=== PATIENT | female | born 1965 | race Caucasian/White ===

== ENCOUNTER 2020-03-21 13:57 | Outpatient (REF) | payer OTHER, SELFPAY | END 2020-03-21 13:58 | disposition home or self-care (01) | LOC: HO.LAB 13:57 | PROVIDERS: Visit Provider Internal Medicine | DX: Z20.828 Contact with and (suspected) exposure to other viral communicable diseases (principal) | CPT/HCPCS: C9803; U0003 ==

== ENCOUNTER 2024-03-27 15:30 | Outpatient (AMB) | payer BC, SELFPAY ==
--- NOTE | 2024-03-27 15:26 | MHC.PC.OV ---
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 Intake Note: New patient visit Services Account Manager Required: No Allergies bee pollen [BEE STINGS] Allergy (Unknown, Verified 03/27/24 15:27) ANAPHYLAXIS beeswax [BEESWAX] Allergy (Unknown, Verified 03/27/24 15:27) ANAPHYLAXIS Tobacco use date assessed: 03/27/24 Dental Screening Dental Screen Date: 03/27/24 Did you have a dental visit in the last 12 months?: No Did you have a dental problem in the last 6 months where you did not have access to dental care?: No Was dental information given to patient?: Patient has dentist HPI HPI Comments History of Present Illness Details This is a 58-year-old female with hyperlipidemia, type 2 diabetes, hypertension, migraine headaches, hepatic steatosis, hepatitis-C status post treatment in 2009, gastroparesis, thyroid nodules, asthma and lumbar spondylosis presenting for follow up. Her last physical exam was on 07/20/2023 at [facility] primary care with me. She is doing well. She is taking care of 2 of her grandchildren, a 2-year-old newly diagnosed with autism, and a 10-year-old. Patient says she was adopted, and she loves the kids very much and has no problem helping out with [facility] care. Hypertension-taking metoprolol XL 50 mg and lisinopril 10 mg daily. Her blood pressure is controlled on this regimen. She denies side effects. She has a history of PSVT. No recurrence on beta-daniel. She was released from cardiology follow up. She also reported having a negative stress test in the past. Denies chest pain or shortness of breath. Type 2 diabetes-hemoglobin A1c 7.2% in July, and today it is 8.5%. Eye exam up-to-date. No retinopathy. She is monitoring her blood glucose readings at home. She stopped having sugary snacks. She met with the staff educator. She was told by Dr. Pascual that she could not have bariatric surgery after her initial hernia repair, but she spoke about it with her letterset press set up operator who believe she could be a candidate for surgery. She would like a referral to [facility] weight loss management. Hyperlipidemia-taking atorvastatin 20 mg daily. She is due for blood work. Gastroparesis, Gamble's esophagus-previously followed by Gastroenterology, Dr. Galo. She had a CT scan of the abdomen and pelvis in July 2021 which was normal aside from hepatic steatosis. She had an upper endoscopy in June 2021 which was stable. History of hiatal hernia repair in 2015 at [facility]. She saw Gastroenterology at [facility] this year, and they recommended EGD and colonoscopy in another couple years. She is having another test to see if she actually does have gastroparesis as she does not really have symptoms of it, and it was thought that the large hiatal hernia may have been causing this. She is going to schedule her mammogram at [facility]. She received the Prevnar 20 vaccine in 07/2023. Patient said she had an injection site reaction that lasted a month, and she does not plan to receive this vaccine again. Influenza vaccine administered today. ROS: Constitutional: No unexplained weight loss, fever, chills, fatigue or night sweats. Respiratory: No shortness of breath Cardiovascular: No chest pain Gastrointestinal: No anorexia, nausea, vomiting or diarrhea. No abdominal pain Neurologic: No headache, dizziness, syncope Endocrine: No cold or heat intolerance. No polyuria or polydipsia. Physical exam: Constitutional: Alert, in no distress. Neck: Supple, Full range of motion. No lymphadenopathy. No palpable thyroid masses. Respiratory: Clear to auscultation. Cardiovascular: S1 S2 regular. No murmurs. Extremities: Warm and well perfused. No clubbing, cyanosis or edema. Psychiatric: Normal mood and affect [facility] Medical History (Updated 03/27/24 @ 17:01 by BO Spain) Asthma Rosacea Thyroid nodule Lung nodule PSVT (paroxysmal supraventricular tachycardia) History of hepatitis C Gastroparesis Barretts esophagus Adopted Hepatic steatosis Pure hypercholesterolemia Morbid obesity Migraines Essential hypertension Type II diabetes mellitus Carpal tunnel syndrome Hiatal hernia H/O mammogram Surgical History (Updated 03/27/24 @ 15:30 by Crystal Diggs CMA) Hx of spinal fusion H/O breast biopsy Family History (Updated 03/27/24 @ 15:39 by Crystal Diggs CMA) Other Family history unknown Social History (Updated 03/27/24 @ 15:37 by Crytsal Diggs CMA) Housing: House Alcohol intake: former Patient Tobacco Use Status: Never used Tobacco e-Cigarette/Vaping Use: Never Used Second Hand Smoke Exposure: No Substance Use Type: Former Substance User and Marijuana service: No Current occupational status: employed ([email or web address] ) Current occupational exposures/hazards: No Cognitive needs: No Hearing needs: No Vision needs: Yes (glasses) Questionnaire AUDIT C Alcohol Use Questionnaire (AUDIT-C) 1. How often do you have a drink containing alcohol?: Never (rarely, when camping.) 3. How often do you have six or more drinks on one occasion?: Never Total Score: 0 ACT Questionnaire In the past 4 weeks, how much of the time did your asthma keep you from getting as much done at work, school or at home?: Some of the time During the past 4 weeks, how often have you had shortness of breath?: More than once a day During the past 4 weeks, how often did your asthma symptoms wake you up at night or earlier than usual in the morning?: Not at all During the past 4 weeks, how often have you had to use your rescue inhaler or nebulizer medication?: More than 3 times per day How would you rate your asthma control during the past 4 weeks?: Somewhat controlled ACT Interpretation: Positive Score: 13 Physical exam (Primary Care) Vital Signs: Last Vital Signs Pulse 90 03/27/24 15:43 Resp 14 03/27/24 15:43 BP 104/62 03/27/24 15:43 Pulse Ox 97 03/27/24 15:43 Oxygen Delivery Method Room Air 03/27/24 15:43 BMI result Body Mass Index 42.4 Tobacco/Smoking Status: Tobacco use Status Tobacco use date assessed 03/27/24 03/27/24 15:30 Patient Tobacco Use Status Never used Tobacco 03/27/24 15:37 e-Cigarette/Vaping Use Never Used 03/27/24 15:37 Results AMB Hemoglobin A1c AMB Hemoglobin A1c 8.5 % Last Edit by Crystal Diggs CMA on 03/27/24 15:56 Results Reviewed Results Reviewed: Laboratory Last Values Hgb A1c (Clinic) 8.5 % (4.0-6.0) H 03/27/24 15:52 Coding Level of Care Code Est Pt Level 4 (41938) Complex EM visit Add On G2211 Diagnoses Pure hypercholesterolemia E78.00 Hepatic steatosis K76.0 Type II diabetes mellitus E11.9 Essential hypertension I10 Morbid obesity E66.01 Additional Codes Asthma Control Questionnaire - ACT Interpretation: Positive ([id number]) Assessment & Plan Assessment & Plan (1) Pure hypercholesterolemia: Code(s): E78.00 - Pure hypercholesterolemia, unspecified Category: Medical Plan: Check fasting lipid profile. Recommended the Mediterranean diet. Continue efforts at weight loss. Continue atorvastatin. (2) Hepatic steatosis: Code(s): K76.0 - Fatty (change of) liver, not elsewhere classified Category: Medical Plan: Monitor LFTs. Avoid alcohol. Continue statin and we are working on glycemic control. Low-cholesterol diet recommended. (3) Type II diabetes mellitus: Code(s): E11.9 - Type 2 diabetes mellitus without complications Category: Medical Plan: Start metformin extended release 500 mg daily for a week and then increase to 1000 mg daily. Side effects reviewed with the patient. She will contact the office if she has difficulty with the medication. Eye exam up-to-date. Low carbohydrate, low sugar diet recommended. Referred to weight loss management. We discussed GLP 1- if her new scan shows that she does not have gastroparesis she could be a good candidate for this medication. (4) Essential hypertension: Code(s): I10 - Essential (primary) hypertension Category: Medical Plan: Controlled. Continue current regimen. Recommended low-sodium diet and avoidance of caffeine. (5) Morbid obesity: Code(s): E66.01 - Morbid (severe) obesity due to excess calories Category: Medical Plan: Check fasting labs and refer to weight loss management. See above notes. Plan Follow up in 3 months for diabetes. Orders: Orders AMB Hemoglobin A1c Today E11.9 - Type 2 diabetes mellitus without complications Comprehensive Met. Panel Today E11.9 - Type 2 diabetes mellitus without complications, G43.909 - Migraine, unspecified, not intractable, without status migrainosus, I10 - Essential (primary) hypertension Complete Blood Count no Diff Today E11.9 - Type 2 diabetes mellitus without complications, G43.909 - Migraine, unspecified, not intractable, without status migrainosus, I10 - Essential (primary) hypertension Influenza [id number] Immunization Today Z23 - Encounter for immunization Lipid Panel Today E11.9 - Type 2 diabetes mellitus without complications, E78.5 - Hyperlipidemia, unspecified, G43.909 - Migraine, unspecified, not intractable, without status migrainosus, I10 - Essential (primary) hypertension TSH reflex Free T4 Today E11.9 - Type 2 diabetes mellitus without complications, G43.909 - Migraine, unspecified, not intractable, without status migrainosus, I10 - Essential (primary) hypertension Microalbumin, Random (w Creat) Today E11.9 - Type 2 diabetes mellitus without complications, G43.909 - Migraine, unspecified, not intractable, without status migrainosus, I10 - Essential (primary) hypertension Referrals Medical Weight Management Referral E66.01 - Morbid (severe) obesity due to excess calories Medications: New Fluarix Triv [id number] (PF) (flu vacc [id number] 6mos up(PF)) 0.5 mL IM ONCE 0.5 mL 0RF NS Z23 - Encounter for immunization amitriptyline 50 mg PO BEDTIME 90 tabs 3RF atorvastatin 20 mg PO DAILY 90 tabs 3RF topiramate Take with Topiramate 100 mg for a total daily dose of 125 mg. 25 mg PO DAILY 90 tabs 3RF metoprolol succinate ER 50 mg PO DAILY 90 tabs 3RF lisinopril 10 mg PO DAILY 90 tabs 3RF topiramate 100 mg PO DAILY 90 tabs 3RF sertraline 150 mg (1.5 x 100 mg) PO DAILY 135 tabs 3RF magnesium oxide 400 mg PO DAILY 90 tabs 3RF pantoprazole 40 mg PO DAILY 90 tabs 3RF metformin ER 1,000 mg (2 x 500 mg) PO DAILY 180 tabs 3RF
[2024-03-27 15:43] VITALS: BP 104/62; PULSE 90; RESP 14; O2SAT 97; BMI 42.4
== END 2024-03-27 16:31 | disposition home or self-care (01) ==
PROVIDERS: PCP Physician Assistant Medical; Visit Provider Physician Assistant Medical
DX: E78.00 Pure hypercholesterolemia, unspecified (principal); E11.9 Type 2 diabetes mellitus without complications; E66.01 Morbid (severe) obesity due to excess calories; Z68.41 Body mass index [BMI] 40.0-44.9, adult; K76.0 Fatty (change of) liver, not elsewhere classified; I10 Essential (primary) hypertension

== ENCOUNTER → 2024-03-27 15:30 | Outpatient (BNVA) | payer BC, SELFPAY | PROVIDERS: Visit Provider Physician Assistant Medical | DX: E78.00 Pure hypercholesterolemia, unspecified (principal); K76.0 Fatty (change of) liver, not elsewhere classified; E11.9 Type 2 diabetes mellitus without complications; I10 Essential (primary) hypertension; E66.01 Morbid (severe) obesity due to excess calories; Z68.41 Body mass index [BMI] 40.0-44.9, adult; Z79.899 Other long term (current) drug therapy | CPT/HCPCS: 83036; 96160 ==

== ENCOUNTER 2024-05-19 10:06 | Outpatient (AMB) | payer BC, SELFPAY ==
--- NOTE | 2024-05-19 10:56 | MHC.OFFWIV ---
Intake Vital Signs 05/19/24 11:01 Height 5 ft 3 in Weight 237 lb 2 oz BMI 42.0 BP 104/68 Blood Pressure Location Rt brachial Position Sitting Respiration 13 Pulse 100 Pulse Source Pulse Oximeter Temp 97.6 F Temp Source Oral Pulse Oximetry (%) 97 Oxygen Delivery Method Room Air Intake Visit Reasons: cough/ flu positive (xrays done at [facility]) Intake Note: Patient was seen at [facility] yesterday 05/18/23 but patient left. Patient complaining of coughing none stop it started Wednesday but got worse Wednesday. Patient Tobacco Use Status: Never used Tobacco Allergies bee pollen [BEE STINGS] Allergy (Unknown, Verified 05/19/24 11:10) ANAPHYLAXIS beeswax [BEESWAX] Allergy (Unknown, Verified 05/19/24 11:10) ANAPHYLAXIS Medication List - Last Reconciled 05/19/24 by Naty Lucero, [facility] amitriptyline 50 mg PO BEDTIME atorvastatin 20 mg PO DAILY budesonide-formoterol 80-4.5 mcg/actuation (Symbicort) inhalation lisinopril 10 mg PO DAILY magnesium oxide 400 mg PO DAILY metformin ER 1,000 mg (2 x 500 mg) PO DAILY metoprolol succinate ER 50 mg PO DAILY pantoprazole 40 mg PO DAILY sertraline 150 mg (1.5 x 100 mg) PO DAILY tiotropium bromide 1.25 mcg/actuation (Spiriva Respimat) 2 puffs inhalation DAILY topiramate 25 mg PO DAILY topiramate 100 mg PO DAILY Do you need a note to return to daycare/school/sports/work: Yes HPI HPI Comments History of Present Illness Details History of Present Illness The patient is a 58-year-old female presenting with influenza. She reports a diagnosis of influenza confirmed last night at [facility] and indicates severe and painful coughing, which significantly affects her ability to function normally and rest adequately. Pain from coughing has been substantial, and she describes difficulty in coughing due to the associated discomfort. She was seen previously, with a chest x-ray negative for pneumonia. The patient has not taken Tamiflu previously. She also suffers from diabetes mellitus and asthma, which are of concern regarding potential complications from the flu. She has expressed exhaustion and reported that she has not slept well since Wednesday. She is concerned about the interplay of diabetes and asthma with her current influenza condition. Social History - Patient works in [employer] projects related to [employer], with responsibilities for large-scale installations. - Significant work tenure of 25 years in the industry. - Utilizes vacation and time off for sick leave as needed. Physical Exam General: Awake, alert. No apparent distress Eyes: Sclera and conjunctiva clear bilaterally Nose: Nares patent, turbinates within normal limits, no sinus tenderness with palpation bilaterally Ears: Tympanic membranes intact and clear bilaterally Throat: Moist mucosa membrane, pharynx within normal limits Cardiovascular: Regular rate and rhythm Respiratory: Lungs sound okay now, clear to auscultation bilaterally, dry hacking cough w/o distress Results - Tests: Chest x-ray negative for pneumonia, Flu + @ [facility] records reviewed. Plan - Initiate Oseltamivir Tamiflu) 1 tablet twice daily for 5 days, beginning immediately. - Prescribe Benzonatate Tessalon for daytime cough management PRN - Provide a cough syrup containing codeine for nighttime use. - Advise continued use of antipyretics such as acetaminophen for fever management. - Recommend increased fluid intake over food consumption. - Issue a medical work note for absence and recovery period. Patient was informed and verbally consented to the use of an ambient scribe for clinic note documentation during this visit. Discussion Notes I discussed the influenza diagnosis and the management strategy with the patient, including starting Oseltamivir to limit viral replication and speed up recovery while reducing contagiousness. I explained the use of Benzonatate during the day and codeine syrup at night, instructing not to take them together to manage coughs effectively. We discussed the continuation of acetaminophen to control fever, highlighting the importance of maintaining hydration with fluids. I advised her on monitoring symptoms due to potential complications from diabetes and asthma, ensuring she returns if symptoms do not improve or worsen. We addressed the work absence, aligning her return with her recovery, extending through the , considering her longstanding work history and available leave. Patient Instructions - Start taking Tamiflu as soon as possible, 1 tablet twice a day for 5 days. - Use Tessalon for daytime cough management. - Take cough syrup with codeine at night or when resting. - Do not take Tessalon and the cough syrup together. - Continue using Tylenol to manage fever and aches. - Focus on staying hydrated with fluids rather than food. - Monitor symptoms, and contact the office if they worsen, especially concerning fever or difficulty breathing. - A formal work absence note has been provided, with a return scheduled for May 29. - Stay away from work until symptoms improve to avoid spreading the infection. - Use the portal for any follow-up note amendments if needed. Cont inhalers as directed and DM mgmt This note is constructed using voice recognition software. While every effort has been made to ensure accuracy in recycling attendant, still errors may have been included Sometimes, these errors may affect the content or meaning of the given sentence . Total time spent caring for the patient today was 30 minutes. This includes time spent before the visit reviewing the chart, time spent during the visit, and time spent after the visit on documentation PENDING SALE TO [facility] Medical History (Updated 05/19/24 @ 14:08 by Naty Lucero [facility]) Asthma Rosacea Thyroid nodule Lung nodule PSVT (paroxysmal supraventricular tachycardia) History of hepatitis C Gastroparesis Barretts esophagus Adopted Hepatic steatosis Pure hypercholesterolemia Morbid obesity Migraines Essential hypertension Type II diabetes mellitus Carpal tunnel syndrome Hiatal hernia H/O mammogram Surgical History (Updated 03/27/24 @ 15:30 by Crystal Diggs CMA) Hx of spinal fusion H/O breast biopsy Family History (Updated 03/27/24 @ 15:39 by Crystal Diggs CMA) Other Family history unknown Social History (Updated 03/27/24 @ 15:37 by Crystal Diggs CMA) Housing: House Alcohol intake: former Patient Tobacco Use Status: Never used Tobacco e-Cigarette/Vaping Use: Never Used Second Hand Smoke Exposure: No Substance Use Type: Former Substance User and Marijuana service: No Current occupational status: employed ([employer] ) Current occupational exposures/hazards: No Cognitive needs: No Hearing needs: No Vision needs: Yes (glasses) Physical Exam Vital Signs: Last Vital Signs Temp 97.6 F 05/19/24 11:01 Pulse 100 05/19/24 11:01 Resp 13 05/19/24 11:01 BP 104/68 05/19/24 11:01 Pulse Ox 97 05/19/24 11:01 Oxygen Delivery Method Room Air 05/19/24 11:01 BMI result Body Mass Index 42.0 Assessment & Plan Assessment & Plan (1) Hospital discharge follow-up: Code(s): Z09 - Encounter for follow-up examination after completed treatment for conditions other than malignant neoplasm (2) Influenza: Code(s): J11.1 - Influenza due to unidentified influenza virus with other respiratory manifestations (3) Type II diabetes mellitus: Code(s): E11.9 - Type 2 diabetes mellitus without complications Qualifiers: Diabetes mellitus [facility] insulin use: without director long term care use Diabetes mellitus complication status: without complication Qualified Code(s): E11.9 - Type 2 diabetes mellitus without complications (4) Asthma: Code(s): J45.909 - Unspecified asthma, uncomplicated Qualifiers: Asthma severity: mild Asthma persistence: intermittent Asthma complication type: uncomplicated Qualified Code(s): J45.20 - Mild intermittent asthma, uncomplicated Plan . Medications: New benzonatate 100 mg PO TID PRN 30 caps 1RF cough 10 days oseltamivir (Tamiflu) 75 mg PO Q12H 10 caps 0RF 5 days codeine-guaifenesin 10-100 mg/5 mL 10 mL PO ONCE PRN 70 mL 0RF cough 7 days Coding Level of Care Code Est Pt Level 4 (83445) Diagnoses Hospital discharge follow-up Z09 Influenza J11.1 Type 2 diabetes mellitus without complication, without long-term current use of insulin E11.9 Diabetes mellitus director long term care insulin use: without m[facility] use Diabetes mellitus complication status: without complication Mild intermittent asthma without complication J45.20 Asthma severity: mild Asthma persistence: intermittent Asthma complication type: uncomplicated
[2024-05-19 11:01] VITALS: BP 104/68; PULSE 100; RESP 13; TEMP 36.4; O2SAT 97; BMI 42.0
--- OUTSIDE RECORDS SUMMARY | 2024-05-19 11:21 | XMS_ITS ---
Author Name [facility] Organization Unknown History of Medication Use Medication Directions Dispensed Refills Start Date End Date Stat us EPINEPHrine 0.15 mg/0.3 mL IJ auto-injection Inject 0.6 mL (0.3 mg total) into the shoulder, thigh, or buttocks once as needed for allergic reaction. 10/16/2022 active albuterol (PROVENTIL HFA; VENTOLIN HFA) 108 (90 Base) MCG/ACT inhaler Inhale 2 puffs 4 times daily (every 6 hours) as needed for wheezing or shortness of breath. 10/16/2022 active Problems Problem Status Onset Date Problem Type Date of Resoluti on Source Migraine active 2013-10-25 ProblemAct [facility] Asthma active 2013-10-25 ProblemAct [facility] PSVT (paroxysmal supraventricular tachycardia) active 2020-07-30 ProblemAct [facility] Rosacea active 2013-10-25 ProblemAct [facility] Mixed hyperlipidemia active 2016-03-24 ProblemAct [facility] Allergic rhinitis active 2014-02-21 ProblemAct [facility] Screening for colon cancer active 2019-01-08 ProblemAct [facility] History of hepatitis C active 2016-03-24 ProblemAct [facility] Anxiety state active 2013-10-25 ProblemAct [facility] Functional diarrhea active 2019-01-04 ProblemAct [facility] Palpitations active 2020-07-30 ProblemAct [facility] Displacement of lumbar intervertebral disc without myelopathy active 2013-10-25 ProblemAct [facility] Low back pain active 2014-02-21 ProblemAct [facility] Insomnia active 2014-07-09 ProblemAct [facility] Chest pain active 2020-07-18 ProblemAct [facility] Gamble's esophagus without dysplasia active 2019-01-04 ProblemAct [facility] Thyroid nodule active 2020-01-[address] B12 deficiency active 2013-10-[address] Depressive disorder active 2014-05-28 ProblemAct [facility] Essential hypertension active 2020-07-30 ProblemAct [facility] Delayed gastric emptying active 2016-04-15 ProblemAct [facility] Pulmonary nodule active 2019-09-29 ProblemAct [facility] Status post laparoscopic Lizeth fundoplication active 2019-01-04 ProblemAct [facility] Prediabetes active 2016-03-24 ProblemAct [facility] Class 3 severe obesity due to excess calories without serious comorbidity with body mass index (BMI) of 40.0 to 44.9 in adult active 2018-03-01 ProblemAct [facility] Immunizations Vaccine Date Source Lot Number Status Influenza Inactivated/Split Preservative Free IM 06/13/2015 [facility] [id number] - FLUARIX 0.5 ML SYRINGE completed Influenza Inactivated/Split Preservative Free IM 03/01/2018 [facility] [id number] completed Influenza Inactivated/Split Preservative Free IM 03/07/2013 [facility] [id number] completed Tdap 08/15/2007 [facility] [id number] completed Influenza Inactivated/Split Preservative Free IM 02/20/2016 [facility] [id number] completed Influenza Inactivated/Split Preservative Free IM 03/09/2012 [facility] [id number] completed Influenza Inactivated/Split Preservative Free IM 03/25/2017 [facility] [id number] - FLUARIX 0.5 ML SYRINGE completed Tdap 07/16/2007 [facility] completed Influenza Inactivated/Split with Preservative IM 02/21/2014 [facility] [id number] completed Influenza Inactivated/Split Preservative Free IM 01/22/2010 [facility] [id number] completed Influenza Inactivated/Split Preservative Free IM 02/19/2011 [facility] [id number] completed
== END 2024-05-19 11:28 | disposition home or self-care (01) ==
LOC: HO.HMCWIW 10:06
PROVIDERS: PCP Physician Assistant Medical; Visit Provider Nurse Practitioner Family
DX: Z09 Encounter for follow-up examination after completed treatment for conditions other than malignant neoplasm (principal); J11.1 Influenza due to unidentified influenza virus with other respiratory manifestations; E11.9 Type 2 diabetes mellitus without complications; J45.20 Mild intermittent asthma, uncomplicated

== ENCOUNTER → 2024-05-19 10:06 | Outpatient (BNVA) | payer BC, SELFPAY | PROVIDERS: PCP Physician Assistant Medical; Visit Provider Nurse Practitioner Family ==

== ENCOUNTER 2024-06-01 08:28 | Outpatient (REF) | payer BC, SELFPAY ==
[2024-06-01 11:20] LABS: Hematocrit 41.4 % (37.0-47.0); Mean Corpuscular HGB Conc 31.4 g/dl (31.0-35.0); Mean Corpuscular Hemoglobin 25.8 pg (27.0-33.0); Mean Corpuscular Volume 82.3 fL (80.0-98.0); Mean Platelet Volume 10.2 fL (9.4-12.3); Platelet Count 250 X10*3/uL (160-400); Red Blood Count 5.03 X10*6/uL (4.20-5.50); Red Cell Distribution Width 13.9 % (11.0-16.0); White Blood Count 6.2 X10*3/uL (4.8-10.8)
[2024-06-01 11:46] LABS: Creatinine Urine 144.46 mg/dL; Microalbum/Creatinine Ratio Ur 4.1 ug/mg cr (<30)
[2024-06-01 12:40] LABS: Alanine Aminotransferase 27 U/L (0-31); Albumin Level 3.9 g/dL (3.5-5.0); Alkaline Phosphatase 60 U/L (39-117); Anion Gap 7 (12-20); Aspartate Amino Transferase 29 U/L (5-31); Bilirubin Total 0.2 mg/dL (0.0-1.0); Blood Urea Nitrogen 12 mg/dL (9-16); Calcium 8.8 mg/dL (8.4-10.2); Carbon Dioxide 26 mmol/L (22-29); Chloride 111 mmol/L (96-108); Cholesterol 136 mg/dL (<200); Estimated Glomerular Filt Rate > 60; Glucose Random 128 mg/dL (60-115); HDL Cholesterol 34 mg/dL (>40); LDL Cholesterol Calculated 66 mg/dL (<100); Potassium 4.3 mmol/L (3.3-5.1); Sodium 140 mmol/L (135-145); TSH reflex Free T4 0.47 uIU/mL (0.32-4.0); Total Protein 6.8 g/dL (6.5-8.0); Triglycerides 184 mg/dL (<150)
== END 2024-06-01 08:29 | disposition home or self-care (01) ==
LOC: HO.WFDLDS 08:28
PROVIDERS: Visit Provider Physician Assistant Medical
DX: E11.9 Type 2 diabetes mellitus without complications (principal); I10 Essential (primary) hypertension; G43.909 Migraine, unspecified, not intractable, without status migrainosus; E78.5 Hyperlipidemia, unspecified
CPT/HCPCS: 36415; 80053; 80061; 82043; 82570; 84443; 85027

== ENCOUNTER 2024-06-29 15:11 | Outpatient (AMB) | payer BC, SELFPAY ==
--- NOTE | 2024-06-29 15:14 | MHC.PC.OV ---
Vital Signs 06/29/24 15:17 Height 5 ft 3 in Weight 234 lb BMI 41.4 BP 142/71 H Blood Pressure Location Lt brachial Position Sitting Respiration 14 Pulse 89 Pulse Source Pulse Oximeter Temp 97.0 F Temp Source Temporal Artery Scan Pulse Oximetry (%) 98 Oxygen Delivery Method Room Air Intake Visit Reasons: 3 month fu Intake Note: 3 month follow up Flame Hardening Machine Operator Required: No Allergies pneumococcal vaccine [From Prevnar 20 (PF)] Allergy (Mild, Verified 06/30/24 08:43) Other bee pollen [BEE STINGS] Allergy (Unknown, Verified 06/29/24 15:15) ANAPHYLAXIS beeswax [BEESWAX] Allergy (Unknown, Verified 06/29/24 15:15) ANAPHYLAXIS Tobacco use date assessed: 06/29/24 Dental Screening Dental Screen Date: 06/29/24 Did you have a dental visit in the last 12 months?: Yes Did you have a dental problem in the last 6 months where you did not have access to dental care?: No Was dental information given to patient?: Patient has dentist HPI HPI Comments History of Present Illness Details This is a 59-year-old female with hyperlipidemia, type 2 diabetes, hypertension, migraine headaches, hepatic steatosis, hepatitis-C status post treatment in 2009, gastroparesis, thyroid nodules, asthma and lumbar spondylosis presenting for follow up. The patient had influenza and was treated with Tamiflu in May. She is doing a lot better, but her asthma is still more active than typically, and she is still tired. She still has a dry cough and rarely wheezing. Using her rescue inhaler helps. She is followed by pulmonology. She is on Spiriva and Symbicort. She denies fevers, chills, chest pain, sputum production, shortness of breath. Hypertension-taking metoprolol XL 50 mg and lisinopril 10 mg daily. Her blood pressure has been doing well on this regimen, but it is a little elevated today which she suspects is due to coughing. She denies side effects. She has a history of PSVT. No recurrence on beta-daniel. She was released from cardiology follow up. She also reported having a negative stress test in the past. Denies chest pain or shortness of breath. Type 2 diabetes-hemoglobin A1c 7.1% down from 8.5%.. She is going to schedule her eye exam. No retinopathy. She is monitoring her blood glucose readings at home. Blood sugars are between 140 and 200 usually. Occasionally it will go up to 240 if she has something very sugary. She met with the software verification engineer. Hyperlipidemia-taking atorvastatin 20 mg daily. LDL at goal. Gastroparesis, Gamble's esophagus-previously followed by Gastroenterology, Dr. Galo. She had a CT scan of the abdomen and pelvis in July 2021 which was normal aside from hepatic steatosis. She had an upper endoscopy in June 2021 which was stable. History of hiatal hernia repair in 2016 at [facility]. Now followed by Gastroenterology at [facility]. She scheduled her mammogram at [facility]. She received the Prevnar 20 vaccine in 07/2023. Patient said she had an injection site reaction that lasted a month, and she does not plan to receive this vaccine again. She received the seasonal influenza vaccine. ROS: Constitutional: No unexplained weight loss, fever, chills or night sweats. Eyes: No vision changes, blurry vision, double vision, eye pain, eye redness, eye discharge. ENT: No hearing loss, sneezing, congestion, runny nose or sore throat. Respiratory: See HPI Cardiovascular: No chest pain, chest pressure or chest discomfort. No palpitations or pedal edema. Neurologic: No headache, dizziness, syncope, unilateral weakness, ataxia, numbness or tingling in the extremities. Endocrine: No cold or heat intolerance. No polyuria or polydipsia. Physical exam: Constitutional: Alert, in no distress. Head: Normocephalic. Eyes: Pupils are equal, round and reactive to light. Extraocular muscles intact. Ear, Nose and Throat: Canals without erythema or swelling. TMs normal. Normal nasal mucosa. No nasal discharge. No oral lesions. Neck: Supple, Full range of motion. No lymphadenopathy. Respiratory: Clear to auscultation. Cardiovascular: S1 S2 regular. No murmurs. Gastrointestinal: Abdomen soft, non-tender, non-distended. Normal bowel sounds. No palpable masses. Extremities: Warm and well perfused. No clubbing, cyanosis or edema. [facility] Medical History (Updated 06/30/24 @ 08:47 by BO Spain) Mild asthma exacerbation Asthma Rosacea Thyroid nodule Lung nodule PSVT (paroxysmal supraventricular tachycardia) History of hepatitis C Gastroparesis Barretts esophagus Adopted Hepatic steatosis Pure hypercholesterolemia Morbid obesity Migraines Essential hypertension Type II diabetes mellitus Carpal tunnel syndrome Hiatal hernia H/O mammogram Surgical History (Updated 03/27/24 @ 15:30 by Crystal Diggs CMA) Hx of spinal fusion H/O breast biopsy Family History (Updated 03/27/24 @ 15:39 by Crystal Diggs CMA) Other Family history unknown Social History (Updated 03/27/24 @ 15:37 by Crystal Diggs CMA) Housing: House Alcohol intake: former Patient Tobacco Use Status: Never used Tobacco e-Cigarette/Vaping Use: Never Used Second Hand Smoke Exposure: No Substance Use Type: Former Substance User and Marijuana service: No Current occupational status: employed ([employer] ) Current occupational exposures/hazards: No Cognitive needs: No Hearing needs: No Vision needs: Yes (glasses) Questionnaire PHQ-9 Over the last 2 weeks, how often have you been bothered by any of the following problems? 86834 - PHQ-9 Billing: Patient declined-do not bill Source: Developed by Drs. Rigoberto Frazier, America Salguero, Alistair Burleson and colleagues, with an educational sanaz from [employer]. Thrive Questionnaire Date Thrive assessed: 06/29/24 I am a: Patient What is your living situation today?: I have a steady place to live Within the past 12 months, did the food you bought not last and you didn't have the money to get more?: Never true Within the past 12 months, did you worry whether your food would run out before you got money to buy more?: Never true Do you have trouble paying for medicines?: No Do you have trouble getting transportation to medical appointments?: No Do you have trouble paying your heating and electricity bill?: No Do you have trouble taking care of your child, family member or friend?: No Do you have trouble with day-to-day activities such as bathing, preparing meals, shopping, managing finances, etc.?: No Are you currently unemployed and looking for a job?: No Are you interested in more education?: No Please select the resources that you would like help with: None Currently or been in a relationship where the following occur: No concerns reported THRIVE Score: 0 AUDIT C Alcohol Use Questionnaire (AUDIT-C) 1. How often do you have a drink containing alcohol?: Never Total Score: 0 RICHARD-7 AMB Questionnaire RICHARD-7 Date RICHARD - 7 assessed: 06/29/24 Feeling nervous, anxious, or on edge: 0 = Not at all Not being able to stop or control worryin = Not at all Worrying too much about different things: 0 = Not at all Trouble relaxin = Several days Being so restless that it is hard to sit still: 0 = Not at all Becoming easily annoyed or irritable: 1 = Several days Feeling afraid as if something awful might happen: 0 = Not at all Total RICHARD-7 score (0-4 normal; 5-9 mild; 10-14 moderate; 15-21 severe): 2 Source: Developed by Drs. Rigoberto Frazier, America Salguero, Alistair Burleson and colleagues, with an educational sanaz from [employer]. Physical exam (Primary Care) Vital Signs: Last Vital Signs Temp 97.0 F 06/29/24 15:17 Pulse 89 06/29/24 15:17 Resp 14 06/29/24 15:17 BP 142/71 H 06/29/24 15:17 Pulse Ox 98 06/29/24 15:17 Oxygen Delivery Method Room Air 06/29/24 15:17 BMI result Body Mass Index 41.4 Tobacco/Smoking Status: Tobacco use Status Tobacco use date assessed 06/29/24 06/29/24 15:17 Patient Tobacco Use Status Never used Tobacco 06/29/24 15:15 e-Cigarette/Vaping Use Never Used 06/29/24 15:15 Thrive Assessment: Date of Thrive Assessment Date Thrive assessed 06/29/24 06/29/24 15:15 Currently or been in a relationship where the following occur: No concerns reported Results AMB Hemoglobin A1c AMB Hemoglobin A1c 7.1 % Last Edit by Patience Gallagher MA on 06/29/24 15:46 Results Reviewed Results Reviewed: Laboratory Last Values Hgb A1c (Clinic) 7.1 % (4.0-6.0) H 06/29/24 15:36 Laboratory Tests 06/01/24 06/01/24 06/29/24 08:30 08:35 15:36 Creatinine 0.77 Estimated GFR > 60 Hgb A1c (Clinic) 7.1 H AST 29 ALT 27 Triglycerides 184 H Cholesterol 136 LDL Cholesterol, Calc 66 HDL Cholesterol 34 L TSH 0.47 Urine Creatinine 144.46 Urine Microalbumin 6.0 Microalb/Creat Ratio 4.1 Coding Level of Care Code Est Pt Level 4 (29555) Complex EM visit Add On G2211 Diagnoses Pure hypercholesterolemia E78.00 Hepatic steatosis K76.0 Type 2 diabetes mellitus without complication, without long-term current use of insulin E11.9 Diabetes mellitus complication status: without complication Diabetes mellitus termite inspector insulin use: without termite inspector use Essential hypertension I10 Mild asthma exacerbation J45.901 Assessment & Plan Assessment & Plan (1) Pure hypercholesterolemia: Code(s): E78.00 - Pure hypercholesterolemia, unspecified Category: Medical Plan: Recommended Mediterranean diet. Continue statin. Continue efforts at weight loss. Decrease carbohydrates and sugars and increase exercise to improve triglycerides and HDL cholesterol. (2) Hepatic steatosis: Code(s): K76.0 - Fatty (change of) liver, not elsewhere classified Category: Medical Plan: Monitor LFTs. Avoid alcohol. Continue statin and we are working on glycemic control. Low-cholesterol diet recommended. (3) Type II diabetes mellitus: Code(s): E11.9 - Type 2 diabetes mellitus without complications Category: Medical Qualifiers: Diabetes mellitus complication status: without complication Diabetes mellitus termite inspector insulin use: without [facility] use Qualified Code(s): E11.9 - Type 2 diabetes mellitus without complications Plan: Continue metformin extended release. Add glipizide ER 2.5 mg daily. Reviewed rule of 15s for hypoglycemia. If you experience low blood sugar, treat this by eating a chewable fruit candy like skittles or jelly beans (about 8 pieces), 4 ounces (1/2 cup) of fruit juice (not diet), 1 tablespoon of honey or 4 glucose tablets. Recheck your blood sugar in 15 minutes. Schedule eye exam. Low carbohydrate, low sugar diet recommended. Referred to weight loss management. (4) Essential hypertension: Code(s): I10 - Essential (primary) hypertension Category: Medical Plan: Monitor. Call if blood pressure readings are persistently over 130/80. Recommended low-sodium diet and avoidance of caffeine. (5) Mild asthma exacerbation: Code(s): J45.901 - Unspecified asthma with (acute) exacerbation Category: Medical Plan: Continue Symbicort, Spiriva and albuterol. Burst of prednisone 50 mg daily x5 days. Monitor blood pressure and blood sugars and call the office if blood pressure is greater than 150/90 or blood sugar is over 250. Administer prednisone with food. Do not take this with NSAIDs. Side effects reviewed in detail. Advised patient to contact the office or call her product support sales representative if symptoms do not resolve and go to the ER if she develops worsening symptoms including worsening wheezing, shortness of breath, chest pain, fevers and chills. Plan Follow up in 3 months for diabetes. Orders: Orders Comprehensive Met. Panel Today E11.9 - Type 2 diabetes mellitus without complications, E78.00 - Pure hypercholesterolemia, unspecified Vitamin B12 Today E11.9 - Type 2 diabetes mellitus without complications, E78.00 - Pure hypercholesterolemia, unspecified, Z91.89 - Other specified personal risk factors, not elsewhere classified AMB Hemoglobin A1c 06/29/24 Z13.9 - Encounter for screening, unspecified Complete Blood Count no Diff Today E11.9 - Type 2 diabetes mellitus without complications, E78.00 - Pure hypercholesterolemia, unspecified Hemoglobin A1c Today E11.9 - Type 2 diabetes mellitus without complications, E78.00 - Pure hypercholesterolemia, unspecified Lipid Panel Today E11.9 - Type 2 diabetes mellitus without complications, E78.00 - Pure hypercholesterolemia, unspecified, E78.5 - Hyperlipidemia, unspecified Referrals Ophthalmology Referral E11.9 - Type 2 diabetes mellitus without complications, Z01.00 - Encounter for examination of eyes and vision without abnormal findings Medications: New prednisone 50 mg PO DAILY 5 tabs 0RF glipizide ER 2.5 mg PO DAILY 90 tabs 3RF glucose (Dex4 Glucose) until blood sugar is >70 16 grams (4 x 4 gram) PO Q15M PRN 10 tabs 3RF hypoglycemia (hipoglucemia) Discontinued oseltamivir (Tamiflu) Discontinued Reason: Doctor's Order 75 mg PO Q12H 5 days 10 caps 0RF
--- OUTSIDE RECORDS SUMMARY | 2024-06-29 15:16 | XMS_ITS | Encounter Summary ---
Author Organization [facility] Address [address] [place] [address] Care Team Providers Care Duct Layer Name Role Phone Jadon Devlin MD Unavailable [phone] Reason for Visit * Reason Comments Medication Refill Encounter Details Date Type Department Care Team (Late st Contact Info) Description 11/09/[address] [id number] Marii Woods MD [address] [place] [address] Essential hypertension Social History Tobacco Use Types Packs/Day Years Used Date Smoking Tobacco: Never Smokeless Tobacco: Never Alcohol Use Standard Drinks/Week Comments No 0 (1 standard drink = 0.6 oz pur e alcohol) PHQ-2 Answer Date Recorded PHQ-2 Total Score 0 03/13/2020 Sex and Gender Information Value Date Recorded Sex Assigned at Not on file Gender Identity Not on file Sexual Orientation Not on file documented as of this encounter Miscellaneous Notes * Telephone Encounter - Yesenia Nguyen LPN - 11/09/2021 9:47 PM EDT Pt no longer our pt documented in this encounter Plan of Treatment Not on file documented as of this encounter Visit Diagnoses Diagnosis Essential hypertension Unspecified essential hypertension documented in this encounter Care Teams Duct Layer Relationship Specialty Start Date End Date Jadon Devlin MD 21 [facility] 100 [place] [address] Gastroenterology 09/29/19 documented as of this encounter
--- OUTSIDE RECORDS SUMMARY | 2024-06-29 15:16 | XMS_ITS | Encounter Summary ---
Author Organization [facility] Address [address] [place] [address] Care Team Providers Care Oiling Machine Operator Name Role Phone Michelle Mccoy DO Primary Care Provider [phone] Shanika Hillman MD Primary Care Provider [phone] Shanika Hillman MD Unavailable [phone] Jadon Devlin MD Unavailable [phone] Marii Woods MD Primary Care Provider + [phone] Pcp, No Primary Care Provider Unavailolivia e Marii Woods MD Unavailable [phone] Marii Woods MD Primary Care Provider [phone] Marii Woods MD Unavailable [phone] Encounter Details Date Type Department Care Team (Late st Contact Info) Description 11/01/2016 Scanned Document [address] [id number] Provider, Generic Social History Tobacco Use Types Packs/Day Years Used Date Smoking Tobacco: Never Alcohol Use Standard Drinks/Week Comments Not Asked 0 (1 standard drink = 0.6 oz pur e alcohol) Sex and Gender Information Value Date Recorded Sex Assigned at Not on file Gender Identity Not on file Sexual Orientation Not on file documented as of this encounter Plan of Treatment Not on file documented as of this encounter Visit Diagnoses Not on filedocumented in this encounter Care Teams Oiling Machine Operator Relationship Specialty Start Date End Date Michelle Mccoy DO PCP - General Family Medicine 02/03/16 12/28/17 Shanika Hillman MD PCP - General Internal Medicine 12/29/17 09/28/19 Shanika Hillman MD [address] [place] [address] [address] [place] [address] PCP - [employer] Commercial Attributed 02/14/19 05/16/19 Marii Woods MD [address] [facility] [place] [address] PCP - General Internal Medicine 09/29/19 01/22/20 Pcp, No PCP - General 01/23/20 03/06/20 Marii Woods MD [address] [place] [address] PCP - [employer] Commercial Attributed 10/16/19 04/15/20 Marii Woods MD [address] [place] [address] PCP - General Internal Medicine 03/07/20 08/07/21 Marii Woods MD [address] [place] [address] PCP - [employer] Commercial Attributed 08/15/20 05/16/21 Jadon Devlin MD [address] [place] [address] 100 [place] [address] Gastroenterology 09/29/19 documented as of this encounter
--- OUTSIDE RECORDS SUMMARY | 2024-06-29 15:16 | XMS_ITS | Encounter Summary ---
Author Organization [facility] Address [address] [place] [address] Care Team Providers Care Dining Car Conductor Name Role Phone Shanika Hillman MD Primary Care Provider Shanika Hillman MD Unavailable [phone] Jadon Devlin MD Unavailable [phone] Marii Woods MD Primary Care Provider [phone] Pcp, No Primary Care Provider Unavailolivia e Marii Woods MD Unavailable [phone] Marii Woods MD Primary Care Provider [phone] Marii Woods MD Unavailable [phone] Encounter Details Date Type Department Care Team (Late st Contact Info) Description 01/09/[address] [facility] [address] [facility] [address] [place] [id number] Jadon Devlin MD [address] [place] [address] [address] [place] [address] Social History Tobacco Use Types Packs/Day Years [...] on file documented as of this encounter Procedures Procedure Name Priority Date/Time Associated Diagnosis Comments PATHOLOGY REPORT 01/09/2019 12:0 0 AM EDT documented in this encounter Results * (REPORT) PATHOLOGY REPORT (01/09/2019 12:00 AM EDT) Jadon Devlin MD PATHOLOGY/CYTOLOGY O RDERABLES documented in this encounter Visit Diagnoses Not on filedocumented in this encounter Care Teams Dining Car Conductor Relationship Specialty Start Date End Date Shanika Hillman MD PCP - General Internal Medicine 12/29/17 09/28/19 Shanika Hillman MD [address] [facility] [address] [place] [address] PCP - [employer] Commercial Attributed 02/14/19 05/16/19 Marii Woods MD [address] [place] [address] PCP - General Internal Medicine 09/29/19 01/22/20 Pcp, No PCP - General 01/23/20 03/06/20 Marii Woods MD [address] [facility] [address] PCP - [employer] Commercial Attributed 10/16/19 04/15/20 Marii Woods MD [address] [facility] [address] PCP - General Internal Medicine 03/07/20 08/07/21 Marii Woods MD [address] [facility] [address] PCP - [employer] Commercial Attributed 08/15/20 05/16/21 Jadon Devlin MD 21 [facility] 100 [place] [address] Gastroenterology 09/29/19 documented as of this encounter
--- OUTSIDE RECORDS SUMMARY | 2024-06-29 15:16 | XMS_ITS | Encounter Summary ---
Author Organization [facility] Address [address] [place] [address] Care Team Providers Care Gasoline Power Shovel Operator Name Role Phone Shanika Hillman MD Primary Care Provider [phone] Jadon Devlin MD Unavailable [phone] Marii Woods MD Primary Care Provider [phone] Pcp, No Primary Care Provider UnavailMarii Dominguez MD Unavailable [phone] Marii Woods MD Primary Care Provider [phone] Marii Woods MD Unavailable [phone] Reason for Visit * Reason Comments Medication Refill Encounter Details Date Type Department Care Team (Late st Contact Info) Description 06/02/[address] [phone] Shnaika Hillman MD [address] [place] [address] Gastroesophageal reflux disease without esophagitis Social History Tobacco Use Types Packs/Day Years [...] as of this encounter Visit Diagnoses Diagnosis Gastroesophageal reflux disease without esophagitis Esophageal reflux documented in this encounter Care Teams Gasoline Power Shovel Operator Relationship Specialty Start Date End Date Shanika Hillman MD PCP - General Internal Medicine 12/29/17 09/28/19 Marii Woods MD [address] [place] [address] PCP - General Internal Medicine 09/29/19 01/22/20 Pcp, No PCP - General 01/23/20 03/06/20 Marii Woods MD [address] [place] [address] PCP - [employer] Commercial Attributed 10/16/19 04/15/20 Marii Woods MD [address] [place] [address] PCP - General Internal Medicine 03/07/20 08/07/21 Marii Woods MD [address] [place] [address] PCP - [employer] Commercial Attributed 08/15/20 05/16/21 Jadon Devlin MD [address] [place] [address] 100 [place] [address] Gastroenterology 09/29/19 documented as of this encounter
--- OUTSIDE RECORDS SUMMARY | 2024-06-29 15:16 | XMS_ITS | Encounter Summary ---
Author Organization [facility] Address [address] [place] [address] Care Team Providers Care Cupola Charger Name Role Phone Shanika Hillman MD Primary Care Provider [phone] Shnaika Hillman MD Unavailable [phone] Jadon Devlin MD Unavailable [phone] Marii Woods MD Primary Care Provider Pcp, No Primary Care Provider Unavailolivia e Marii Woods MD Unavailable [phone] Marii Woods MD Primary Care Provider [phone] Marii Woods MD Unavailable [phone] Encounter Details Date Type Department Care Team (Late st Contact Info) Description 03/27/2019 Scanned Document [address] [phone] Shanika Hillman MD [facility] [place] [address] Social History Tobacco Use Types Packs/Day Years [...] on filedocumented in this encounter Care Teams Cupola Charger Relationship Specialty Start Date End Date Shanika Hillman MD PCP - General Internal Medicine 12/29/17 09/28/19 Shanika Hillman MD 234 [facility] [address] [place] [address] PCP - [employer] Commercial Attributed 02/14/19 05/16/19 Marii Woods MD [address] [facility] [place] [address] PCP - General Internal Medicine 09/29/19 01/22/20 Pcp, No PCP - General 01/23/20 03/06/20 Marii Woods MD [address] [facility] [place] [address] PCP - [employer] Commercial Attributed 10/16/19 04/15/20 Marii Woods MD [address] [facility] [place] [address] PCP - General Internal Medicine 03/07/20 08/07/21 Marii Woods MD [address] [facility] [place] [address] PCP - [employer] Commercial Attributed 08/15/20 05/16/21 Jadon Devlin MD [address] [place] [address] Rd [facility] 100 [place] [address] Gastroenterology 09/29/19 documented as of this encounter
--- OUTSIDE RECORDS SUMMARY | 2024-06-29 15:16 | XMS_ITS | Encounter Summary ---
Author Organization [facility] Address [address] [place] [address] Care Team Providers Care Principal Cyber Engineer Name Role Phone aJdon Devlin MD Unavailable [phone] Marii Woods MD Primary Care Provider [phone] Reason for Visit * Reason Comments Medication Refill Encounter Details Date Type Department Care Team (Late st Contact Info) Description 06/05/[address] [phone] Marii Woods MD [address] [place] [address] Other depression; Chronic migraine without aura, with intractable migraine, so stated, with status migrainosus; Other migraine without status migrainosus, not intractable Social History Tobacco Use Types Packs/Day Years [...] encounter Miscellaneous Notes * Telephone Encounter - Marii Woods MD - 06/07/2021 8:33 AM EST meds refilled for now but needs to have a 2021 follow up or physical on the schedule for ongoing refills. - Also remind that rpt b12 level is on order at [facility] documented in this encounter Plan of Treatment Not on file documented as of this encounter Visit Diagnoses Diagnosis Other depression Chronic migraine without aura, with intractable migraine, so stated, with status migrainosus Other migraine without status migrainosus, not intractable documented in this encounter Care Teams Principal Cyber Engineer Relationship Specialty Start Date End Date Marii Woods MD [address] [place] [address] PCP - General Internal Medicine 03/07/20 08/07/21 Jadon Devlin MD [address] [address] Gastroenterology 09/29/19 documented as of this encounter
--- OUTSIDE RECORDS SUMMARY | 2024-06-29 15:16 | XMS_ITS | Encounter Summary ---
Author Organization [facility] Address [address] [place] [address] Care Team Providers Care Reheat Furnace Operator Name Role Phone Jadon Devlin MD Unavailable [phone] Marii Woods MD Primary Care Provider + [phone] Pcp, No Primary Care Provider Unavailabl e Marii Woods MD Unavailable [phone] Marii Woods MD Primary Care Provider + [phone] Marii Woods MD Unavailable +[phone] Reason for Visit * Reason Comments Medication Refill Encounter Details Date Type Department Care Team (Late st Contact Info) Description 10/26/2019 Refill [facility] [address] [place] [phone] Barbara Garner, METAL BENCH PATTERNMAKER [address] [place], [place] [address] Other migraine without status migrainosus, not intractable; Chronic migraine without aura, with intractable migraine, so stated, with status migrainosus; Other depression Social History Tobacco Use Types Packs/Day Years Used Date Smoking Tobacco: Never Smokeless Tobacco: Never Alcohol Use Standard Drinks/Week Comments No 0 (1 standard drink = 0.6 oz pur e alcohol) Sex and Gender Information Value Date Recorded Sex Assigned at Not on file Gender Identity Not on file Sexual Orientation Not on file COVID-19 Exposure Response Date Recorded In the last month, have you been in contact with someone who was confirmed or suspected to have Coronavirus / COVID-19? No / Unsure 09/27/2019 11:02 AM EDT documented as of this encounter Plan of Treatment Not on file documented as of this encounter Visit Diagnoses Diagnosis Other migraine without status migrainosus, not intractable Chronic migraine without aura, with intractable migraine, so stated, with status migrainosus Other depression documented in this encounter Care Teams Reheat Furnace Operator Relationship Specialty Start Date End Date Marii Woods MD 1060 [place] [address] PCP - General Internal Medicine 09/29/19 01/22/20 Pcp, No PCP - General 01/23/20 03/06/20 Marii Woods MD 1060 [place] [address] PCP - Cigna Commercial Attributed 10/16/19 04/15/20 Marii Woods MD 1060 [place] [address] PCP - General Internal Medicine 03/07/20 08/07/21 Marii Woods MD 10[address] [place] [address] PCP - Cigna Commercial Attributed 08/15/20 05/16/21 Jadon Devlin MD [address] [address] Gastroenterology 09/29/19 documented as of this encounter
--- OUTSIDE RECORDS SUMMARY | 2024-06-29 15:16 | XMS_ITS | Encounter Summary ---
Author Organization [facility] Address [address] [place], [place] [id number] Care Team Providers Care Tool Dresser Name Role Phone Jadon Devlin MD Unavailable [phone] Marii Woods MD Primary Care Provider +[phone] Marii Woods MD Unavailable [phone] Encounter Details Date Type Department Care Team (Late st Contact Info) Description 01/24/2021 Scanned Document [address] [phone] Marii Woods MD [address] [place] [id number] Social History Tobacco Use Types Packs/Day Years [...] on filedocumented in this encounter Care Teams Tool Dresser Relationship Specialty Start Date End Date Marii Woods MD [address] [place] [address] PCP - General Internal Medicine 03/07/20 08/07/21 Marii Woods MD [address] [place] [address] PCP - Cigna Commercial Attributed 08/15/20 05/16/21 Jadon Devlin MD 21 [facility] [address] [place] [address] Gastroenterology 09/29/19 documented as of this encounter
--- OUTSIDE RECORDS SUMMARY | 2024-06-29 15:16 | XMS_ITS | Encounter Summary ---
Author Organization [facility] Address [address] [place] [address] Care Team Providers Care Purifying Plant Operator Name Role Phone Shanika Hillman MD Primary Care Provider [phone] Shanika Hillman MD Unavailable [phone] Jadon Devlin MD Unavailable [phone] Marii Woods MD Primary Care Provider + [phone] Pcp, No Primary Care Provider Unavailolivia e Marii Woods MD Unavailable +[phone] Marii Woods MD Primary Care Provider + [phone] Marii Woods MD Unavailable [phone] Encounter Details Date Type Department Care Team (Late st Contact Info) Description 10/15/2018 Scanned Document [address] [phone] Provider, Generic Social History Tobacco Use Types [...] on filedocumented in this encounter Care Teams Purifying Plant Operator Relationship Specialty Start Date End Date Shanika Hillman MD PCP - General Internal Medicine 12/29/17 09/28/19 Shanika Hillman MD [facility] [address] [place] [address] PCP - Cigna Commercial Attributed 02/14/19 05/16/19 Marii Woods MD [address] [place] [address] PCP - General Internal Medicine 09/29/19 01/22/20 Pcp, No PCP - General 01/23/20 03/06/20 Marii Woods MD [address] [place] [address] PCP - Cigna Commercial Attributed 10/16/19 04/15/20 Marii Woods MD [address] [place] [address] PCP - General Internal Medicine 03/07/20 08/07/21 Marii Woods MD [address] [place] [address] PCP - Cigna Commercial Attributed 08/15/20 05/16/21 Jadon Devlin MD 21 [facility] 100 [place] [address] Gastroenterology 09/29/19 documented as of this encounter
--- OUTSIDE RECORDS SUMMARY | 2024-06-29 15:16 | XMS_ITS | Encounter Summary ---
Author Organization [facility] Address [address] [place] [address] Care Team Providers Care Assembler Golf Wood Head Name Role Phone Naty Rendon MD Primary Care Provider Michelle Mccoy DO Primary Care Provider [phone] Shanika Hillman MD Primary Care Provider +[phone] Shanika Hillman MD Unavailable [phone] Jadon Devlin MD Unavailable +[phone] Marii Woods MD Primary Care Provider [phone] Pcp, No Primary Care Provider Unavailolivia e Marii Woods MD Unavailable +[phone] Marii Woods MD Primary Care Provider Marii Woods MD Unavailable [phone] Encounter Details Date Type Department Care Team (Late st Contact Info) Description 08/21/2015 Scanned Document [facility] [address] [place] [address] Naty Rendon MD [facility] [address] [place] [address] Social History Tobacco Use Types Packs/Day [...] on filedocumented in this encounter Care Teams Assembler Golf Wood Head Relationship Specialty Start Date End Date Naty Rendon MD PCP - General Internal Medicine 03/18/15 02/02/16 Michelle Mccoy DO PCP - General Family Medicine 02/03/16 12/28/17 Shanika Hillman MD PCP - General Internal Medicine 12/29/17 09/28/19 Shanika Hillman MD [address] [place] [address] [place] [address] PCP - Cigna Commercial Attributed 02/14/19 05/16/19 Marii Woods MD 1060 [place] [address] PCP - General Internal Medicine 09/29/19 01/22/20 Pcp, No PCP - General 01/23/20 03/06/20 Marii Woods MD 1060 [facility] [place] [address] PCP - Cigna Commercial Attributed 10/16/19 04/15/20 Marii Woods MD [address]60 [facility] [place] [address] PCP - General Internal Medicine 03/07/20 08/07/21 Marii Woods MD [address] [place] [address] PCP - Cigna Commercial Attributed 08/15/20 05/16/21 Jadon Devlin MD 21 [facility] 100 [place] [address] Gastroenterology 09/29/19 documented as of this encounter
--- OUTSIDE RECORDS SUMMARY | 2024-06-29 15:16 | XMS_ITS | Encounter Summary ---
Author Organization [facility] Address [address] [place] [address] Care Team Providers Care Manager Combination Name Role Phone Jadon Devlin MD Unavailable [phone] Marii Woods MD Primary Care Provider [phone] Reason for Visit * Reason Comments Medication Refill Encounter Details Date Type Department Care Team (Late st Contact Info) Description 08/05/[address] [phone] Marii Woods MD [address] [place] [phone] Essential hypertension Social History Tobacco Use Types [...] Telephone Encounter - Marii Woods MD - 08/08/2021 3:14 PM EDT TRANSFERRING TO NEW PCP documented in this encounter Plan of Treatment Not on file documented as of this encounter Visit Diagnoses Diagnosis Essential hypertension Unspecified essential hypertension documented in this encounter Care Teams Manager Combination Relationship Specialty Start Date End Date Marii Woods MD [address] [place] [address] PCP - General Internal Medicine 03/07/20 08/07/21 Jadon Devlin MD [address] [address] Gastroenterology 09/29/19 documented as of this encounter
--- OUTSIDE RECORDS SUMMARY | 2024-06-29 15:16 | XMS_ITS | Encounter Summary ---
Author Organization [facility] Address [address] [place] [address] Care Team Providers Care Garage Manager Name Role Phone Michelle Mccoy DO Primary Care Provider [phone] Shanika Hillman MD Primary Care Provider [phone] Shanika Hillman MD Unavailable [phone] Jadon Devlin MD Unavailable [phone] Marii Woods MD Primary Care Provider + [phone] Pcp, No Primary Care Provider Unavailolivia e Marii Woods MD Unavailable [phone] Marii Woods MD Primary Care Provider [phone] Marii Wodos MD Unavailable [phone] Encounter Details Date Type Department Care Team (Late st Contact Info) Description 05/19/2016 Scanned Document [address] [phone] Provider, Generic Social History Tobacco Use Types [...] on filedocumented in this encounter Care Teams Garage Manager Relationship Specialty Start Date End Date Michelle Mccoy DO PCP - General Family Medicine 02/03/16 12/28/17 Shanika Hillman MD PCP - General Internal Medicine 12/29/17 09/28/19 Shanika Hillman MD [address] [place] [address] [address] [place] [address] PCP - Cigna Commercial Attributed 02/14/19 05/16/19 Marii Woods MD 106 [facility] [place] [address] PCP - General Internal Medicine 09/29/19 01/22/20 Pcp, No PCP - General 01/23/20 03/06/20 Marii Woods MD [address] [place] [address] PCP - Cigna Commercial Attributed 10/16/19 04/15/20 Marii Woods MD 106 [facility] [address] PCP - General Internal Medicine 03/07/20 08/07/21 Marii Woods MD [address] [facility] [place] [address] PCP - Cigna Commercial Attributed 08/15/20 05/16/21 Jadon Devlin MD [address] [place] [address] 100 [place] [address] Gastroenterology 09/29/19 documented as of this encounter
--- OUTSIDE RECORDS SUMMARY | 2024-06-29 15:16 | XMS_ITS | Encounter Summary ---
Author Organization [facility] Address [address] [place], [place] [id number] Care Team Providers Care Mental Health Social Worker Name Role Phone Naty Rendon MD Primary Care Provider [phone] Michelle Mccoy DO Primary Care Provider [phone] Shanika Hillman MD Primary Care Provider [phone] Shanika Hillman MD Unavailable [phone] Jadon Devlin MD Unavailable [phone] Marii Woods MD Primary Care Provider [phone] Pcp, No Primary Care Provider UnavailMarii Dominguez MD Unavailable +[phone] Marii Woods MD Primary Care Provider + [phone] Marii Woods MD Unavailable [phone] Naty Rendon MD Primary Care Provider [phone] Encounter Details Date Type Department Care Team (Late st Contact Info) Description 02/01/2015 Scanned Document [address] [phone] Provider, Generic Social History Tobacco Use Types Packs/Day Years Used Date Smoking Tobacco: Never Assessed Sex and Gender Information Value Date Recorded Sex Assigned at Not on file Gender Identity Not on file Sexual Orientation Not on file documented as of this encounter Plan of Treatment Not on file documented as of this encounter Procedures Procedure Name Priority Date/Time Associated Diagnosis Comments IMAGING BREAST/BX/MAMMO 02/13/2015 IMAGING BREAST/BX/MAMMO 02/01/2015 documented in this encounter Results * IMAGING BREAST/BX/MAMMO (02/13/2015) Anatomical Region Laterality Modality Other Narrative 09/07/2015 7:09 PM EDT Ordered by an unspecified provider. Generic Provider IMG LEGACY PROCEDURE S * IMAGING BREAST/BX/MAMMO (02/01/2015) Anatomical Region Laterality Modality Other Narrative 06/21/2015 10:53 AM EST Ordered by an unspecified provider. Generic Provider IMG LEGACY PROCEDURE S documented in this encounter Visit Diagnoses Not on filedocumented in this encounter Care Teams Mental Health Social Worker Relationship Specialty Start Date End Date Naty Rendon MD PCP - General Internal Medicine 03/18/15 02/02/16 Michelle Mccoy DO PCP - General Family Medicine 02/03/16 12/28/17 Shanika Hillman MD PCP - General Internal Medicine 12/29/17 09/28/19 Shanika Hillman MD [address] [place] [address] 4[address] [place] [address] PCP - Cigna Commercial Attributed 02/14/19 05/16/19 Marii Woods MD 1060 [facility] [place] [address] PCP - General Internal Medicine 09/29/19 01/22/20 Pcp, No PCP - General 01/23/20 03/06/20 Marii Woods MD [address] [facility] [place] [address] PCP - Cigna Commercial Attributed 10/16/19 04/15/20 Marii Woods MD 106 [facility] [place] [address] PCP - General Internal Medicine 03/07/20 08/07/21 Marii Woods MD [address] [place] [address] PCP - Cigna Commercial Attributed 08/15/20 05/16/21 Naty Rendon MD [facility] [address] [place] [address] PCP - General 03/17/15 Jadon Devlin MD [address] [place] [address] 100 [place] [address] Gastroenterology 09/29/19 documented as of this encounter
--- OUTSIDE RECORDS SUMMARY | 2024-06-29 15:16 | XMS_ITS | Encounter Summary ---
Author Organization [facility] Address [address] [place] [address] Care Team Providers Care Agent Name Role Phone Shanika Hillman MD Primary Care Provider Jadon Devlin MD Unavailable [phone] Marii Woods MD Primary Care Provider Pcp, No Primary Care Provider UnavailMarii Dominguez MD Unavailable +[phone] Marii Woods MD Primary Care Provider + [phone] Marii Woods MD Unavailable [phone] Reason for Visit * Reason Comments Medication Refill Encounter Details Date Type Department Care Team (Late st Contact Info) Description 09/28/2019 Refill [facility] [address] [place] [phone] Barbara Garner, SWITCH TECHNICIAN [address] [place] [address] Chronic migraine without aura, with intractable migraine, so stated, with status migrainosus Social History Tobacco Use Types Packs/Day Years [...] as of this encounter Visit Diagnoses Diagnosis Chronic migraine without aura, with intractable migraine, so stated, with status migrainosus documented in this encounter Care Teams Agent Relationship Specialty Start Date End Date Shanika Hillman MD PCP - General Internal Medicine 12/29/17 09/28/19 Marii Woods MD 1060 [place] [address] PCP - General Internal Medicine 09/29/19 01/22/20 Pcp, No PCP - General 01/23/20 03/06/20 Marii Woods MD [address] [place] [address] PCP - Cigna Commercial Attributed 10/16/19 04/15/20 Marii Woods MD [address] [place] [address] PCP - General Internal Medicine 03/07/20 08/07/21 Marii Woods MD [address] [place] [address] PCP - Cigna Commercial Attributed 08/15/20 05/16/21 Jadon Devlin MD [address] [place] [address] 100 [place] [address] Gastroenterology 09/29/19 documented as of this encounter
--- OUTSIDE RECORDS SUMMARY | 2024-06-29 15:16 | XMS_ITS | Encounter Summary ---
Author Organization [facility] Address [address] [place] [address] Care Team Providers Care Theatre Director Name Role Phone Naty Rendon MD Primary Care Provider Michelle Mccoy DO Primary Care Provider [phone] Shanika Hillman MD Primary Care Provider [phone] Shanika Hillman MD Unavailable [phone] Jadon Devlin MD Unavailable [phone] Marii Woods MD Primary Care Provider + [phone] Pcp, No Primary Care Provider Unavailolivia e Marii Woods MD Unavailable [phone] Marii Woods MD Primary Care Provider + [phone] Marii Woods MD Unavailable [phone] Encounter Details Date Type Department Care Team (Late st Contact Info) Description 03/26/2015 Scanned Document [address] [phone] Provider, Generic Social History Tobacco Use Types [...] on filedocumented in this encounter Care Teams Theatre Director Relationship Specialty Start Date End Date Naty Rendon MD PCP - General Internal Medicine 03/18/15 02/02/16 Michelle Mccoy DO PCP - General Family Medicine 02/03/16 12/28/17 Shanika Hillman MD PCP - General Internal Medicine 12/29/17 09/28/19 Shanika Hillman MD [address] [place] [address] 4[address] [place] [address] PCP - Cigna Commercial Attributed 02/14/19 05/16/19 Marii Woods MD [address] [place] [place], [place] [address] PCP - General Internal Medicine 09/29/19 01/22/20 Pcp, No PCP - General 01/23/20 03/06/20 Marii Woods MD 1060 [facility] [place] [address] PCP - Cigna Commercial Attributed 10/16/19 04/15/20 Marii Woods MD 1060 [facility] [place] [place] [address] PCP - General Internal Medicine 03/07/20 08/07/21 Marii Woods MD 1060 [facility] [place] [address] PCP - Cigna Commercial Attributed 08/15/20 05/16/21 Jadon Devlin MD [address] [place] [address] Gastroenterology 09/29/19 documented as of this encounter
--- OUTSIDE RECORDS SUMMARY | 2024-06-29 15:16 | XMS_ITS | Encounter Summary ---
Author Organization [facility] Address [address] [place] [address] Care Team Providers Care Laundry Agent Name Role Phone Shanika Hillman MD Primary Care Provider [phone] Shanika Hillman MD Unavailable [phone] Jadon Devlin MD Unavailable [phone] Marii Woods MD Primary Care Provider [phone] Pcp, No Primary Care Provider Unavailolivia e Marii Woods MD Unavailable Marii Woods MD Primary Care Provider + [phone] Marii Woods MD Unavailable +[phone] Reason for Visit * Reason Comments Medication Refill Encounter Details Date Type Department Care Team (Late st Contact Info) Description 02/01/[address] [phone] Shanika Hillman MD [address] [place] [address] Mild intermittent asthmatic bronchitis with acute exacerbation Social History Tobacco Use Types Packs/Day Years [...] as of this encounter Visit Diagnoses Diagnosis Mild intermittent asthmatic bronchitis with acute exacerbation documented in this encounter Care Teams Laundry Agent Relationship Specialty Start Date End Date Shanika Hillman MD PCP - General Internal Medicine 12/29/17 09/28/19 Shanika Hillman MD [address] [place] [address] 4[address] [place] [address] PCP - Cigna Commercial Attributed 02/14/19 05/16/19 Marii Woods MD 1060 [facility] [place] [address] PCP - General Internal Medicine 09/29/19 01/22/20 Pcp, No PCP - General 01/23/20 03/06/20 Marii Woods MD 1060 [facility] [place] [address] PCP - Cigna Commercial Attributed 10/16/19 04/15/20 Marii Woods MD 1060 [facility] [place] [address] PCP - General Internal Medicine 03/07/20 08/07/21 Marii Woods MD 1060 [facility] [address] PCP - Cigna Commercial Attributed 08/15/20 05/16/21 Jadon Devlin MD [address] [place] [address] 100 [place] [address] Gastroenterology 09/29/19 documented as of this encounter
--- OUTSIDE RECORDS SUMMARY | 2024-06-29 15:16 | XMS_ITS | Encounter Summary ---
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 Dr Devlin is retiring and she made an appt with a new MD but the first available was May 07. She will see GI then * Telephone Encounter - Marii Woods MD - 02/12/2021 7:39 AM EDT Please tell patient: she is DUE FOR FOLLOW UP WITH GI DOCTOR - for Gamble's espohagus. For ongoingrefills please put in place a GI follow up. Dr Devlin office - last seen 2018. 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
--- OUTSIDE RECORDS SUMMARY | 2024-06-29 15:16 | XMS_ITS | Encounter Summary ---
Author Organization [facility] Address [address] [place] [address] Care Team Providers Care Knock Out Hand Name Role Phone Naty Rendon MD Primary Care Provider [phone] Michelle Mccoy DO Primary Care Provider [phone] Shanika Hillman MD Primary Care Provider [phone] Shanika Hillman MD Unavailable [phone] Jadon Devlin MD Unavailable [phone] Marii Woods MD Primary Care Provider + [phone] Pcp, No Primary Care Provider Unavailolivia e Marii Woods MD Unavailable [phone] Marii Woods MD Primary Care Provider + [phone] Marii Woods MD Unavailable [phone] Encounter Details Date Type Department Care Team (Late st Contact Info) Description 07/08/2015 Scanned Document [address] [phone] Provider, Generic Social History Tobacco Use Types [...] on filedocumented in this encounter Care Teams Knock Out Hand Relationship Specialty Start Date End Date Naty Rendon MD PCP - General Internal Medicine 03/18/15 02/02/16 Michelle Mccoy DO PCP - General Family Medicine 02/03/16 12/28/17 Shanika Hillman MD PCP - General Internal Medicine 12/29/17 09/28/19 Shanika Hillman MD [address] [place] [address] 4[address] [place] [address] PCP - [employer] Commercial Attributed 02/14/19 05/16/19 Marii Woods MD [address] [place], [place] [address] PCP - General Internal Medicine 09/29/19 01/22/20 Pcp, No PCP - General 01/23/20 03/06/20 Marii Woods MD 1060 [facility] [place] [address] PCP - [employer] Commercial Attributed 10/16/19 04/15/20 Marii Woods MD 1060 [facility] [address] PCP - General Internal Medicine 03/07/20 08/07/21 Marii Woods MD 1060 [facility] [address] PCP - [employer] Commercial Attributed 08/15/20 05/16/21 Jadon Devlin MD [address] [place] [address] Gastroenterology 09/29/19 documented as of this encounter
--- OUTSIDE RECORDS SUMMARY | 2024-06-29 15:16 | XMS_ITS | Encounter Summary ---
Author Organization [facility] Address [address] [place] [address] Care Team Providers Care Special Needs Babysitter Name Role Phone Shanika Hillman MD Primary Care Provider Jadon Devlin MD Unavailable [phone] Marii Woods MD Primary Care Provider Pcp, No Primary Care Provider UnavailMarii Dominguez MD Unavailable [phone] Marii Woods MD Primary Care Provider + [phone] Marii Woods MD Unavailable [phone] Reason for Visit * Reason Comments Medication Refill Encounter Details Date Type Department Care Team (Late st Contact Info) Description 08/31/2019 Refill [facility] 1060 [place] [address] Barbara Garner, PROFILE GRINDER TECHNICIAN 10[address] [place] [address] Chronic migraine without aura, with intractable migraine, [...] migrainosus documented in this encounter Care Teams Special Needs Babysitter Relationship Specialty Start Date End Date Shanika Hillman MD PCP - General Internal Medicine 12/29/17 09/28/19 Marii Woods MD 1060 [facility] [place] [address] PCP - General Internal Medicine 09/29/19 01/22/20 Pcp, No PCP - General 01/23/20 03/06/20 Marii Woods MD 1060 [facility] [place] [address] PCP - [employer] Commercial Attributed 10/16/19 04/15/20 Marii Woods MD [address] [place] [address] PCP - General Internal Medicine 03/07/20 08/07/21 Marii Woods MD 1060 [facility] [place] [address] PCP - [employer] Commercial Attributed 08/15/20 05/16/21 Jadon Devlin MD 21 [facility] 100 [place] [address] Gastroenterology 09/29/19 documented as of this encounter
--- OUTSIDE RECORDS SUMMARY | 2024-06-29 15:16 | XMS_ITS | Encounter Summary ---
Author Organization [facility] Address [address] [place] [address] Care Team Providers Care Shuttle Fixer Name Role Phone Naty Rendon MD Primary Care Provider Michelle Mccoy DO Primary Care Provider [phone] Shanika Hillman MD Primary Care Provider [phone] Shanika Hillman MD Unavailable [phone] Jadon Devlin MD Unavailable [phone] Marii Woods MD Primary Care Provider + [phone] Pcp, No Primary Care Provider Unavailolivia e Marii Woods MD Unavailable [phone] Marii Woods MD Primary Care Provider + [phone] Marii Woods MD Unavailable [phone] Encounter Details Date Type Department Care Team (Late st Contact Info) Description 06/08/2015 Scanned Document [address] [phone] Provider, Generic Social History Tobacco Use Types [...] on filedocumented in this encounter Care Teams Shuttle Fixer Relationship Specialty Start Date End Date Naty Rendon MD PCP - General Internal Medicine 03/18/15 02/02/16 Michelle Mccoy DO PCP - General Family Medicine 02/03/16 12/28/17 Shanika Hillman MD PCP - General Internal Medicine 12/29/17 09/28/19 Shanika Hillman MD [address] [place] [address] 4[address] [place] [address] PCP - [employer] Commercial Attributed 02/14/19 05/16/19 Marii Woods MD [address] [place], [place] [address] PCP - General Internal Medicine 09/29/19 01/22/20 Pcp, No PCP - General 01/23/20 03/06/20 Marii Woods MD 1060 [facility] [place] [address] PCP - [employer] Commercial Attributed 10/16/19 04/15/20 Marii Woods MD 1060 [facility] [place] [address] PCP - General Internal Medicine 03/07/20 08/07/21 Marii Woods MD 1060 [facility] [place] [address] PCP - [employer] Commercial Attributed 08/15/20 05/16/21 Jadon Devlin MD [address] [place] [address] Gastroenterology 09/29/19 documented as of this encounter
--- OUTSIDE RECORDS SUMMARY | 2024-06-29 15:16 | XMS_ITS | Encounter Summary ---
Author Organization [facility] Address [address] [place] [address] Care Team Providers Care Integrated Program Teacher Name Role Phone Naty Rendon MD Primary Care Provider Michelle Mccoy DO Primary Care Provider [phone] Shanika Hillman MD Primary Care Provider [phone] Shanika Hillman MD Unavailable [phone] Jadon Devlin MD Unavailable [phone] Marii Woods MD Primary Care Provider [phone] Pcp, No Primary Care Provider Unavailolivia e Marii Woods MD Unavailable Marii Woods MD Primary Care Provider Marii Woods MD Unavailable [phone] Encounter Details Date Type Department Care Team (Late st Contact Info) Description 08/23/2015 Scanned Document [facility] 10[address] [place] [address] Naty Rendon MD [facility] [address] [place] [address] Social History Tobacco Use Types Packs/Day [...] on filedocumented in this encounter Care Teams Integrated Program Teacher Relationship Specialty Start Date End Date Naty Rendon MD PCP - General Internal Medicine 03/18/15 02/02/16 Michelle Mccoy DO PCP - General Family Medicine 02/03/16 12/28/17 Shanika Hillman MD PCP - General Internal Medicine 12/29/17 09/28/19 Shanika Hillman MD [address] [place] [address] [place] [address] PCP - [employer] Commercial Attributed 02/14/19 05/16/19 Marii Woods MD 1060 [place] [address] PCP - General Internal Medicine 09/29/19 01/22/20 Pcp, No PCP - General 01/23/20 03/06/20 Marii Woods MD 1060 [facility] [place] [address] PCP - [employer] Commercial Attributed 10/16/19 04/15/20 Marii Woods MD 1060 [facility] [place] [address] PCP - General Internal Medicine 03/07/20 08/07/21 Marii Woods MD 1060 [place] [address] PCP - [employer] Commercial Attributed 08/15/20 05/16/21 Jadon Devlin MD 21 [facility] 100 [place] [address] Gastroenterology 09/29/19 documented as of this encounter
--- OUTSIDE RECORDS SUMMARY | 2024-06-29 15:16 | XMS_ITS | Encounter Summary ---
Author Organization [address] [address] Care Team Providers Care Grill Prep Cook Name Role Phone Jadon Devlin MD Unavailable Encounter Details Date Type Department Care Team (Late st Contact Info) Description 08/12/2021 Scanned Document [address] [phone] Marii Woods MD [address] [place] [address] Social History Tobacco Use Types Packs/Day Years [...] on filedocumented in this encounter Care Teams Grill Prep Cook Relationship Specialty Start Date End Date Jadon Devlin MD [address] [place] [id number] Gastroenterology 09/29/19 documented as of this encounter
--- OUTSIDE RECORDS SUMMARY | 2024-06-29 15:16 | XMS_ITS | Encounter Summary ---
Author Organization [facility] Address [address] [place] [address] Care Team Providers Care Insurance Compliance Analyst Name Role Phone Shanika Hillman MD Primary Care Provider [phone] Jadon Devlin MD Unavailable [phone] Marii Woods MD Primary Care Provider Pcp, No Primary Care Provider UnavailMarii Dominguez MD Unavailable [phone] Marii Woods MD Primary Care Provider + [phone] Marii Woods MD Unavailable [phone] Reason for Visit * Reason Comments Medication Refill Encounter Details Date Type Department Care Team (Late st Contact Info) Description 08/03/[address] [address] Barbara Garner, INDUSTRIAL ELECTRICIAN JOURNEYMAN 1060 [place], [place] [address] Other migraine without status migrainosus, not intractable; [...] encounter Miscellaneous Notes * Telephone Encounter - Amelia Mcarthur LPN - 08/03/2019 9:39 AM EDT rf documented in this encounter Plan of Treatment Not on file documented as of this encounter Visit Diagnoses Diagnosis Other migraine without status migrainosus, not intractable Chronic migraine without aura, with intractable migraine, so stated, with status migrainosus Other depression documented in this encounter Care Teams Insurance Compliance Analyst Relationship Specialty Start Date End Date Shanika Hillman MD PCP - General Internal Medicine 12/29/17 09/28/19 Marii Woods MD 1060 [facility] [address] PCP - General Internal Medicine 09/29/19 01/22/20 Pcp, No PCP - General 01/23/20 03/06/20 Marii Woods MD 1060 [facility] [address] PCP - [employer] Commercial Attributed 10/16/19 04/15/20 Marii Woods MD 1060 [facility] [address] PCP - General Internal Medicine 03/07/20 08/07/21 Marii Woods MD [address] [facility] [address] PCP - [employer] Commercial Attributed 08/15/20 05/16/21 Jadon Devlin MD [address] [place] [address], [place] [address] Gastroenterology 09/29/19 documented as of this encounter
--- OUTSIDE RECORDS SUMMARY | 2024-06-29 15:16 | XMS_ITS | Encounter Summary ---
Author Organization [facility] Address [address] [place] [address] Care Team Providers Care Judo Teacher Name Role Phone Naty Rendon MD Primary Care Provider [phone] Michelle Mccoy DO Primary Care Provider [phone] Shanika Hillman MD Primary Care Provider [phone] Shanika Hillman MD Unavailable [phone] Jadon Devlin MD Unavailable [phone] Marii Woods MD Primary Care Provider + [phone] Pcp, No Primary Care Provider Unavailolivia e Marii Woods MD Unavailable [phone] Marii Woods MD Primary Care Provider + [phone] Marii Woods MD Unavailable [phone] Encounter Details Date Type Department Care Team (Late st Contact Info) Description 08/22/2015 Scanned Document [address] [phone] Provider, Generic Social History Tobacco Use Types [...] Priority Date/Time Associated Diagnosis Comments IMAGING BREAST/BX/MAMMO 09/12/2015 PATHOLOGY BREAST 08/22/2015 PATHOLOGY BREAST 08/22/2015 documented in this encounter Results * IMAGING BREAST/BX/MAMMO (09/12/2015) Anatomical Region Laterality Modality Other Narrative 10/17/2015 6:44 AM EDT Ordered by an unspecified provider. Generic Provider IMG LEGACY PROCEDURE S * PATHOLOGY BREAST (08/22/2015) Narrative 08/22/2015 Ordered by an unspecified provider. Generic Provider C HX PATH PROCEDUR ES * PATHOLOGY BREAST (08/22/2015) Narrative 08/22/2015 Ordered by an unspecified provider. Generic Provider C HX PATH PROCEDUR ES documented in this encounter Visit Diagnoses Not on filedocumented in this encounter Care Teams Judo Teacher Relationship Specialty Start Date End Date Naty Rendon MD PCP - General Internal Medicine 03/18/15 02/02/16 Michelle Mccoy DO PCP - General Family Medicine 02/03/16 12/28/17 Shanika Hillman MD PCP - General Internal Medicine 12/29/17 09/28/19 Shanika Hillman MD [address] [facility] [address] [place] [address] PCP - [employer] Commercial Attributed 02/14/19 05/16/19 Marii Woods MD 1060 [facility] [place] [address] PCP - General Internal Medicine 09/29/19 01/22/20 Pcp, No PCP - General 01/23/20 03/06/20 Marii Woods MD 106 [facility] [place] [address] PCP - [employer] Commercial Attributed 10/16/19 04/15/20 Marii Woods MD 106 [facility] [place] [address] PCP - General Internal Medicine 03/07/20 08/07/21 Marii Woods MD 1059 [facility] [place] [address] PCP - [employer] Commercial Attributed 08/15/20 05/16/21 Jadon Devlin MD [address] [place] [address] Gastroenterology 09/29/19 documented as of this encounter
--- OUTSIDE RECORDS SUMMARY | 2024-06-29 15:16 | XMS_ITS | Encounter Summary ---
Author Organization [facility] Address [address] [place] [address] Care Team Providers Care Nursery Hand Name Role Phone Jadon Devlin MD Unavailable [phone] Reason for Visit * Reason Comments Medication Refill Encounter Details Date Type Department Care Team (Late st Contact Info) Description 08/28/2021 Refill [facility] [address] [place] [address] Barbara Garner, PHOTOENGRAVING PROOFER APPRENTICE [address] [place] [address] Other depression; Chronic migraine without aura, with [...] Telephone Encounter - Yesenia Nguyen LPN - 08/28/2021 12:00 PM EDT Pt no longer a pt here documented in this encounter Plan of Treatment Not on file documented as of this encounter Visit Diagnoses Diagnosis Other depression Chronic migraine without aura, with intractable migraine, so stated, with status migrainosus Other migraine without status migrainosus, not intractable documented in this encounter Care Teams Nursery Hand Relationship Specialty Start Date End Date Jadon Devlin MD [address] [place] [address] Gastroenterology 09/29/19 documented as of this encounter
--- OUTSIDE RECORDS SUMMARY | 2024-06-29 15:16 | XMS_ITS | Encounter Summary ---
Author Organization [facility] Address [address] [place] [address] Care Team Providers Care Health Therapist Name Role Phone Shanika Hillman MD Primary Care Provider Shanika Hillman MD Unavailable [phone] Jadon Devlin MD Unavailable [phone] Marii Woods MD Primary Care Provider [phone] Pcp, No Primary Care Provider Unavailolivia e Marii Woods MD Unavailable Marii Woods MD Primary Care Provider + [phone] Marii Woods MD Unavailable [phone] Reason for Visit * Reason Comments Medication Refill Encounter Details Date Type Department Care Team (Late st Contact Info) Description 05/04/[address] [address] Shanika Hillman MD [address] [place] [address] Chronic migraine without aura, with intractable migraine, so stated, with status migrainosus; Other migraine without status migrainosus, not intractable; Other depression Social History Tobacco Use Types [...] Other migraine without status migrainosus, not intractable Other depression documented in this encounter Care Teams Health Therapist Relationship Specialty Start Date End Date Shanika Hillman MD PCP - General Internal Medicine 12/29/17 09/28/19 Shanika Hillman MD [address] [facility] [address] [place] [address] PCP - [employer] Commercial Attributed 02/14/19 05/16/19 Marii Woods MD [address]60 [facility] [place] [address] PCP - General Internal Medicine 09/29/19 01/22/20 Pcp, No PCP - General 01/23/20 03/06/20 Marii Woods MD 1060 [facility] [address] PCP - [employer] Commercial Attributed 10/16/19 04/15/20 Marii Woods MD 1060 [place] [address] PCP - General Internal Medicine 03/07/20 08/07/21 Marii Woods MD 1060 [place] [address] PCP - [employer] Commercial Attributed 08/15/20 05/16/21 Jadon Devlin MD [address] [place] [address] 100 [place] [address] Gastroenterology 09/29/19 documented as of this encounter
--- OUTSIDE RECORDS SUMMARY | 2024-06-29 15:16 | XMS_ITS | Encounter Summary ---
Author Organization [facility] Address [address] [place] [address] Care Team Providers Care Sterile Technician Name Role Phone Jadon Devlin MD Unavailable [phone] Reason for Visit * Reason Comments Medication Refill Encounter Details Date Type Department Care Team (Late st Contact Info) Description 09/10/2021 Refill [facility] 1060 [place] [address] Barbara Garner, SVP 1060 [place] [address] Other depression; Chronic migraine without aura, with [...] intractable documented in this encounter Care Teams Sterile Technician Relationship Specialty Start Date End Date Jadon Devlin MD [address] [place], [place] [address] Gastroenterology 09/29/19 documented as of this encounter
--- OUTSIDE RECORDS SUMMARY | 2024-06-29 15:16 | XMS_ITS | Encounter Summary ---
Author Organization [facility] Address [address] [place] [address] Care Team Providers Care Bindery Production Manager Name Role Phone Michelle Mccoy DO Primary Care Provider [phone] Shanika Hillman MD Primary Care Provider [phone] Shanika Hillman MD Unavailable [phone] Jadon Devlin MD Unavailable [phone] Marii Woods MD Primary Care Provider Pcp, No Primary Care Provider UnavailMarii Dominguez MD Unavailable +[phone] Marii Woods MD Primary Care Provider + [phone] Marii Woods MD Unavailable [phone] Encounter Details Date Type Department Care Team (Late st Contact Info) Description 11/11/2016 Scanned Document [address] [address] Michelle Mccoy DO [address] [place] [address] Social History Tobacco Use Types Packs/Day Years [...] on filedocumented in this encounter Care Teams Bindery Production Manager Relationship Specialty Start Date End Date Michelle Mccoy DO PCP - General Family Medicine 02/03/16 12/28/17 Shanika Hillman MD PCP - General Internal Medicine 12/29/17 09/28/19 Shanika Hillman MD [facility] 4[address] [place] [address] PCP - [employer] Commercial Attributed 02/14/19 05/16/19 Marii Woods MD [address]60 [facility] [place] [address] PCP - General Internal Medicine 09/29/19 01/22/20 Pcp, No PCP - General 01/23/20 03/06/20 Marii Woods MD 1060 [facility] [place] [address] PCP - [employer] Commercial Attributed 10/16/19 04/15/20 Marii Woods MD [address] [facility] [place] [address] PCP - General Internal Medicine 03/07/20 08/07/21 Marii Woods MD 1060 [facility] [place] [address] PCP - [employer] Commercial Attributed 08/15/20 05/16/21 Jadon Devlin MD 21 [facility] 100 [place] [address] Gastroenterology 09/29/19 documented as of this encounter
--- OUTSIDE RECORDS SUMMARY | 2024-06-29 15:16 | XMS_ITS | Encounter Summary ---
Author Organization [facility] Address [address] [place] [address] Care Team Providers Care Membership Counselor Name Role Phone Jadon Devlin MD Unavailable [phone] Reason for Visit * Reason Comments Medication Refill Encounter Details Date Type Department Care Team (Late st Contact Info) Description 09/06/2021 Refill [facility] 10[address] [place] [address] Barbara Garner, ENDBAND SIZER [address] [place] [address] Other depression; Chronic migraine without aura, with [...] intractable documented in this encounter Care Teams Membership Counselor Relationship Specialty Start Date End Date Jadon Devlin MD [address] [place], [place] [address] Gastroenterology 09/29/19 documented as of this encounter
--- OUTSIDE RECORDS SUMMARY | 2024-06-29 15:16 | XMS_ITS | Encounter Summary ---
Author Organization [facility] Address [address] [place] [address] Care Team Providers Care Rn Primary Care Name Role Phone Dede Mccoyi Lorna MATHEWS Primary Care Provider [phone] Shanika Hillman MD Primary Care Provider [phone] Shanika Hillman MD Unavailable [phone] Jadon Devlin MD Unavailable [phone] Marii Woods MD Primary Care Provider + [phone] Pcp, No Primary Care Provider Unavailolivia e Marii Woods MD Unavailable [phone] Marii Woods MD Primary Care Provider [phone] Marii Woods MD Unavailable [phone] Encounter Details Date Type Department Care Team (Late st Contact Info) Description 12/18/2016 Scanned Document [address] [address] Provider, Generic Social History Tobacco Use Types [...] Procedure Name Priority Date/Time Associated Diagnosis Comments CT SCAN EXTERNAL RESULT 12/21/2016 4:51 PM EDT documented in this encounter Results * CT SCAN EXTERNAL RESULT (12/21/2016 4:51 PM EDT) Anatomical Region Laterality Modality Computed Tomogra phy Narrative 12/21/2016 4:51 PM EDT Ordered by an unspecified provider. Generic Provider IMG CT ORDERABLES documented in this encounter Visit Diagnoses Not on filedocumented in this encounter Care Teams Rn Primary Care Relationship Specialty Start Date End Date Michelle Mccoy DO PCP - General Family Medicine 02/03/16 12/28/17 Shanika Hillman MD PCP - General Internal Medicine 12/29/17 09/28/19 Shanika Hillman MD [address] [place] [address] PCP - [employer] Commercial Attributed 02/14/19 05/16/19 Marii Woods MD 1060 [place] [address] PCP - General Internal Medicine 09/29/19 01/22/20 Pcp, No PCP - General 01/23/20 03/06/20 Marii Woods MD 1060 [facility] [place] [address] PCP - [employer] Commercial Attributed 10/16/19 04/15/20 Marii Woods MD 1060 [place] [address] PCP - General Internal Medicine 03/07/20 08/07/21 Marii Woods MD [address] [place] [address] PCP - [employer] Commercial Attributed 08/15/20 05/16/21 Jadon Devlin MD [address] [address] Gastroenterology 09/29/19 documented as of this encounter
--- OUTSIDE RECORDS SUMMARY | 2024-06-29 15:16 | XMS_ITS | Encounter Summary ---
Author Organization [facility] Address [address] [place] [address] Care Team Providers Care Customer Service Engineer Name Role Phone Naty Rendon MD Primary Care Provider [phone] Michelle Mccoy DO Primary Care Provider [phone] Shanika Hillman MD Primary Care Provider [phone] Shanika Hillman MD Unavailable [phone] Jadon Devlin MD Unavailable [phone] Marii Woosd MD Primary Care Provider [phone] Pcp, No Primary Care Provider Unavailolivia e Marii Woods MD Unavailable +[phone] Marii Woods MD Primary Care Provider Marii Woods MD Unavailable [phone] Encounter Details Date Type Department Care Team (Late st Contact Info) Description 08/26/2015 Scanned Document [facility] [address] [place] [address] Naty Rendon MD [facility] [address] [place] [address] Social History Tobacco Use Types Packs/Day [...] on filedocumented in this encounter Care Teams Customer Service Engineer Relationship Specialty Start Date End Date Naty Rendon MD PCP - General Internal Medicine 03/18/15 02/02/16 Michelle Mccoy DO PCP - General Family Medicine 02/03/16 12/28/17 Shanika Hillman MD PCP - General Internal Medicine 12/29/17 09/28/19 Shanika Hillman MD [address] [place] [address] [place] [address] PCP - [employer] Commercial Attributed 02/14/19 05/16/19 Marii Woods MD 1060 [place] [address] PCP - General Internal Medicine 09/29/19 01/22/20 Pcp, No PCP - General 01/23/20 03/06/20 Marii Woods MD 1060 [place] [address] PCP - [employer] Commercial Attributed 10/16/19 04/15/20 Marii Woods MD 1060 [place] [address] PCP - General Internal Medicine 03/07/20 08/07/21 Marii Woods MD 1060 [place] [address] PCP - [employer] Commercial Attributed 08/15/20 05/16/21 Jadon Devlin MD 21 [facility] 100 [place] [address] Gastroenterology 09/29/19 documented as of this encounter
--- OUTSIDE RECORDS SUMMARY | 2024-06-29 15:16 | XMS_ITS | Encounter Summary ---
Author Organization [facility] Address [address] [place] [address] Care Team Providers Care Internet Media Planner Name Role Phone Jadon Devlin MD Unavailable Reason for Visit * Reason Comments Medication Refill Encounter Details Date Type Department Care Team (Late st Contact Info) Description 12/10/[address] [phone] Marii Woods MD [address] [place] [address] Left chest pressure; Palpitations; Tachycardia; Essential hypertension Social History Tobacco Use Types [...] as of this encounter Visit Diagnoses Diagnosis Left chest pressure Palpitations Tachycardia Unspecified tachycardia Essential hypertension Unspecified essential hypertension documented in this encounter Care Teams Internet Media Planner Relationship Specialty Start Date End Date Jadon Devlin MD [address] [place] [address] Gastroenterology 09/29/19 documented as of this encounter
--- OUTSIDE RECORDS SUMMARY | 2024-06-29 15:16 | XMS_ITS | Encounter Summary ---
Author Organization [facility] Address [address] [place] [address] Care Team Providers Care Maitre D' Name Role Phone Shanika Hillman MD Primary Care Provider Shanika Hillman MD Unavailable [phone] Jadon Devlin MD Unavailable [phone] Marii Woods MD Primary Care Provider [phone] Pcp, No Primary Care Provider Unavailolivia e Marii Woods MD Unavailable [phone] Marii Woods MD Primary Care Provider + [phone] Marii Woods MD Unavailable [phone] Reason for Visit * Reason Comments Medication Refill Encounter Details Date Type Department Care Team (Late st Contact Info) Description 04/06/[address] [address] Shanika Hillman MD [address] [place] [address] Depressive disorder (Primary Dx) Social History Tobacco Use Types Packs/Day Years [...] as of this encounter Visit Diagnoses Diagnosis Depressive disorder- Primary Depressive disorder, not elsewhere classified documented in this encounter Care Teams Maitre D' Relationship Specialty Start Date End Date Shanika Hillman MD PCP - General Internal Medicine 12/29/17 09/28/19 Shanika Hillman MD [address] [place] [address] 4011 [place] [address] PCP - [employer] Commercial Attributed 02/14/19 05/16/19 Marii Woods MD 1060 [place] [address] PCP - General Internal Medicine 09/29/19 01/22/20 Pcp, No PCP - General 01/23/20 03/06/20 Marii Woods MD 1060 [place] [address] PCP - [employer] Commercial Attributed 10/16/19 04/15/20 Marii Woods MD 1060 [place] [address] PCP - General Internal Medicine 03/07/20 08/07/21 Marii Woods MD 1060 [place] [address] PCP - [employer] Commercial Attributed 08/15/20 05/16/21 Jadon Devlin MD [address] [place] [address] 100 [place] [address] Gastroenterology 09/29/19 documented as of this encounter
--- OUTSIDE RECORDS SUMMARY | 2024-06-29 15:16 | XMS_ITS | Encounter Summary ---
Author Organization [facility] Address [address] [place] [address] Care Team Providers Care Public Improvement Inspector Name Role Phone Michelle Mccoy DO Primary Care Provider [phone] Shanika Hillman MD Primary Care Provider [phone] Shanika Hillman MD Unavailable [phone] Jadon Devlin MD Unavailable [phone] Marii Woods MD Primary Care Provider + [phone] Pcp, No Primary Care Provider Unavailolivia e Marii Woods MD Unavailable [phone] Marii Woods MD Primary Care Provider [phone] Marii Woods MD Unavailable [phone] Encounter Details Date Type Department Care Team (Late st Contact Info) Description 10/19/2016 Scanned Document [address] [phone] Provider, Generic Social History Tobacco Use Types [...] on filedocumented in this encounter Care Teams Public Improvement Inspector Relationship Specialty Start Date End Date Michelle Mccoy DO PCP - General Family Medicine 02/03/16 12/28/17 Shanika Hillman MD PCP - General Internal Medicine 12/29/17 09/28/19 Shanika Hillman MD [address] [place] [address] 4[address] [place] [address] PCP - [employer] Commercial Attributed 02/14/19 05/16/19 Marii Woods MD 106 [place] [address] PCP - General Internal Medicine 09/29/19 01/22/20 Pcp, No PCP - General 01/23/20 03/06/20 Marii Woods MD [address] [facility] [place] [address] PCP - [employer] Commercial Attributed 10/16/19 04/15/20 Marii Woods MD 106 [place] [address] PCP - General Internal Medicine 03/07/20 08/07/21 Marii Woods MD 106 [place] [address] PCP - [employer] Commercial Attributed 08/15/20 05/16/21 Jadon Devlin MD [address] [place] [address] 100 [place] [address] Gastroenterology 09/29/19 documented as of this encounter
--- OUTSIDE RECORDS SUMMARY | 2024-06-29 15:16 | XMS_ITS | Encounter Summary ---
Author Organization [facility] Address [address] [place] [address] Care Team Providers Care Prevention Coordinator Name Role Phone Jadon Devlin MD Unavailable [phone] Reason for Visit * Reason Comments Medication Refill Encounter Details Date Type Department Care Team (Late st Contact Info) Description 09/05/2021 Refill [facility] 10[address] [place] [address] Barbara Garner, DUPLICATING MACHINE MECHANIC [address] [place] [address] Chronic migraine without aura, with intractable migraine, so stated, with status migrainosus; Other depression; Other migraine without status migrainosus, not intractable [...] so stated, with status migrainosus Other depression Other migraine without status migrainosus, not intractable documented in this encounter Care Teams Prevention Coordinator Relationship Specialty Start Date End Date Jadon Devlin MD [address] [place] [address] Gastroenterology 09/29/19 documented as of this encounter
--- OUTSIDE RECORDS SUMMARY | 2024-06-29 15:16 | XMS_ITS | Encounter Summary ---
Author Organization [facility] Address [address] [place] [address] Care Team Providers Care Primary Teaching Assistant Name Role Phone Jadon Devlin MD Unavailable [phone] Marii Woods MD Primary Care Provider + [phone] Marii Woods MD Unavailable [phone] Reason for Visit * Reason Comments Medication Refill Encounter Details Date Type Department Care Team (Late st Contact Info) Description 03/04/[address] [address] Marii Woods MD [address] [place] [address] Left chest pressure; Palpitations; Tachycardia; Essential hypertension [...] hypertension documented in this encounter Care Teams Primary Teaching Assistant Relationship Specialty Start Date End Date Marii Woods MD [address] [place] [address] PCP - General Internal Medicine 03/07/20 08/07/21 Marii Woods MD [address] [place] [address] PCP - [employer] Commercial Attributed 08/15/20 05/16/21 Jadon Devlin MD [address] [place] [address] 100 [place] [address] Gastroenterology 09/29/19 documented as of this encounter
[2024-06-29 15:17] VITALS: BP 142/71; PULSE 89; RESP 14; TEMP 36.1; O2SAT 98; BMI 41.4
--- OUTSIDE RECORDS SUMMARY | 2024-06-29 15:17 | XMS_ITS | Encounter Summary ---
Author Organization [facility] Address [address] [place] [address] Care Team Providers Care Bell Neck Hammerer Name Role Phone Michelle Mccoy DO Primary Care Provider [phone] Shanika Hillman MD Primary Care Provider [phone] Shanika Hillman MD Unavailable [phone] Jadon Devlin MD Unavailable [phone] Marii Woods MD Primary Care Provider Pcp, No Primary Care Provider UnavailMarii Dominguez MD Unavailable [phone] Marii Woods MD Primary Care Provider [phone] Marii Woods MD Unavailable [phone] Encounter Details Date Type Department Care Team (Late st Contact Info) Description 03/18/2017 Scanned Document [address] [address] Michelle Mccoy DO [address] [place] [address] Social History Tobacco Use Types Packs/Day Years [...] on filedocumented in this encounter Care Teams Bell Neck Hammerer Relationship Specialty Start Date End Date Michelle Mccoy DO PCP - General Family Medicine 02/03/16 12/28/17 Shanika Hillman MD PCP - General Internal Medicine 12/29/17 09/28/19 Shanika Hillman MD [address] [place] [address] 4011 [place] [address] PCP - [employer] Commercial Attributed 02/14/19 05/16/19 Marii Woods MD 1060 [facility] [place] [address] PCP - General Internal Medicine 09/29/19 01/22/20 Pcp, No PCP - General 01/23/20 03/06/20 Marii Woods MD 1060 [facility] [place] [address] PCP - [employer] Commercial Attributed 10/16/19 04/15/20 Marii Woods MD 1060 [facility] [place] [address] PCP - General Internal Medicine 03/07/20 08/07/21 Marii Woods MD 1060 [facility] [place] [address] PCP - [employer] Commercial Attributed 08/15/20 05/16/21 Jadon Devlin MD [address] [place] [address] 100 [place] [address] Gastroenterology 09/29/19 documented as of this encounter
--- OUTSIDE RECORDS SUMMARY | 2024-06-29 15:17 | XMS_ITS | Encounter Summary ---
Author Organization [facility] Address [address] [place] [address] Care Team Providers Care Nurse Transitional Name Role Phone Jadon Devlin MD Unavailable [phone] Marii Woods MD Primary Care Provider + [phone] Marii Woods MD Unavailable [phone] Reason for Visit * Reason Comments Medication Refill Encounter Details Date Type Department Care Team (Late st Contact Info) Description 10/09/2020 Refill [facility] [address] [address] Marii Woods MD [address] [place] [address] Other depression; Chronic migraine without aura, [...] have Coronavirus / COVID-19? No / Unsure 10/08/2020 9:25 AM EDT documented as of this encounter Plan of Treatment Not on file documented as of this encounter Visit Diagnoses Diagnosis Other depression Chronic migraine without aura, with intractable migraine, so stated, with status migrainosus Other migraine without status migrainosus, not intractable documented in this encounter Care Teams Nurse Transitional Relationship Specialty Start Date End Date Marii Woods MD 10[address] [place] [address] PCP - General Internal Medicine 03/07/20 08/07/21 Marii Woods MD 106 [place] [address] PCP - [employer] Commercial Attributed 08/15/20 05/16/21 Jadon Devlin MD [address] [place] [address] Gastroenterology 09/29/19 documented as of this encounter
--- OUTSIDE RECORDS SUMMARY | 2024-06-29 15:17 | XMS_ITS | Encounter Summary ---
Author Organization [facility] Address [address] [place] [address] Care Team Providers Care Pedicurist Name Role Phone Jadon Devlin MD Unavailable [phone] Marii Woods MD Unavailable [phone] Marii Woods MD Primary Care Provider + [phone] Marii Woods MD Unavailable [phone] Reason for Visit * Reason Onset Date Comments Medication Refill 03/12/2020 Encounter Details Date Type Department Care Team (Late st Contact Info) Description 03/12/[address] [address] Marii Woods MD [address] [place] [address] Mild intermittent asthmatic bronchitis with acute exacerbation; Gastroesophageal reflux disease without esophagitis Social History [...] have Coronavirus / COVID-19? No / Unsure 03/13/2020 10:47 AM EDT documented as of this encounter Plan of Treatment Not on file documented as of this encounter Visit Diagnoses Diagnosis Mild intermittent asthmatic bronchitis with acute exacerbation Gastroesophageal reflux disease without esophagitis Esophageal reflux documented in this encounter Care Teams Pedicurist Relationship Specialty Start Date End Date Marii Woods MD 10[address] [place] [address] PCP - [employer] Commercial Attributed 10/16/19 04/15/20 Marii Woods MD 106 [place] [address] PCP - General Internal Medicine 03/07/20 08/07/21 Marii Woods MD 10[address] [place] [address] PCP - [employer] Commercial Attributed 08/15/20 05/16/21 Jadon Devlin MD [address] [place] [address] Gastroenterology 09/29/19 documented as of this encounter
--- OUTSIDE RECORDS SUMMARY | 2024-06-29 15:17 | XMS_ITS | Encounter Summary ---
Author Organization [facility] Address [address] [place] [address] Care Team Providers Care Directional Drill Operator Name Role Phone Jadon Devlin MD Unavailable [phone] Marii Woods MD Primary Care Provider + [phone] Marii Woods MD Unavailable [phone] Reason for Visit * Reason Comments Medication Refill Encounter Details Date Type Department Care Team (Late st Contact Info) Description 12/19/2020 Refill [facility] [address] [place] [address] Barbara Garner, LOT WORKER 10[address] [place] [address] Other depression; Chronic migraine without aura, with [...] intractable documented in this encounter Care Teams Directional Drill Operator Relationship Specialty Start Date End Date Marii Woods MD 10[address] [place] [address] PCP - General Internal Medicine 03/07/20 08/07/21 Marii Woods MD [address] [place] [address] PCP - [employer] Commercial Attributed 08/15/20 05/16/21 Jadon Devlin MD [address] [place] [address] 100 [place] [address] Gastroenterology 09/29/19 documented as of this encounter
--- OUTSIDE RECORDS SUMMARY | 2024-06-29 15:17 | XMS_ITS | Encounter Summary ---
Author Organization [facility] Address [address] [place] [address] Care Team Providers Care Hyperion Developer Name Role Phone Michelle Mccoy DO Primary Care Provider [phone] Shanika Hillman MD Primary Care Provider +[phone] Shanika Hillman MD Unavailable [phone] Jadon Devlin MD Unavailable [phone] Marii Woods MD Primary Care Provider Pcp, No Primary Care Provider UnavailMarii Dominguez MD Unavailable +[phone] Marii Woods MD Primary Care Provider + [phone] Marii Woods MD Unavailable [phone] Encounter Details Date Type Department Care Team (Late st Contact Info) Description 03/04/2017 Scanned Document [address] [address] Michelle Mccoy DO 339 [place] [address] Social History Tobacco Use Types Packs/Day Years [...] on filedocumented in this encounter Care Teams Hyperion Developer Relationship Specialty Start Date End Date Michelle Mccoy DO PCP - General Family Medicine 02/03/16 12/28/17 Shanika Hillman MD PCP - General Internal Medicine 12/29/17 09/28/19 Shanika Hillman MD [address] [place] [address] 4011 [place] [address] PCP - [employer] Commercial Attributed 02/14/19 05/16/19 Marii Woods MD 1060 [facility] [place] [address] PCP - General Internal Medicine 09/29/19 01/22/20 Pcp, No PCP - General 01/23/20 03/06/20 Marii Woods MD 1060 [facility] [place] [address] PCP - [employer] Commercial Attributed 10/16/19 04/15/20 Marii Woods MD 1060 [facility] [place] [address] PCP - General Internal Medicine 03/07/20 08/07/21 Marii Woods MD 1060 [facility] [place] [address] PCP - [employer] Commercial Attributed 08/15/20 05/16/21 Jadon Devlin MD [address] [place] [address] 100 [place] [address] Gastroenterology 09/29/19 documented as of this encounter
--- OUTSIDE RECORDS SUMMARY | 2024-06-29 15:17 | XMS_ITS | Encounter Summary ---
Author Organization [facility] Address [address] [place], [place] [address] Care Team Providers Care Paint And Table Edger Name Role Phone Jadon Devlin MD Unavailable [phone] Marii Woods MD Primary Care Provider + [phone] Marii Woods MD Unavailable [phone] Encounter Details Date Type Department Care Team (Late st Contact Info) Description 10/08/2020 Scanned Document [address] [phone] Marii Woods MD [address] [place] [address] Social History Tobacco Use Types Packs/Day Years [...] on filedocumented in this encounter Care Teams Paint And Table Edger Relationship Specialty Start Date End Date Marii Woods MD 1060 [place] [address] PCP - General Internal Medicine 03/07/20 08/07/21 Marii Woods MD 106 [facility] [address] PCP - C[employer] Commercial Attributed 08/15/20 05/16/21 Jadon Devlin MD 21 [facility] 100 [place] [address] Gastroenterology 09/29/19 documented as of this encounter
--- OUTSIDE RECORDS SUMMARY | 2024-06-29 15:17 | XMS_ITS | Encounter Summary ---
Author Organization [facility] Address [address] [place] [address] Care Team Providers Care Chemical Process Operator Name Role Phone Jadon Devlin MD Unavailable [phone] Marii Woods MD Unavailable [phone] Marii Woods MD Primary Care Provider Marii Woods MD Unavailable [phone] Reason for Visit * Reason Onset Date Comments Medication Refill 03/12/2020 Encounter Details Date Type Department Care Team (Late st Contact Info) Description 03/12/[address] [phone] Chirag Hicks PA [facility] [address] [place] [address] Other depression; Chronic migraine without aura, with [...] AM EDT documented as of this encounter Miscellaneous Notes * Telephone Encounter - Crystal Handy MA - 03/12/2020 12:55 PM EDT Duplicate order documented in this encounter Plan of Treatment Not on file documented as of this encounter Visit Diagnoses Diagnosis Other depression Chronic migraine without aura, with intractable migraine, so stated, with status migrainosus Other migraine without status migrainosus, not intractable documented in this encounter Care Teams Chemical Process Operator Relationship Specialty Start Date End Date Marii Woods MD 1060 [facility] [place] [address] PCP - [employer] Commercial Attributed 10/16/19 04/15/20 Marii Woods MD 1060 [facility] [place] [address] PCP - General Internal Medicine 03/07/20 08/07/21 Marii Woods MD 1060 [facility] [place] [address] PCP - C[employer] Commercial Attributed 08/15/20 05/16/21 Jadon Devlin MD [address] [place] [address] 100 [place] [address] Gastroenterology 09/29/19 documented as of this encounter
--- OUTSIDE RECORDS SUMMARY | 2024-06-29 15:17 | XMS_ITS | Encounter Summary ---
Author Organization [facility] Address [address] [place] [address] Care Team Providers Care Account Service Associate Name Role Phone Michelle Mccoy DO Primary Care Provider [phone] Shanika Hillman MD Primary Care Provider [phone] Shanika Hillman MD Unavailable [phone] Jadon Devlin MD Unavailable +[phone] Marii Woods MD Primary Care Provider + [phone] Pcp, No Primary Care Provider Unavailolivia e Marii Woods MD Unavailable [phone] Marii Woods MD Primary Care Provider +[phone] Marii Woods MD Unavailable [phone] Encounter Details Date Type Department Care Team (Late st Contact Info) Description 02/21/2016 Scanned Document [address] [phone] Provider, Generic Social History Tobacco Use Types [...] Priority Date/Time Associated Diagnosis Comments IMAGING BREAST/BX/MAMMO 02/21/2016 documented in this encounter Results * IMAGING BREAST/BX/MAMMO (02/21/2016) Anatomical Region Laterality Modality Other Narrative 02/22/2016 3:55 AM EDT Ordered by an unspecified provider. Generic Provider IMG LEGACY PROCEDURE S documented in this encounter Visit Diagnoses Not on filedocumented in this encounter Care Teams Account Service Associate Relationship Specialty Start Date End Date Michelle Mccoy DO PCP - General Family Medicine 02/03/16 12/28/17 Shanika Hillman MD PCP - General Internal Medicine 12/29/17 09/28/19 Shanika Hillman MD [address] [place] [address] 4011 [place] [address] PCP - [employer] Commercial Attributed 02/14/19 05/16/19 Marii Woods MD 1060 [facility] [place] [address] PCP - General Internal Medicine 09/29/19 01/22/20 Pcp, No PCP - General 01/23/20 03/06/20 Marii Woods MD [address] [facility] [place] [address] PCP - [employer] Commercial Attributed 10/16/19 04/15/20 Marii Woods MD 10[address] [facility] [place] [address] PCP - General Internal Medicine 03/07/20 08/07/21 Marii Woods MD 1060 [place] [address] PCP - [employer] Commercial Attributed 08/15/20 05/16/21 Jadon Devlin MD 21 [facility] 100 [place] [address] Gastroenterology 09/29/19 documented as of this encounter
--- OUTSIDE RECORDS SUMMARY | 2024-06-29 15:17 | XMS_ITS | Encounter Summary ---
Author Organization [facility] Address [address] [place] [address] Care Team Providers Care Cheese Sprayer Name Role Phone Jadon Devlin MD Unavailable [phone] Marii Woods MD Unavailable [phone] Marii Woods MD Primary Care Provider Marii Woods MD Unavailable [phone] Reason for Visit * Reason Onset Date Comments Medication Refill 03/12/2020 Encounter Details Date Type Department Care Team (Late st Contact Info) Description 03/12/[address] [phone] Chirag Hicks, BO [facility] [address] [place] [address] Other depression Social History Tobacco Use Types [...] Encounter - Crystal Handy MA - 03/12/2020 12:54 PM EDT Duplicate request documented in this encounter Plan of Treatment Not on file documented as of this encounter Visit Diagnoses Diagnosis Other depression documented in this encounter Care Teams Cheese Sprayer Relationship Specialty Start Date End Date Marii Woods MD 1060 [facility] [place] [address] PCP - [employer] Commercial Attributed 10/16/19 04/15/20 Marii Woods MD 1060 [place] [address] PCP - General Internal Medicine 03/07/20 08/07/21 Marii Woods MD 1060 [facility] [place] [address] PCP - [employer] Commercial Attributed 08/15/20 05/16/21 Jadon Devlin MD [address] [place] [address] Gastroenterology 09/29/19 documented as of this encounter
--- OUTSIDE RECORDS SUMMARY | 2024-06-29 15:17 | XMS_ITS | Encounter Summary ---
Author Organization Formerly [facility] Address [address] [place], [place] [id number] Care Team Providers Care Drafter Electromechanical Name Role Phone Jadon Devlin MD Unavailable [phone] Marii Woods MD Primary Care Provider [phone] Marii Woods MD Unavailable [phone] Encounter Details Date Type Department Care Team (Late st Contact Info) Description 06/10/2020 Scanned Document [address] [phone] Marii Woods MD [address] [place] [phone] Social History Tobacco Use Types Packs/Day Years [...] on filedocumented in this encounter Care Teams Drafter Electromechanical Relationship Specialty Start Date End Date Marii Woods MD [address] [place] [id number] PCP - General Internal Medicine 03/07/20 08/07/21 Marii Woods MD 1060 [place] [address] PCP - [employer] Commercial Attributed 08/15/20 05/16/21 Jadon Devlin MD 21 [facility] [address] [place] [address] Gastroenterology 09/29/19 documented as of this encounter
--- OUTSIDE RECORDS SUMMARY | 2024-06-29 15:17 | XMS_ITS | Encounter Summary ---
Author Organization [facility] Address [address] [place] [address] Care Team Providers Care Diesel Dinkey Engineer Name Role Phone Michelle Mccoy DO Primary Care Provider [phone] Shanika Hillman MD Primary Care Provider [phone] Shanika Hillman MD Unavailable [phone] Jadon Devlin MD Unavailable [phone] Marii Woods MD Primary Care Provider + [phone] Pcp, No Primary Care Provider Unavailolivia e Marii Woods MD Unavailable [phone] Marii Woods MD Primary Care Provider [phone] Marii Woods MD Unavailable [phone] Encounter Details Date Type Department Care Team (Late st Contact Info) Description 04/01/2016 Scanned Document [address] [phone] Provider, Generic Social History Tobacco Use Types [...] Procedure Name Priority Date/Time Associated Diagnosis Comments HX GASTROENTEROLOGY UPPER ENDOSCOPY-SCAN 04/07/2016 HX GASTROENTEROLOGY UPPER ENDOSCOPY-SCAN 04/06/2016 documented in this encounter Results * HX GASTROENTEROLOGY UPPER ENDOSCOPY-SCAN (04/07/2016) Narrative 04/07/2016 Ordered by an unspecified provider. Generic Provider HX AMB PROCEDURES * HX GASTROENTEROLOGY UPPER ENDOSCOPY-SCAN (04/06/2016) Narrative 04/06/2016 Ordered by an unspecified provider. Generic Provider HX AMB PROCEDURES documented in this encounter Visit Diagnoses Not on filedocumented in this encounter Care Teams Diesel Dinkey Engineer Relationship Specialty Start Date End Date Michelle Mccoy DO PCP - General Family Medicine 02/03/16 12/28/17 Shanika Hillman MD PCP - General Internal Medicine 12/29/17 09/28/19 Shanika Hillman MD 234 [facility] [address] [place] [address] PCP - [employer] Commercial Attributed 02/14/19 05/16/19 Marii Woods MD [address] [facility] [place] [address] PCP - General Internal Medicine 09/29/19 01/22/20 Pcp, No PCP - General 01/23/20 03/06/20 Marii Woods MD [address] [facility] [place] [address] PCP - [employer] Commercial Attributed 10/16/19 04/15/20 Marii Woods MD 1060 [facility] [place] [address] PCP - General Internal Medicine 03/07/20 08/07/21 Marii Woods MD 1060 [facility] [place] [address] PCP - [employer] Commercial Attributed 08/15/20 05/16/21 Jadon Devlin MD [address] [place] [address] 100 [place] [address] Gastroenterology 09/29/19 documented as of this encounter
--- OUTSIDE RECORDS SUMMARY | 2024-06-29 15:17 | XMS_ITS | Encounter Summary ---
Author Organization [facility] Address [address] [place] [address] Care Team Providers Care Dial Brusher Name Role Phone Naty Rendon MD Primary Care Provider [phone] Michelle Mccoy DO Primary Care Provider [phone] Shanika Hillman MD Primary Care Provider [phone] Shanika Hillman MD Unavailable [phone] Jadon Devlin MD Unavailable Marii Woods MD Primary Care Provider [phone] Pcp, No Primary Care Provider Unavailolivia e Marii Woods MD Unavailable [phone] Marii Woods MD Primary Care Provider Marii Woods MD Unavailable [phone] Encounter Details Date Type Department Care Team (Late st Contact Info) Description 10/24/[address] [facility] [address] [place] [address] Naty Rendon MD [facility] [address] [place] [address] Social History Tobacco Use Types Packs/Day [...] encounter Miscellaneous Notes * Telephone Encounter - Ellyn Berry - 10/24/2015 1:[address] lopez called To return ailyn call on [employer] referral being back dated, she said the first call she placed was on 09/25/15 and spoke with an jesse and an juan and she never got the referral, she wasn't sure if we could document this Also pt has appt on 02/15/16 and needs another referral documented in this encounter Plan of Treatment Not on file documented as of this encounter Visit Diagnoses Not on filedocumented in this encounter Care Teams Dial Brusher Relationship Specialty Start Date End Date Naty Rendon MD PCP - General Internal Medicine 03/18/15 02/02/16 Michelle Mccoy DO PCP - General Family Medicine 02/03/16 12/28/17 Shanika Hillman MD PCP - General Internal Medicine 12/29/17 09/28/19 Shanika Hillman MD [address] [place] [address] [address] [place] [address] PCP - [employer] Commercial Attributed 02/14/19 05/16/19 Marii Woods MD 1060 [place] [address] PCP - General Internal Medicine 09/29/19 01/22/20 Pcp, No PCP - General 01/23/20 03/06/20 Marii Woods MD 1059 [place] [address] PCP - [employer] Commercial Attributed 10/16/19 04/15/20 Marii Woods MD 106 [facility] [address] PCP - General Internal Medicine 03/07/20 08/07/21 Marii Woods MD 1059 [place] [address] PCP - [employer] Commercial Attributed 08/15/20 05/16/21 Jadon Devlin MD [address] [place] [address] Gastroenterology 09/29/19 documented as of this encounter
--- OUTSIDE RECORDS SUMMARY | 2024-06-29 15:17 | XMS_ITS | Clinical Summary ---
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 1 Inhaler 3 04/28/2018 Active EPINEPHrine 0.15 mg/0.3 mL IJ auto-injectionIndica tions:Allergic reaction, subsequent encounter Inject 0.6 mL (0.3 mg total) into the shoulder, thigh, or buttocks once as needed for allergic reaction. 2 Device 3 01/31/2019 Active budesonide-formotero l (Symbicort) 160-4.5 MCG/ACT inhalerIndications:M ild intermittent asthmatic bronchitis with acute exacerbation Inhale 2 puffs 2 (two) times a day. 1 Inhaler 3 03/12/2020 Active kbbthmdfqq-vhgasgm-v affeine (FioriNAL) 50-325-40 MG per capsuleIndications:M igraine without aura and with status migrainosus, not intractable Take 1 capsule by mouth as needed for headaches. Max: 6 capsules/tablets in 24 hours 30 capsule 03/13/2020 Active aspirin enteric coated (ECOTRIN LOW STRENGTH) 81 MG EC tablet Take 81 mg by mouth daily. Active cyanocobalamin (VITAMIN B-12) 1000 MCG tabletIndications:B1 2 deficiency Take 1 tablet (1,000 mcg total) by mouth daily. 12/18/2020 Active PANTOprazole (PROTONIX) 40 MG EC tabletIndications:Ba rrett's esophagus without dysplasia Take 1 tablet (40 mg total) by mouth daily. DUE FOR FOLLOW UP WITH GI DOCTOR 90 tablet 02/12/2021 Active metoPROLOL SUCCINATE (TOPROL-XL) 50 MG 24 hr tabletIndications:Le ft chest pressure,Palpitation s,Tachycardia,Essent ial hypertension TAKE ONE TABLET BY MOUTH DAILY 90 tablet 2 03/05/2021 Active sertraline (ZOLOFT) 100 MG tabletIndications:Ot her depression TAKE 1 & 1/2 TABLETS BY MOUTH DAILY. 42 tablet 08/01/2021 Active amitriptyline (ELAVIL) 50 MG tabletIndications:Ch ronic migraine without aura, with intractable migraine, so stated, with status migrainosus TAKE 1 TABLET BY MOUTH NIGHTLY 28 tablet 08/01/2021 Active topiramate (TOPAMAX) 25 MG tabletIndications:Ch ronic migraine without aura, with intractable migraine, so stated, with status migrainosus TAKE 1 TABLET (25MG) BY MOUTH DAILY. TAKE WITH 100MG FOR A TOTAL DOSE OF 125MG. 28 tablet 08/01/2021 Active topiramate (TOPAMAX) 100 MG tabletIndications:Ot her migraine without status migrainosus, not intractable TAKE (1) TABLET BY MOUTH DAILY. 28 tablet 08/01/2021 Active magnesium oxide 400 (240 Mg) MG Tab tabletIndications:Ot her depression,Other migraine without status migrainosus, not intractable,Chronic migraine without aura, with intractable migraine, so stated, with status migrainosus TAKE 1 TABLET BY MOUTH DAILY WITH FOOD, TAKE 2 HOURS APART FROM OTHER MEDICATIONS. 28 tablet 08/01/2021 Active lisinopril (PRINIVIL,ZeSTRIL) 10 MG tabletIndications:Es sential hypertension TAKE ONE TABLET BY MOUTH EVERY DAY 90 tablet 08/08/2021 Active Active Problems Problem Noted Date Diagnosed Date Essential hypertension 07/30/2020 Palpitations 07/30/2020 Overview (10/08/2020): Last Assessment & Plan: Palpitations patient with sinus tachycardia etiology unclear stress echo will help to see if there is any evidence of cardiomyopathic process. No history of stimulant use. Patient has had marked improvement with symptoms with beta-blockers would continue beta-daniel for now Last Assessment & Plan: Palpitations patient with sinus tachycardia etiology unclear stress echo will help to see if there is any evidence of cardiomyopathic process. No history of stimulant use. Patient has had marked improvement with symptoms with beta-blockers would continue beta-daniel for now PSVT (paroxysmal supraventricular tachycardia) 0 07/30/2020 Chest pain 07/18/2020 Overview (10/08/2020): Last Assessment & Plan: Patient with risk factors for coronary disease with complaints of chest discomfort. We will schedule the patient for stress echocardiogram Last Assessment & Plan: Patient with risk factors for coronary disease with complaints of chest discomfort. We will schedule the patient for stress echocardiogram Thyroid nodule 01/30/2020 Pulmonary nodule 09/29/2019 Functional diarrhea 01/04/2019 Gamble's esophagus without dysplasia 01/04/2019 Status post laparoscopic Lizeth fundoplication 0 01/04/2019 Class 3 severe obesity due t o excess calories without serious comorbidity with body mass index (BMI) of 40.0 to 44.9 in adult 03/01/2018 Delayed gastric emptying 04/15/2016 History of hepatitis C 03/24/2016 Prediabetes 03/24/2016 Mixed hyperlipidemia 03/24/2016 Insomnia 07/09/2014 Depressive disorder 05/28/2014 Allergic rhinitis 02/21/2014 Low back pain 02/21/2014 Anxiety state 10/25/2013 Asthma 10/25/2013 Displacement of lumbar inter vertebral disc without myelopathy 10/25/2013 Migraine 10/25/2013 Rosacea 10/25/2013 B12 deficiency 10/25/2013 Resolved Problems Problem Noted Date Diagnosed Date Resolved Date Screening for colon cancer 01/08/2019 0 07/29/2023 Change in bowel habit 01/04/20192018 Hiatal hernia 04/08/2016 09/29/2019 Throat pain 05/17/2015 06/13/2015 Bronchitis 05/17/2015 06/13/2015 Hepatitis C carrier 02/17/2014 10/31/19 16 Other and unspecified hyperlipidemia 10/25/2013 07/28/2018 Immunizations Name Administration Dates Next Due Covid-19 MRNA Vaccine - Pfiz er 12+ (Purple Cap) 08/31/2020,08/05/2020 Influenza (AFLURIA/FLUZONE) Inactivated/Split Quadrivalent with Preservative IM 02/21/2014 Influenza Inactivated/Split Preservative Free IM 03/13/2020,03/01/2018,03/25/2017,2015,06/13/2015,03/07/2013,03/09/2012,1 ,01/22/2010 Tdap 03/13/2020,08/15/2007,07/16/2007 Social History Tobacco Use Types Packs/Day Years Used Date Smoking Tobacco: Never Smokeless Tobacco: Never Alcohol Use Standard Drinks/Week Comments No 0 (1 standard drink = 0.6 oz pur e alcohol) PHQ-2 Answer Date Recorded PHQ-2 Total Score 0 03/13/2020 Sex and Gender Information Value Date Recorded Sex Assigned at Not on file Gender Identity Not on file Sexual Orientation Not on file Last Filed Vital Signs Vital Sign Reading Time Taken Comments Blood Pressure 107/74 10/08/2020 9:45 AM EDT Pulse 90 10/08/2020 9:45 AM EDT Temperature 36.3 ??C (97.3 ??F) 10/08/2020 9:45 AM ED T Respiratory Rate 18 10/08/2020 9:45 AM EDT Oxygen Saturation 98% 10/08/2020 9:45 AM EDT Inhaled Oxygen Concentration - - Weight 111 kg (245 lb) 10/08/2020 9:45 AM EDT Height 157.5 cm (5' 2 ) 10/08/2020 9:45 AM EDT Body Mass Index 44.81 10/08/2020 9:45 AM EDT Plan of Treatment Health Maintenance Due Date Last Done Comments Pneumococcal Vaccine: Pediat maría (0-5 Years) and At-Risk Patients (6 to 49 Years) (1 of 2 - PCV) 1973 HIV Screening 1980 Hepatitis B Vaccines (1 of 3 - 19+ 3-dose series) 1986 Pneumococcal Vaccines 50+ (1 of 2 - PCV) 1986 Zoster (Shingles) Vaccine (1 of 2) 2017 Mammogram 06/06/2021 06/06/2020, 10/2018, 03/20/2019 (Previously Completed), Additional history exists Pap Smear (Ages 21-65) 07/28/2021 07/28/2018, 2015 Lipid Panel 11/28/2021 11/28/2020, 01/15, 01/26/2019, Additional history exists Influenza Vaccine 12/16/2023 03/13/2020, , 03/25/2017, Additional history exists COVID-19 Vaccine (3 2023-2 5 season) 2024 08/31/2020, 08/05/2020 Colonoscopy 01/09/2029 01/09/2019 (Prev iously Completed) DTaP/Tdap/Td Vaccines (4 - T d or Tdap) 03/13/2030 03/13/2020, 08/15/2007, 07/16/2007 Hepatitis C Virus Screening Completed 03/24/2016, 1 Procedures Procedure Name Priority Date/Time Associated Diagnosis Comments LIPID PANEL WITH NONHDL Routine 11/28/2020 7:11 AM EDT Mixed hyperlipidemia Prediabetes IMAGING BREAST/BX/MAMMO Routine 06/06/2020 THINPREP PAP TEST (CIDER MAKER) WITH HPV SCREEN Routine 07/28/2018 2:15 PM EDT Screening for cervical cancer HXAMB HEPATITIS C VIRAL RNA QUAL TMA Routine 03/01/2012 8:46 AM EDT from Last 3 Months or Most Recently Relevant to Health Maintenance Results * (ABNORMAL) Lipid panel (11/28/2020 7:11 AM EDT) Cholesterol, Total 217(H) <200 mg/dL [facility] Cholesterol, HDL 42(L) > OR = 50 mg/dL [facility] Triglycerides 187(H) <150 mg/dL [facility] LDL Cholesterol 143(H) mg/dL (calc) [facility] Comment: Reference range: <100 Desirable range <100 mg/dL for primary prevention; ?? <70 mg/dL for patients with CHD or diabetic patients with > or = 2 CHD risk factors. LDL-C is now calculated using the Fani calculation, which is a validated novel method providing better accuracy than the Friedewald equation in the estimation of LDL-C. Jamal PICHARDO et al. VASILIY. 2013;310(19): 4752-7349 (http://education.GEOLID/faq/NZG033) Cholesterol/HDL Ratio 5.2(H) <5.0 (calc) [facility] Non HDL Chol. (LDL+VLDL) 175(H) <130 mg/dL (calc) [facility] Comment: For patients with diabetes plus 1 major ASCVD risk factor, treating to a non-HDL-C goal of <100 mg/dL (LDL-C of <70 mg/dL) is considered a therapeutic option. Blood specimen (specimen) Heel structure / Unknown 11/28/2020 7:11 AM EDT 11/28/2020 7:12 AM EDT Narrative [facility] - 11/29/2020 4:14 PM EDT FASTING:YES FASTING: YES Chirag SORIANO LAB BLOOD ORDERABLES [facility] [address], [place] [address] * (ABNORMAL) IMAGING BREAST/BX/MAMMO (06/06/2020) Anatomical Region Laterality Modality Other Marii Woods MD IM LEGACY PROCEDU RES * ThinPrep Pap Test (Wafer Abrading Machine Tender) with HPV Screen (07/28/2018 2:15 PM EDT) Clinical Information None given [facility] LMP: 06/30/2018 [facility] Previous PAP: NONE GIVEN [facility] Previous Biopsy NONE GIVEN [facility] Source: Cervix [facility] Statement of Adequacy: [facility] Comment: Satisfactory for evaluation. Endocervical/transformation zone component present. Interpretation/Res ult: [facility] Comment:Negative for intraep ithelial lesion or malignancy. Comment: [facility] Comment: This Pap test has been evaluated with computer assisted technology. Grey Washer: [facility] Comment: KN, CT(ASCP) CT screening location: [address] ??[address] Review Grey Washer: [facility] Comment: MSM, CT(ASCP) CT screening location: [address] ??[address] Comment [facility] Comment: EXPLANATORY NOTE: The Pap is a screening test for cervical cancer. It is not a diagnostic test and is subject to false negative and false positive results. It is most reliable when a satisfactory sample, regularly obtained, is submitted with relevant clinical findings and history, and when the Pap result is evaluated along with historic and current clinical information. Hpv Mrna [id number] Not Detected Not Detected [facility] Comment: This test was performed using the APTIMA HPV Assay ([employer] This assay detects E6/E7 viral messenger RNA (mRNA) from 14 high-risk HPV types (16,18,31,33,35,39,45,51,52,56,58,59,66,68). The analytical performance characteristics of this assay have been determined by [employer]. The modifications have not been cleared or approved by the FDA. This assay has been validated pursuant to the CLIA regulations and is used for clinical purposes. 07/28/2018 2:15 PM EDT 07/29/2018 2:39 AM EDT Narrative Resulting Agency Comment Performing Organization Information: ?Site ID: [id number] ?Name: [facility] ?Address: [address] [place] [address], [facility] [place] [address] ?Director: Zbigniew Willson MD Shanika Hillman MD PATHOLOGY/CYTOLOGY O RDERATAYLOR DINORA [facility] [address] [place] [address], [facility] [place] [address] * Hepatitis C Viral Rna Qual TMA (03/01/2012 8:46 AM EDT) Hepatitis C Viral Rna Qual Tma NONREACTIVE NONREACTIVE [facility] CONVERSION 03/01/2012 8:46 AM EDT [facility] SORIANO [facility]X LAB ALLSCRIPTS CONVERSION from Last 3 Months or Most Recently Relevant to Health Maintenance Care Teams Automatic Brine Mixer Operator Relationship Specialty Start Date End Date Jadon Devlin MD [address] [place] [address] Gastroenterology 09/29/19
--- OUTSIDE RECORDS SUMMARY | 2024-06-29 15:17 | XMS_ITS | Encounter Summary ---
Author Organization [facility]ly [facility] Address [address] [place] [address] Care Team Providers Care Silk Brusher Name Role Phone Shanika Hillman MD Primary Care Provider [phone] Shanika Hillman MD Unavailable [phone] Jadon Devlin MD Unavailable [phone] Marii Woods MD Primary Care Provider [phone] Pcp, No Primary Care Provider Unavailolivia e Marii Woods MD Unavailable [phone] Marii Woods MD Primary Care Provider [phone] Marii Woods MD Unavailable [phone] Reason for Visit * Reason Onset Date Comments Medication Refill 04/27/2018 Encounter Details Date Type Department Care Team (Late st Contact Info) Description 04/27/2018 Refill [facility] [address] [place] [phone] Shanika Hillman MD [address] [place] [address] Chronic migraine without aura, with intractable migraine, so stated, with status migrainosus; Other migraine without status migrainosus, not intractable; Migraine without aura and with status migrainosus, not intractable; Other depression Social [...] encounter Miscellaneous Notes * Telephone Encounter - Carolann Claros LPN - 04/27/2018 10:15 AM EST Please review medication refills. Are you willing to refill all medications. documented in this encounter Plan of Treatment Not on file documented as of this encounter Visit Diagnoses Diagnosis Chronic migraine without aura, with intractable migraine, so stated, with status migrainosus Other migraine without status migrainosus, not intractable Migraine without aura and with status migrainosus, not intractable Other depression documented in this encounter Care Teams Silk Brusher Relationship Specialty Start Date End Date Shanika Hillman MD PCP - General Internal Medicine 12/29/17 09/28/19 Shanika Hillman MD [facility] [address] [place] [address] PCP - [employer] Commercial Attributed 02/14/19 05/16/19 Marii Woods MD 1060 [facility] [place] [address] PCP - General Internal Medicine 09/29/19 01/22/20 Pcp, No PCP - General 01/23/20 03/06/20 Marii Woods MD 1060 [facility] [place] [address] PCP - [employer] Commercial Attributed 10/16/19 04/15/20 Marii Woods MD 1060 [facility] [place] [address] PCP - General Internal Medicine 03/07/20 08/07/21 Marii Woods MD 1060 [facility] [place] [address] PCP - [employer] Commercial Attributed 08/15/20 05/16/21 Jadon Devlin MD [address] [place] [address] [address] [place] [address] Gastroenterology 09/29/19 documented as of this encounter
--- OUTSIDE RECORDS SUMMARY | 2024-06-29 15:17 | XMS_ITS | Encounter Summary ---
Author Organization [facility] Address [address] [place], [place] [id number] Care Team Providers Care Rotor Blade Installer Name Role Phone Jadon Devlin MD Unavailable [phone] Marii Woods MD Primary Care Provider + [phone] Marii Woods MD Unavailable [phone] Encounter Details Date Type Department Care Team (Late st Contact Info) Description 10/08/2020 Scanned Document [address] [phone] Marii Woods MD [address] [place] [id number] Social History Tobacco Use Types Packs/Day Years [...] on filedocumented in this encounter Care Teams Rotor Blade Installer Relationship Specialty Start Date End Date Marii Woods MD 10[address] [facility] [address] PCP - General Internal Medicine 03/07/20 08/07/21 Marii Woods MD [address] [facility] [address] PCP - [employer] Commercial Attributed 08/15/20 05/16/21 Jadon Devlin MD 21 [facility] 100 [place] [address] Gastroenterology 09/29/19 documented as of this encounter
--- OUTSIDE RECORDS SUMMARY | 2024-06-29 15:17 | XMS_ITS | Encounter Summary ---
Author Organization [facility] Address [address] [place] [address] Care Team Providers Care Glass Beveler Name Role Phone Jadon Devlin MD Unavailable [phone] Marii Woods MD Primary Care Provider + [phone] Marii Woods MD Unavailable [phone] Reason for Visit * Reason Comments Medication Refill Encounter Details Date Type Department Care Team (Late st Contact Info) Description 08/21/2020 Refill LTAC[facility] located within [facility] [address] [address] Marii Woods MD [address] [place] [phone] Gastroesophageal reflux disease without esophagitis Social History [...] have Coronavirus / COVID-19? No / Unsure 07/30/2020 9:00 AM EDT documented as of this encounter Plan of Treatment Not on file documented as of this encounter Visit Diagnoses Diagnosis Gastroesophageal reflux disease without esophagitis Esophageal reflux documented in this encounter Care Teams Glass Beveler Relationship Specialty Start Date End Date Marii Woods MD [address] [place] [address] PCP - General Internal Medicine 03/07/20 08/07/21 [place] [address] [place] [address] PCP - [employer] Commercial Attributed 08/15/20 05/16/21 Jadon Devlin MD [address] [place] [address] Gastroenterology 09/29/19 documented as of this encounter
--- OUTSIDE RECORDS SUMMARY | 2024-06-29 15:17 | XMS_ITS | Encounter Summary ---
Author Organization [facility] Address [address] [place], [place] [id number] Care Team Providers Care Telephone Operator Receptionist Name Role Phone Jadon Devlin MD Unavailable [phone] Mraii Woods MD Primary Care Provider +- [phone] Marii Woods MD Unavailable [phone] Encounter Details Date Type Department Care Team (Late st Contact Info) Description 05/27/2020 Scanned Document [address] [address] Marii Woods MD [address] [place] [phone] Social History Tobacco Use Types Packs/Day Years [...] on filedocumented in this encounter Care Teams Telephone Operator Receptionist Relationship Specialty Start Date End Date Marii Woods MD [address] [place] [id number] PCP - General Internal Medicine 03/07/20 08/07/21 Marii Woods MD 1060 [place] [address] PCP - [employer] Commercial Attributed 08/15/20 05/16/21 Jadon Devlin MD 21 [facility] 100 [place] [address] Gastroenterology 09/29/19 documented as of this encounter
--- OUTSIDE RECORDS SUMMARY | 2024-06-29 15:17 | XMS_ITS | Encounter Summary ---
Author Organization [facility] Address [address] [place] [address] Care Team Providers Care Registered Midwife Name Role Phone Jadon Devlin MD Unavailable [phone] Marii Woods MD Unavailable [phone] Marii Woods MD Primary Care Provider [phone] Marii Woods MD Unavailable [phone] Reason for Visit * Reason Comments Medication Refill Encounter Details Date Type Department Care Team (Late st Contact Info) Description 03/19/[address] [address] Chirag Hicks PA [address] [address] Other depression; Chronic migraine without aura, with [...] intractable documented in this encounter Care Teams Registered Midwife Relationship Specialty Start Date End Date Marii Woods MD [address] [place] [address] PCP - [employer] Commercial Attributed 10/16/19 04/15/20 Marii Woods MD [address] [place] [address] PCP - General Internal Medicine 03/07/20 08/07/21 Marii Woods MD [address] [place] [address] PCP - [employer] Commercial Attributed 08/15/20 05/16/21 Jadon Devlin MD [address] [place] [address] Gastroenterology 09/29/19 documented as of this encounter
--- OUTSIDE RECORDS SUMMARY | 2024-06-29 16:03 | XMS_ITS | Encounter Summary ---
Author Organization [facility] Address [address] [place] [address] Care Team Providers Care Vp Organizational Development Name Role Phone Michelle Mccoy DO Primary Care Provider [phone] Shanika Hillman MD Primary Care Provider [phone] Shanika Hillman MD Unavailable [phone] Jadon Devlin MD Unavailable [phone] Marii Woods MD Primary Care Provider Pcp, No Primary Care Provider UnavailMarii Dominguez MD Unavailable +[phone] Marii Woods MD Primary Care Provider + [phone] Marii Woods MD Unavailable [phone] Encounter Details Date Type Department Care Team (Late st Contact Info) Description 11/11/2016 Scanned Document [address] [address] Michelle Mccoy DO [address] [place] [address] Social History Tobacco Use Types Packs/Day Years [...] on filedocumented in this encounter Care Teams Vp Organizational Development Relationship Specialty Start Date End Date Michelle Mccoy DO PCP - General Family Medicine 02/03/16 12/28/17 Shanika Hillman MD PCP - General Internal Medicine 12/29/17 09/28/19 Shanika Hillman MD [facility] [address] [place] [address] PCP - [employer] Commercial Attributed 02/14/19 05/16/19 Marii Woods MD [address] [facility] [place] [address] PCP - General Internal Medicine 09/29/19 01/22/20 Pcp, No PCP - General 01/23/20 03/06/20 Marii Woods MD [address] [facility] [place] [address] PCP - [employer] Commercial Attributed 10/16/19 04/15/20 Marii Woods MD [address] [facility] [place] [address] PCP - General Internal Medicine 03/07/20 08/07/21 Marii Woods MD 1060 [facility] [place] [address] PCP - [employer] Commercial Attributed 08/15/20 05/16/21 Jadon Devlin MD 21 [facility] 100 [place] [address] Gastroenterology 09/29/19 documented as of this encounter
--- OUTSIDE RECORDS SUMMARY | 2024-06-29 16:03 | XMS_ITS | Encounter Summary ---
Author Organization [facility] Address [address] [place] [address] Care Team Providers Care Service Delivery Director Name Role Phone Jadon Devlin MD Unavailable [phone] Reason for Visit * Reason Comments Medication Refill Encounter Details Date Type Department Care Team (Late st Contact Info) Description 08/28/2021 Refill formerly [facility] 10[address] [place] [address] Barbara Garner, PROFESSOR OF EXERCISE SCIENCE [address] [place] [address] Other depression; Chronic migraine without aura, with [...] intractable documented in this encounter Care Teams Service Delivery Director Relationship Specialty Start Date End Date Jadon Devlin MD [address] [place] [address] Gastroenterology 09/29/19 documented as of this encounter
--- OUTSIDE RECORDS SUMMARY | 2024-06-29 16:03 | XMS_ITS | Encounter Summary ---
Author Organization [facility] Address [address] [place] [address] Care Team Providers Care Tobacco Sample Puller Name Role Phone Jadon Devlin MD Unavailable [phone] Marii Woods MD Primary Care Provider + [phone] Marii Woods MD Unavailable [phone] Reason for Visit * Reason Comments Medication Refill Encounter Details Date Type Department Care Team (Late st Contact Info) Description 03/04/[address] [address] Marii Woods MD [address] [place] [address] Left chest pressure; Palpitations; Tachycardia; Essential [...] hypertension documented in this encounter Care Teams Tobacco Sample Puller Relationship Specialty Start Date End Date Marii Woods MD [address] [place] [address] PCP - General Internal Medicine 03/07/20 08/07/21 Marii Woods MD 1060 [place] [address] PCP - [employer] Commercial Attributed 08/15/20 05/16/21 Jadon Devlin MD [address] [place] [address] 100 [place] [address] Gastroenterology 09/29/19 documented as of this encounter
--- OUTSIDE RECORDS SUMMARY | 2024-06-29 16:03 | XMS_ITS | Encounter Summary ---
Author Organization [facility] Address [address] [place] [address] Care Team Providers Care Academy Director Name Role Phone Shanika Hillman MD Primary Care Provider Jadon Devlin MD Unavailable [phone] Marii Woods MD Primary Care Provider [phone] Pcp, No Primary Care Provider UnavailMarii Dominguez MD Unavailable +[phone] Marii Woods MD Primary Care Provider + [phone] Marii Woods MD Unavailable [phone] Reason for Visit * Reason Comments Medication Refill Encounter Details Date Type Department Care Team (Late st Contact Info) Description 06/02/[address] [address] Shanika Hillman MD [address] [place] [address] Gastroesophageal reflux disease without esophagitis Social [...] reflux documented in this encounter Care Teams Academy Director Relationship Specialty Start Date End Date Shanika Hillman MD PCP - General Internal Medicine 12/29/17 09/28/19 Marii Woods MD 1060 [place] [address] PCP - General Internal Medicine 09/29/19 01/22/20 Pcp, No PCP - General 01/23/20 03/06/20 Marii Woods MD 1060 [place] [address] PCP - C[employer] Commercial Attributed 10/16/19 04/15/20 Marii Woods MD 1060 [place] [address] PCP - General Internal Medicine 03/07/20 08/07/21 Marii Woods MD 1060 [place] [address] PCP - [employer] Commercial Attributed 08/15/20 05/16/21 Jadon Devlin MD [address] [place] [address] 100 [place] [address] Gastroenterology 09/29/19 documented as of this encounter
--- OUTSIDE RECORDS SUMMARY | 2024-06-29 16:03 | XMS_ITS | Encounter Summary ---
Author Organization [facility] Address [address] [place] [address] Care Team Providers Care Tunnel Kiln Firer Name Role Phone Shanika Hillman MD Primary Care Provider Shanika Hillman MD Unavailable [phone] Jadon Devlin MD Unavailable [phone] Marii Woods MD Primary Care Provider [phone] Pcp, No Primary Care Provider Unavailolivia e Marii Woods MD Unavailable [phone] Marii Woods MD Primary Care Provider + [phone] Marii Woods MD Unavailable [phone] Encounter Details Date Type Department Care Team (Late st Contact Info) Description 01/09/[address] [facility] 10 [facility] [address] [place] [address] Jadon Devlin MD [address] [place] [address] 100 [place] [address] Social History Tobacco Use Types Packs/Day Years [...] on filedocumented in this encounter Care Teams Tunnel Kiln Firer Relationship Specialty Start Date End Date Shanika Hillman MD PCP - General Internal Medicine 12/29/17 09/28/19 Shanika Hillman MD 234 [facility] 4011 [place] [address] PCP - C[employer] Commercial Attributed 02/14/19 05/16/19 Marii Woods MD 1060 [facility] [place] [address] PCP - General Internal Medicine 09/29/19 01/22/20 Pcp, No PCP - General 01/23/20 03/06/20 Marii Woods MD 1060 [facility] [place] [address] PCP - C[employer] Commercial Attributed 10/16/19 04/15/20 Marii Woods MD 1060 [facility] [place] [address] PCP - General Internal Medicine 03/07/20 08/07/21 Marii Woods MD 1060 [facility] [place] [address] PCP - C[employer] Commercial Attributed 08/15/20 05/16/21 Jadon Devlin MD 21 [facility] 100 [place] [address] Gastroenterology 09/29/19 documented as of this encounter
--- OUTSIDE RECORDS SUMMARY | 2024-06-29 16:03 | XMS_ITS | Encounter Summary ---
Author Organization [facility] Address [address] [place] [address] Care Team Providers Care Infection Control Practitioner Name Role Phone Jadon Devlin MD Unavailable [phone] Marii Woods MD Primary Care Provider + [phone] Pcp, No Primary Care Provider Unavailabl e Marii Woods MD Unavailable +[phone] Marii Woods MD Primary Care Provider + [phone] Marii Woods MD Unavailable [phone] Reason for Visit * Reason Comments Medication Refill Encounter Details Date Type Department Care Team (Late st Contact Info) Description 10/26/2019 Refill [facility] 1060 [place] [phone] Barbara Garner, CAREER PLACEMENT SERVICES COUNSELOR 1060 [place], [place] [address] Other migraine without status migrainosus, not intractable; [...] depression documented in this encounter Care Teams Infection Control Practitioner Relationship Specialty Start Date End Date Marii Woods MD 1060 [place] [address] PCP - General Internal Medicine 09/29/19 01/22/20 Pcp, No PCP - General 01/23/20 03/06/20 Marii Woods MD 1060 [place] [address] PCP - C[employer] Commercial Attributed 10/16/19 04/15/20 Marii Woods MD 1060 [place] [address] PCP - General Internal Medicine 03/07/20 08/07/21 Marii Woods MD 1060 [place] [address] PCP - C[employer] Commercial Attributed 08/15/20 05/16/21 Jadon Devlin MD [address] [address] Gastroenterology 09/29/19 documented as of this encounter
--- OUTSIDE RECORDS SUMMARY | 2024-06-29 16:03 | XMS_ITS | Encounter Summary ---
Author Organization [facility] Address [address] [place] [address] Care Team Providers Care Chief Information Officer Name Role Phone Jadon Devlin MD Unavailable Reason for Visit * Reason Comments Medication Refill Encounter Details Date Type Department Care Team (Late st Contact Info) Description 12/10/[address] [phone] Marii Woods MD [address] [place] [address] Left chest pressure; Palpitations; Tachycardia; Essential hypertension [...] hypertension documented in this encounter Care Teams Chief Information Officer Relationship Specialty Start Date End Date Jadon Devlin MD [address] [place] [address] Gastroenterology 09/29/19 documented as of this encounter
--- OUTSIDE RECORDS SUMMARY | 2024-06-29 16:03 | XMS_ITS | Encounter Summary ---
Author Organization [facility] Address [address] [place] [address] Care Team Providers Care Transit Authority Police Officer Name Role Phone Shanika Hillman MD Primary Care Provider Shanika Hillman MD Unavailable [phone] Jadon Devlin MD Unavailable [phone] Marii Woods MD Primary Care Provider Pcp, No Primary Care Provider Unavailloivia e Marii Woods MD Unavailable +[phone] Marii Woods MD Primary Care Provider + [phone] Marii Woods MD Unavailable [phone] Encounter Details Date Type Department Care Team (Late st Contact Info) Description 03/27/2019 Scanned Document [address] [address] Shanika Hillman MD [facility] [place] [address] Social History Tobacco Use Types [...] on filedocumented in this encounter Care Teams Transit Authority Police Officer Relationship Specialty Start Date End Date Shanika Hillman MD PCP - General Internal Medicine 12/29/17 09/28/19 Shanika Hillman MD 234 [facility] 4011 [place] [address] PCP - C[employer] Commercial Attributed 02/14/19 05/16/19 Marii Woods MD 1060 [place] [address] PCP - General Internal Medicine 09/29/19 01/22/20 Pcp, No PCP - General 01/23/20 03/06/20 Marii Woods MD 1060 [place] [address] PCP - C[employer] Commercial Attributed 10/16/19 04/15/20 Marii Woods MD 1060 [facility] [address] PCP - General Internal Medicine 03/07/20 08/07/21 Marii Woods MD 1060 [facility] [place] [address] PCP - C[employer] Commercial Attributed 08/15/20 05/16/21 Jadon Devlin MD [address] [place] [address] Rd [facility] 100 [place] [address] Gastroenterology 09/29/19 documented as of this encounter
--- OUTSIDE RECORDS SUMMARY | 2024-06-29 16:03 | XMS_ITS | Encounter Summary ---
Author Organization [facility] Address [address] [place] [address] Care Team Providers Care Casting Tester Name Role Phone Naty Rendon MD Primary Care Provider [phone] Michelle Mccoy DO Primary Care Provider [phone] Shanika Hillman MD Primary Care Provider [phone] Shanika Hillman MD Unavailable [phone] Jadon Devlin MD Unavailable [phone] Marii Woods MD Primary Care Provider + [phone] Pcp, No Primary Care Provider Unavailolivia e Marii Woods MD Unavailable +[phone] Marii Woods MD Primary Care Provider + [phone] Marii Woods MD Unavailable [phone] Encounter Details Date Type Department Care Team (Late st Contact Info) Description 08/22/2015 Scanned Document [address] [phone] Provider, Generic Social History Tobacco Use Types [...] on filedocumented in this encounter Care Teams Casting Tester Relationship Specialty Start Date End Date Naty Rendon MD PCP - General Internal Medicine 03/18/15 02/02/16 Michelle Mccoy DO PCP - General Family Medicine 02/03/16 12/28/17 Shanika Hillman MD PCP - General Internal Medicine 12/29/17 09/28/19 Shanika Hillman MD 234 [facility] 4011 [place] [address] PCP - C[employer] Commercial Attributed 02/14/19 05/16/19 Marii Woods MD 1060 [place] [address] PCP - General Internal Medicine 09/29/19 01/22/20 Pcp, No PCP - General 01/23/20 03/06/20 Marii Woods MD 106 [place] [address] PCP - C[employer] Commercial Attributed 10/16/19 04/15/20 Marii Woods MD 106 [place] [address] PCP - General Internal Medicine 03/07/20 08/07/21 Marii Woods MD 1059 [place] [address] PCP - C[employer] Commercial Attributed 08/15/20 05/16/21 Jadon Devlin MD [address] [place] [address] Gastroenterology 09/29/19 documented as of this encounter
--- OUTSIDE RECORDS SUMMARY | 2024-06-29 16:03 | XMS_ITS | Encounter Summary ---
Author Organization [facility] Address [address] [place] [address] Care Team Providers Care Imaging System Administrator Name Role Phone Shanika Hillman MD Primary Care Provider Jadon Devlin MD Unavailable [phone] Marii Woods MD Primary Care Provider Pcp, No Primary Care Provider UnavailMarii Dominguez MD Unavailable +[phone] Marii Woods MD Primary Care Provider + [phone] Marii Woods MD Unavailable [phone] Reason for Visit * Reason Comments Medication Refill Encounter Details Date Type Department Care Team (Late st Contact Info) Description 08/31/2019 Refill [facility] 1060 [place] [address] Barbara Garner, BURRING MACHINE OPERATOR [address] [place] [address] Chronic migraine without aura, with intractable migraine, [...] migrainosus documented in this encounter Care Teams Imaging System Administrator Relationship Specialty Start Date End Date Shanika Hillman MD PCP - General Internal Medicine 12/29/17 09/28/19 Marii Woods MD 1060 [place] [address] PCP - General Internal Medicine 09/29/19 01/22/20 Pcp, No PCP - General 01/23/20 03/06/20 Marii Woods MD 1060 [place] [address] PCP - C[employer] Commercial Attributed 10/16/19 04/15/20 Marii Woods MD 10[address] [facility] [place] [address] PCP - General Internal Medicine 03/07/20 08/07/21 Marii Woods MD 1060 [place] [address] PCP - C[employer] Commercial Attributed 08/15/20 05/16/21 Jadon Devlin MD 21 [facility] 100 [place] [address] Gastroenterology 09/29/19 documented as of this encounter
--- OUTSIDE RECORDS SUMMARY | 2024-06-29 16:03 | XMS_ITS | Encounter Summary ---
Author Organization [facility] Address [address] [place] [address] Care Team Providers Care Composition Molder Name Role Phone Shanika Hillman MD Primary Care Provider Shanika Hillman MD Unavailable [phone] Jadon Devlin MD Unavailable [phone] Marii Woods MD Primary Care Provider [phone] Pcp, No Primary Care Provider Unavailolivia e Marii Woods MD Unavailable Marii Woods MD Primary Care Provider + [phone] Marii Woods MD Unavailable [phone] Reason for Visit * Reason Comments Medication Refill Encounter Details Date Type Department Care Team (Late st Contact Info) Description 02/01/[address] [address] Shanika Hillman MD [address] [place] [address] Mild intermittent asthmatic bronchitis with acute [...] exacerbation documented in this encounter Care Teams Composition Molder Relationship Specialty Start Date End Date Shanika Hillman MD PCP - General Internal Medicine 12/29/17 09/28/19 Shanika Hillman MD [address] [place] [address] 4[address] [place] [address] PCP - C[employer] Commercial Attributed 02/14/19 05/16/19 Marii Woods MD 1060 [facility] [place] [address] PCP - General Internal Medicine 09/29/19 01/22/20 Pcp, No PCP - General 01/23/20 03/06/20 Marii Woods MD 1060 [facility] [place] [address] PCP - C[employer] Commercial Attributed 10/16/19 04/15/20 Marii Woods MD 1060 [facility] [place] [address] PCP - General Internal Medicine 03/07/20 08/07/21 Marii Woods MD 1060 [facility] [place] [address] PCP - Cigna Commercial Attributed 08/15/20 05/16/21 Jadon Devlin MD [address] [place] [address] 100 [place] [address] Gastroenterology 09/29/19 documented as of this encounter
--- OUTSIDE RECORDS SUMMARY | 2024-06-29 16:03 | XMS_ITS | Encounter Summary ---
Author Organization [facility] Address [address] [place] [address] Care Team Providers Care Electronic Imaging System Operator Name Role Phone Shanika Hillman MD Primary Care Provider Shanika Hillman MD Unavailable [phone] Jadon Devlin MD Unavailable [phone] Marii Woods MD Primary Care Provider [phone] Pcp, No Primary Care Provider Unavailolivia e Marii Woods MD Unavailable +[phone] Marii Woods MD Primary Care Provider + [phone] Marii Woods MD Unavailable [phone] Reason for Visit * Reason Comments Medication Refill Encounter Details Date Type Department Care Team (Late st Contact Info) Description 04/06/[address] [address] Shanika Hillman MD [address] [place] [address] Depressive disorder (Primary Dx) Social History [...] classified documented in this encounter Care Teams Electronic Imaging System Operator Relationship Specialty Start Date End Date Shanika Hillman MD PCP - General Internal Medicine 12/29/17 09/28/19 Shanika Hillman MD [address] [place] [address] 4011 [place] [address] PCP - C[employer] Commercial Attributed 02/14/19 05/16/19 Marii Woods MD 1060 [place] [address] PCP - General Internal Medicine 09/29/19 01/22/20 Pcp, No PCP - General 01/23/20 03/06/20 Marii Woods MD 1060 [place] [address] PCP - C[employer] Commercial Attributed 10/16/19 04/15/20 Marii Woods MD 1060 [place] [address] PCP - General Internal Medicine 03/07/20 08/07/21 Marii Woods MD 1060 [place] [address] PCP - [employer] Commercial Attributed 08/15/20 05/16/21 Jadon Devlin MD [address] [place] [address] 100 [place] [address] Gastroenterology 09/29/19 documented as of this encounter
--- OUTSIDE RECORDS SUMMARY | 2024-06-29 16:03 | XMS_ITS | Encounter Summary ---
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
--- OUTSIDE RECORDS SUMMARY | 2024-06-29 16:03 | XMS_ITS | Encounter Summary ---
Author Organization [facility] Address [address] [place], [place] [id number] Care Team Providers Care Biometric Technician Name Role Phone Naty Rendon MD Primary Care Provider [phone] Michelle Mccoy DO Primary Care Provider [phone] Shanika Hillman MD Primary Care Provider +[phone] Shanika Hillman MD Unavailable [phone] Jadon Devlin MD Unavailable +[phone] Marii Woods MD Primary Care Provider [phone] Pcp, No Primary Care Provider UnavailMarii Dominguez MD Unavailable [phone] Marii Woods MD Primary Care Provider + [phone] Marii Woods MD Unavailable [phone] Naty Rendon MD Primary Care Provider [phone] Encounter Details Date Type Department Care Team (Late st Contact Info) Description 02/01/2015 Scanned Document [address] [address] Provider, Generic Social History Tobacco [...] on filedocumented in this encounter Care Teams Biometric Technician Relationship Specialty Start Date End Date Naty Rendon MD PCP - General Internal Medicine 03/18/15 02/02/16 Michelle Mccoy DO PCP - General Family Medicine 02/03/16 12/28/17 Shanika Hillman MD PCP - General Internal Medicine 12/29/17 09/28/19 Shanika Hillman MD [address] [place] [address] 4[address] [place] [address] PCP - Cigna Commercial Attributed 02/14/19 05/16/19 Marii Woods MD [address] [facility] [place] [address] PCP - General Internal Medicine 09/29/19 01/22/20 Pcp, No PCP - General 01/23/20 03/06/20 Marii Woods MD [address] [facility] [place] [address] PCP - Cigna Commercial Attributed 10/16/19 04/15/20 Marii Woods MD [address] [facility] [place] [address] PCP - General Internal Medicine 03/07/20 08/07/21 Marii Woods MD [address] [place] [address] PCP - Cigna Commercial Attributed 08/15/20 05/16/21 Naty Rendon MD [facility] [address] [place] [address] PCP - General 03/17/15 Jadon Devlin MD [address] [place] [address] 100 [place] [address] Gastroenterology 09/29/19 documented as of this encounter
--- OUTSIDE RECORDS SUMMARY | 2024-06-29 16:03 | XMS_ITS | Encounter Summary ---
Author Organization [facility] Address [address] [place] [address] Care Team Providers Care Bricklayer Supervisor Name Role Phone Jadon Devlin MD Unavailable [phone] Reason for Visit * Reason Comments Medication Refill Encounter Details Date Type Department Care Team (Late st Contact Info) Description 09/06/2021 Refill [facility] [address] [place] [address] Barbara Garner, DOCUMENTATION ENGINEER [address] [place] [address] Other depression; Chronic migraine without aura, with [...] intractable documented in this encounter Care Teams Bricklayer Supervisor Relationship Specialty Start Date End Date Jadon Devlin MD [address] [place], [place] [address] Gastroenterology 09/29/19 documented as of this encounter
--- OUTSIDE RECORDS SUMMARY | 2024-06-29 16:03 | XMS_ITS | Encounter Summary ---
Author Organization [facility] Address [address] [place] [address] Care Team Providers Care Hardboard Press Operator Name Role Phone Naty Rendon MD Primary Care Provider Michelle Mccoy DO Primary Care Provider [phone] Shanika Hillman MD Primary Care Provider [phone] Shanika Hillman MD Unavailable [phone] Jadon Devlin MD Unavailable +[phone] Marii Woods MD Primary Care Provider + [phone] Pcp, No Primary Care Provider Unavailolivia e Marii Woods MD Unavailable +[phone] Marii Woods MD Primary Care Provider + [phone] Marii Woods MD Unavailable [phone] Encounter Details Date Type Department Care Team (Late st Contact Info) Description 06/08/2015 Scanned Document [address] [phone] Provider, Generic Social History Tobacco Use Types [...] on filedocumented in this encounter Care Teams Hardboard Press Operator Relationship Specialty Start Date End Date Naty Rendon MD PCP - General Internal Medicine 03/18/15 02/02/16 Michelle Mccoy DO PCP - General Family Medicine 02/03/16 12/28/17 Shanika Hillman MD PCP - General Internal Medicine 12/29/17 09/28/19 Shanika Hillman MD [address] [place] [address] 4[address] [place] [address] PCP - Cigna Commercial Attributed 02/14/19 05/16/19 Marii Woods MD [address] [place], [place] [address] PCP - General Internal Medicine 09/29/19 01/22/20 Pcp, No PCP - General 01/23/20 03/06/20 Marii Woods MD 1060 [facility] [address] PCP - Cigna Commercial Attributed 10/16/19 04/15/20 Marii Woods MD 1060 [facility] [address] PCP - General Internal Medicine 03/07/20 08/07/21 Marii Woods MD 1060 [facility] [address] PCP - Cigna Commercial Attributed 08/15/20 05/16/21 Jadon Devlin MD [address] [place] [address] Gastroenterology 09/29/19 documented as of this encounter
--- OUTSIDE RECORDS SUMMARY | 2024-06-29 16:03 | XMS_ITS | Encounter Summary ---
Author Organization [facility] Address [address] [place] [address] Care Team Providers Care Waiver Analyst Name Role Phone Jadon Devlin MD Unavailable [phone] Reason for Visit * Reason Comments Medication Refill Encounter Details Date Type Department Care Team (Late st Contact Info) Description 09/10/2021 Refill [facility] [address] [place] [address] Barbara Garner, GARMENT INSPECTOR [address] [place] [address] Other depression; Chronic migraine without aura, with [...] intractable documented in this encounter Care Teams Waiver Analyst Relationship Specialty Start Date End Date Jadon Devlin MD [address] [place], [place] [address] Gastroenterology 09/29/19 documented as of this encounter
--- OUTSIDE RECORDS SUMMARY | 2024-06-29 16:03 | XMS_ITS | Encounter Summary ---
Author Organization [facility] Address [address] [place] [address] Care Team Providers Care Gage Designer Name Role Phone Naty Rendon MD Primary Care Provider Michelle Mccoy DO Primary Care Provider [phone] Shanika Hillman MD Primary Care Provider [phone] Shanika Hillman MD Unavailable [phone] Jadon Devlin MD Unavailable [phone] Marii Woods MD Primary Care Provider [phone] Pcp, No Primary Care Provider Unavailolivia e Marii Woods MD Unavailable Marii Woods MD Primary Care Provider Marii Woods MD Unavailable [phone] Encounter Details Date Type Department Care Team (Late st Contact Info) Description 08/21/[address] [facility] [address] [place] [address] Naty Rendon MD [facility] [address] [place] [address] Social History Tobacco Use Types Packs/Day [...] on filedocumented in this encounter Care Teams Gage Designer Relationship Specialty Start Date End Date Naty Rendon MD PCP - General Internal Medicine 03/18/15 02/02/16 Michelle Mccoy DO PCP - General Family Medicine 02/03/16 12/28/17 Shanika Hillman MD PCP - General Internal Medicine 12/29/17 09/28/19 Shanika Hillman MD [address] [place] [address] [place] [address] PCP - Cigna Commercial Attributed 02/14/19 05/16/19 Marii Woods MD 1060 [facility] [place] [address] PCP - General Internal Medicine 09/29/19 01/22/20 Pcp, No PCP - General 01/23/20 03/06/20 Marii Woods MD 1060 [place] [address] PCP - Cigna Commercial Attributed 10/16/19 04/15/20 Marii Woods MD 1060 [place] [address] PCP - General Internal Medicine 03/07/20 08/07/21 Marii Woods MD [address] [place] [address] PCP - Cigna Commercial Attributed 08/15/20 05/16/21 Jadon Devlin MD 21 [facility] 100 [place] [address] Gastroenterology 09/29/19 documented as of this encounter
--- OUTSIDE RECORDS SUMMARY | 2024-06-29 16:03 | XMS_ITS | Encounter Summary ---
Author Organization [facility] Address [address] [place] [address] Care Team Providers Care Head Wood Grinder Name Role Phone Michelle Mccoy DO Primary Care Provider [phone] Sahnika Hillman MD Primary Care Provider +[phone] Shanika Hillman MD Unavailable [phone] Jadon Devlin MD Unavailable +[phone] Marii Woods MD Primary Care Provider + [phone] Pcp, No Primary Care Provider Unavailolivia e Marii Woods MD Unavailable [phone] Marii Woods MD Primary Care Provider [phone] Marii Woods MD Unavailable [phone] Encounter Details Date Type Department Care Team (Late st Contact Info) Description 05/19/2016 Scanned Document [address] [phone] Provider, Generic Social History Tobacco Use Types [...] on filedocumented in this encounter Care Teams Head Wood Grinder Relationship Specialty Start Date End Date Michelle Mccoy DO PCP - General Family Medicine 02/03/16 12/28/17 Shanika Hillman MD PCP - General Internal Medicine 12/29/17 09/28/19 Shanika Hillman MD [address] [place] [address] 4[address] [place] [address] PCP - Cigna Commercial Attributed 02/14/19 05/16/19 Marii Woods MD 106 [place] [address] PCP - General Internal Medicine 09/29/19 01/22/20 Pcp, No PCP - General 01/23/20 03/06/20 Marii Woods MD [address] [place] [address] PCP - Cigna Commercial Attributed 10/16/19 04/15/20 Marii Woods MD 106 [place] [address] PCP - General Internal Medicine 03/07/20 08/07/21 Marii Woods MD 106 [place] [address] PCP - Cigna Commercial Attributed 08/15/20 05/16/21 Jadon Devlin MD [address] [place] [address] 100 [place] [address] Gastroenterology 09/29/19 documented as of this encounter
--- OUTSIDE RECORDS SUMMARY | 2024-06-29 16:03 | XMS_ITS | Encounter Summary ---
Author Organization [facility] Address [address] [place] [address] Care Team Providers Care Picture Framer Name Role Phone Naty Rendon MD Primary Care Provider Michelle Mccoy DO Primary Care Provider [phone] Shanika Hillman MD Primary Care Provider [phone] Shanika Hillman MD Unavailable [phone] Jadon Devlin MD Unavailable [phone] Marii Woods MD Primary Care Provider + [phone] Pcp, No Primary Care Provider Unavailolivia e Marii Woods MD Unavailable [phone] Marii Woods MD Primary Care Provider + [phone] Marii Woods MD Unavailable [phone] Encounter Details Date Type Department Care Team (Late st Contact Info) Description 07/08/2015 Scanned Document [address] [phone] Provider, Generic Social History Tobacco Use Types [...] on filedocumented in this encounter Care Teams Picture Framer Relationship Specialty Start Date End Date Naty Rendon MD PCP - General Internal Medicine 03/18/15 02/02/16 Michelle Mccoy DO PCP - General Family Medicine 02/03/16 12/28/17 Shanika Hillman MD PCP - General Internal Medicine 12/29/17 09/28/19 Shanika Hillman MD [address] [place] [address] 4[address] [place] [address] PCP - Cigna Commercial Attributed 02/14/19 05/16/19 Marii Woods MD [address] [place], [place] [address] PCP - General Internal Medicine 09/29/19 01/22/20 Pcp, No PCP - General 01/23/20 03/06/20 Marii Woods MD 1060 [facility] [place] [address] PCP - Cigna Commercial Attributed 10/16/19 04/15/20 Marii Woods MD 1060 [facility] [place] [address] PCP - General Internal Medicine 03/07/20 08/07/21 Marii Woods MD 1060 [facility] [place] [address] PCP - Cigna Commercial Attributed 08/15/20 05/16/21 Jadon Devlin MD [address] [place] [address] Gastroenterology 09/29/19 documented as of this encounter
--- OUTSIDE RECORDS SUMMARY | 2024-06-29 16:03 | XMS_ITS | Encounter Summary ---
Author Organization [facility] Address [address] [place] [address] Care Team Providers Care E Commerce Solution Architect Name Role Phone Michelle Mccoy DO Primary Care Provider [phone] Shanika Hillman MD Primary Care Provider [phone] Shanika Hillman MD Unavailable [phone] Jadon Devlin MD Unavailable [phone] Marii Woods MD Primary Care Provider + [phone] Pcp, No Primary Care Provider Unavailolivia e Marii Woods MD Unavailable [phone] Marii Woods MD Primary Care Provider [phone] Marii Woods MD Unavailable [phone] Encounter Details Date Type Department Care Team (Late st Contact Info) Description 11/01/2016 Scanned Document [address] [phone] Provider, Generic Social History Tobacco Use Types [...] on filedocumented in this encounter Care Teams E Commerce Solution Architect Relationship Specialty Start Date End Date Michelle Mccoy DO PCP - General Family Medicine 02/03/16 12/28/17 Shanika Hillman MD PCP - General Internal Medicine 12/29/17 09/28/19 Shanika Hillman MD [address] [place] [address] 4[address] [place] [address] PCP - Cigna Commercial Attributed 02/14/19 05/16/19 Marii Woods MD [address] [place] [address] PCP - General Internal Medicine 09/29/19 01/22/20 Pcp, No PCP - General 01/23/20 03/06/20 Marii Woods MD [address] [place] [address] PCP - Cigna Commercial Attributed 10/16/19 04/15/20 Marii Woods MD 106 [place] [address] PCP - General Internal Medicine 03/07/20 08/07/21 Marii Woods MD 106 [place] [address] PCP - Cigna Commercial Attributed 08/15/20 05/16/21 Jadon Devlin MD [address] [place] [address] 100 [place] [address] Gastroenterology 09/29/19 documented as of this encounter
--- OUTSIDE RECORDS SUMMARY | 2024-06-29 16:03 | XMS_ITS | Encounter Summary ---
Author Organization [address] [address] Care Team Providers Care Supply And Distribution Manager Name Role Phone Jadon Devlin MD Unavailable [phone] Encounter Details Date Type Department Care Team (Late st Contact Info) Description 08/12/2021 Scanned Document [address] [phone] Marii Woods MD [address] [place] [address] Social History Tobacco Use Types Packs/Day Years [...] on filedocumented in this encounter Care Teams Supply And Distribution Manager Relationship Specialty Start Date End Date Jadon Devlin MD [address] [place] [address] Gastroenterology 09/29/19 documented as of this encounter
--- OUTSIDE RECORDS SUMMARY | 2024-06-29 16:03 | XMS_ITS | Encounter Summary ---
Author Organization [facility] Address [address] [place] [address] Care Team Providers Care Straightedge Machine Operator Helper Name Role Phone Naty Rendon MD Primary Care Provider Michelle Mccoy DO Primary Care Provider [phone] Shanika Hillman MD Primary Care Provider [phone] Shanika Hillman MD Unavailable [phone] Jadon Devlin MD Unavailable [phone] Marii Woods MD Primary Care Provider [phone] Pcp, No Primary Care Provider Unavailolivia e Marii Woods MD Unavailable Marii Woods MD Primary Care Provider Marii Woods MD Unavailable [phone] Encounter Details Date Type Department Care Team (Late st Contact Info) Description 08/23/2015 Scanned Document [facility] 1060 [place] [address] Naty Rendon MD [facility] [address] [place] [address] Social History Tobacco Use Types Packs/Day [...] on filedocumented in this encounter Care Teams Straightedge Machine Operator Helper Relationship Specialty Start Date End Date Naty Rendon MD PCP - General Internal Medicine 03/18/15 02/02/16 Michelle Mccoy DO PCP - General Family Medicine 02/03/16 12/28/17 Shanika Hillman MD PCP - General Internal Medicine 12/29/17 09/28/19 Shanika Hillman MD [address] [place] [address] [place] [address] PCP - Cigna Commercial Attributed 02/14/19 05/16/19 Marii Woods MD 1060 [place] [address] PCP - General Internal Medicine 09/29/19 01/22/20 Pcp, No PCP - General 01/23/20 03/06/20 Marii Woods MD 1060 [place] [address] PCP - Cigna Commercial Attributed 10/16/19 04/15/20 Marii Woods MD 1060 [place] [address] PCP - General Internal Medicine 03/07/20 08/07/21 Marii Woods MD [address] [place] [address] PCP - Cigna Commercial Attributed 08/15/20 05/16/21 Jadon Devlin MD 21 [facility] 100 [place] [address] Gastroenterology 09/29/19 documented as of this encounter
--- OUTSIDE RECORDS SUMMARY | 2024-06-29 16:03 | XMS_ITS | Encounter Summary ---
Author Organization [facility] Address [address] [place] [address] Care Team Providers Care Potato Bucker Name Role Phone Shanika Hillman MD Primary Care Provider [phone] Shanika Hillman MD Unavailable [phone] Jadon Devlin MD Unavailable [phone] Marii Woods MD Primary Care Provider [phone] Pcp, No Primary Care Provider Unavailolivia e Marii Woods MD Unavailable +[phone] Marii Woods MD Primary Care Provider + [phone] Marii Woods MD Unavailable [phone] Reason for Visit * Reason Comments Medication Refill Encounter Details Date Type Department Care Team (Late st Contact Info) Description 05/04/[address] [address] Shanika Hillman MD [address] [place] [address] Chronic migraine without aura, with intractable [...] depression documented in this encounter Care Teams Potato Bucker Relationship Specialty Start Date End Date Shanika Hillman MD PCP - General Internal Medicine 12/29/17 09/28/19 Shanika Hillman MD [address] [facility] 4011 [place] [address] PCP - Cigna Commercial Attributed 02/14/19 05/16/19 Marii Woods MD 1060 [facility] [place] [address] PCP - General Internal Medicine 09/29/19 01/22/20 Pcp, No PCP - General 01/23/20 03/06/20 Marii Woods MD 1060 [facility] [place] [address] PCP - Cigna Commercial Attributed 10/16/19 04/15/20 Marii Woods MD 1060 [place] [address] PCP - General Internal Medicine 03/07/20 08/07/21 Marii Woods MD 1060 [place] [address] PCP - Cigna Commercial Attributed 08/15/20 05/16/21 Jadon Devlin MD [address] [place] [address] 100 [place] [address] Gastroenterology 09/29/19 documented as of this encounter
--- OUTSIDE RECORDS SUMMARY | 2024-06-29 16:03 | XMS_ITS | Encounter Summary ---
Author Organization [facility] Address [address] [place] [address] Care Team Providers Care Salesperson Sewing Machines Name Role Phone Shanika Hillman MD Primary Care Provider Jadon Devlin MD Unavailable [phone] Marii Woods MD Primary Care Provider Pcp, No Primary Care Provider UnavailMarii Dominguez MD Unavailable [phone] Marii Woods MD Primary Care Provider + [phone] Marii Woods MD Unavailable [phone] Reason for Visit * Reason Comments Medication Refill Encounter Details Date Type Department Care Team (Late st Contact Info) Description 09/28/[address] [facility] 10[address] [place] [phone] Barbara Garner, INSPECTOR BARREL [address] [place] [address] Chronic migraine without aura, with intractable migraine, [...] migrainosus documented in this encounter Care Teams Salesperson Sewing Machines Relationship Specialty Start Date End Date Shanika Hillman MD PCP - General Internal Medicine 12/29/17 09/28/19 Marii Woods MD 1060 [facility] [place] [address] PCP - General Internal Medicine 09/29/19 01/22/20 Pcp, No PCP - General 01/23/20 03/06/20 Marii Woods MD 1060 [facility] [place] [address] PCP - Cigna Commercial Attributed 10/16/19 04/15/20 Marii Woods MD 1060 [facility] [place] [address] PCP - General Internal Medicine 03/07/20 08/07/21 Marii Woods MD [address] [facility] [place] [address] PCP - Cigna Commercial Attributed 08/15/20 05/16/21 Jadon Devlin MD [address] [place] [address] 100 [place] [address] Gastroenterology 09/29/19 documented as of this encounter
--- OUTSIDE RECORDS SUMMARY | 2024-06-29 16:03 | XMS_ITS | Encounter Summary ---
Author Organization [facility] Address [address] [place] [address] Care Team Providers Care Management Accountant Name Role Phone Dede Mccoyi Lorna MATHEWS Primary Care Provider [phone] Shanika Hillman MD Primary Care Provider [phone] Shanika Hillman MD Unavailable [phone] Jadon Devlin MD Unavailable [phone] Marii Woods MD Primary Care Provider + [phone] Pcp, No Primary Care Provider Unavailolivia e Marii Woods MD Unavailable [phone] Marii Woods MD Primary Care Provider [phone] Marii Woods MD Unavailable [phone] Encounter Details Date Type Department Care Team (Late st Contact Info) Description 12/18/2016 Scanned Document [address] [address] Provider, Generic Social History Tobacco Use Types [...] on filedocumented in this encounter Care Teams Management Accountant Relationship Specialty Start Date End Date Michelle Mccoy DO PCP - General Family Medicine 02/03/16 12/28/17 Shanika Hillman MD PCP - General Internal Medicine 12/29/17 09/28/19 Shanika Hillman MD [address] [place] [address] PCP - Cigna Commercial Attributed 02/14/19 05/16/19 Marii Woods MD 1060 [facility] [place] [address] PCP - General Internal Medicine 09/29/19 01/22/20 Pcp, No PCP - General 01/23/20 03/06/20 Marii Woods MD 1060 [place] [address] PCP - Cigna Commercial Attributed 10/16/19 04/15/20 Marii Woods MD 1060 [facility] [place] [address] PCP - General Internal Medicine 03/07/20 08/07/21 Marii Woods MD 1060 [place] [address] PCP - Cigna Commercial Attributed 08/15/20 05/16/21 Jadon Devlin MD [address] [address] Gastroenterology 09/29/19 documented as of this encounter
--- OUTSIDE RECORDS SUMMARY | 2024-06-29 16:03 | XMS_ITS | Encounter Summary ---
Author Organization [facility] Address [address] [place] [address] Care Team Providers Care Second Rigger Name Role Phone Jadon Devlin MD Unavailable [phone] Reason for Visit * Reason Comments Medication Refill Encounter Details Date Type Department Care Team (Late st Contact Info) Description 09/05/2021 Refill [facility] 1060 [place] [address] Barbara Garner, VISION MIXER 10[address] [place] [address] Chronic migraine without aura, with intractable migraine, [...] intractable documented in this encounter Care Teams Second Rigger Relationship Specialty Start Date End Date Jadon Devlin MD [address] [place] [address] Gastroenterology 09/29/19 documented as of this encounter
--- OUTSIDE RECORDS SUMMARY | 2024-06-29 16:03 | XMS_ITS | Encounter Summary ---
Author Organization [facility] Address [address] [place] [address] Care Team Providers Care Automatic Head Sawyer Name Role Phone Jadon Devlin MD Unavailable [phone] Marii Woods MD Primary Care Provider [phone] Reason for Visit * Reason Comments Medication Refill Encounter Details Date Type Department Care Team (Late st Contact Info) Description 08/05/[address] [phone] Marii Woods MD [address] [place] [phone] Essential hypertension Social History Tobacco Use Types [...] hypertension documented in this encounter Care Teams Automatic Head Sawyer Relationship Specialty Start Date End Date Marii Woods MD 1060 [place] [address] PCP - General Internal Medicine 03/07/20 08/07/21 Jadon Devlin MD [address] [address] Gastroenterology 09/29/19 documented as of this encounter
--- OUTSIDE RECORDS SUMMARY | 2024-06-29 16:03 | XMS_ITS | Encounter Summary ---
Author Organization [facility] Address [address] [place] [address] Care Team Providers Care Electrician Supervisor Airplane Name Role Phone Shanika Hillman MD Primary Care Provider Jadon Devlin MD Unavailable [phone] Marii Woods MD Primary Care Provider Pcp, No Primary Care Provider UnavailMarii Dominguez MD Unavailable +[phone] Marii Woods MD Primary Care Provider + [phone] Marii Woods MD Unavailable [phone] Reason for Visit * Reason Comments Medication Refill Encounter Details Date Type Department Care Team (Late st Contact Info) Description 08/03/[address] [address] Barbara [place], V BELT MOLD ASSEMBLER AND CURER 10[address] [place], [place] [address] Other migraine without status migrainosus, not intractable; [...] depression documented in this encounter Care Teams Electrician Supervisor Airplane Relationship Specialty Start Date End Date Shanika Hillman MD PCP - General Internal Medicine 12/29/17 09/28/19 Marii Woods MD 1060 [place] [address] PCP - General Internal Medicine 09/29/19 01/22/20 Pcp, No PCP - General 01/23/20 03/06/20 Marii Woods MD 1060 [place] [address] PCP - C[employer] Commercial Attributed 10/16/19 04/15/20 Marii Woods MD 1060 [place] [address] PCP - General Internal Medicine 03/07/20 08/07/21 Marii Woods MD 1060 [place] [address] PCP - C[employer] Commercial Attributed 08/15/20 05/16/21 Jadon Devlin MD [address] [place] [address], [place] [address] Gastroenterology 09/29/19 documented as of this encounter
--- OUTSIDE RECORDS SUMMARY | 2024-06-29 16:03 | XMS_ITS | Encounter Summary ---
Author Organization [facility] Address [address] [place] [address] Care Team Providers Care Oracle Technical Architect Name Role Phone Naty Rendon MD Primary Care Provider Michelle Mccoy DO Primary Care Provider [phone] Shanika Hillman MD Primary Care Provider [phone] Shanika Hillman MD Unavailable [phone] Jadon Devlin MD Unavailable [phone] Marii Woods MD Primary Care Provider + [phone] Pcp, No Primary Care Provider Unavailolivia e Marii Woods MD Unavailable +[phone] Marii Woods MD Primary Care Provider + [phone] Marii Woods MD Unavailable [phone] Encounter Details Date Type Department Care Team (Late st Contact Info) Description 03/26/2015 Scanned Document [address] [phone] Provider, Generic Social History Tobacco Use Types [...] on filedocumented in this encounter Care Teams Oracle Technical Architect Relationship Specialty Start Date End Date Naty Rendon MD PCP - General Internal Medicine 03/18/15 02/02/16 Michelle Mccoy DO PCP - General Family Medicine 02/03/16 12/28/17 Shanika Hillman MD PCP - General Internal Medicine 12/29/17 09/28/19 Shanika Hillman MD [address] [place] [address] 4[address] [place] [address] PCP - Cigna Commercial Attributed 02/14/19 05/16/19 Marii Woods MD [address] [place], [place] [address] PCP - General Internal Medicine 09/29/19 01/22/20 Pcp, No PCP - General 01/23/20 03/06/20 Marii Woods MD 1060 [facility] [place] [address] PCP - Cigna Commercial Attributed 10/16/19 04/15/20 Marii Woods MD 1060 [facility] [place] [address] PCP - General Internal Medicine 03/07/20 08/07/21 Marii Woods MD 1060 [facility] [place] [address] PCP - Cigna Commercial Attributed 08/15/20 05/16/21 Jadon Devlin MD [address] [place] [address] Gastroenterology 09/29/19 documented as of this encounter
--- OUTSIDE RECORDS SUMMARY | 2024-06-29 16:03 | XMS_ITS | Encounter Summary ---
Author Organization [facility] Address [address] [place], [place] [address] Care Team Providers Care Detective Bowling Alley Name Role Phone Jadon Devlin MD Unavailable [phone] Marii Woods MD Primary Care Provider +[phone] Marii Woods MD Unavailable [phone] Encounter Details Date Type Department Care Team (Late st Contact Info) Description 01/24/2021 Scanned Document [address] [address] Marii Woods MD [address] [place] [address] Social History Tobacco Use Types Packs/Day Years [...] on filedocumented in this encounter Care Teams Detective Bowling Alley Relationship Specialty Start Date End Date Marii Woods MD [address] [place] [address] PCP - General Internal Medicine 03/07/20 08/07/21 Marii Woods MD 1060 [place] [address] PCP - Cigna Commercial Attributed 08/15/20 05/16/21 Jadon Devlin MD 21 [facility] 100 [place] [address] Gastroenterology 09/29/19 documented as of this encounter
--- OUTSIDE RECORDS SUMMARY | 2024-06-29 16:03 | XMS_ITS | Encounter Summary ---
Author Organization [facility] Address [address] [place] [address] Care Team Providers Care Nuclear Equipment Sales Engineer Name Role Phone Jadon Devlin MD Unavailable [phone] Reason for Visit * Reason Comments Medication Refill Encounter Details Date Type Department Care Team (Late st Contact Info) Description 11/09/[address] [phone] Marii Woods MD [address] [place] [address] Essential hypertension Social History Tobacco Use Types [...] hypertension documented in this encounter Care Teams Nuclear Equipment Sales Engineer Relationship Specialty Start Date End Date Jadon Devlin MD 21 [facility] 100 [place] [address] Gastroenterology 09/29/19 documented as of this encounter
--- OUTSIDE RECORDS SUMMARY | 2024-06-29 16:03 | XMS_ITS | Encounter Summary ---
Author Organization [facility] Address [address] [place] [address] Care Team Providers Care Blocker Automatic Name Role Phone Naty Rendon MD Primary Care Provider Michelle Mccoy DO Primary Care Provider [phone] Shanika Hillman MD Primary Care Provider +[phone] Shanika Hillman MD Unavailable [phone] Jadon Devlin MD Unavailable [phone] Marii Woods MD Primary Care Provider [phone] Pcp, No Primary Care Provider Unavailolivia e Marii Woods MD Unavailable Marii Woods MD Primary Care Provider Marii Woods MD Unavailable [phone] Encounter Details Date Type Department Care Team (Late st Contact Info) Description 08/26/2015 Scanned Document [facility] 1060 [place] [address] Naty Rendon MD [facility] [address] [place] [address] Social History Tobacco Use Types Packs/Day [...] on filedocumented in this encounter Care Teams Blocker Automatic Relationship Specialty Start Date End Date Naty Rendon MD PCP - General Internal Medicine 03/18/15 02/02/16 Michelle Mccoy DO PCP - General Family Medicine 02/03/16 12/28/17 Shanika Hillman MD PCP - General Internal Medicine 12/29/17 09/28/19 Shanika Hillman MD [address] [place] [address] [place] [address] PCP - Cigna Commercial Attributed 02/14/19 05/16/19 Marii Woods MD 1060 [facility] [place] [address] PCP - General Internal Medicine 09/29/19 01/22/20 Pcp, No PCP - General 01/23/20 03/06/20 Marii Woods MD 1060 [facility] [place] [address] PCP - Cigna Commercial Attributed 10/16/19 04/15/20 Marii Woods MD 1060 [facility] [place] [address] PCP - General Internal Medicine 03/07/20 08/07/21 Marii Woods MD 1060 [place] [address] PCP - Cigna Commercial Attributed 08/15/20 05/16/21 Jadon Devlin MD 21 [facility] 100 [place] [address] Gastroenterology 09/29/19 documented as of this encounter
--- OUTSIDE RECORDS SUMMARY | 2024-06-29 16:03 | XMS_ITS | Encounter Summary ---
Author Organization [facility] Address [address] [place] [address] Care Team Providers Care Area Sales Manager Name Role Phone Jadon Devlin MD Unavailable [phone] Marii Woods MD Primary Care Provider [phone] Reason for Visit * Reason Comments Medication Refill Encounter Details Date Type Department Care Team (Late st Contact Info) Description 06/05/[address] [phone] Marii Woods MD [address] [place] [address] Other depression; Chronic migraine without aura, [...] intractable documented in this encounter Care Teams Area Sales Manager Relationship Specialty Start Date End Date Marii Woods MD 1060 [place] [address] PCP - General Internal Medicine 03/07/20 08/07/21 Jadon Devlin MD [address] [address] Gastroenterology 09/29/19 documented as of this encounter
--- OUTSIDE RECORDS SUMMARY | 2024-06-29 16:03 | XMS_ITS | Encounter Summary ---
Author Organization [facility] Address [address] [place] [address] Care Team Providers Care Booking Manager Name Role Phone Michelle Mccoy DO Primary Care Provider [phone] Shanika Hillman MD Primary Care Provider [phone] Shanika Hillman MD Unavailable [phone] Jadon Devlin MD Unavailable [phone] Marii Woods MD Primary Care Provider + [phone] Pcp, No Primary Care Provider Unavailolivia e Marii Woods MD Unavailable [phone] Marii Woods MD Primary Care Provider +[phone] Marii Woods MD Unavailable [phone] Encounter Details Date Type Department Care Team (Late st Contact Info) Description 10/19/2016 Scanned Document [address] [phone] Provider, Generic Social History Tobacco Use Types [...] on filedocumented in this encounter Care Teams Booking Manager Relationship Specialty Start Date End Date Michelle Mccoy DO PCP - General Family Medicine 02/03/16 12/28/17 Shanika Hillman MD PCP - General Internal Medicine 12/29/17 09/28/19 Shanika Hillman MD [address] [place] [address] 4011 [place] [address] PCP - Cigna Commercial Attributed 02/14/19 05/16/19 Marii Woods MD 106 [place] [address] PCP - General Internal Medicine 09/29/19 01/22/20 Pcp, No PCP - General 01/23/20 03/06/20 Marii Woods MD [address] [place] [address] PCP - Cigna Commercial Attributed 10/16/19 04/15/20 Marii Woods MD 106 [place] [address] PCP - General Internal Medicine 03/07/20 08/07/21 Marii Woods MD 106 [place] [address] PCP - Cigna Commercial Attributed 08/15/20 05/16/21 Jadon Devlin MD [address] [place] [address] 100 [place] [address] Gastroenterology 09/29/19 documented as of this encounter
--- OUTSIDE RECORDS SUMMARY | 2024-06-29 16:04 | XMS_ITS | Encounter Summary ---
Author Organization [facility] Address [address] [place], [place] [address] Care Team Providers Care Axle Turner Name Role Phone Jadon Devlin MD Unavailable [phone] Marii Woods MD Primary Care Provider [phone] Marii Woods MD Unavailable [phone] Encounter Details Date Type Department Care Team (Late st Contact Info) Description 06/10/2020 Scanned Document [address] [address] Marii Woods MD [address] [place] [address] [phone] Social History Tobacco Use Types Packs/Day Years [...] on filedocumented in this encounter Care Teams Axle Turner Relationship Specialty Start Date End Date Marii Woods MD [address] [place] [id number] PCP - General Internal Medicine 03/07/20 08/07/21 Marii Woods MD 1060 [place] [address] PCP - Cigna Commercial Attributed 08/15/20 05/16/21 Jadon Devlin MD 21 [facility] 100 [place] [address] Gastroenterology 09/29/19 documented as of this encounter
--- OUTSIDE RECORDS SUMMARY | 2024-06-29 16:04 | XMS_ITS | Encounter Summary ---
Author Organization [facility] Address [address] [place] [address] Care Team Providers Care Nurse Wound Name Role Phone Jadon Devlin MD Unavailable [phone] Marii Woods MD Primary Care Provider + [phone] Marii Woods MD Unavailable [phone] Reason for Visit * Reason Comments Medication Refill Encounter Details Date Type Department Care Team (Late st Contact Info) Description 08/21/2020 Refill [facility] [address] [address] Marii Woods MD [address] [place] [id number] Gastroesophageal reflux disease without esophagitis Social History [...] reflux documented in this encounter Care Teams Nurse Wound Relationship Specialty Start Date End Date Mairi Woods MD 1060 [place] [address] PCP - General Internal Medicine 03/07/20 08/07/21 [place] [address] [place] [address] PCP - Cigna Commercial Attributed 08/15/20 05/16/21 Jadon Devlin MD [address] [place] [address] Gastroenterology 09/29/19 documented as of this encounter
--- OUTSIDE RECORDS SUMMARY | 2024-06-29 16:04 | XMS_ITS | Encounter Summary ---
Author Organization [facility] Address [address] [place], [place] [address] Care Team Providers Care Wheel Loader Operator Name Role Phone Jadon Devlin MD Unavailable [phone] Marii Woods MD Primary Care Provider [phone] Marii Woods MD Unavailable [phone] Encounter Details Date Type Department Care Team (Late st Contact Info) Description 05/27/2020 Scanned Document [address] [phone] Marii Woods MD [address] [place] [address] 025875 Social History Tobacco Use Types Packs/Day Years [...] on filedocumented in this encounter Care Teams Wheel Loader Operator Relationship Specialty Start Date End Date Marii Woods MD [address] [place] [id number] PCP - General Internal Medicine 03/07/20 08/07/21 Marii Woods MD 1060 [place] [address] PCP - Cigna Commercial Attributed 08/15/20 05/16/21 Jadon Devlin MD 21 [facility] 100 [place] [address] Gastroenterology 09/29/19 documented as of this encounter
--- OUTSIDE RECORDS SUMMARY | 2024-06-29 16:04 | XMS_ITS | Encounter Summary ---
Author Organization [facility] Address [address] [place] [address] Care Team Providers Care Marketing Technology Specialist Name Role Phone Michelle Mccoy DO Primary Care Provider [phone] Shanika Hillman MD Primary Care Provider [phone] Shanika Hillman MD Unavailable [phone] Jadon Devlin MD Unavailable [phone] Marii Woods MD Primary Care Provider Pcp, No Primary Care Provider UnavailMarii Dominguez MD Unavailable [phone] Marii Woods MD Primary Care Provider [phone] Marii Woods MD Unavailable [phone] Encounter Details Date Type Department Care Team (Late st Contact Info) Description 03/18/2017 Scanned Document [address] [address] Michelle Mccoy DO [address] [place] [address] Social History Tobacco Use Types Packs/Day Years [...] on filedocumented in this encounter Care Teams Marketing Technology Specialist Relationship Specialty Start Date End Date Michelle Mccoy DO PCP - General Family Medicine 02/03/16 12/28/17 Shanika Hillman MD PCP - General Internal Medicine 12/29/17 09/28/19 Shanika Hillman MD [address] [place] [address] 4011 [place] [address] PCP - Cigna Commercial Attributed 02/14/19 05/16/19 Marii Woods MD 1060 [facility] [place] [address] PCP - General Internal Medicine 09/29/19 01/22/20 Pcp, No PCP - General 01/23/20 03/06/20 Marii Woods MD 1060 [facility] [place] [address] PCP - Cigna Commercial Attributed 10/16/19 04/15/20 Marii Woods MD 1060 [facility] [place] [address] PCP - General Internal Medicine 03/07/20 08/07/21 Marii Woods MD 1060 [facility] [place] [address] PCP - Cigna Commercial Attributed 08/15/20 05/16/21 Jadon Devlin MD [address] [place] [address] 100 [place] [address] Gastroenterology 09/29/19 documented as of this encounter
--- OUTSIDE RECORDS SUMMARY | 2024-06-29 16:04 | XMS_ITS | Encounter Summary ---
Author Organization [facility] Address [address] [place], [place] [address] Care Team Providers Care First Helper Name Role Phone Jadon Devlin MD Unavailable [phone] Marii Woods MD Primary Care Provider + [phone] Marii Woods MD Unavailable [phone] Encounter Details Date Type Department Care Team (Late st Contact Info) Description 10/08/2020 Scanned Document [address] [phone] Marii Woods MD [address] [place] [address] [phone] Social History Tobacco Use Types Packs/Day Years [...] on filedocumented in this encounter Care Teams First Helper Relationship Specialty Start Date End Date Marii Woosd MD 1060 [place] [address] PCP - General Internal Medicine 03/07/20 08/07/21 Marii Woods MD 106 [place] [address] PCP - Cigna Commercial Attributed 08/15/20 05/16/21 Jadon Devlin MD 21 [facility] 100 [place] [address] Gastroenterology 09/29/19 documented as of this encounter
--- OUTSIDE RECORDS SUMMARY | 2024-06-29 16:04 | XMS_ITS | Encounter Summary ---
Author Organization [facility] Address [address] [place] [address] Care Team Providers Care Pick Up And Delivery Driver Name Role Phone Jadon Devlin MD Unavailable [phone] Marii Woods MD Primary Care Provider + [phone] Marii Woods MD Unavailable [phone] Reason for Visit * Reason Comments Medication Refill Encounter Details Date Type Department Care Team (Late st Contact Info) Description 12/19/2020 Refill [facility] 10[address] [place] [address] Barbara [place], MOBILE DESIGNER 10[address] [place] [address] Other depression; Chronic migraine without aura, with [...] intractable documented in this encounter Care Teams Pick Up And Delivery Driver Relationship Specialty Start Date End Date Marii Woods MD 1060 [place] [address] PCP - General Internal Medicine 03/07/20 08/07/21 Marii Woods MD 1060 [place] [address] PCP - Cigna Commercial Attributed 08/15/20 05/16/21 Jadon Devlin MD [address] [place] [address] 100 [place] [address] Gastroenterology 09/29/19 documented as of this encounter
--- OUTSIDE RECORDS SUMMARY | 2024-06-29 16:04 | XMS_ITS | Encounter Summary ---
Author Organization [facility] Address [address] [place] [address] Care Team Providers Care Vocational Rehabilitation Technician Name Role Phone Jadon Devlin MD Unavailable [phone] Marii Woods MD Primary Care Provider + [phone] Marii Woods MD Unavailable [phone] Reason for Visit * Reason Comments Medication Refill Encounter Details Date Type Department Care Team (Late st Contact Info) Description 10/09/2020 Refill [facility] [address] [address] Marii Woods MD [address] [place] [address] Other depression; Chronic migraine without aura, [...] intractable documented in this encounter Care Teams Vocational Rehabilitation Technician Relationship Specialty Start Date End Date Marii Woods MD 1060 [place] [address] PCP - General Internal Medicine 03/07/20 08/07/21 Marii Woods MD 106 [place] [address] PCP - Cigna Commercial Attributed 08/15/20 05/16/21 Jadon Devlin MD [address] [place] [address] Gastroenterology 09/29/19 documented as of this encounter
--- OUTSIDE RECORDS SUMMARY | 2024-06-29 16:04 | XMS_ITS | Encounter Summary ---
Author Organization [facility] Address [address] [place] [address] Care Team Providers Care Physician Extender Name Role Phone Jadon Devlin MD Unavailable [phone] Marii Woods MD Unavailable [phone] Marii Woods MD Primary Care Provider Marii Woods MD Unavailable [phone] Reason for Visit * Reason Onset Date Comments Medication Refill 03/12/2020 Encounter Details Date Type Department Care Team (Late st Contact Info) Description 03/12/[address] [phone] Chirag Hicks, BO [facility] 164 [place] [address] Other depression Social History Tobacco Use Types [...] depression documented in this encounter Care Teams Physician Extender Relationship Specialty Start Date End Date Marii Woods MD 1060 [facility] [place] [facility] [place] [address] PCP - Cigna Commercial Attributed 10/16/19 04/15/20 Marii Woods MD 1060 [place] [address] PCP - General Internal Medicine 03/07/20 08/07/21 Marii Woods MD 1060 [facility] [place] [facility] [place] [address] PCP - Cigna Commercial Attributed 08/15/20 05/16/21 Jadon Devlin MD [address] [place] [address] Gastroenterology 09/29/19 documented as of this encounter
--- OUTSIDE RECORDS SUMMARY | 2024-06-29 16:04 | XMS_ITS | Encounter Summary ---
Author Organization [facility] Address [address] [place] [address] Care Team Providers Care File Keeper Name Role Phone Jadon Devlin MD Unavailable [phone] Marii Woods MD Unavailable [phone] Marii Woods MD Primary Care Provider + [phone] Marii Woods MD Unavailable [phone] Reason for Visit * Reason Onset Date Comments Medication Refill 03/12/2020 Encounter Details Date Type Department Care Team (Late st Contact Info) Description 03/12/[address] [address] Marii Woods MD [address] [place] [address] Mild intermittent asthmatic bronchitis with acute [...] reflux documented in this encounter Care Teams File Keeper Relationship Specialty Start Date End Date Marii Woods MD 1060 [place] [address] PCP - Cigna Commercial Attributed 10/16/19 04/15/20 Marii Woods MD 106 [place] [address] PCP - General Internal Medicine 03/07/20 08/07/21 Marii Woods MD 1059 [place] [address] PCP - Cigna Commercial Attributed 08/15/20 05/16/21 Jadon Devlin MD [address] [place] [address] Gastroenterology 09/29/19 documented as of this encounter
--- OUTSIDE RECORDS SUMMARY | 2024-06-29 16:04 | XMS_ITS | Encounter Summary ---
Author Organization [facility] Address [address] [place] [address] Care Team Providers Care Tailings Worker Name Role Phone Michelle Mccoy DO Primary Care Provider [phone] Shanika Hillman MD Primary Care Provider [phone] Shanika Hillman MD Unavailable [phone] Jadon Devlin MD Unavailable [phone] Marii Woods MD Primary Care Provider + [phone] Pcp, No Primary Care Provider Unavailolivia e Marii Woods MD Unavailable [phone] Marii Woods MD Primary Care Provider [phone] Marii Woods MD Unavailable [phone] Encounter Details Date Type Department Care Team (Late st Contact Info) Description 04/01/2016 Scanned Document [address] [phone] Provider, Generic Social History Tobacco Use Types [...] on filedocumented in this encounter Care Teams Tailings Worker Relationship Specialty Start Date End Date Michelle Mccoy DO PCP - General Family Medicine 02/03/16 12/28/17 Shanika Hillman MD PCP - General Internal Medicine 12/29/17 09/28/19 Shanika Hillman MD 234 [facility] [address] [place] [address] PCP - C[employer] Commercial Attributed 02/14/19 05/16/19 Marii Woods MD 1060 [facility] [place] [address] PCP - General Internal Medicine 09/29/19 01/22/20 Pcp, No PCP - General 01/23/20 03/06/20 Marii Woods MD 1060 [place] [address] PCP - C[employer] Commercial Attributed 10/16/19 04/15/20 Marii Woods MD 1060 [facility] [place] [address] PCP - General Internal Medicine 03/07/20 08/07/21 Marii Woods MD 1060 [facility] [place] [address] PCP - C[employer] Commercial Attributed 08/15/20 05/16/21 Jadon Devlin MD [address] [place] [address] 100 [place] [address] Gastroenterology 09/29/19 documented as of this encounter
--- OUTSIDE RECORDS SUMMARY | 2024-06-29 16:04 | XMS_ITS | Encounter Summary ---
Author Organization [facility] Address [address] [place], [place] [address] Care Team Providers Care Supreme Court Justice Name Role Phone Jadon Devlin MD Unavailable [phone] Marii Woods MD Primary Care Provider + [phone] Marii Woods MD Unavailable [phone] Encounter Details Date Type Department Care Team (Late st Contact Info) Description 10/08/2020 Scanned Document [address] [phone] Marii Woods MD [address] [place] [id number] Social History Tobacco Use Types Packs/Day Years [...] on filedocumented in this encounter Care Teams Supreme Court Justice Relationship Specialty Start Date End Date Marii Woods MD 1060 [place] [address] PCP - General Internal Medicine 03/07/20 08/07/21 Marii Woods MD 106 [place] [address] PCP - C[employer] Commercial Attributed 08/15/20 05/16/21 Jadon Devlin MD 21 [facility] 100 [place] [address] Gastroenterology 09/29/19 documented as of this encounter
--- OUTSIDE RECORDS SUMMARY | 2024-06-29 16:04 | XMS_ITS | Encounter Summary ---
Author Organization [facility] Address [address] [place] [address] Care Team Providers Care Keg Inspector Name Role Phone Naty Rendon MD Primary Care Provider Michelle Mccoy DO Primary Care Provider [phone] Shanika Hillman MD Primary Care Provider [phone] Shanika Hillman MD Unavailable [phone] Jadon Devlin MD Unavailable Marii Woods MD Primary Care Provider [phone] Pcp, No Primary Care Provider Unavailolivia e Marii Woods MD Unavailable [phone] Marii Woods MD Primary Care Provider Marii Woods MD Unavailable [phone] Encounter Details Date Type Department Care Team (Late st Contact Info) Description 10/24/2015 Telephone [facility] [place] 1060 [place] [address] Naty Rendon MD [facility] [address] [place] [address] Social History Tobacco Use Types Packs/Day [...] on filedocumented in this encounter Care Teams Keg Inspector Relationship Specialty Start Date End Date Naty Rendon MD PCP - General Internal Medicine 03/18/15 02/02/16 Michelle Mccoy DO PCP - General Family Medicine 02/03/16 12/28/17 Shanika Hillman MD PCP - General Internal Medicine 12/29/17 09/28/19 Shanika Hillman MD [address] [place] [address] 4011 [place] [address] PCP - C[employer] Commercial Attributed 02/14/19 05/16/19 Marii Woods MD 1060 [place] [address] PCP - General Internal Medicine 09/29/19 01/22/20 Pcp, No PCP - General 01/23/20 03/06/20 Marii Woods MD [address] [place] [address] PCP - C[employer] Commercial Attributed 10/16/19 04/15/20 Marii Woods MD [address] [place] [address] PCP - General Internal Medicine 03/07/20 08/07/21 Marii Woods MD 1059 [facility] [place] [address] PCP - C[employer] Commercial Attributed 08/15/20 05/16/21 Jadon Devlin MD [address] [place] [address] Gastroenterology 09/29/19 documented as of this encounter
--- OUTSIDE RECORDS SUMMARY | 2024-06-29 16:04 | XMS_ITS | Encounter Summary ---
Author Organization [facility] Address [address] [place] [address] Care Team Providers Care Sessions Clerk Name Role Phone Jadon Devlin MD Unavailable Marii Woods MD Unavailable [phone] Marii Woods MD Primary Care Provider Marii Woods MD Unavailable [phone] Reason for Visit * Reason Onset Date Comments Medication Refill 03/12/2020 Encounter Details Date Type Department Care Team (Late st Contact Info) Description 03/12/[address] [phone] Chirag Hicks PA [facility] [address] [place] [address] Other depression; Chronic migraine without aura, with [...] intractable documented in this encounter Care Teams Sessions Clerk Relationship Specialty Start Date End Date Marii Woods MD 1060 [facility] [place] [address] PCP - C[employer] Commercial Attributed 10/16/19 04/15/20 Marii Woods MD 1060 [facility] [place] [address] PCP - General Internal Medicine 03/07/20 08/07/21 Marii Woods MD 1060 [facility] [place] [address] PCP - C[employer] Commercial Attributed 08/15/20 05/16/21 Jadon Devlin MD [address] [place] [address] 100 [place] [address] Gastroenterology 09/29/19 documented as of this encounter
--- OUTSIDE RECORDS SUMMARY | 2024-06-29 16:04 | XMS_ITS | Encounter Summary ---
Author Organization [facility] Address [address] [place] [address] Care Team Providers Care Talent Manager Name Role Phone Michelle Mccoy DO Primary Care Provider [phone] Shanika Hillman MD Primary Care Provider [phone] Shanika Hillman MD Unavailable [phone] Jadon Devlin MD Unavailable [phone] Marii Woods MD Primary Care Provider Pcp, No Primary Care Provider UnavailMarii Dominguez MD Unavailable [phone] aMrii Woods MD Primary Care Provider + [phone] Marii Woods MD Unavailable [phone] Encounter Details Date Type Department Care Team (Late st Contact Info) Description 03/04/2017 Scanned Document [address] [address] Michelle Mccoy DO [address] [place] [address] Social History Tobacco Use Types Packs/Day Years [...] on filedocumented in this encounter Care Teams Talent Manager Relationship Specialty Start Date End Date Michelle Mccoy DO PCP - General Family Medicine 02/03/16 12/28/17 Shanika Hillman MD PCP - General Internal Medicine 12/29/17 09/28/19 Shanika Hillman MD [address] [place] [address] 4011 [place] [address] PCP - C[employer] Commercial Attributed 02/14/19 05/16/19 aMrii Woods MD 1060 [facility] [place] [address] PCP - General Internal Medicine 09/29/19 01/22/20 Pcp, No PCP - General 01/23/20 03/06/20 Marii Woods MD 1060 [facility] [place] [address] PCP - C[employer] Commercial Attributed 10/16/19 04/15/20 Marii Woods MD 1060 [facility] [place] [address] PCP - General Internal Medicine 03/07/20 08/07/21 Marii Woods MD 1060 [facility] [place] [address] PCP - Cigna Commercial Attributed 08/15/20 05/16/21 Jadon Devlin MD [address] [place] [address] 100 [place] [address] Gastroenterology 09/29/19 documented as of this encounter
--- OUTSIDE RECORDS SUMMARY | 2024-06-29 16:04 | XMS_ITS | Encounter Summary ---
Author Organization [facility] Address [address] [place] [address] Care Team Providers Care Parcel Post Weigher Name Role Phone Shanika Hillman MD Primary Care Provider [phone] Shanika Hillman MD Unavailable [phone] Jadon Devlin MD Unavailable [phone] Marii Woods MD Primary Care Provider [phone] Pcp, No Primary Care Provider Unavailolivia e Marii Woods MD Unavailable [phone] Marii Woods MD Primary Care Provider + [phone] Marii Woods MD Unavailable Reason for Visit * Reason Onset Date Comments Medication Refill 04/27/2018 Encounter Details Date Type Department Care Team (Late st Contact Info) Description 04/27/2018 Refill [facility] 1060 [place] [phone] Shanika Hillman MD [address] [place] [address] Chronic migraine without aura, with intractable [...] depression documented in this encounter Care Teams Parcel Post Weigher Relationship Specialty Start Date End Date Shanika Hillman MD PCP - General Internal Medicine 12/29/17 09/28/19 Shanika Hillman MD [facility] 4011 [place] [address] PCP - Cign[employer] Commercial Attributed 02/14/19 05/16/19 Marii Woods MD 1060 [facility] [place] [address] PCP - General Internal Medicine 09/29/19 01/22/20 Pcp, No PCP - General 01/23/20 03/06/20 Marii Woods MD 1060 [facility] [place] [address] PCP - Cigna Commercial Attributed 10/16/19 04/15/20 Marii Woods MD 1060 [place] [address] PCP - General Internal Medicine 03/07/20 08/07/21 Marii Woods MD 1060 [place] [address] PCP - C[employer]a Commercial Attributed 08/15/20 05/16/21 Jadon Devlin MD [address] [place] [address] 100 [place] [address] Gastroenterology 09/29/19 documented as of this encounter
--- OUTSIDE RECORDS SUMMARY | 2024-06-29 16:04 | XMS_ITS | Clinical Summary ---
Author Organization [facility] Address [address] [place] [address] Care Team Providers Care Enamel Pulverizer Name Role Phone Jadon Devlin MD Unavailable [phone] Allergies Active Allergy Reactions Criticality Noted Date [...] a day. 1 Inhaler 3 03/12/2020 Active bazywyjucg-qjnensx-p affeine (FioriNAL) 50-325-40 MG per capsuleIndications:M igraine [...] IMAGING BREAST/BX/MAMMO Routine 06/06/2020 THINPREP PAP TEST (DOSIMETRIST) WITH HPV SCREEN Routine 07/28/2018 2:15 PM EDT Screening for cervical cancer HXAMB HEPATITIS C VIRAL RNA QUAL TMA Routine 03/01/2012 8:46 AM EDT from Last 3 Months or Most Recently Relevant to Health Maintenance Results * (ABNORMAL) Lipid panel (11/28/2020 7:11 AM EDT) Cholesterol, Total 217(H) <200 mg/dL [facility] Cholesterol, HDL 42(L) > OR = 50 mg/dL [facility] Triglycerides 187(H) <150 mg/dL [facility] LDL Cholesterol 143(H) mg/dL (calc) [facility] Comment: Reference range: <100 Desirable range <100 mg/dL for primary prevention; ?? <70 mg/dL for patients with CHD or diabetic patients with > or = 2 CHD risk factors. LDL-C is now calculated using the Fani calculation, which is a validated novel method providing better accuracy than the Friedewald equation in the estimation of LDL-C. Jamal PICHARDO et al. VASILIY. 2013;310(19): 3768-6802 (http://education.Vibes/faq/ERM534) Cholesterol/HDL Ratio 5.2(H) <5.0 (calc) [facility] Non HDL Chol. (LDL+VLDL) 175(H) <130 mg/dL (calc) [facility] Comment: For patients with diabetes plus 1 major ASCVD risk factor, treating to a non-HDL-C goal of <100 mg/dL (LDL-C of <70 mg/dL) is considered a therapeutic option. Blood specimen (specimen) Heel structure / Unknown 11/28/2020 7:11 AM EDT 11/28/2020 7:12 AM EDT Narrative [facility] - 11/29/2020 4:14 PM EDT FASTING:YES FASTING: YES Chirag SORIANO LAB BLOOD ORDERABLES [facility] [address], [place] [address] * (ABNORMAL) IMAGING BREAST/BX/MAMMO (06/06/2020) Anatomical Region Laterality Modality Other Marii Woods MD IM LEGACY PROCEDU RES * ThinPrep Pap Test (Spout Liner Helper) with HPV Screen (07/28/2018 2:15 PM EDT) Clinical Information None given [facility] LMP: 06/30/2018 [facility] Previous PAP: NONE GIVEN [facility] Previous Biopsy NONE GIVEN [email or web address] Source: Cervix [facility] Statement of Adequacy: [facility] Comment: Satisfactory for evaluation. Endocervical/transformation zone component present. Interpretation/Res ult: [facility] Comment:Negative for intraep ithelial lesion or malignancy. Comment: [facility] Comment: This Pap test has been evaluated with computer assisted technology. Oven Heater Helper: [facility] Comment: KN, CT(ASCP) CT screening location: [address] ??[address] Review Oven Heater Helper: [facility] Comment: MSM, CT(ASCP) CT screening location: [address] ??[address] Comment [facility] Comment: EXPLANATORY NOTE: [...] was performed using the APTIMA HPV Assay ([employer] This assay detects E6/E7 viral messenger RNA (mRNA) from 14 high-risk HPV types (16,18,31,33,35,39,45,51,52,56,58,59,66,68). The analytical performance characteristics of this assay have been determined by [employer] The modifications have not been cleared or approved by the FDA. This assay has been validated pursuant to the CLIA regulations and is used for clinical purposes. 07/28/2018 2:15 PM EDT 07/29/2018 2:39 AM EDT Narrative Resulting Agency Comment Performing Organization Information: ?Site ID: [id number] ?Name: [email or web address] ?Address: [address] [place] [address], [facility] [place] [address] ?Director: Zbigniew Willson MD Shanika Hillman MD PATHOLOGY/CYTOLOGY O RDERATAYLOR DINORA [facility] [address] [place] [address], [facility] [place] [address] * Hepatitis C Viral Rna Qual TMA (03/01/2012 8:46 AM EDT) Hepatitis C Viral Rna Qual Tma NONREACTIVE NONREACTIVE [facility] CONVERSION 03/01/2012 8:46 AM EDT Raf[facility] SORIANO HX LAB ALLSCRIPTS CONVERSION from Last 3 Months or Most Recently Relevant to Health Maintenance Care Teams Enamel Pulverizer Relationship Specialty Start Date End Date Jadon Devlin MD [address] [place] [address] Gastroenterology 09/29/19
--- OUTSIDE RECORDS SUMMARY | 2024-06-29 16:04 | XMS_ITS | Encounter Summary ---
Author Organization [facility] Address [address] [place] [address] Care Team Providers Care Web Production Assistant Name Role Phone Shanika Hillman MD Primary Care Provider [phone] Shanika Hillman MD Unavailable [phone] Jadon Devlin MD Unavailable [phone] Marii Woods MD Primary Care Provider + [phone] Pcp, No Primary Care Provider Unavailolivia e Marii Woods MD Unavailable [phone] Marii Woods MD Primary Care Provider + [phone] Marii Woods MD Unavailable [phone] Encounter Details Date Type Department Care Team (Late st Contact Info) Description 10/15/2018 Scanned Document [address] [phone] Provider, Generic Social History Tobacco Use Types [...] on filedocumented in this encounter Care Teams Web Production Assistant Relationship Specialty Start Date End Date Shanika Hillman MD PCP - General Internal Medicine 12/29/17 09/28/19 Shanika Hillman MD [facility]ito [facility] [address] [place] [address] PCP - Cign[employer] Commercial Attributed 02/14/19 05/16/19 Marii Woods MD [address] [place] [address] PCP - General Internal Medicine 09/29/19 01/22/20 Pcp, No PCP - General 01/23/20 03/06/20 Marii Woods MD [address] [place] [address] PCP - Cign[employer] Commercial Attributed 10/16/19 04/15/20 Marii Woods MD [address] [place] [address] PCP - General Internal Medicine 03/07/20 08/07/21 Marii Woods MD [address] [place] [address] PCP - Cigna Commercial Attributed 08/15/20 05/16/21 Jadon Devlin MD 21 [facility] 100 [place] [address] Gastroenterology 09/29/19 documented as of this encounter
--- OUTSIDE RECORDS SUMMARY | 2024-06-29 16:04 | XMS_ITS | Encounter Summary ---
Author Organization [facility] Address [address] [place] [address] Care Team Providers Care Supervisor Esters And Emulsifiers Name Role Phone Jadon Devlin MD Unavailable [phone] Marii Woods MD Unavailable [phone] Marii Woods MD Primary Care Provider [phone] Marii Woods MD Unavailable [phone] Reason for Visit * Reason Comments Medication Refill Encounter Details Date Type Department Care Team (Late st Contact Info) Description 03/19/[address] [address] Chirag Hicks PA [address] [address] Other depression; Chronic migraine without aura, with [...] intractable documented in this encounter Care Teams Supervisor Esters And Emulsifiers Relationship Specialty Start Date End Date Marii Woods MD 106 [place] [address] PCP - Cign[employer] Commercial Attributed 10/16/19 04/15/20 Marii Woods MD 1059 [place] [address] PCP - General Internal Medicine 03/07/20 08/07/21 Marii Woods MD 1059 [place] [address] PCP - Cigna Commercial Attributed 08/15/20 05/16/21 Jadon Delvin MD [address] [place] [address] Gastroenterology 09/29/19 documented as of this encounter
--- OUTSIDE RECORDS SUMMARY | 2024-06-29 16:04 | XMS_ITS | Encounter Summary ---
Author Organization [facility] Address [address] [place] [address] Care Team Providers Care Case Maker Name Role Phone Michelle Mccoy DO Primary Care Provider [phone] Shanika Hillman MD Primary Care Provider [phone] Shanika Hillman MD Unavailable [phone] Jadon Devlin MD Unavailable [phone] Marii Woods MD Primary Care Provider + [phone] Pcp, No Primary Care Provider Unavailolivia e Marii Woods MD Unavailable [phone] Marii Woods MD Primary Care Provider [phone] Marii Woods MD Unavailable [phone] Encounter Details Date Type Department Care Team (Late st Contact Info) Description 02/21/2016 Scanned Document [address] [phone] Provider, Generic Social History Tobacco Use Types [...] on filedocumented in this encounter Care Teams Case Maker Relationship Specialty Start Date End Date Michelle Mccoy DO PCP - General Family Medicine 02/03/16 12/28/17 Shanika Hillman MD PCP - General Internal Medicine 12/29/17 09/28/19 Shanika Hillman MD [address] [place] [address] 4[address] [place] [address] PCP - Cigna Commercial Attributed 02/14/19 05/16/19 Marii Woods MD 1060 [facility] [place] [address] PCP - General Internal Medicine 09/29/19 01/22/20 Pcp, No PCP - General 01/23/20 03/06/20 Marii Woods MD 1060 [facility] [place] [address] PCP - Cign[employer] Commercial Attributed 10/16/19 04/15/20 Marii Woods MD 1060 [facility] [place] [address] PCP - General Internal Medicine 03/07/20 08/07/21 Marii Woods MD 1060 [place] [address] PCP - Cigna Commercial Attributed 08/15/20 05/16/21 Jadon Devlin MD 21 [facility] 100 [place] [address] Gastroenterology 09/29/19 documented as of this encounter
== END 2024-06-29 15:53 | disposition home or self-care (01) ==
LOC: HO.HMCFM 16:00
PROVIDERS: PCP Physician Assistant Medical; Visit Provider Physician Assistant Medical
DX: Z13.9 Encounter for screening, unspecified (principal)

== ENCOUNTER → 2024-06-29 15:13 | Outpatient (BNVA) | payer BC, SELFPAY | PROVIDERS: PCP Physician Assistant Medical; Visit Provider Physician Assistant Medical | DX: E78.00 Pure hypercholesterolemia, unspecified (principal); K76.0 Fatty (change of) liver, not elsewhere classified; E11.9 Type 2 diabetes mellitus without complications; I10 Essential (primary) hypertension; J45.901 Unspecified asthma with (acute) exacerbation; Z79.84 Long term (current) use of oral hypoglycemic drugs; Z79.899 Other long term (current) drug therapy | CPT/HCPCS: 83036; 96127 ==

== ENCOUNTER 2024-09-25 08:03 | Outpatient (REF) | payer BC, SELFPAY ==
--- OUTSIDE RECORDS SUMMARY | 2024-09-25 08:07 | XMS_ITS | Encounter Summary ---
Author Organization [facility] Address [address] [place] [address] Care Team Providers Care Track Hoe Operator Name Role Phone Naty Rendon MD Primary Care Provider Michelle Mccoy DO Primary Care Provider [phone] Shanika Hillman MD Primary Care Provider [phone] Shanika Hillman MD Unavailable [phone] Jadon Devlin MD Unavailable [phone] Marii Woods MD Primary Care Provider [phone] Pcp, No Primary Care Provider Unavailolivia e Marii Woods MD Unavailable Marii Woods MD Primary Care Provider Marii Woods MD Unavailable [phone] Encounter Details Date Type Department Care Team (Late st Contact Info) Description 08/21/2015 Scanned Document [facility] 1060 [place] [address] Naty Rendon MD [facility] [address] [place] [address] Social History Tobacco Use Types Packs/Day Years Used Date Smoking Tobacco: Never Alcohol Use Standard Drinks/Week Comments Not Asked 0 (1 standard drink = 0.6 oz pur e alcohol) Comments No Sex and Gender Information Value Date Recorded Sex Assigned at Not on file Legal Sex Female 3:01 PM EDT Gender Identity Not on file Sexual Orientation Not on file documented as of this encounter Plan of Treatment Not on file documented as of this encounter Visit Diagnoses Not on filedocumented in this encounter Care Teams Track Hoe Operator Relationship Specialty Start Date End Date Naty Rendon MD PCP - General Internal Medicine 03/18/15 02/02/16 Michelle Mccoy DO PCP - General Family Medicine 02/03/16 12/28/17 Shanika Hillman MD PCP - General Internal Medicine 12/29/17 09/28/19 Shanika Hillman MD [address] [place] [address] 4011 [place] [address] PCP - Cigna Commercial Attributed 02/14/19 05/16/19 Marii Woods MD 1060 [facility] [place] [address] PCP - General Internal Medicine 09/29/19 01/22/20 Pcp, No PCP - General 01/23/20 03/06/20 Marii Woods MD [address] [place] [address] PCP - Cigna Commercial Attributed 10/16/19 04/15/20 Marii Woods MD 1060 [facility] [place] [address] PCP - General Internal Medicine 03/07/20 08/07/21 Marii Woods MD 1060 [place] [address] PCP - Cigna Commercial Attributed 08/15/20 05/16/21 Jadon Devlin MD 21 [facility] 100 [place] [address] Gastroenterology 09/29/19 documented as of this encounter
--- OUTSIDE RECORDS SUMMARY | 2024-09-25 08:07 | XMS_ITS | Encounter Summary ---
Author Organization [facility] Address [address] [place] [address] Care Team Providers Care Perforating Machine Operator Name Role Phone Dede Mccoyi Lorna MATHEWS Primary Care Provider [phone] Shanika Hillman MD Primary Care Provider [phone] Shanika Hillman MD Unavailable [phone] Jadon Devlin MD Unavailable [phone] Marii Woods MD Primary Care Provider + [phone] Pcp, No Primary Care Provider Unavailolivia e Marii Woods MD Unavailable [phone] Marii Woods MD Primary Care Provider [phone] Marii Woods MD Unavailable [phone] Encounter Details Date Type Department Care Team (Late st Contact Info) Description 11/01/2016 Scanned Document [address] [phone] Provider, Generic Social History Tobacco Use Types [...] on filedocumented in this encounter Care Teams Perforating Machine Operator Relationship Specialty Start Date End Date Michelle MccoyDO PCP - General Family Medicine 02/03/16 12/28/17 Shanika Hillman MD PCP - General Internal Medicine 12/29/17 09/28/19 Shanika Hillman MD [address] [place] [address] 4[address] [place] [address] PCP - Cigna Commercial Attributed 02/14/19 05/16/19 Marii Woods MD 1060 [facility] [place] [address] PCP - General Internal Medicine 09/29/19 01/22/20 Pcp, No PCP - General 01/23/20 03/06/20 Marii Woods MD 1060 [facility] [place] [address] PCP - C[employer] Commercial Attributed 10/16/19 04/15/20 Marii Woods MD 1060 [facility] [place] [address] PCP - General Internal Medicine 03/07/20 08/07/21 Marii Woods MD 1060 [place] [address] PCP - Cign[employer] Commercial Attributed 08/15/20 05/16/21 Jadon Devlin MD [address] [address] Gastroenterology 09/29/19 documented as of this encounter
--- OUTSIDE RECORDS SUMMARY | 2024-09-25 08:07 | XMS_ITS | Encounter Summary ---
Author Organization [facility] Address [address] [place] [address] Care Team Providers Care Emergency Medical Dispatcher Name Role Phone Naty Rendon MD Primary Care Provider Michelle Mccoy DO Primary Care Provider [phone] Shanika Hillman MD Primary Care Provider [phone] Shanika Hillman MD Unavailable [phone] Jadon Devlin MD Unavailable [phone] Marii Woods MD Primary Care Provider [phone] Pcp, No Primary Care Provider Unavailolivia e Marii Woods MD Unavailable Marii Woods MD Primary Care Provider Marii Woods MD Unavailable [phone] Encounter Details Date Type Department Care Team (Late st Contact Info) Description 08/23/2015 Scanned Document [facility] 10[address] [place] [address] Naty Rendon MD [facility] [address] [place] [address] Social History Tobacco Use Types Packs/Day [...] on filedocumented in this encounter Care Teams Emergency Medical Dispatcher Relationship Specialty Start Date End Date Naty Rendon MD PCP - General Internal Medicine 03/18/15 02/02/16 Michelle Mccoy DO PCP - General Family Medicine 02/03/16 12/28/17 Shanika Hillman MD PCP - General Internal Medicine 12/29/17 09/28/19 Shanika Hillman MD [address] [place] [address] 4[address] [place] [address] PCP - C[employer] Commercial Attributed 02/14/19 05/16/19 Marii Woods MD 1060 [facility] [place] [address] PCP - General Internal Medicine 09/29/19 01/22/20 Pcp, No PCP - General 01/23/20 03/06/20 Marii Woods MD [address] [place] [address] PCP - C[employer] Commercial Attributed 10/16/19 04/15/20 Marii Woods MD 1060 [facility] [place] [address] PCP - General Internal Medicine 03/07/20 08/07/21 Marii Woods MD 1060 [place] [address] PCP - Cign[employer] Commercial Attributed 08/15/20 05/16/21 Jadon Devlin MD 21 [facility] 100 [place] [address] Gastroenterology 09/29/19 documented as of this encounter
--- OUTSIDE RECORDS SUMMARY | 2024-09-25 08:07 | XMS_ITS | Encounter Summary ---
Author Organization [facility] Address [address] [place] [address] Care Team Providers Care Keno Attendant Name Role Phone Naty Rendon MD Primary Care Provider [phone] Michelle Mccoy DO Primary Care Provider [phone] Shanika Hillman MD Primary Care Provider +[phone] Shanika Hillman MD Unavailable [phone] Jadon Devlin MD Unavailable +[phone] Marii Woods MD Primary Care Provider + [phone] Pcp, No Primary Care Provider Unavailabl e Marii Woods MD Unavailable +[phone] Marii Woods MD Primary Care Provider + [phone] Marii Woods MD Unavailable [phone] Encounter Details Date Type Department Care Team (Late st Contact Info) Description 06/08/2015 Scanned Document [address] [id number] Provider, Generic Social History Tobacco Use Types [...] on filedocumented in this encounter Care Teams Keno Attendant Relationship Specialty Start Date End Date Naty Rendon MD PCP - General Internal Medicine 03/18/15 02/02/16 Michelle Mccoy DO PCP - General Family Medicine 02/03/16 12/28/17 Shanika Hillman MD PCP - General Internal Medicine 12/29/17 09/28/19 Shanika Hillman MD [address] [place] [address] 4011 [place] [address] PCP - Cign[employer] Commercial Attributed 02/14/19 05/16/19 Marii Woods MD 1060 [facility] [place] [address] PCP - General Internal Medicine 09/29/19 01/22/20 Pcp, No PCP - General 01/23/20 03/06/20 Marii Woods MD 1060 [facility] [place] [address] PCP - Cign[employer] Commercial Attributed 10/16/19 04/15/20 Marii Woods MD 1060 [facility] [place] [address] PCP - General Internal Medicine 03/07/20 08/07/21 Marii Woods MD 1060 [place] [address] PCP - Cigna Commercial Attributed 08/15/20 05/16/21 Jadon Devlin MD 21 [facility] 100 [place] [address] Gastroenterology 09/29/19 documented as of this encounter
--- OUTSIDE RECORDS SUMMARY | 2024-09-25 08:07 | XMS_ITS | Encounter Summary ---
Author Organization [facility] Address [address] [place] [address] Care Team Providers Care Powderer Name Role Phone Naty Rendon MD Primary Care Provider Michelle Mccoy DO Primary Care Provider [phone] Shanika Hillman MD Primary Care Provider [phone] Shanika Hillman MD Unavailable [phone] Jadon Devlin MD Unavailable [phone] Marii Woods MD Primary Care Provider [phone] Pcp, No Primary Care Provider Unavailolivia e Marii Woods MD Unavailable Marii Woods MD Primary Care Provider Marii Woods MD Unavailable [phone] Encounter Details Date Type Department Care Team (Late st Contact Info) Description 08/26/2015 Scanned Document [facility] 1060 [place] [address] Naty Rendon MD [facility] [address] [place] [address] Social History Tobacco Use Types Packs/Day [...] on filedocumented in this encounter Care Teams Powderer Relationship Specialty Start Date End Date Naty Rendon MD PCP - General Internal Medicine 03/18/15 02/02/16 Michelle Mccoy DO PCP - General Family Medicine 02/03/16 12/28/17 Shanika Hillman MD PCP - General Internal Medicine 12/29/17 09/28/19 Shanika Hillman MD [address] [place] [address] 4011 [place] [address] PCP - C[employer] Commercial Attributed 02/14/19 05/16/19 Marii Woods MD 1060 [place] [address] PCP - General Internal Medicine 09/29/19 01/22/20 Pcp, No PCP - General 01/23/20 03/06/20 Marii Woods MD [address] [place] [address] PCP - Cigna Commercial Attributed 10/16/19 04/15/20 Marii Woods MD 1060 [place] [address] PCP - General Internal Medicine 03/07/20 08/07/21 Marii Woods MD 1060 [place] [address] PCP - Cigna Commercial Attributed 08/15/20 05/16/21 Jadon Devlin MD 21 [facility] 100 [place] [address] Gastroenterology 09/29/19 documented as of this encounter
--- OUTSIDE RECORDS SUMMARY | 2024-09-25 08:07 | XMS_ITS | Encounter Summary ---
Author Organization [facility] Address [address] [place] [address] Care Team Providers Care Vice President For Philanthropy Name Role Phone Naty Rendon MD Primary Care Provider Michelle Mccoy DO Primary Care Provider [phone] Shanika Hillman MD Primary Care Provider [phone] Shanika Hillman MD Unavailable Jadon Devlin MD Unavailable [phone] Marii Woods MD Primary Care Provider + [phone] Pcp, No Primary Care Provider Unavailabl e Marii Woods MD Unavailable [phone] Marii Woods MD Primary Care Provider + [phone] Marii Woods MD Unavailable [phone] Encounter Details Date Type Department Care Team (Late st Contact Info) Description 03/26/2015 Scanned Document [address] [phone] Provider, Generic Social History Tobacco Use Types [...] on filedocumented in this encounter Care Teams Vice President For Philanthropy Relationship Specialty Start Date End Date Naty Rendon MD PCP - General Internal Medicine 03/18/15 02/02/16 Michelle Mccoy DO PCP - General Family Medicine 02/03/16 12/28/17 Shanika Hillman MD PCP - General Internal Medicine 12/29/17 09/28/19 Shanika Hillman MD [address] [place] [address] 4011 [place] [address] PCP - Cign[employer] Commercial Attributed 02/14/19 05/16/19 Marii Woods MD 1060 [facility] [place] [address] PCP - General Internal Medicine 09/29/19 01/22/20 Pcp, No PCP - General 01/23/20 03/06/20 Marii Woods MD 1060 [facility] [place] [address] PCP - Cigna Commercial Attributed 10/16/19 04/15/20 Marii Woods MD 1060 [facility] [place] [address] PCP - General Internal Medicine 03/07/20 08/07/21 Marii Woods MD 1060 [place] [address] PCP - Cigna Commercial Attributed 08/15/20 05/16/21 Jadon Devlin MD 21 [facility] 100 [place] [address] Gastroenterology 09/29/19 documented as of this encounter
--- OUTSIDE RECORDS SUMMARY | 2024-09-25 08:07 | XMS_ITS | Encounter Summary ---
Author Organization [facility] Address [address] [place] [address] Care Team Providers Care Repairer Hairspring Name Role Phone Michelle Mccoy DO Primary Care Provider [phone] Shanika Hillman MD Primary Care Provider [phone] Shanika Hillman MD Unavailable [phone] Jadon Devlin MD Unavailable [phone] Marii Woods MD Primary Care Provider Pcp, No Primary Care Provider UnavailMarii Dominguez MD Unavailable +[phone] Marii Woods MD Primary Care Provider + [phone] Marii Woods MD Unavailable [phone] Encounter Details Date Type Department Care Team (Late st Contact Info) Description 11/11/2016 Scanned Document [address] [address] Michelle Mccoy DO 339 [place] [address] Social History Tobacco Use Types Packs/Day Years [...] on filedocumented in this encounter Care Teams Repairer Hairspring Relationship Specialty Start Date End Date Michelle Mccoy DO PCP - General Family Medicine 02/03/16 12/28/17 Shanika Hillman MD PCP - General Internal Medicine 12/29/17 09/28/19 Shanika Hillman MD [address] [place] [address] 4011 [place] [address] PCP - Cigna Commercial Attributed 02/14/19 05/16/19 Marii Woods MD 1060 [facility] [place] [address] PCP - General Internal Medicine 09/29/19 01/22/20 Pcp, No PCP - General 01/23/20 03/06/20 Marii Woods MD 1060 [facility] [place] [address] PCP - Cigna Commercial Attributed 10/16/19 04/15/20 Marii Woods MD 1060 [facility] [place] [address] PCP - General Internal Medicine 03/07/20 08/07/21 Marii Woods MD 1060 [facility] [place] [address] PCP - Cigna Commercial Attributed 08/15/20 05/16/21 Jadon Devlin MD 21 [place] [address] Gastroenterology 09/29/19 documented as of this encounter
--- OUTSIDE RECORDS SUMMARY | 2024-09-25 08:07 | XMS_ITS | Encounter Summary ---
Author Organization [facility] Address [address] [place] [address] Care Team Providers Care Production Service Manager Name Role Phone Jadon Devlin MD Unavailable [phone] Marii Woods MD Primary Care Provider + [phone] Pcp, No Primary Care Provider Unavailabl e Marii Woods MD Unavailable [phone] Marii Woods MD Primary Care Provider + [phone] Marii Woods MD Unavailable [phone] Reason for Visit * Reason Comments Medication Refill Encounter Details Date Type Department Care Team (Late st Contact Info) Description 10/26/2019 Refill [facility] 1060 [place] [phone] Barbara Garner, TAR MAN 1060 [place], [place] [address] Other migraine without status migrainosus, not intractable; [...] on file Sexual Orientation Not on file 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 Not on file Not on file COVID-19 Exposure Response Date [...] depression documented in this encounter Care Teams Production Service Manager Relationship Specialty Start Date End Date Marii Woods MD 1060 [facility] [place] [address] PCP - General Internal Medicine 09/29/19 01/22/20 Pcp, No PCP - General 01/23/20 03/06/20 Marii Woods MD 1059 [facility] [address] PCP - Cigna Commercial Attributed 10/16/19 04/15/20 Marii Woods MD 1060 [facility] [place] [address] PCP - General Internal Medicine 03/07/20 08/07/21 Marii Woods MD 1060 [facility] [place] [address] PCP - Cigna Commercial Attributed 08/15/20 05/16/21 Jadon Devlin MD [address] [place] [address] Gastroenterology 09/29/19 documented as of this encounter
--- OUTSIDE RECORDS SUMMARY | 2024-09-25 08:07 | XMS_ITS | Encounter Summary ---
Author Organization [facility] Address [address] [place] [address] Care Team Providers Care Hand Outside Cutter Name Role Phone Naty Rendon MD Primary Care Provider Michelle Mccoy DO Primary Care Provider [phone] Shanika Hillman MD Primary Care Provider [phone] Shanika Hillman MD Unavailable [phone] Jadon Devlin MD Unavailable [phone] Marii Woods MD Primary Care Provider + [phone] Pcp, No Primary Care Provider Unavailabl e Marii Woods MD Unavailable [phone] Marii Woods MD Primary Care Provider + [phone] Marii Woods MD Unavailable [phone] Encounter Details Date Type Department Care Team (Late st Contact Info) Description 07/08/2015 Scanned Document [address] [phone] Provider, Generic Social History Tobacco Use Types [...] on filedocumented in this encounter Care Teams Hand Outside Cutter Relationship Specialty Start Date End Date Naty Rendon MD PCP - General Internal Medicine 03/18/15 02/02/16 Michelle Mccoy DO PCP - General Family Medicine 02/03/16 12/28/17 Shanika Hillman MD PCP - General Internal Medicine 12/29/17 09/28/19 Shanika Hillman MD [address] [place] [address] 4011 [place] [address] PCP - Cigna Commercial Attributed 02/14/19 05/16/19 Marii Woods MD 1060 [facility] [place] [address] PCP - General Internal Medicine 09/29/19 01/22/20 Pcp, No PCP - General 01/23/20 03/06/20 Marii Woods MD 1060 [facility] [place] [address] PCP - Cigna Commercial Attributed 10/16/19 04/15/20 Marii Woods MD 1060 [facility] [place] [address] PCP - General Internal Medicine 03/07/20 08/07/21 Marii Woods MD 1060 [place] [address] PCP - Cigna Commercial Attributed 08/15/20 05/16/21 Jadon Devlin MD 21 [facility] 100 [place] [address] Gastroenterology 09/29/19 documented as of this encounter
--- OUTSIDE RECORDS SUMMARY | 2024-09-25 08:07 | XMS_ITS | Encounter Summary ---
Author Organization [facility] Address [address] [place] [address] Care Team Providers Care Leasing Specialist Name Role Phone Dede Mccoyi Lorna MATHEWS Primary Care Provider [phone] Shanika Hillman MD Primary Care Provider [phone] Shanika Hillman MD Unavailable [phone] Jadon Devlin MD Unavailable [phone] Marii Woods MD Primary Care Provider + [phone] Pcp, No Primary Care Provider Unavailolivia e Marii Woods MD Unavailable [phone] Marii Woods MD Primary Care Provider [phone] Marii Woods MD Unavailable [phone] Encounter Details Date Type Department Care Team (Late st Contact Info) Description 12/18/2016 Scanned Document [address] [phone] Provider, Generic Social History Tobacco Use Types [...] PM EDT Ordered by an unspecified provider. us Generic Provider IMG CT ORDERABLES Edited Result - Final documented in this encounter Visit Diagnoses Not on filedocumented in this encounter Care Teams Leasing Specialist Relationship Specialty Start Date End Date Michelle Mccoy DO PCP - General Family Medicine 02/03/16 12/28/17 Shanika Hillman MD PCP - General Internal Medicine 12/29/17 09/28/19 Shanika Hillman MD 234 [facility] 4011 [place] [address] PCP - Cigna Commercial Attributed 02/14/19 05/16/19 Marii Woods MD 1060 [facility] [place], [place] [address] PCP - General Internal Medicine 09/29/19 01/22/20 Pcp, No PCP - General 01/23/20 03/06/20 Marii Woods MD 1060 [facility] [place] [address] PCP - Cigna Commercial Attributed 10/16/19 04/15/20 Marii Woods MD 1060 [facility] [place] [address] PCP - General Internal Medicine 03/07/20 08/07/21 Marii Woods MD 1060 [place] [address] PCP - Cigna Commercial Attributed 08/15/20 05/16/21 Jadon Devlin MD [address] [address] Gastroenterology 09/29/19 documented as of this encounter
--- OUTSIDE RECORDS SUMMARY | 2024-09-25 08:07 | XMS_ITS | Encounter Summary ---
Author Organization [facility] Address [address] [place] [address] Care Team Providers Care Director Market Research Name Role Phone Shanika Hillman MD Primary Care Provider Shanika Hillman MD Unavailable [phone] Jadon Devlin MD Unavailable [phone] Marii Woods MD Primary Care Provider [phone] Pcp, No Primary Care Provider Unavailolivia e Marii Woods MD Unavailable Marii Woods MD Primary Care Provider + [phone] Marii Woods MD Unavailable [phone] Reason for Visit * Reason Comments Medication Refill Encounter Details Date Type Department Care Team (Late st Contact Info) Description 02/01/[address] [address] Shanika Hillman MD [address] [place] [address] Mild intermittent asthmatic bronchitis with acute [...] 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 Not on file Not on file documented as of this encounter Plan of Treatment Not on file documented as of this encounter Visit Diagnoses Diagnosis Mild intermittent asthmatic bronchitis with acute exacerbation documented in this encounter Care Teams Director Market Research Relationship Specialty Start Date End Date Shanika Hillman MD PCP - General Internal Medicine 12/29/17 09/28/19 Shanika Hillman MD 234 [facility] 4011 [place] [address] PCP - Cign[employer] Commercial Attributed 02/14/19 05/16/19 Marii Woods MD 1060 [facility] [place] [address] PCP - General Internal Medicine 09/29/19 01/22/20 Pcp, No PCP - General 01/23/20 03/06/20 Marii Woods MD 1060 [facility] [place] [address] PCP - Cigna Commercial Attributed 10/16/19 04/15/20 Marii Woods MD 1060 [facility] [place] [address] PCP - General Internal Medicine 03/07/20 08/07/21 Marii Woods MD 1060 [facility] [place] [address] PCP - Cigna Commercial Attributed 08/15/20 05/16/21 Jadon Devlin MD [address] [place] [address] 100 [place] [address] Gastroenterology 09/29/19 documented as of this encounter
--- OUTSIDE RECORDS SUMMARY | 2024-09-25 08:07 | XMS_ITS | Encounter Summary ---
Author Organization [facility] Address [address] [place] [address] Care Team Providers Care Strip Polisher Name Role Phone Dede Mccoyi Lorna MATHEWS Primary Care Provider [phone] Shanika Hillman MD Primary Care Provider [phone] Shanika Hillman MD Unavailable [phone] Jadon Devlin MD Unavailable [phone] Marii Woods MD Primary Care Provider + [phone] Pcp, No Primary Care Provider Unavailolivia e Mairi Woods MD Unavailable [phone] Marii Woods MD Primary Care Provider [phone] Marii Woods MD Unavailable [phone] Encounter Details Date Type Department Care Team (Late st Contact Info) Description 10/19/2016 Scanned Document [address] [address] Provider, Generic Social History Tobacco Use Types [...] on filedocumented in this encounter Care Teams Strip Polisher Relationship Specialty Start Date End Date Michelle MccoyDO PCP - General Family Medicine 02/03/16 12/28/17 Shanika Hillman MD PCP - General Internal Medicine 12/29/17 09/28/19 Shanika Hillman MD [address] [place] [address] 4011 [place] [address] PCP - Cigna Commercial Attributed 02/14/19 05/16/19 Marii Woods MD 1060 [place] [address] PCP - General Internal Medicine 09/29/19 01/22/20 Pcp, No PCP - General 01/23/20 03/06/20 Marii Woods MD 1060 [place] [address] PCP - Cigna Commercial Attributed 10/16/19 04/15/20 Marii Woods MD 1060 [place] [address] PCP - General Internal Medicine 03/07/20 08/07/21 Marii Woods MD 1060 [facility] [place] [address] PCP - Cigna Commercial Attributed 08/15/20 05/16/21 Jadon Devlin MD [address] [address] Gastroenterology 09/29/19 documented as of this encounter
--- OUTSIDE RECORDS SUMMARY | 2024-09-25 08:07 | XMS_ITS | Encounter Summary ---
Author Organization [facility] Address [address] [place] [address] Care Team Providers Care Hot Stick Man Name Role Phone Shanika Hillman MD Primary Care Provider Jadon Devlin MD Unavailable [phone] Marii Woods MD Primary Care Provider Pcp, No Primary Care Provider UnavailMarii Dominguez MD Unavailable [phone] Marii Woods MD Primary Care Provider + [phone] Marii Woods MD Unavailable [phone] Reason for Visit * Reason Comments Medication Refill Encounter Details Date Type Department Care Team (Late st Contact Info) Description 08/03/[address] [address] Barbara Garner, PERIODONTAL ASSISTANT 1060 [place], [place] [address] Other migraine without status migrainosus, not intractable; [...] 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 Not on file Not [...] depression documented in this encounter Care Teams Hot Stick Man Relationship Specialty Start Date End Date Shanika Hillman MD PCP - General Internal Medicine 12/29/17 09/28/19 Marii Woods MD 1060 [place] [address] PCP - General Internal Medicine 09/29/19 01/22/20 Pcp, No PCP - General 01/23/20 03/06/20 Marii Woods MD 1060 [place] [address] PCP - Cigna Commercial Attributed 10/16/19 04/15/20 Marii Woods MD 1060 [place] [address] PCP - General Internal Medicine 03/07/20 08/07/21 Marii Woods MD 1060 [place] [address] PCP - Cigna Commercial Attributed 08/15/20 05/16/21 Jadon Devlin MD [address] [place] [address] Gastroenterology 09/29/19 documented as of this encounter
--- OUTSIDE RECORDS SUMMARY | 2024-09-25 08:07 | XMS_ITS | Encounter Summary ---
Author Organization [facility] Address [address] [place] [address] Care Team Providers Care Bible Worker Name Role Phone Shanika Hillman MD Primary Care Provider [phone] Jadon Devlin MD Unavailable [phone] Marii Woods MD Primary Care Provider Pcp, No Primary Care Provider UnavailMarii Dominguez MD Unavailable [phone] Marii Woods MD Primary Care Provider + [phone] Marii Woods MD Unavailable [phone] Reason for Visit * Reason Comments Medication Refill Encounter Details Date Type Department Care Team (Late st Contact Info) Description 09/28/2019 Refill [facility] 1060 [place] [phone] Barbara Garner, FINISHING RANGE SUPERVISOR [address] [place] [address] Chronic migraine without aura, with intractable migraine, [...] 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 Not on file Not [...] migrainosus documented in this encounter Care Teams Bible Worker Relationship Specialty Start Date End Date Shanika Hillman MD PCP - General Internal Medicine 12/29/17 09/28/19 Marii Woods MD [address] [place] [address] PCP - General Internal Medicine 09/29/19 01/22/20 Pcp, No PCP - General 01/23/20 03/06/20 Marii Woods MD [address] [place] [address] PCP - [employer] Commercial Attributed 10/16/19 04/15/20 Marii Woods MD [address] [place] [address] PCP - General Internal Medicine 03/07/20 08/07/21 Marii Woods MD [address] [place] [address] PCP - [employer] Commercial Attributed 08/15/20 05/16/21 Jadon Devlin MD [address] [place] [address] Gastroenterology 09/29/19 documented as of this encounter
--- OUTSIDE RECORDS SUMMARY | 2024-09-25 08:07 | XMS_ITS | Encounter Summary ---
Author Organization [facility], Located [facility] Address [address] [place], [place] [id number] Care Team Providers Care Architectural Job Captain Name Role Phone Naty Rendon MD Primary Care Provider [phone] Michelle Mccoy DO Primary Care Provider [phone] Shanika Hillman MD Primary Care Provider [phone] Shanika Hillman MD Unavailable [phone] Jadon Devlin MD Unavailable [phone] Marii Woods MD Primary Care Provider [phone] Pcp, No Primary Care Provider UnavailMarii Dominguez MD Unavailable [phone] Marii Woods MD Primary Care Provider + [phone] Marii Woods MD Unavailable [phone] Naty Rendon MD Primary Care Provider [phone] Encounter Details Date Type Department Care Team (Late st Contact Info) Description 02/01/2015 Scanned Document [address] [phone] Provider, Generic Social History Tobacco Use Types Packs/Day Years Used Date Smoking Tobacco: Never Assessed Comments Unknown Sex and Gender Information Value Date Recorded [...] an unspecified provider. us Generic Provider IMG LEGACY PROCEDURES Final Res ult * IMAGING BREAST/BX/MAMMO (02/01/2015) Anatomical Region Laterality Modality Other Narrative 06/21/2015 10:53 AM EST Ordered by an unspecified provider. us Generic Provider IMG LEGACY PROCEDURES Final Res ult documented in this encounter Visit Diagnoses Not on filedocumented in this encounter Care Teams Architectural Job Captain Relationship Specialty Start Date End Date Naty Rendon MD PCP - General Internal Medicine 03/18/15 02/02/16 Michelle Mccoy DO PCP - General Family Medicine 02/03/16 12/28/17 Shanika Hillman MD PCP - General Internal Medicine 12/29/17 09/28/19 Shanika Hillman MD [address] [facility] [address] [place] [address] PCP - [employer] Commercial Attributed 02/14/19 05/16/19 Marii Woods MD 10[address] [facility] [place] [address] PCP - General Internal Medicine 09/29/19 01/22/20 Pcp, No PCP - General 01/23/20 03/06/20 Marii Woods MD [address] [facility] [place] [address] PCP - [employer] Commercial Attributed 10/16/19 04/15/20 Marii Woods MD [address] [facility] [place] [address] PCP - General Internal Medicine 03/07/20 08/07/21 Marii Woods MD [address] [facility] [place] [address] PCP - [employer] Commercial Attributed 08/15/20 05/16/21 Naty Rendon MD [address] [place] [address] PCP - General 03/17/15 Jadon Devlin MD [address] [place] [address] [address] [place] [address] Gastroenterology 09/29/19 documented as of this encounter
--- OUTSIDE RECORDS SUMMARY | 2024-09-25 08:07 | XMS_ITS | Encounter Summary ---
Author Organization [facility] Address [address] [place] [address] Care Team Providers Care Compressor House Operator Name Role Phone Naty Rendon MD Primary Care Provider [phone] Michelle Mccoy DO Primary Care Provider [phone] Shanika Hillman MD Primary Care Provider [phone] Shanika Hillman MD Unavailable Jadon Devlin MD Unavailable [phone] Marii Woods MD Primary Care Provider + [phone] Pcp, No Primary Care Provider Unavailabl e Marii Woods MD Unavailable [phone] Marii Woods MD Primary Care Provider + [phone] Marii Woods MD Unavailable [phone] Encounter Details Date Type Department Care Team (Late st Contact Info) Description 08/22/2015 Scanned Document [address] [phone] Provider, Generic Social History Tobacco Use Types [...] AM EDT Ordered by an unspecified provider. us Generic Provider IMG LEGACY PROCEDURES Final Res ult * PATHOLOGY BREAST (08/22/2015) Narrative 08/22/2015 Ordered by an unspecified provider. us Generic Provider [facility] HX PATH PROCEDURES Edited R esult - Final * PATHOLOGY BREAST (08/22/2015) Narrative 08/22/2015 Ordered by an unspecified provider. us Generic Provider [facility] HX PATH PROCEDURES Edited R esult - Final documented in this encounter Visit Diagnoses Not on filedocumented in this encounter Care Teams Compressor House Operator Relationship Specialty Start Date End Date Naty Rendon MD PCP - General Internal Medicine 03/18/15 02/02/16 Michelle Mccoy DO PCP - General Family Medicine 02/03/16 12/28/17 Shanika Hillman MD PCP - General Internal Medicine 12/29/17 09/28/19 Shanika Hillman MD 234 [facility] [address] [place] [address] PCP - [employer] Commercial Attributed 02/14/19 05/16/19 Marii Woods MD 1060 [place] [address] PCP - General Internal Medicine 09/29/19 01/22/20 Pcp, No PCP - General 01/23/20 03/06/20 Marii Woods MD 1060 [place] [address] PCP - [employer] Commercial Attributed 10/16/19 04/15/20 Marii Woods MD [address]60 [place] [address] PCP - General Internal Medicine 03/07/20 08/07/21 Marii Woods MD [address] [place] [address] PCP - [employer] Commercial Attributed 08/15/20 05/16/21 Jadon Devlin MD [address] [place] [address] Gastroenterology 09/29/19 documented as of this encounter
--- OUTSIDE RECORDS SUMMARY | 2024-09-25 08:07 | XMS_ITS | Encounter Summary ---
Author Organization [facility] Address [address] [place] [address] Care Team Providers Care Mercury Cracking Tester Name Role Phone Shanika Hillman MD Primary Care Provider [phone] Jadon Devlin MD Unavailable [phone] Marii Woods MD Primary Care Provider Pcp, No Primary Care Provider UnavailMarii Dominguez MD Unavailable [phone] Marii Woods MD Primary Care Provider + [phone] Marii Woods MD Unavailable [phone] Reason for Visit * Reason Comments Medication Refill Encounter Details Date Type Department Care Team (Late st Contact Info) Description 08/31/2019 Refill [facility] 10[address] [place] [phone] Barbara Garner, BUSINESS SEGMENT MANAGER [address] [place] [address] Chronic migraine without aura, with intractable migraine, [...] 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 Not on file documented as of this encounter Plan of Treatment Not on file documented as of this encounter Visit Diagnoses Diagnosis Chronic migraine without aura, with intractable migraine, so stated, with status migrainosus documented in this encounter Care Teams Mercury Cracking Tester Relationship Specialty Start Date End Date Shanika Hillman MD PCP - General Internal Medicine 12/29/17 09/28/19 Marii Woods MD 10[address] [facility] [address] PCP - General Internal Medicine 09/29/19 01/22/20 Pcp, No PCP - General 01/23/20 03/06/20 [place] [address] [place] [address], [place] [address] PCP - [employer] Commercial Attributed 10/16/19 04/15/20 Marii Woods MD [address] [facility] [address] PCP - General Internal Medicine 03/07/20 08/07/21 [place] [address] [place] [address], [place] [address] PCP - [employer] Commercial Attributed 08/15/20 05/16/21 Jadon Devlin MD [address] [place] [address] Gastroenterology 09/29/19 documented as of this encounter
--- OUTSIDE RECORDS SUMMARY | 2024-09-25 08:08 | XMS_ITS | Encounter Summary ---
Author Organization [facility] Address [address] [place] [address] Care Team Providers Care Bias Binding Folder Name Role Phone Jadon Devlin MD Unavailable [phone] Reason for Visit * Reason Comments Medication Refill Encounter Details Date Type Department Care Team (Late st Contact Info) Description 09/10/2021 Refill [facility] 10[address] [place] [phone] Barbara Garner, INTERNET ECOMMERCE SPECIALIST 10[address] [place] [address] Other depression; Chronic migraine without aura, with intractable migraine, so stated, with status migrainosus; Other migraine without status migrainosus, not intractable Social History Tobacco Use Types Packs/Day Years Used Date Smoking Tobacco: Never Smokeless Tobacco: Never Alcohol Use Standard Drinks/Week Comments No 0 (1 standard drink = 0.6 oz pur e alcohol) PHQ-2 Answer Date Recorded PHQ-2 Total Score 0 03/13/2020 Comments No Sex and Gender Information Value Date Recorded Sex Assigned at Not on file Legal Sex Female 3:01 PM EDT Gender Identity Not on file Sexual Orientation Not on file 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
--- OUTSIDE RECORDS SUMMARY | 2024-09-25 08:08 | XMS_ITS | Encounter Summary ---
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 Not on file documented as of this encounter Plan of Treatment Not on file documented as of this encounter Visit Diagnoses Not on filedocumented in this encounter Care Teams Casino Cage Cashier Relationship Specialty Start Date End Date Marii Woods MD [address] [facility] [place] [address] PCP - General Internal Medicine 03/07/20 08/07/21 [place] [address] [place], [place] [address], [place] [address] PCP - [employer] Commercial Attributed 08/15/20 05/16/21 Jadon Devlin MD [address] [place] [address] 100 [place] [address] Gastroenterology 09/29/19 documented as of this encounter
--- OUTSIDE RECORDS SUMMARY | 2024-09-25 08:08 | XMS_ITS | Encounter Summary ---
Author Organization [facility] Address [address] [place] [address] Care Team Providers Care Bead Maker Name Role Phone Jadon Devlin MD Unavailable [phone] Marii Woods MD Primary Care Provider + [phone] Marii Woods MD Unavailable [phone] Reason for Visit * Reason Comments Medication Refill Encounter Details Date Type Department Care Team (Late st Contact Info) Description 12/19/2020 Refill [facility] [address] [place] [address] Barbara Garner, LICENSING ENGINEER [address] [place] [address] Other depression; Chronic migraine without aura, with [...] 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 Not on file documented as of this encounter Plan of Treatment Not on file documented as of this encounter Visit Diagnoses Diagnosis Other depression Chronic migraine without aura, with intractable migraine, so stated, with status migrainosus Other migraine without status migrainosus, not intractable documented in this encounter Care Teams Bead Maker Relationship Specialty Start Date End Date Marii Woods MD 1060 [place] [address] PCP - General Internal Medicine 03/07/20 08/07/21 Marii Woods MD 1060 [place] [address] PCP - [employer] Commercial Attributed 08/15/20 05/16/21 Jadon Delvin MD [address] [place] [address] Gastroenterology 09/29/19 documented as of this encounter
--- OUTSIDE RECORDS SUMMARY | 2024-09-25 08:08 | XMS_ITS | Encounter Summary ---
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
--- OUTSIDE RECORDS SUMMARY | 2024-09-25 08:08 | XMS_ITS | Clinical Summary ---
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 1 Inhaler 3 8 Active EPINEPHrine 0.15 mg/0.3 mL IJ auto-injectionInd ications:Allergic reaction, subsequent encounter Inject 0.6 mL (0.3 mg total) into the shoulder, thigh, or buttocks once as needed for allergic reaction. 2 Device 3 9 Active budesonide-formot shital (Symbicort) 160-4.5 MCG/ACT inhalerIndication s:Mild intermittent asthmatic bronchitis with acute exacerbation Inhale 2 puffs 2 (two) times a day. 1 Inhaler 3 0 Active butalbital-aspiri n-caffeine (FioriNAL) 50-325-40 MG per capsuleIndication s:Migraine without aura and with status migrainosus, not intractable Take 1 capsule by mouth as needed for headaches. Max: 6 capsules/table ts in 24 hours 30 capsule 0 Active aspirin enteric coated (ECOTRIN LOW STRENGTH) 81 MG EC tablet Take 81 mg by mouth daily. Active cyanocobalamin (VITAMIN B-12) 1000 MCG tabletIndications :B12 deficiency Take 1 tablet (1,000 mcg total) by mouth daily. 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 DUE FOR FOLLOW UP WITH GI DOCTOR 90 tablet 1 Active metoPROLOL SUCCINATE (TOPROL-XL) 50 MG 24 hr tabletIndications :Left chest pressure,Palpitat ions,Tachycardia, Essential hypertension TAKE ONE TABLET BY MOUTH DAILY 90 tablet 2 1 Active sertraline (ZOLOFT) 100 MG tabletIndications :Other depression TAKE 1 & 1/2 TABLETS BY MOUTH DAILY. 42 tablet 2 Active amitriptyline (ELAVIL) 50 MG tabletIndications :Chronic migraine without aura, with intractable migraine, so stated, with status migrainosus TAKE 1 TABLET BY MOUTH NIGHTLY 28 tablet 2 Active topiramate (TOPAMAX) 25 MG tabletIndications :Chronic migraine without aura, with intractable migraine, so stated, with status migrainosus TAKE 1 TABLET (25MG) BY MOUTH DAILY. TAKE WITH 100MG FOR A TOTAL DOSE OF 125MG. 28 tablet 2 Active topiramate (TOPAMAX) 100 MG tabletIndications :Other migraine without status migrainosus, not intractable TAKE (1) TABLET BY MOUTH DAILY. 28 tablet 2 Active magnesium oxide 400 (240 Mg) MG Tab tabletIndications :Other depression,Other migraine without status migrainosus, not intractable,Chron ic migraine without aura, with intractable migraine, so stated, with status migrainosus TAKE 1 TABLET BY MOUTH DAILY WITH FOOD, TAKE 2 HOURS APART FROM OTHER MEDICATIONS. 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 on file Last Filed Vital Signs [...] Health Maintenance Due Date Last Done Comments HIV Screening 1980 Hepatitis B Vaccines (1 of 3 - 19+ 3-dose series) 1986 Pneumococcal Vaccines 50+ (1 of 2 - PCV) 1986 Zoster (Shingles) Vaccine (1 of 2) 2017 Mammogram 06/06/2021 06/06/2020, 10/2018, 03/20/2019 (Previously Completed), Additional history exists Pap Smear (Ages 21-65) 07/28/2021 07/28/2018, 2015 Lipid Panel 11/28/2021 11/28/2020, 01/15, 01/26/2019, Additional history exists COVID-19 Vaccine (3 - 2023-2 5 season) 2024 08/31/2020, 08/05/2020 Influenza Vaccine 12/15/2024 03/13/2020, , 03/25/2017, Additional history exists Colonoscopy 01/09/2029 01/09/2019 (Prev iously Completed) DTaP/Tdap/Td Vaccines (4 - T d or Tdap) 03/13/2030 03/13/2020, 08/15/2007, 07/16/2007 Hepatitis C Virus Screening Completed 03/24/2016, 1 Procedures Procedure Name Priority Date/Time Associated Diagnosis Comments LIPID PANEL WITH NONHDL Routine 11/28/2020 7:11 AM EDT Mixed hyperlipidemia Prediabetes IMAGING BREAST/BX/MAMMO Routine 06/06/2020 THINPREP PAP TEST (FIELD REPRESENTATIVE/HEALTH EDUCATION) WITH HPV SCREEN Routine 07/28/2018 2:15 PM EDT Screening for cervical cancer HXAMB HEPATITIS C VIRAL RNA QUAL TMA Routine 03/01/2012 8:46 AM EDT from Last 3 Months or Most Recently Relevant to Health Maintenance Results * (ABNORMAL) Lipid panel (11/28/2020 7:11 AM EDT) Cholesterol, Total 217(H) <200 mg/dL [facility] Cholesterol, HDL 42(L) > OR = 50 mg/dL [facility] Triglycerides 187(H) <150 mg/dL [facility] LDL Cholesterol 143(H) mg/dL (calc) [facility] Comment: Reference range: <100 Desirable range <100 mg/dL for primary prevention; ?? <70 mg/dL for patients with CHD or diabetic patients with > or = 2 CHD risk factors. LDL-C is now calculated using the Fani calculation, which is a validated novel method providing better accuracy than the Friedewald equation in the estimation of LDL-C. Jamal PICHARDO et al. VASILIY. 2013;310(19): 0910-7018 (http://education.[employer]/faq/NHW141) Cholesterol/HDL Ratio 5.2(H) <5.0 (calc) [facility] Non HDL Chol. (LDL+VLDL) 175(H) <130 mg/dL (calc) [facility] Comment: For patients with diabetes plus 1 major ASCVD risk factor, treating to a non-HDL-C goal of <100 mg/dL (LDL-C of <70 mg/dL) is considered a therapeutic option. Blood specimen (specimen) Heel structure / Unknown 11/28/2020 7:11 AM EDT 11/28/2020 7:12 AM EDT Narrative [facility] - 11/29/2020 4:14 PM EDT FASTING:YES FASTING: YES Chirag SORIANO LAB BLOOD ORDERABLES Final Resul t [facility] [address], [place] [address] * (ABNORMAL) IMAGING BREAST/BX/MAMMO (06/06/2020) Anatomical Region Laterality Modality Other Marii Woods MD IMG LEGACY PROCEDURES Edit ed Result - Final * ThinPrep Pap Test (Hotel Services Supervisor) with HPV Screen (07/28/2018 2:15 PM EDT) Clinical Information None given [facility] LMP: 06/30/2018 [facility] Previous PAP: NONE GIVEN [facility] Previous Biopsy NONE GIVEN [facility] Source: Cervix [facility] Statement of Adequacy: [facility] Comment: Satisfactory for evaluation. Endocervical/transformation zone component present. Interpretation/Res ult: [facility] Comment:Negative for intraep ithelial lesion or malignancy. Comment: [facility] Comment: This Pap test has been evaluated with computer assisted technology. Medical Science Liaison: [employer] [employer] RAYSHAWN [facility] Comment: KN, CT(ASCP) CT screening location: [address] ??[address] Review Medical Science Liaison: DINORA TABARES [facility] Comment: MSM, CT(ASCP) CT screening location: [address] ??[address] Comment [facility] Comment: EXPLANATORY NOTE: [...] was performed using the APTIMA HPV Assay ([employer] This assay detects E6/E7 viral messenger RNA (mRNA) from 14 high-risk HPV types (16,18,31,33,35,39,45,51,52,56,58,59,66,68). The analytical performance characteristics of this assay have been determined by [employer]. The modifications have not been cleared or approved by the FDA. This assay has been validated pursuant to the CLIA regulations and is used for clinical purposes. 07/28/2018 2:15 PM EDT 07/29/2018 2:39 AM EDT Narrative Resulting Agency Comment Performing Organization Information: ?Site ID: [email or web address] ?Name: [email or web address] ?Address: [address] [place] [address], [place] [address] ?Director: Zbigniew Willson MD us Shanika Hillman MD LAB AMB PATH/CYTO ORDERABLES F inal Result [facility] [address], [place] [address] * Hepatitis C Viral Rna Qual TMA (03/01/2012 8:46 AM EDT) Hepatitis C Viral Rna Qual Tma NONREACTIVE NONREACTIVE [facility] CONVERSION 03/01/2012 8:46 AM EDT us Rafi SORIANO HX LAB Final Result [facility] CONVERSION from Last 3 Months or Most Recently Relevant to Health Maintenance Insurance [employer] HMO Care Teams Occupational Therapy Assist Relationship Specialty Start Date End Date Jadon Devlin MD [address] [place] [address] Gastroenterology 09/29/19
--- OUTSIDE RECORDS SUMMARY | 2024-09-25 08:08 | XMS_ITS | Encounter Summary ---
Author Organization [facility] Address [address] [place] [address] Care Team Providers Care Mine Manager Name Role Phone Jadon Devlin MD Unavailable [phone] Marii Woods MD Primary Care Provider [phone] Reason for Visit * Reason Comments Medication Refill Encounter Details Date Type Department Care Team (Late st Contact Info) Description 08/05/2021 Refill [facility] [address] [phone] Marii Woods MD [address] [place] [address] Essential hypertension Social History Tobacco Use Types [...] 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 Not on file documented as of this encounter Miscellaneous Notes * Telephone Encounter - Marii Woods MD - 08/08/2021 3:14 PM EDT TRANSFERRING TO NEW PCP documented in this encounter Plan of Treatment Not on file documented as of this encounter Visit Diagnoses Diagnosis Essential hypertension Unspecified essential hypertension documented in this encounter Care Teams Mine Manager Relationship Specialty Start Date End Date Marii Woods MD 1060 [place] [address] PCP - General Internal Medicine 03/07/20 08/07/21 Jadon Devlin MD 21 [facility] 100 [place] [address] Gastroenterology 09/29/19 documented as of this encounter
--- OUTSIDE RECORDS SUMMARY | 2024-09-25 08:08 | XMS_ITS | Encounter Summary ---
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
--- OUTSIDE RECORDS SUMMARY | 2024-09-25 08:08 | XMS_ITS | Encounter Summary ---
Author Organization [facility] Address [address] [place] [address] Care Team Providers Care Systems Software Developer Name Role Phone Michelle Mccoy DO Primary Care Provider [phone] Shanika Hillman MD Primary Care Provider [phone] Shanika Hillman MD Unavailable [phone] Jadon Devlin MD Unavailable [phone] Marii Woods MD Primary Care Provider Pcp, No Primary Care Provider UnavailMarii Dominguez MD Unavailable [phone] Marii Woods MD Primary Care Provider + [phone] Marii Woods MD Unavailable [phone] Encounter Details Date Type Department Care Team (Late st Contact Info) Description 03/04/2017 Scanned Document [address] [place] [address] Michelle Mccoy DO [address] [place] [address] Social History Tobacco Use Types Packs/Day Years [...] on filedocumented in this encounter Care Teams Systems Software Developer Relationship Specialty Start Date End Date Michelle Mccoy DO PCP - General Family Medicine 02/03/16 12/28/17 Shanika Hillman MD PCP - General Internal Medicine 12/29/17 09/28/19 Shanika Hillman MD [address] [place] [address] 4[address] [place] [address] PCP - C[employer] Commercial Attributed 02/14/19 05/16/19 Marii Woods MD [address] [facility] [place] [address] PCP - General Internal Medicine 09/29/19 01/22/20 Pcp, No PCP - General 01/23/20 03/06/20 Marii Woods MD [address] [place] [address] PCP - [employer] Commercial Attributed 10/16/19 04/15/20 Marii Woods MD [address] [place] [address] PCP - General Internal Medicine 03/07/20 08/07/21 Marii Woods MD [address] [place] [address] PCP - [employer] Commercial Attributed 08/15/20 05/16/21 Jadon Devlin MD [address] [place] [address] Gastroenterology 09/29/19 documented as of this encounter
--- OUTSIDE RECORDS SUMMARY | 2024-09-25 08:08 | XMS_ITS | Encounter Summary ---
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 Social History Tobacco [...] 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
--- OUTSIDE RECORDS SUMMARY | 2024-09-25 08:08 | XMS_ITS | Encounter Summary ---
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
--- OUTSIDE RECORDS SUMMARY | 2024-09-25 08:08 | XMS_ITS | Encounter Summary ---
Author Organization [facility] Address [address] [place] [address] Care Team Providers Care Director Digital Communications Name Role Phone Dede Mccoyi Lorna MATHEWS Primary Care Provider [phone] Shanika Hillman MD Primary Care Provider [phone] Shanika Hillman MD Unavailable [phone] Jadon Devlin MD Unavailable [phone] Marii Woods MD Primary Care Provider + [phone] Pcp, No Primary Care Provider Unavailolivia e Marii Woods MD Unavailable [phone] Marii Woods MD Primary Care Provider +[phone] Marii Woods MD Unavailable [phone] Encounter Details Date Type Department Care Team (Late st Contact Info) Description 05/19/2016 Scanned Document [address] [phone] Provider, Generic Social History Tobacco Use Types [...] on filedocumented in this encounter Care Teams Director Digital Communications Relationship Specialty Start Date End Date Michelle MccoyDO PCP - General Family Medicine 02/03/16 12/28/17 Shanika Hillman MD PCP - General Internal Medicine 12/29/17 09/28/19 Shanika Hillman MD [address] [place] [address] 4[address] [place] [address] PCP - [employer] Commercial Attributed 02/14/19 05/16/19 Marii Woods MD 1060 [facility] [place] [address] PCP - General Internal Medicine 09/29/19 01/22/20 Pcp, No PCP - General 01/23/20 03/06/20 Marii Woods MD 1060 [facility] [place] [address] PCP - [employer] Commercial Attributed 10/16/19 04/15/20 Marii Woods MD 1060 [facility] [place] [address] PCP - General Internal Medicine 03/07/20 08/07/21 Marii Woods MD 1060 [facility] [place] [address] PCP - C[employer] Commercial Attributed 08/15/20 05/16/21 Jadon Devlin MD [address] [address] Gastroenterology 09/29/19 documented as of this encounter
--- OUTSIDE RECORDS SUMMARY | 2024-09-25 08:08 | XMS_ITS | Encounter Summary ---
Author Organization [facility] Address [address] [place] [address] Care Team Providers Care Synchro Assembler Name Role Phone Shanika Hillman MD Primary Care Provider Shanika Hillman MD Unavailable Jadon Devlin MD Unavailable [phone] Marii Woods MD Primary Care Provider [phone] Pcp, No Primary Care Provider Unavailolivia e Marii Woods MD Unavailable Marii Woods MD Primary Care Provider + [phone] Marii Woods MD Unavailable [phone] Reason for Visit * Reason Comments Medication Refill Encounter Details Date Type Department Care Team (Late st Contact Info) Description 05/04/[address] [address] Shanika Hillman MD [address] [place] [address] Chronic migraine without aura, with intractable [...] 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 file documented as of this encounter Plan of Treatment Not on file documented as of this encounter Visit Diagnoses Diagnosis Chronic migraine without aura, with intractable migraine, so stated, with status migrainosus Other migraine without status migrainosus, not intractable Other depression documented in this encounter Care Teams Synchro Assembler Relationship Specialty Start Date End Date Shanika Hillman MD PCP - General Internal Medicine 12/29/17 09/28/19 Shanika Hillman MD [address] [place] [address] 4011 [place] [address] PCP - [employer] Commercial Attributed 02/14/19 05/16/19 Marii Woods MD 1060 [facility] [place] [address] PCP - General Internal Medicine 09/29/19 01/22/20 Pcp, No PCP - General 01/23/20 03/06/20 Marii Woods MD 1060 [facility] [place] [address] PCP - [employer] Commercial Attributed 10/16/19 04/15/20 Marii Woods MD 1060 [facility] [place] [address] PCP - General Internal Medicine 03/07/20 08/07/21 Marii Woods MD 1060 [facility] [place] [address] PCP - C[employer] Commercial Attributed 08/15/20 05/16/21 Jadon Devlin MD [address] [place] [address] 100 [place] [address] Gastroenterology 09/29/19 documented as of this encounter
--- OUTSIDE RECORDS SUMMARY | 2024-09-25 08:08 | XMS_ITS | Encounter Summary ---
Author Organization [facility] Address [address] [place] [address] Care Team Providers Care Assembling Machine Operator Name Role Phone Jadon Devlin MD Unavailable [phone] Marii Woods MD Unavailable [phone] Marii Woods MD Primary Care Provider + [phone] Marii Woods MD Unavailable [phone] Reason for Visit * Reason Onset Date Comments Medication Refill 03/12/2020 Encounter Details Date Type Department Care Team (Late st Contact Info) Description 03/12/[address] [address] Marii Woods MD [address] [place] [address] Mild intermittent asthmatic bronchitis with acute [...] 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
--- OUTSIDE RECORDS SUMMARY | 2024-09-25 08:08 | XMS_ITS | Encounter Summary ---
Author Organization [facility] Address [address] [place] [address] Care Team Providers Care Crew Foreman Name Role Phone Shanika Hillman MD Primary Care Provider [phone] Shanika Hillman MD Unavailable Jadon Devlin MD Unavailable [phone] Marii Woods MD Primary Care Provider [phone] Pcp, No Primary Care Provider Unavailolivia e Marii Woods MD Unavailable [phone] Marii Woods MD Primary Care Provider + [phone] Marii Woods MD Unavailable Reason for Visit * Reason Onset Date Comments Medication Refill 04/27/2018 Encounter Details Date Type Department Care Team (Late st Contact Info) Description 04/27/2018 Refill [facility] [address] [place] [phone] Shanika Hillman MD [address] [place] [address] Chronic migraine without aura, with intractable [...] depression documented in this encounter Care Teams Crew Foreman Relationship Specialty Start Date End Date Shanika Hillman MD PCP - General Internal Medicine 12/29/17 09/28/19 Shanika Hillman MD 234 [facility] [address] [place] [address] PCP - C[employer] Commercial Attributed 02/14/19 05/16/19 Marii Woods MD [address] [place] [address] PCP - General Internal Medicine 09/29/19 01/22/20 Pcp, No PCP - General 01/23/20 03/06/20 Marii Woods MD [address] [place] [address] PCP - C[employer] Commercial Attributed 10/16/19 04/15/20 Marii Woods MD 1060 [place] [address] PCP - General Internal Medicine 03/07/20 08/07/21 Marii Woods MD 1060 [place] [address] PCP - C[employer] Commercial Attributed 08/15/20 05/16/21 Jadon Devlin MD 21 [facility] 100 [place] [address] Gastroenterology 09/29/19 documented as of this encounter
--- OUTSIDE RECORDS SUMMARY | 2024-09-25 08:08 | XMS_ITS | Encounter Summary ---
Author Organization [facility] Address [address] [place] [address] Care Team Providers Care Woodwind Instruments Inspector Name Role Phone Jadon Devlin MD Unavailable [phone] Marii Woods MD Primary Care Provider + [phone] Marii Woods MD Unavailable [phone] Reason for Visit * Reason Comments Medication Refill Encounter Details Date Type Department Care Team (Late st Contact Info) Description 03/04/2021 Refill [facility] [address] [address] Marii Woods MD [address] [place] [phone] Left chest pressure; Palpitations; Tachycardia; Essential hypertension [...] 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 Not on file documented as of this encounter Plan of Treatment Not on file documented as of this encounter Visit Diagnoses Diagnosis Left chest pressure Palpitations Tachycardia Unspecified tachycardia Essential hypertension Unspecified essential hypertension documented in this encounter Care Teams Woodwind Instruments Inspector Relationship Specialty Start Date End Date Marii Woods MD 10[address] [place] [address] PCP - General Internal Medicine 03/07/20 08/07/21 Marii Woods MD 0 [place] [address] PCP - C[employer] Commercial Attributed 08/15/20 05/16/21 Jadon Devlin MD [address] [place] [address] 100 [place] [address] Gastroenterology 09/29/19 documented as of this encounter
--- OUTSIDE RECORDS SUMMARY | 2024-09-25 08:08 | XMS_ITS | Encounter Summary ---
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
--- OUTSIDE RECORDS SUMMARY | 2024-09-25 08:08 | XMS_ITS | Encounter Summary ---
Author Organization [facility] Address [address] [place] [address] Care Team Providers Care Dental Insurance Coordinator Name Role Phone Shanika Hillman MD Primary Care Provider Shanika Hillman MD Unavailable [phone] Jadon Devlin MD Unavailable [phone] Marii Woods MD Primary Care Provider Pcp, No Primary Care Provider Unavailolivia e Marii Woods MD Unavailable [phone] Marii Woods MD Primary Care Provider + [phone] Marii Woods MD Unavailable [phone] Reason for Visit * Reason Comments Medication Refill Encounter Details Date Type Department Care Team (Late st Contact Info) Description 04/06/[address] [address] Shanika Hillman MD [address] [place] [address] Depressive disorder (Primary Dx) Social History [...] 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 file Not on file documented as of this encounter Plan of Treatment Not on file documented as of this encounter Visit Diagnoses Diagnosis Depressive disorder- Primary Depressive disorder, not elsewhere classified documented in this encounter Care Teams Dental Insurance Coordinator Relationship Specialty Start Date End Date Shanika Hillman MD PCP - General Internal Medicine 12/29/17 09/28/19 Shanika Hillman MD 234 [facility] [address] [place] [address] PCP - C[employer] Commercial Attributed 02/14/19 05/16/19 Marii Woods MD 1060 [facility] [place] [address] PCP - General Internal Medicine 09/29/19 01/22/20 Pcp, No PCP - General 01/23/20 03/06/20 Marii Woods MD 1060 [facility] [place] [address] PCP - C[employer] Commercial Attributed 10/16/19 04/15/20 Marii Woods MD 1060 [place] [address] PCP - General Internal Medicine 03/07/20 08/07/21 Marii Woods MD 1060 [place] [address] PCP - C[employer] Commercial Attributed 08/15/20 05/16/21 Jadon Devlin MD [address] [place] [address] 100 [place] [address] Gastroenterology 09/29/19 documented as of this encounter
--- OUTSIDE RECORDS SUMMARY | 2024-09-25 08:08 | XMS_ITS | Encounter Summary ---
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
--- OUTSIDE RECORDS SUMMARY | 2024-09-25 08:08 | XMS_ITS | Encounter Summary ---
Author Organization [facility] Address [address] [place] [address] Care Team Providers Care Agricultural Labor Camp Manager Name Role Phone Michelle Mccoy DO Primary Care Provider [phone] Shanika Hillman MD Primary Care Provider [phone] Shanika Hillman MD Unavailable Jadon Devlin MD Unavailable [phone] Marii Woods MD Primary Care Provider Pcp, No Primary Care Provider UnavailMarii Dominguez MD Unavailable +[phone] Marii Woods MD Primary Care Provider + [phone] Marii Woods MD Unavailable [phone] Encounter Details Date Type Department Care Team (Late st Contact Info) Description 03/18/[address] [facility] 10[address] [place] [address] Michelle Mccoy DO [address] [place] [address] Social History Tobacco Use Types Packs/Day Years [...] on filedocumented in this encounter Care Teams Agricultural Labor Camp Manager Relationship Specialty Start Date End Date Michelle Mccoy DO PCP - General Family Medicine 02/03/16 12/28/17 Shanika Hillman MD PCP - General Internal Medicine 12/29/17 09/28/19 Shanika Hillman MD [address] [place] [address] 4[address] [place] [address] PCP - C[employer] Commercial Attributed 02/14/19 05/16/19 Marii Woods MD 1060 [place] [address] PCP - General Internal Medicine 09/29/19 01/22/20 Pcp, No PCP - General 01/23/20 03/06/20 Marii Woods MD 1060 [place] [address] PCP - C[employer] Commercial Attributed 10/16/19 04/15/20 Marii Woods MD 1060 [place] [address] PCP - General Internal Medicine 03/07/20 08/07/21 Marii Woods MD 1060 [place] [address] PCP - C[employer] Commercial Attributed 08/15/20 05/16/21 Jadon Devlin MD [address] [place] [address] Gastroenterology 09/29/19 documented as of this encounter
--- OUTSIDE RECORDS SUMMARY | 2024-09-25 08:08 | XMS_ITS | Encounter Summary ---
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
--- OUTSIDE RECORDS SUMMARY | 2024-09-25 08:08 | XMS_ITS | Encounter Summary ---
Author Organization [facility] Address [address] [place] [address] Care Team Providers Care Preflight Mechanic Name Role Phone Dede Mccoyi Lorna MATHEWS Primary Care Provider [phone] Shanika Hillman MD Primary Care Provider [phone] Shanika Hillman MD Unavailable [phone] Jadon Devlin MD Unavailable [phone] Marii Woods MD Primary Care Provider + [phone] Pcp, No Primary Care Provider Unavailolivia e Marii Woods MD Unavailable [phone] Marii Woods MD Primary Care Provider +[phone] Marii Woods MD Unavailable [phone] Encounter Details Date Type Department Care Team (Late st Contact Info) Description 02/21/2016 Scanned Document [address] [phone] Provider, Generic Social History Tobacco Use Types [...] provider. us Generic Provider IMG LEGACY PROCEDURES Edited Re sult - Final documented in this encounter Visit Diagnoses Not on filedocumented in this encounter Care Teams Preflight Mechanic Relationship Specialty Start Date End Date Michelle Mccoy DO PCP - General Family Medicine 02/03/16 12/28/17 Shanika Hillman MD PCP - General Internal Medicine 12/29/17 09/28/19 Shanika Hillman MD [address] [place] [address] [address] [place] [address] PCP - C[employer] Commercial Attributed 02/14/19 05/16/19 Marii Woods MD [address] [place] [address] PCP - General Internal Medicine 09/29/19 01/22/20 Pcp, No PCP - General 01/23/20 03/06/20 Marii Woods MD [address] [place] [address] PCP - [employer] Commercial Attributed 10/16/19 04/15/20 Marii Woods MD [address] [place] [address] PCP - General Internal Medicine 03/07/20 08/07/21 [place] [address] [place] [address] PCP - C[employer] Commercial Attributed 08/15/20 05/16/21 Jadon Devlin MD [address] [place] [address] Gastroenterology 09/29/19 documented as of this encounter
--- OUTSIDE RECORDS SUMMARY | 2024-09-25 08:08 | XMS_ITS | Encounter Summary ---
Author Organization [facility] Address [address] [place] [address] Care Team Providers Care Content Management Consultant Name Role Phone Jadon Devlin MD Unavailable [phone] Marii Woods MD Unavailable [phone] Marii Woods MD Primary Care Provider Marii Woods MD Unavailable [phone] Reason for Visit * Reason Onset Date Comments Medication Refill 03/12/2020 Encounter Details Date Type Department Care Team (Late st Contact Info) Description 03/12/[address] [phone] Chirag Hicks, BO [facility] [address] [place] [address] Other depression Social History Tobacco Use Types [...] 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
--- OUTSIDE RECORDS SUMMARY | 2024-09-25 08:08 | XMS_ITS | Encounter Summary ---
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 Not on file documented as of this encounter Plan of Treatment Not on file documented as of this encounter Visit Diagnoses Not on filedocumented in this encounter Care Teams Petrographer Relationship Specialty Start Date End Date Marii Woods MD 1060 [facility] [place] [address] PCP - General Internal Medicine 03/07/20 08/07/21 [place] [address] [place], [place] [address], [place] [address] PCP - [employer] Commercial Attributed 08/15/20 05/16/21 Jadon Devlin MD [address] [place] [address] [address] [place] [address] Gastroenterology 09/29/19 documented as of this encounter
--- OUTSIDE RECORDS SUMMARY | 2024-09-25 08:08 | XMS_ITS | Encounter Summary ---
Author Organization [facility] Address [address] [place] [address] Care Team Providers Care Electrical Maintenance Engineer Name Role Phone Shanika Hillman MD Primary Care Provider [phone] Shanika Hillman MD Unavailable [phone] Jadon Devlin MD Unavailable [phone] Marii Woods MD Primary Care Provider + [phone] Pcp, No Primary Care Provider Unavailolivia e Marii Woods MD Unavailable [phone] Marii Woods MD Primary Care Provider + [phone] Marii Woods MD Unavailable [phone] Encounter Details Date Type Department Care Team (Late st Contact Info) Description 10/15/2018 Scanned Document [address] [phone] Provider, Generic Social History Tobacco [...] on filedocumented in this encounter Care Teams Electrical Maintenance Engineer Relationship Specialty Start Date End Date Shanika Hillman MD PCP - General Internal Medicine 12/29/17 09/28/19 Shanika Hillman MD [facility] [address] [place] [address] PCP - [employer] Commercial Attributed 02/14/19 05/16/19 Marii Woods MD [address]60 [facility] [address] PCP - General Internal Medicine 09/29/19 01/22/20 Pcp, No PCP - General 01/23/20 03/06/20 Marii Woods MD 1060 [place] [address] PCP - C[employer] Commercial Attributed 10/16/19 04/15/20 Marii Woods MD [address] [facility] [address] PCP - General Internal Medicine 03/07/20 08/07/21 Marii Woods MD [address] [place] [address] PCP - C[employer] Commercial Attributed 08/15/20 05/16/21 Jadon Devlin MD [address] [place] [address] 100 [place] [address] Gastroenterology 09/29/19 documented as of this encounter
--- OUTSIDE RECORDS SUMMARY | 2024-09-25 08:08 | XMS_ITS | Encounter Summary ---
Author Organization [facility] Address [address] [place] [address] Care Team Providers Care Deputy Coroner Name Role Phone Naty Rendon MD Primary Care Provider [phone] Michelle Mccoy DO Primary Care Provider [phone] Shanika Hillman MD Primary Care Provider [phone] Shanika Hillman MD Unavailable [phone] Jadon Devlin MD Unavailable Marii Woods MD Primary Care Provider [phone] Pcp, No Primary Care Provider Unavailolivia e Marii Woods MD Unavailable Marii Woods MD Primary Care Provider Marii Woods MD Unavailable [phone] Encounter Details Date Type Department Care Team (Late st Contact Info) Description 10/24/2015 Telephone [facility] [address] [place] [address] Naty Rendon MD [facility] [address] [place] [address] Social History Tobacco Use Types Packs/Day [...] Miscellaneous Notes * Telephone Encounter - Ellyn Jamal - 10/24/2015 1:[address] lopez [...] on filedocumented in this encounter Care Teams Deputy Coroner Relationship Specialty Start Date End Date Naty Rendon MD PCP - General Internal Medicine 03/18/15 02/02/16 Michelle Mccoy DO PCP - General Family Medicine 02/03/16 12/28/17 Shanika Hillman MD PCP - General Internal Medicine 12/29/17 09/28/19 Shanika Hillman MD [address] [facility] [address] [place] [address] PCP - C[employer] Commercial Attributed 02/14/19 05/16/19 Marii Woods MD 1060 [facility] [place] [address] PCP - General Internal Medicine 09/29/19 01/22/20 Pcp, No PCP - General 01/23/20 03/06/20 Marii Woods MD [address] [place] [address], [place] [address] PCP - [employer] Commercial Attributed 10/16/19 04/15/20 Marii Woods MD [address] [place] [address], [place] [address] PCP - General Internal Medicine 03/07/20 08/07/21 Marii Woods MD [address] [place] [address], [place] [address] PCP - C[employer] Commercial Attributed 08/15/20 05/16/21 Jadon Devlin MD [address] [place] [address] 100 [place] [address] Gastroenterology 09/29/19 documented as of this encounter
--- OUTSIDE RECORDS SUMMARY | 2024-09-25 08:08 | XMS_ITS | Encounter Summary ---
Author Organization [facility] Address [address] [place] [address] Care Team Providers Care Fitness Management Director Name Role Phone Jadon Devlin MD Unavailable [phone] Reason for Visit * Reason Comments Medication Refill Encounter Details Date Type Department Care Team (Late st Contact Info) Description 09/05/2021 Refill [facility] [address] [place] [phone] Barbara Garner, INDUSTRIAL PROPERTY APPRAISER [address] [place] [address] Chronic migraine without aura, with intractable migraine, [...] 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
--- OUTSIDE RECORDS SUMMARY | 2024-09-25 08:08 | XMS_ITS | Encounter Summary ---
Author Organization [facility] Address [address] [place] [address] Care Team Providers Care Insole Doubler Name Role Phone Jadon Devlin MD Unavailable [phone] Marii Woods MD Primary Care Provider + [phone] Marii Woods MD Unavailable [phone] Reason for Visit * Reason Comments Medication Refill Encounter Details Date Type Department Care Team (Late st Contact Info) Description 10/09/2020 Refill [facility] [address] [address] Marii Woods MD [address] [place] [address] Other depression; Chronic migraine without aura, [...] 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
--- OUTSIDE RECORDS SUMMARY | 2024-09-25 08:08 | XMS_ITS | Encounter Summary ---
Author Organization [facility] Address [address] [place] [address] Care Team Providers Care Air Control Electronics Operator Name Role Phone Dede Mccoyi Lorna MATHEWS Primary Care Provider [phone] Shanika Hillman MD Primary Care Provider [phone] Shanika Hillman MD Unavailable [phone] Jadon Devlin MD Unavailable [phone] Marii Woods MD Primary Care Provider + [phone] Pcp, No Primary Care Provider Unavailolivia e Marii Woods MD Unavailable [phone] Marii Woods MD Primary Care Provider [phone] Marii Woods MD Unavailable [phone] Encounter Details Date Type Department Care Team (Late st Contact Info) Description 04/01/2016 Scanned Document [address] [phone] Provider, Generic Social History Tobacco Use Types [...] Narrative 04/07/2016 Ordered by an unspecified provider. us Generic Provider HX AMB PROCEDURES Edited Result - Final * HX GASTROENTEROLOGY UPPER ENDOSCOPY-SCAN (04/06/2016) Narrative 04/06/2016 Ordered by an unspecified provider. us Generic Provider HX AMB PROCEDURES Edited Result - Final documented in this encounter Visit Diagnoses Not on filedocumented in this encounter Care Teams Air Control Electronics Operator Relationship Specialty Start Date End Date Michelle Mccoy DO PCP - General Family Medicine 02/03/16 12/28/17 Shanika Hillman MD PCP - General Internal Medicine 12/29/17 09/28/19 Shanika Hillman MD 234 [facility] [address] [place] [address] PCP - C[employer] Commercial Attributed 02/14/19 05/16/19 Marii Woods MD 1060 [facility] [place] [address] PCP - General Internal Medicine 09/29/19 01/22/20 Pcp, No PCP - General 01/23/20 03/06/20 Marii Woods MD 1060 [place] [address] PCP - C[employer] Commercial Attributed 10/16/19 04/15/20 Marii Woods MD [address] [place] [address] PCP - General Internal Medicine 03/07/20 08/07/21 Marii Woods MD [address] [place] [address] PCP - C[employer] Commercial Attributed 08/15/20 05/16/21 Jadon Devlin MD [address] [place] [address] 100 [place] [address] Gastroenterology 09/29/19 documented as of this encounter
--- OUTSIDE RECORDS SUMMARY | 2024-09-25 08:08 | XMS_ITS | Encounter Summary ---
Author Organization [facility] Address [address] [place] [address] Care Team Providers Care Enterprise Data Architect Name Role Phone Jadon Devlin MD Unavailable [phone] Marii Woods MD Unavailable [phone] Marii Woods MD Primary Care Provider Marii Woods MD Unavailable [phone] Reason for Visit * Reason Comments Medication Refill Encounter Details Date Type Department Care Team (Late st Contact Info) Description 03/19/[address] [phone] Chirag Hicks PA [facility] [address] [place] [address] Other depression; Chronic migraine without aura, with [...] 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 Not [...] intractable documented in this encounter Care Teams Enterprise Data Architect Relationship Specialty Start Date End Date Marii Woods MD 1060 [facility] [place] [address] PCP - C[employer] Commercial Attributed 10/16/19 04/15/20 Marii Woods MD 1060 [facility] [place] [address] PCP - General Internal Medicine 03/07/20 08/07/21 Marii Woods MD 1060 [facility] [place] [address] PCP - C[employer] Commercial Attributed 08/15/20 05/16/21 Jadon Devlin MD [address] [place] [address] Gastroenterology 09/29/19 documented as of this encounter
--- OUTSIDE RECORDS SUMMARY | 2024-09-25 08:08 | XMS_ITS | Encounter Summary ---
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
--- OUTSIDE RECORDS SUMMARY | 2024-09-25 08:08 | XMS_ITS | Encounter Summary ---
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
--- OUTSIDE RECORDS SUMMARY | 2024-09-25 08:08 | XMS_ITS | Encounter Summary ---
Author Organization [facility] Address [address] [place] [address] Care Team Providers Care Icer Air Conditioning Name Role Phone Jadon Devlin MD Unavailable Marii Woods MD Unavailable [phone] Marii Woods MD Primary Care Provider + [phone] Marii Woods MD Unavailable [phone] Reason for Visit * Reason Onset Date Comments Medication Refill 03/12/2020 Encounter Details Date Type Department Care Team (Late st Contact Info) Description 03/12/[address] [phone] Chirag Hicks, BO [facility] [address] [place] [address] Other depression; Chronic migraine without aura, with [...] 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
--- OUTSIDE RECORDS SUMMARY | 2024-09-25 08:08 | XMS_ITS | Encounter Summary ---
Author Organization [facility] Address [address] [place] [address] Care Team Providers Care Signals Officer Name Role Phone Shanika Hillman MD Primary Care Provider [phone] Shanika Hillman MD Unavailable [phone] Jadon Devlin MD Unavailable Marii Woods MD Primary Care Provider [phone] Pcp, No Primary Care Provider Unavailolivia e Marii Woods MD Unavailable [phone] Marii Woods MD Primary Care Provider + [phone] Marii Woods MD Unavailable [phone] Encounter Details Date Type Department Care Team (Late st Contact Info) Description 01/09/[address] [facility] 10 [facility] [address] [place] [address] Jadon Devlin MD [address] [place] [address] Social History Tobacco Use Types Packs/Day Years [...] 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 Not on file Not on file documented as of this encounter Plan of Treatment Not on file documented as of this encounter Procedures Procedure Name Priority Date/Time Associated Diagnosis Comments PATHOLOGY REPORT 01/09/2019 12:0 0 AM EDT documented in this encounter Results * (REPORT) PATHOLOGY REPORT (01/09/2019 12:00 AM EDT) us Jadon Devlin MD PATHOLOGY/CYTOLOGY ORDERABLE S Final Result documented in this encounter Visit Diagnoses Not on filedocumented in this encounter Care Teams Signals Officer Relationship Specialty Start Date End Date Shanika Hillman MD PCP - General Internal Medicine 12/29/17 09/28/19 Shanika Hillman MD 234 [facility] [address] [place] [address] PCP - C[employer] Commercial Attributed 02/14/19 05/16/19 Marii Woods MD [address] [facility] [place] [address] PCP - General Internal Medicine 09/29/19 01/22/20 Pcp, No PCP - General 01/23/20 03/06/20 Marii Woods MD [address] [facility] [place] [address] PCP - C[employer]a Commercial Attributed 10/16/19 04/15/20 Marii Woods MD [address] [facility] [place] [address] PCP - General Internal Medicine 03/07/20 08/07/21 Marii Woods MD 1060 [place] [address] PCP - Cigna Commercial Attributed 08/15/20 05/16/21 Jadon Devlin MD [address] [place] [address] 100 [place] [address] Gastroenterology 09/29/19 documented as of this encounter
--- OUTSIDE RECORDS SUMMARY | 2024-09-25 08:08 | XMS_ITS | Encounter Summary ---
Author Organization [facility] Address [address] [place] [address] Care Team Providers Care Supervisor Fishing Name Role Phone Shanika Hillman MD Primary Care Provider Shanika Hillman MD Unavailable [phone] Jadon Devlin MD Unavailable [phone] Marii Woods MD Primary Care Provider [phone] Pcp, No Primary Care Provider Unavailolivia e Marii Woods MD Unavailable [phone] Marii Woods MD Primary Care Provider + [phone] Marii Woods MD Unavailable [phone] Encounter Details Date Type Department Care Team (Late st Contact Info) Description 03/27/2019 Scanned Document [place] [id number] [place] [address] Shanika Hillman MD [address] [place] [address] Social History Tobacco Use Types Packs/Day [...] 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 Not on file Not on file documented as of this encounter Plan of Treatment Not on file documented as of this encounter Visit Diagnoses Not on filedocumented in this encounter Care Teams Supervisor Fishing Relationship Specialty Start Date End Date Shanika Hillman MD PCP - General Internal Medicine 12/29/17 09/28/19 Shanika Hillman MD [address] [place] [address] 4[address] [place] [address] PCP - C[employer] Commercial Attributed 02/14/19 05/16/19 Marii Woods MD 1060 [place] [address] PCP - General Internal Medicine 09/29/19 01/22/20 Pcp, No PCP - General 01/23/20 03/06/20 Marii Woods MD 1060 [place] [address] PCP - C[employer] Commercial Attributed 10/16/19 04/15/20 Marii Woods MD 1060 [place] [address] PCP - General Internal Medicine 03/07/20 08/07/21 Marii Woods MD 1060 [place] [address] PCP - C[employer] Commercial Attributed 08/15/20 05/16/21 Jadon Devlin MD [address] [place] [address] 100 [place] [address] Gastroenterology 09/29/19 documented as of this encounter
--- OUTSIDE RECORDS SUMMARY | 2024-09-25 08:08 | XMS_ITS | Encounter Summary ---
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
--- OUTSIDE RECORDS SUMMARY | 2024-09-25 08:08 | XMS_ITS | Encounter Summary ---
Author Organization [facility] Address [address] [place] [address] Care Team Providers Care Staff Consultant Name Role Phone Shanika Hillman MD Primary Care Provider [phone] Jadon Devlin MD Unavailable [phone] Marii Woods MD Primary Care Provider [phone] Pcp, No Primary Care Provider UnavailMarii Dominguez MD Unavailable [phone] Marii Woods MD Primary Care Provider + [phone] Marii Woods MD Unavailable [phone] Reason for Visit * Reason Comments Medication Refill Encounter Details Date Type Department Care Team (Late st Contact Info) Description 06/02/[address] [address] Shanika Hillman MD [address] [place] [address] Gastroesophageal reflux disease without esophagitis Social [...] 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 [place] [address] PCP - General Internal Medicine 09/29/19 01/22/20 Pcp, No PCP - General 01/23/20 03/06/20 Marii Woods MD [address] [facility] [place] [place] [address] PCP - [employer] Commercial Attributed 10/16/19 04/15/20 Marii Woods MD [address] [facility] [place] [address] PCP - General Internal Medicine 03/07/20 08/07/21 Marii Woods MD [address] [place] [address], [place] [address] PCP - [employer] Commercial Attributed 08/15/20 05/16/21 Jadon Devlin MD [address] [place] [address] Gastroenterology 09/29/19 documented as of this encounter
--- OUTSIDE RECORDS SUMMARY | 2024-09-25 08:08 | XMS_ITS | Encounter Summary ---
Author Organization [facility] Address [address] [place] [address] Care Team Providers Care Correctional Captain Name Role Phone Jadon Devlin MD Unavailable [phone] Marii Woods MD Primary Care Provider + [phone] Marii Woods MD Unavailable [phone] Reason for Visit * Reason Comments Medication Refill Encounter Details Date Type Department Care Team (Late st Contact Info) Description 08/21/2020 Refill [facility] [address] [address] Marii Woods MD [address] [place] [id number] Gastroesophageal reflux disease without esophagitis Social History [...] Industry Job Start Date Job End Date [employer] Not on file Not on file Not [...] reflux documented in this encounter Care Teams Correctional Captain Relationship Specialty Start Date End Date Marii Woods MD [address] [place] [address] PCP - General Internal Medicine 03/07/20 08/07/21 Marii Woods MD [address] [facility] [place] [address] PCP - [employer] Commercial Attributed 08/15/20 05/16/21 Jadon Devlin MD [address] [place] [address] Gastroenterology 09/29/19 documented as of this encounter
[2024-09-25 11:22] LABS: Hematocrit 40.3 % (37.0-47.0); Hemoglobin 13.1 g/dl (12.0-16.0); Mean Corpuscular HGB Conc 32.5 g/dl (31.0-35.0); Mean Corpuscular Hemoglobin 26.4 pg (27.0-33.0); Mean Corpuscular Volume 81.3 fL (80.0-98.0); Mean Platelet Volume 10.1 fL (9.4-12.3); Platelet Count 252 X10*3/uL (160-400); Red Blood Count 4.96 X10*6/uL (4.20-5.50); Red Cell Distribution Width 13.9 % (11.0-16.0)
[2024-09-25 11:37] LABS: Estimated Average Glucose 154 mg/dL; Hemoglobin A1C 179.8613 umol/L; Total Hemoglobin (HGBA1C) 3409.5806 umol/L
[2024-09-25 12:21] LABS: Vitamin B12 782 pg/mL (200-900)
[2024-09-25 13:30] LABS: Alanine Aminotransferase 26 U/L (0-31); Albumin Level 3.8 g/dL (3.5-5.0); Anion Gap 11 (12-20); Aspartate Amino Transferase 25 U/L (5-31); Bilirubin Total 0.2 mg/dL (0.0-1.0); Blood Urea Nitrogen 14 mg/dL (9-16); Calcium 9.1 mg/dL (8.4-10.2); Carbon Dioxide 26 mmol/L (22-29); Chloride 105 mmol/L (96-108); Cholesterol 139 mg/dL (<200); Estimated Glomerular Filt Rate > 60; Glucose Random 117 mg/dL (60-115); HDL Cholesterol 41 mg/dL (>40); LDL Cholesterol Calculated 62 mg/dL (<100); Potassium 4.2 mmol/L (3.3-5.1); Sodium 138 mmol/L (135-145); Total Protein 6.4 g/dL (6.5-8.0); Triglycerides 184 mg/dL (<150)
[2024-09-25 14:19] LABS: Alkaline Phosphatase 56 U/L (39-117)
== END 2024-09-25 08:04 | disposition home or self-care (01) ==
LOC: HO.WFDLDS 08:03
PROVIDERS: Visit Provider Physician Assistant Medical
DX: E11.9 Type 2 diabetes mellitus without complications (principal); E78.00 Pure hypercholesterolemia, unspecified; E78.5 Hyperlipidemia, unspecified; Z91.89 Other specified personal risk factors, not elsewhere classified
CPT/HCPCS: 36415; 80053; 80061; 82607; 83036; 85027

== ENCOUNTER 2024-09-28 08:39 | Outpatient (AMB) | payer BC, SELFPAY ==
--- NOTE | 2024-09-28 08:42 | MHC.PC.OV ---
Vital Signs 09/28/24 08:48 Height 5 ft 3 in Weight 238 lb 4 oz BMI 42.2 BP 116/68 Blood Pressure Location Rt brachial Position Sitting Pulse 86 Pulse Source Pulse Oximeter Temp 98.6 F Temp Source Temporal Artery Scan Pulse Oximetry (%) 96 Oxygen Delivery Method Room Air Intake Visit Reasons: CPE- see comments Intake Note: Thelma presents in the office today for her annual physical. Allergies pneumococcal vaccine [From Prevnar 20 (PF)] Allergy (Mild, Verified 09/28/24 08:45) Other bee pollen [BEE STINGS] Allergy (Unknown, Verified 09/28/24 08:45) ANAPHYLAXIS beeswax [BEESWAX] Allergy (Unknown, Verified 09/28/24 08:45) ANAPHYLAXIS Tobacco use date assessed: 09/28/24 Dental Screening Dental Screen Date: 09/28/24 Did you have a dental visit in the last 12 months?: No Did you have a dental problem in the last 6 months where you did not have access to dental care?: No Was dental information given to patient?: No HPI HPI Comments History of Present Illness Details This is a 59-year-old female with hyperlipidemia, type 2 diabetes, hypertension, migraine headaches, hepatic steatosis, hepatitis-C status post treatment in 2009, gastroparesis, thyroid nodules, asthma and lumbar spondylosis presenting for a physical exam. Asthma-followed by pulmonology. She is on Spiriva and Symbicort. She uses albuterol as needed. Hypertension-taking metoprolol XL 50 mg and lisinopril 10 mg daily. She has a history of PSVT. No recurrence on beta-daniel. She was released from cardiology follow up. Type 2 diabetes-hemoglobin A1c 7%. Patient is taking metformin extended release a 1000 mg twice a day and glipizide 2.5 mg daily. No retinopathy. She is monitoring her blood glucose readings at home. She met with the extension educator. She is having laser iridotomy to prevent narrow angle glaucoma. Hyperlipidemia-taking atorvastatin 20 mg daily. LDL at goal. Gastroparesis, Gamble's esophagus-She had a CT scan of the abdomen and pelvis in July 2021 which was normal aside from hepatic steatosis. She had an upper endoscopy in June 2021 which was stable. History of hiatal hernia repair in 2015 at [facility]. Now followed by Gastroenterology at [facility]. She had a mammogram in July at at [facility] which was normal. She received the Prevnar 20 vaccine in 07/2023. Patient said she had an injection site reaction that lasted a month, and she does not plan to receive this vaccine again. She received the seasonal influenza vaccine. She is not interested in COVID vaccine right now. She is going to get the Shingrix vaccine at her pharmacy. She endorses chronic bilateral hip pain that's been bothering her more over the past few months. Does not limit ADLs or disrupt sleep. No injury. No radiation. OTC analgesics are effective. Hurts when she is sitting and when she is walking or gets up and starts walking. She endorses stress incontinence and nocturia. Gets up 3 x per night to urinate. This is chronic. ROS: Constitutional: No unexplained weight loss, fever, chills, fatigue or night sweats. Eyes: see HPI ENT: No hearing loss, sneezing, congestion, runny nose or sore throat. Respiratory: No shortness of breath, cough or sputum production. Cardiovascular: No chest pain, chest pressure or chest discomfort. No palpitations or pedal edema. Gastrointestinal: No anorexia, nausea, vomiting or diarrhea. No abdominal pain or blood in stool. Genitourinary: No dysuria, hematuria or history of kidney stones. No flank pain. Neurologic: No headache, dizziness, syncope, unilateral weakness, ataxia, numbness or tingling in the extremities. Musculoskeletal: see HPI Hematologic/Lymphatics: No bleeding or bruising. No painful lymph nodes. Skin: No rash or itching. Seen by dermatology for skin exams. Endocrine: No cold or heat intolerance. No polydipsia. Psychiatric: No depression or anxiety. No SI/HI. Physical exam: Constitutional: Alert, in no distress. Head: Normocephalic. Eyes: Pupils are equal, round and reactive to light. Extraocular muscles intact. Ear, Nose and Throat: Canals clear. TMs normal. Normal nasal mucosa. No nasal discharge. No oral lesions. Neck: Supple, Full range of motion. No lymphadenopathy. No palpable thyroid masses. Respiratory: Clear to auscultation. Cardiovascular: S1 S2 regular. No murmurs. No carotid bruits. Gastrointestinal: Abdomen soft, non-tender, non-distended. Normal bowel sounds. No palpable masses. Genitourinary: No costovertebral angle tenderness. Neurologic: No focal neurological deficits. Symmetric patellar reflexes. Moves all extremities spontaneously. Sensation intact bilaterally. Skin: No rashes Musculoskeletal: hips: FROM, strength 5/5, nontender, no crepitus Extremities: Warm and well perfused. No clubbing, cyanosis or edema. Intact peripheral pulses bilaterally. Psychiatric: Normal mood and affect [facility] Medical History (Updated 09/28/24 @ 09:10 by BO Spain) Bilateral hip pain Stress incontinence Nocturia Routine physical examination Screening for breast cancer Mild asthma exacerbation Asthma Rosacea Thyroid nodule Lung nodule PSVT (paroxysmal supraventricular tachycardia) History of hepatitis C Gastroparesis Barretts esophagus Adopted Hepatic steatosis Pure hypercholesterolemia Morbid obesity Migraines Essential hypertension Type II diabetes mellitus Carpal tunnel syndrome Hiatal hernia H/O mammogram Surgical History (Updated 03/27/24 @ 15:30 by Crystal Diggs CMA) Hx of spinal fusion H/O breast biopsy Family History (Updated 03/27/24 @ 15:39 by Crystal Diggs CMA) Other Family history unknown Social History (Updated 09/28/24 @ 08:48 by Kendal Trevino MA) Housing: House Alcohol intake: former Patient Tobacco Use Status: Never used Tobacco e-Cigarette/Vaping Use: Never Used Second Hand Smoke Exposure: No Substance Use Type: Former Substance User and Marijuana service: No Current occupational status: employed ([employer] ) Current occupational exposures/hazards: No Cognitive needs: No Hearing needs: No Vision needs: Yes (glasses) Questionnaire PHQ-9 Over the last 2 weeks, how often have you been bothered by any of the following problems? 1. Little interest or pleasure in doing things: not at all 2. Feeling down, depressed, or hopeless: not at all 3. Trouble falling or staying asleep, or sleeping too much: not at all 4. Feeling tired or having little energy: not at all 5. Poor appetite or overeating: not at all 6. Feeling bad about yourself - or that you are a failure or have let yourself or your family down: not at all 7. Trouble concentrating on things, such as reading the newspaper or watching television: not at all 8. Moving or speaking so slowly that other people could have noticed. Or the opposite - being so fidgety or restless that you have been moving around a lot more than usual: not at all 9. Thoughts that you would be better off or of hurting yourself in some way: not at all Total score: 0 Depression Screening Interpretation: Negative Depression Screening Done: Yes 94121 - PHQ-9 Billing: Patient declined-do not bill Source: Developed by Drs. Rigoberto Frazier, America Salguero, Alistair Burleson and colleagues, with an educational sanaz from [email or web address]. Thrive Questionnaire Date Thrive assessed: 09/28/24 I am a: Patient What is your living situation today?: I have a steady place to live Within the past 12 months, did the food you bought not last and you didn't have the money to get more?: Never true Within the past 12 months, did you worry whether your food would run out before you got money to buy more?: Never true Do you have trouble paying for medicines?: No Do you have trouble getting transportation to medical appointments?: No Do you have trouble paying your heating and electricity bill?: No Do you have trouble taking care of your child, family member or friend?: No Do you have trouble with day-to-day activities such as bathing, preparing meals, shopping, managing finances, etc.?: No Are you currently unemployed and looking for a job?: No Are you interested in more education?: No Please select the resources that you would like help with: None Currently or been in a relationship where the following occur: No concerns reported THRIVE Score: 0 AUDIT C Alcohol Use Questionnaire (AUDIT-C) 1. How often do you have a drink containing alcohol?: Never Total Score: 0 RICHARD-7 AMB Questionnaire RICHARD-7 Date RICHARD - 7 assessed: 06/29/24 Feeling nervous, anxious, or on edge: 0 = Not at all Not being able to stop or control worryin = Not at all Worrying too much about different things: 0 = Not at all Trouble relaxin = Not at all Being so restless that it is hard to sit still: 0 = Not at all Becoming easily annoyed or irritable: 0 = Not at all Feeling afraid as if something awful might happen: 0 = Not at all Total RICHARD-7 score (0-4 normal; 5-9 mild; 10-14 moderate; 15-21 severe): 0 Source: Developed by Drs. Rigoberto Frazier, America Salguero, Alistair Burleson and colleagues, with an educational sanaz from [employer]. RICHARD-7 Assessment Billing RICHARD-7 Assessment Tool: RICHARD-7 Assessment 08904 ACT Questionnaire In the past 4 weeks, how much of the time did your asthma keep you from getting as much done at work, school or at home?: A little of the time During the past 4 weeks, how often have you had shortness of breath?: 3-6 times a week During the past 4 weeks, how often did your asthma symptoms wake you up at night or earlier than usual in the morning?: 2-3 nights a week During the past 4 weeks, how often have you had to use your rescue inhaler or nebulizer medication?: 2-3 times a week How would you rate your asthma control during the past 4 weeks?: Poorly controlled ACT Interpretation: Positive Score: 14 Physical exam (Primary Care) Vital Signs: Last Vital Signs Temp 98.6 F 09/28/24 08:48 Pulse 86 09/28/24 08:48 BP 116/68 09/28/24 08:48 Pulse Ox 96 09/28/24 08:48 Oxygen Delivery Method Room Air 09/28/24 08:48 BMI result Body Mass Index 42.2 Tobacco/Smoking Status: Tobacco use Status Tobacco use date assessed 09/28/24 09/28/24 08:43 Patient Tobacco Use Status Never used Tobacco 09/28/24 08:48 e-Cigarette/Vaping Use Never Used 09/28/24 08:48 PHQ-9: PHQ-9 Score PHQ-9: Total score 0 09/28/24 08:56 Depression Screening Interpretation: Negative Thrive Assessment: Date of Thrive Assessment Date Thrive assessed 09/28/24 09/28/24 08:56 Currently or been in a relationship where the following occur: No concerns reported Coding Level of Care Code Est Pt Prev Care 40-64y(36962) Diagnoses Pure hypercholesterolemia E78.00 Hepatic steatosis K76.0 Type 2 diabetes mellitus without complication, without long-term current use of insulin E11.9 Diabetes mellitus complication status: without complication Diabetes mellitus fire protection specialist insulin use: without fire protection specialist use Essential hypertension I10 Routine physical examination Z00.00 Bilateral hip pain M25.551; M25.552 Stress incontinence N39.3 Nocturia R35.1 Additional Codes Asthma Control Questionnaire - ACT Interpretation: Positive ([id number]) RICHARD-7 Assessment Billing - RICHARD-7 Assessment Tool: RICHARD-7 Assessment 61465 ([id number]) Assessment & Plan Assessment & Plan (1) Pure hypercholesterolemia: Code(s): E78.00 - Pure hypercholesterolemia, unspecified Category: Medical Plan: Recommended Mediterranean diet. Continue statin. Continue efforts at weight loss. Decrease carbohydrates and sugars and increase exercise to improve triglycerides and HDL cholesterol. (2) Hepatic steatosis: Code(s): K76.0 - Fatty (change of) liver, not elsewhere classified Category: Medical Plan: Monitor LFTs. Avoid alcohol. Continue statin and we are working on glycemic control. Low-cholesterol diet recommended. (3) Type II diabetes mellitus: Code(s): E11.9 - Type 2 diabetes mellitus without complications Category: Medical Qualifiers: Diabetes mellitus complication status: without complication Diabetes mellitus residential insulin use: without fire protection specialist use Qualified Code(s): E11.9 - Type 2 diabetes mellitus without complications Plan: Continue metformin extended release. Increase glipizide ER to 5 mg daily. Reviewed rule of 15s for hypoglycemia. If you experience low blood sugar, treat this by eating a chewable fruit candy like skittles or jelly beans (about 8 pieces), 4 ounces (1/2 cup) of fruit juice (not diet), 1 tablespoon of honey or 4 glucose tablets. Recheck your blood sugar in 15 minutes. Eye exam up to date. Low carbohydrate, low sugar diet recommended. (4) Essential hypertension: Code(s): I10 - Essential (primary) hypertension Category: Medical Plan: Continue current medications. Recommended low-sodium diet and avoidance of caffeine. (5) Routine physical examination: Code(s): Z00.00 - Encounter for general adult medical examination without abnormal findings Category: Medical Plan: Patient is seen today for a routine physical. As part of this visit we reviewed the following issues, which are considered and essential part of preventative health in this age group: - Breast Cancer screening - Annual Supervisor Paint Department exam - Screening for colon cancer - Osteoporosis prevention including calcium/vitamin D intake, weight bearing exercise & smoking cessation - Nutritional and exercise counseling - Counseling of injury prevention including fire prevention, smoke alarms and seat belt usage - Screening for depression - Education about skin cancer - Recommendations about immunizations - Recommendation of an eye exam - Screening for substance abuse (6) Bilateral hip pain: Code(s): M25.551 - Pain in right hip; M25.552 - Pain in left hip Category: Medical Plan: Patient will have x-ray completed. She's unsure she wants to pursue any other evaluation or management at this time, but she will have the x-rays done due to duration of symptoms. (7) Stress incontinence: Code(s): N39.3 - Stress incontinence (female) (male) Category: Medical Plan: Decrease caffeine and avoid it after noon. Decrease carbonated drinks. Check UA and culture. Refer to urogynecology. (8) Nocturia: Code(s): R35.1 - Nocturia Category: Medical Plan: see plan above Plan Follow up in 3 months for diabetes. Orders: Orders Urine Culture Today R35.1 - Nocturia Hemoglobin A1c 3 Months E11.9 - Type 2 diabetes mellitus without complications XR hips PEYMAN min 3V Today M25.551 - Pain in right hip, M25.552 - Pain in left hip UA w Microscopic Today R39.9 - Unspecified symptoms and signs involving the genitourinary system Basic Metabolic Panel 3 Months E11.9 - Type 2 diabetes mellitus without complications Referrals Urogynecology Referral N39.3 - Stress incontinence (female) (male), R35.1 - Nocturia Medications: New glipizide ER 5 mg PO DAILY 90 tabs 1RF Discontinued glipizide ER Discontinued Reason: Doctor's Order 2.5 mg PO DAILY 90 tabs 3RF
[2024-09-28 08:48] VITALS: BP 116/68; PULSE 86; TEMP 37; O2SAT 96; BMI 42.2
--- OUTSIDE RECORDS SUMMARY | 2024-09-28 09:03 | XMS_ITS | Encounter Summary ---
Author Organization [facility] Address [address] [place] [address] Care Team Providers Care Deputy Administrator Name Role Phone Shanika Hillman MD Primary Care Provider Jadon Devlin MD Unavailable [phone] Marii Woods MD Primary Care Provider Pcp, No Primary Care Provider UnavailMarii Dominguez MD Unavailable [phone] Marii Woods MD Primary Care Provider + [phone] Marii Woods MD Unavailable [phone] Reason for Visit * Reason Comments Medication Refill Encounter Details Date Type Department Care Team (Late st Contact Info) Description 09/28/2019 Refill [facility] [address] [place] [id number] Barbara Garner, JUNIOR ENGINEER [address] [place] [address] Chronic migraine without aura, with intractable migraine, [...] 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 Not [...] migrainosus documented in this encounter Care Teams Deputy Administrator Relationship Specialty Start Date End Date Shanika Hillman MD PCP - General Internal Medicine 12/29/17 09/28/19 Marii Woods MD [address] [place] [id number] PCP - General Internal Medicine 09/29/19 01/22/20 Pcp, No PCP - General 01/23/20 03/06/20 Marii Woods MD [address] [place] [address] PCP - [employer] Commercial Attributed 10/16/19 04/15/20 Marii Woods MD [address] [place] [address] PCP - General Internal Medicine 03/07/20 08/07/21 Marii Woods MD [address] [place] [address] PCP - [employer] Commercial Attributed 08/15/20 05/16/21 Jadon Devlin MD [address] [place] [address] Gastroenterology 09/29/19 documented as of this encounter
--- OUTSIDE RECORDS SUMMARY | 2024-09-28 09:03 | XMS_ITS | Encounter Summary ---
Author Organization [facility] Address [address] [place] [address] Care Team Providers Care Forestry Adviser Name Role Phone Naty Rendon MD Primary Care Provider [phone] Michelle Mccoy DO Primary Care Provider [phone] Shanika Hillman MD Primary Care Provider [phone] Shanika Hillman MD Unavailable [phone] Jadon Devlin MD Unavailable [phone] Marii Woods MD Primary Care Provider [phone] Pcp, No Primary Care Provider Unavailolivia e Marii Woods MD Unavailable Marii Woods MD Primary Care Provider Marii Woods MD Unavailable [phone] Encounter Details Date Type Department Care Team (Late st Contact Info) Description 08/23/2015 Scanned Document [facility] [address] [place] [address] Naty Rendon MD [facility] [address] [place] [address] Social History Tobacco Use Types Packs/Day [...] on filedocumented in this encounter Care Teams Forestry Adviser Relationship Specialty Start Date End Date Naty Rendon MD PCP - General Internal Medicine 03/18/15 02/02/16 Michelle Mccoy DO PCP - General Family Medicine 02/03/16 12/28/17 Shanika Hillman MD PCP - General Internal Medicine 12/29/17 09/28/19 Shanika Hillman MD [address] [place] [address] [address] [place] [address] PCP - [employer] Commercial Attributed 02/14/19 05/16/19 Marii Woods MD [address] [facility] [place] [address] PCP - General Internal Medicine 09/29/19 01/22/20 Pcp, No PCP - General 01/23/20 03/06/20 Marii Woods MD [address] [place] [address] PCP - [employer] Commercial Attributed 10/16/19 04/15/20 Marii Woods MD [address] [facility] [place] [address] PCP - General Internal Medicine 03/07/20 08/07/21 Marii Woods MD [address] [place] [address] PCP - [employer] Commercial Attributed 08/15/20 05/16/21 Jadon Devlin MD [address] [facility] [address] [place] [address] Gastroenterology 09/29/19 documented as of this encounter
--- OUTSIDE RECORDS SUMMARY | 2024-09-28 09:03 | XMS_ITS | Encounter Summary ---
Author Organization [facility] Address [address] [place] [address] Care Team Providers Care Food Processing Scientist Name Role Phone Naty Rendon MD Primary Care Provider Michelle Mccoy DO Primary Care Provider [phone] Shanika Hillman MD Primary Care Provider [phone] Shanika Hillman MD Unavailable Jadon Devlin MD Unavailable [phone] Marii Woods MD Primary Care Provider + [phone] Pcp, No Primary Care Provider Unavailabl e Marii Woods MD Unavailable [phone] Marii Woods MD Primary Care Provider + [phone] Marii Woods MD Unavailable [phone] Encounter Details Date Type Department Care Team (Late st Contact Info) Description 07/08/2015 Scanned Document [address] [id number] Provider, Generic Social History Tobacco Use Types [...] on filedocumented in this encounter Care Teams Food Processing Scientist Relationship Specialty Start Date End Date Naty Rendon MD PCP - General Internal Medicine 03/18/15 02/02/16 Michelle Mccoy DO PCP - General Family Medicine 02/03/16 12/28/17 Shanika Hillman MD PCP - General Internal Medicine 12/29/17 09/28/19 Shanika Hillman MD [address] [place] [address] [address] [place] [address] PCP - [employer] Commercial Attributed 02/14/19 05/16/19 Marii Woods MD [address] [facility] [place] [address] PCP - General Internal Medicine 09/29/19 01/22/20 Pcp, No PCP - General 01/23/20 03/06/20 Marii Woods MD [address] [facility] [place] [address] PCP - [employer] Commercial Attributed 10/16/19 04/15/20 Marii Woods MD [address] [facility] [place] [address] PCP - General Internal Medicine 03/07/20 08/07/21 Marii Woods MD [address] [place] [address] PCP - [employer] Commercial Attributed 08/15/20 05/16/21 Jadon Devlin MD 21 [facility] [address] [place] [address] Gastroenterology 09/29/19 documented as of this encounter
--- OUTSIDE RECORDS SUMMARY | 2024-09-28 09:03 | XMS_ITS | Encounter Summary ---
Author Organization [facility] Address [address] [place] [address] Care Team Providers Care Industrial Psychology Professor Name Role Phone Dede Mccoyi Lorna MATHEWS Primary Care Provider [phone] Shanika Hillman MD Primary Care Provider +[phone] Shanika Hillman MD Unavailable [phone] Jadon Devlin MD Unavailable +[phone] Marii Woods MD Primary Care Provider + [phone] Pcp, No Primary Care Provider Unavailolivia e Marii Woods MD Unavailable [phone] Marii Woods MD Primary Care Provider +[phone] Marii Woods MD Unavailable [phone] Encounter Details Date Type Department Care Team (Late st Contact Info) Description 12/18/2016 Scanned Document [address] [phone] Provider, Generic Social History Tobacco Use Types [...] on filedocumented in this encounter Care Teams Industrial Psychology Professor Relationship Specialty Start Date End Date Michelle Mccoy DO PCP - General Family Medicine 02/03/16 12/28/17 Shanika Hillman MD PCP - General Internal Medicine 12/29/17 09/28/19 Shanika Hillman MD 234 [facility] 4011 [place] [address] PCP - Cigna Commercial Attributed 02/14/19 05/16/19 Marii Woods MD 1060 [facility] [place], [place] [address] PCP - General Internal Medicine 09/29/19 01/22/20 Pcp, No PCP - General 01/23/20 03/06/20 Marii Woods MD 1060 [facility] [place] [address] PCP - Cigna Commercial Attributed 10/16/19 04/15/20 Marii oWods MD 1060 [facility] [place] [address] PCP - General Internal Medicine 03/07/20 08/07/21 Marii Woods MD 1060 [place] [address] PCP - Cigna Commercial Attributed 08/15/20 05/16/21 Jadon Devlin MD [address] [address] Gastroenterology 09/29/19 documented as of this encounter
--- OUTSIDE RECORDS SUMMARY | 2024-09-28 09:03 | XMS_ITS | Encounter Summary ---
Author Organization [facility] Address [address] [place] [address] Care Team Providers Care Delivery Route Driver Name Role Phone Dede Mccoyi Lorna MATHEWS Primary Care Provider [phone] Shanika Hillman MD Primary Care Provider +[phone] Shanika Hillman MD Unavailable [phone] Jadon Devlin MD Unavailable +[phone] Marii Woods MD Primary Care Provider + [phone] Pcp, No Primary Care Provider Unavailolivia e Marii Woods MD Unavailable +[phone] Marii Woods MD Primary Care Provider +[phone] Marii Woods MD Unavailable [phone] Encounter Details Date Type Department Care Team (Late st Contact Info) Description 11/01/2016 Scanned Document [address] [phone] Provider, Generic Social History Tobacco Use Types [...] on filedocumented in this encounter Care Teams Delivery Route Driver Relationship Specialty Start Date End Date Michelle MccoyDO PCP - General Family Medicine 02/03/16 12/28/17 Shanika Hillman MD PCP - General Internal Medicine 12/29/17 09/28/19 Shanika Hillman MD [address] [place] [address] 4[address] [place] [address] PCP - Cigna Commercial Attributed 02/14/19 05/16/19 Marii Woods MD 1060 [facility] [address] PCP - General Internal Medicine 09/29/19 01/22/20 Pcp, No PCP - General 01/23/20 03/06/20 Marii Woods MD 1060 [facility] [address] PCP - Cigna Commercial Attributed 10/16/19 04/15/20 Marii Woods MD 1060 [facility] [address] PCP - General Internal Medicine 03/07/20 08/07/21 Marii Woods MD 1060 [facility] [place] [address] PCP - Cigna Commercial Attributed 08/15/20 05/16/21 Jadon Devlin MD [address] [address] Gastroenterology 09/29/19 documented as of this encounter
--- OUTSIDE RECORDS SUMMARY | 2024-09-28 09:03 | XMS_ITS | Encounter Summary ---
Author Organization [facility] Address [address] [place], [place] [address] Care Team Providers Care Rayon Winder Name Role Phone Naty Rendon MD Primary Care Provider [phone] Michelle Mccoy DO Primary Care Provider [phone] Shanika Hillman MD Primary Care Provider +[phone] Shanika Hillman MD Unavailable [phone] Jadon Devlin MD Unavailable [phone] Marii Woods MD Primary Care Provider [phone] Pcp, No Primary Care Provider UnavailMarii Dominguez MD Unavailable +[phone] Marii Woods MD Primary Care Provider + [phone] Marii Woods MD Unavailable [phone] Naty Rendon MD Primary Care Provider [phone] Encounter Details Date Type Department Care Team (Late st Contact Info) Description 02/01/2015 Scanned Document [address] [phone] Provider, Generic Social History Tobacco Use Types [...] on filedocumented in this encounter Care Teams Rayon Winder Relationship Specialty Start Date End Date Naty Rendon MD PCP - General Internal Medicine 03/18/15 02/02/16 Michelle Mccoy DO PCP - General Family Medicine 02/03/16 12/28/17 Shanika Hillman MD PCP - General Internal Medicine 12/29/17 09/28/19 Shanika Hillman MD 234 [facility] 4011 [place] [address] PCP - Cigna Commercial Attributed 02/14/19 05/16/19 Marii Woods MD 1060 [facility] [place] [address] PCP - General Internal Medicine 09/29/19 01/22/20 Pcp, No PCP - General 01/23/20 03/06/20 Marii Woods MD 1060 [place] [address] PCP - Cigna Commercial Attributed 10/16/19 04/15/20 Marii Woods MD [address] [place] [place] [address] PCP - General Internal Medicine 03/07/20 08/07/21 Marii Woods MD 1060 [place] [address] PCP - Cigna Commercial Attributed 08/15/20 05/16/21 Naty Rendon MD [address] [facility] [address] [place] [address] PCP - General 03/17/15 Jadon Devlin MD [address] [place] [address] 100 [place] [address] Gastroenterology 09/29/19 documented as of this encounter
--- OUTSIDE RECORDS SUMMARY | 2024-09-28 09:03 | XMS_ITS | Encounter Summary ---
Author Organization [facility] Address [address] [place] [address] Care Team Providers Care Applique Cutter Name Role Phone Naty Rendon MD Primary Care Provider Michelle Mccoy DO Primary Care Provider [phone] Shanika Hillman MD Primary Care Provider [phone] Shanika Hillman MD Unavailable Jadon Devlin MD Unavailable [phone] Mraii Woods MD Primary Care Provider [phone] Pcp, No Primary Care Provider Unavailolivia e Marii Woods MD Unavailable Marii Woods MD Primary Care Provider Marii Woods MD Unavailable [phone] Encounter Details Date Type Department Care Team (Late st Contact Info) Description 08/21/2015 Scanned Document [facility] 1060 [place] [address] Naty Rendon MD [facility] [address] [place] [address] Social History Tobacco Use Types Packs/Day [...] on filedocumented in this encounter Care Teams Applique Cutter Relationship Specialty Start Date End Date Naty Rendon MD PCP - General Internal Medicine 03/18/15 02/02/16 Michelle Mccoy DO PCP - General Family Medicine 02/03/16 12/28/17 Shanika Hillman MD PCP - General Internal Medicine 12/29/17 09/28/19 Shanika Hillman MD [address] [place] [address] 4011 [place] [address] PCP - Cigna Commercial Attributed 02/14/19 05/16/19 Marii Woods MD 1060 [facility] [place] [address] PCP - General Internal Medicine 09/29/19 01/22/20 Pcp, No PCP - General 01/23/20 03/06/20 Marii Woods MD [address] [place] [address] PCP - Cigna Commercial Attributed 10/16/19 04/15/20 Marii Woods MD 1060 [facility] [place] [address] PCP - General Internal Medicine 03/07/20 08/07/21 Marii Woods MD 1060 [place] [address] PCP - Cigna Commercial Attributed 08/15/20 05/16/21 Jadon Devlin MD 21 [facility] 100 [place] [address] Gastroenterology 09/29/19 documented as of this encounter
--- OUTSIDE RECORDS SUMMARY | 2024-09-28 09:03 | XMS_ITS | Encounter Summary ---
Author Organization [facility] Address [address] [place] [address] Care Team Providers Care Business Developer Name Role Phone Naty Rendon MD Primary Care Provider Michelle Mccoy DO Primary Care Provider [phone] Shanika Hillman MD Primary Care Provider [phone] Shanika Hillman MD Unavailable Jadon Devlin MD Unavailable [phone] Marii Woods MD Primary Care Provider + [phone] Pcp, No Primary Care Provider Unavailabl e Marii Woods MD Unavailable +[phone] Marii Woods MD Primary Care Provider + [phone] Marii Woods MD Unavailable [phone] Encounter Details Date Type Department Care Team (Late st Contact Info) Description 08/22/2015 Scanned Document [address] [phone] Provider, Generic Social History Tobacco Use Types [...] on filedocumented in this encounter Care Teams Business Developer Relationship Specialty Start Date End Date Naty Rendon MD PCP - General Internal Medicine 03/18/15 02/02/16 Michelle Mccoy DO PCP - General Family Medicine 02/03/16 12/28/17 Shanika Hillman MD PCP - General Internal Medicine 12/29/17 09/28/19 Shanika Hillman MD 234 [facility] 4011 [place] [address] PCP - Cigna Commercial Attributed 02/14/19 05/16/19 Marii Woods MD 1060 [facility] [address] PCP - General Internal Medicine 09/29/19 01/22/20 Pcp, No PCP - General 01/23/20 03/06/20 Marii Woods MD 1060 [facility] [address] PCP - Cigna Commercial Attributed 10/16/19 04/15/20 Marii Woods MD 1060 [facility] [address] PCP - General Internal Medicine 03/07/20 08/07/21 Marii Woods MD 1060 [facility] [address] PCP - Cigna Commercial Attributed 08/15/20 05/16/21 Jadon Devlin MD [address] [place] [address] Gastroenterology 09/29/19 documented as of this encounter
--- OUTSIDE RECORDS SUMMARY | 2024-09-28 09:03 | XMS_ITS | Encounter Summary ---
Author Organization [facility] Address [address] [place] [address] Care Team Providers Care Developmental Training Counselor Name Role Phone Jadon Devlin MD Unavailable [phone] Marii Woods MD Primary Care Provider + [phone] Pcp, No Primary Care Provider Unavailabl e Marii Woods MD Unavailable +[phone] Marii Woods MD Primary Care Provider + [phone] Marii Woods MD Unavailable [phone] Reason for Visit * Reason Comments Medication Refill Encounter Details Date Type Department Care Team (Late st Contact Info) Description 10/26/2019 Refill [facility] 1060 [place] [phone] Barbara Garner, LEAD PERSON 1060 [place], [place] [address] Other migraine without status migrainosus, not intractable; [...] 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 [address] PCP - General Internal Medicine 03/07/20 08/07/21 Marii Woods MD [address] [facility] [address] PCP - Cigna Commercial Attributed 08/15/20 05/16/21 Jadon Devlin MD [address] [place] [address] Gastroenterology 09/29/19 documented as of this encounter
--- OUTSIDE RECORDS SUMMARY | 2024-09-28 09:03 | XMS_ITS | Encounter Summary ---
Author Organization [facility] Address [address] [place] [address] Care Team Providers Care Angular Js Developer Name Role Phone Dede Mccoyi Lorna MATHEWS Primary Care Provider [phone] Shanika Hillman MD Primary Care Provider [phone] Shanika Hillman MD Unavailable Jadon Devlin MD Unavailable +[phone] Marii Woods MD Primary Care Provider + [phone] Pcp, No Primary Care Provider Unavailolivia e Marii Woods MD Unavailable [phone] Marii Woods MD Primary Care Provider +[phone] Marii Woods MD Unavailable [phone] Encounter Details Date Type Department Care Team (Late st Contact Info) Description 10/19/2016 Scanned Document [address] [phone] Provider, Generic Social History Tobacco Use Types [...] on filedocumented in this encounter Care Teams Angular Js Developer Relationship Specialty Start Date End Date Michelle MccoyDO PCP - General Family Medicine 02/03/16 12/28/17 Shanika Hillman MD PCP - General Internal Medicine 12/29/17 09/28/19 Shanika Hillman MD [address] [place] [address] 4011 [place] [address] PCP - Cigna Commercial Attributed 02/14/19 05/16/19 Marii Woods MD 1060 [place] [address] PCP - General Internal Medicine 09/29/19 01/22/20 Pcp, No PCP - General 01/23/20 03/06/20 Marii Woods MD 1060 [facility] [place] [address] PCP - Cigna Commercial Attributed 10/16/19 04/15/20 Marii Woods MD 1060 [facility] [place] [address] PCP - General Internal Medicine 03/07/20 08/07/21 Marii Woods MD 1060 [facility] [address] PCP - Cigna Commercial Attributed 08/15/20 05/16/21 Jadon Devlin MD [address] [address] Gastroenterology 09/29/19 documented as of this encounter
--- OUTSIDE RECORDS SUMMARY | 2024-09-28 09:03 | XMS_ITS | Encounter Summary ---
Author Organization [facility] Address [address] [place] [address] Care Team Providers Care Pomology Teacher Name Role Phone Naty Rendon MD Primary Care Provider [phone] Michelle Mccoy DO Primary Care Provider [phone] Shanika Hillman MD Primary Care Provider +[phone] Shanika Hillman MD Unavailable [phone] Jadon Devlin MD Unavailable [phone] Marii Woods MD Primary Care Provider + [phone] Pcp, No Primary Care Provider Unavailabl e Marii Woods MD Unavailable [phone] Marii Woods MD Primary Care Provider + [phone] Marii Woods MD Unavailable [phone] Encounter Details Date Type Department Care Team (Late st Contact Info) Description 06/08/2015 Scanned Document [address] [phone] Provider, Generic Social History Tobacco Use Types [...] on filedocumented in this encounter Care Teams Pomology Teacher Relationship Specialty Start Date End Date Naty Rendon MD PCP - General Internal Medicine 03/18/15 02/02/16 Michelle Mccoy DO PCP - General Family Medicine 02/03/16 12/28/17 Shanika Hillman MD PCP - General Internal Medicine 12/29/17 09/28/19 Shanika Hillman MD [address] [place] [address] 4011 [place] [address] PCP - Cigna Commercial Attributed 02/14/19 05/16/19 Marii Woods MD 1060 [facility] [place] [address] PCP - General Internal Medicine 09/29/19 01/22/20 Pcp, No PCP - General 01/23/20 03/06/20 Marii Woods MD 1060 [facility] [place] [address] PCP - Cigna Commercial Attributed 10/16/19 04/15/20 Marii Woods MD 1060 [facility] [place] [address] PCP - General Internal Medicine 03/07/20 08/07/21 Marii Woods MD 1060 [place] [address] PCP - Cigna Commercial Attributed 08/15/20 05/16/21 Jadon Devlin MD 21 [facility] 100 [place] [address] Gastroenterology 09/29/19 documented as of this encounter
--- OUTSIDE RECORDS SUMMARY | 2024-09-28 09:03 | XMS_ITS | Encounter Summary ---
Author Organization [facility] Address [address] [place] [address] Care Team Providers Care Supervisor Tank House Name Role Phone Shanika Hillman MD Primary Care Provider Jadon Devlin MD Unavailable [phone] Marii Woods MD Primary Care Provider Pcp, No Primary Care Provider UnavailMarii Dominguez MD Unavailable [phone] Marii Woods MD Primary Care Provider + [phone] Marii Woods MD Unavailable [phone] Reason for Visit * Reason Comments Medication Refill Encounter Details Date Type Department Care Team (Late st Contact Info) Description 08/31/2019 Refill [facility] 1060 [place] [phone] Barbara Garner, SOCIAL WORK THERAPIST 1060 [place] [address] Chronic migraine without aura, with intractable migraine, [...] 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 [place] [address] PCP - General Internal Medicine 09/29/19 01/22/20 Pcp, No PCP - General 01/23/20 03/06/20 [place] [address] [place] [address], [place] [address] PCP - Cigna Commercial Attributed 10/16/19 04/15/20 Marii Woods MD [address] [facility] [place] [address] PCP - General Internal Medicine 03/07/20 08/07/21 [place] [address] [place] [address], [place] [address] PCP - Cigna Commercial Attributed 08/15/20 05/16/21 Jadon Devlin MD [address] [place] [address] Gastroenterology 09/29/19 documented as of this encounter
--- OUTSIDE RECORDS SUMMARY | 2024-09-28 09:03 | XMS_ITS | Encounter Summary ---
Author Organization [facility] Address [address] [place] [address] Care Team Providers Care Ecologist Name Role Phone Naty Rendon MD Primary Care Provider Michelle Mccoy DO Primary Care Provider [phone] Shanika Hillman MD Primary Care Provider [phone] Shanika Hillman MD Unavailable [phone] Jadon Devlin MD Unavailable +[phone] Marii Woods MD Primary Care Provider + [phone] Pcp, No Primary Care Provider Unavailabl e Marii Woods MD Unavailable +[phone] Marii Woods MD Primary Care Provider + [phone] Marii Woods MD Unavailable [phone] Encounter Details Date Type Department Care Team (Late st Contact Info) Description 03/26/2015 Scanned Document [address] [phone] Provider, Generic Social History Tobacco Use Types [...] on filedocumented in this encounter Care Teams Ecologist Relationship Specialty Start Date End Date Naty Rendon MD PCP - General Internal Medicine 03/18/15 02/02/16 Michelle Mccoy DO PCP - General Family Medicine 02/03/16 12/28/17 Shanika Hillman MD PCP - General Internal Medicine 12/29/17 09/28/19 Shanika Hillman MD [address] [place] [address] 4011 [place] [address] PCP - Cigna Commercial Attributed 02/14/19 05/16/19 Marii Woods MD 1060 [facility] [place] [address] PCP - General Internal Medicine 09/29/19 01/22/20 Pcp, No PCP - General 01/23/20 03/06/20 Marii Woods MD 1060 [facility] [place] [address] PCP - Cigna Commercial Attributed 10/16/19 04/15/20 Marii Woods MD 1060 [facility] [place] [address] PCP - General Internal Medicine 03/07/20 08/07/21 Marii Woods MD 1060 [place] [address] PCP - Cigna Commercial Attributed 08/15/20 05/16/21 Jadon Devlin MD 21 [facility] 100 [place] [address] Gastroenterology 09/29/19 documented as of this encounter
--- OUTSIDE RECORDS SUMMARY | 2024-09-28 09:03 | XMS_ITS | Encounter Summary ---
Author Organization [facility] Address [address] [place] [address] Care Team Providers Care Livestock Nutrition Territory Manager Name Role Phone Shanika Hillman MD Primary Care Provider Jadon Devlin MD Unavailable [phone] Marii Woods MD Primary Care Provider Pcp, No Primary Care Provider UnavailMarii Dominguez MD Unavailable +[phone] Marii Woods MD Primary Care Provider + [phone] Marii Woods MD Unavailable [phone] Reason for Visit * Reason Comments Medication Refill Encounter Details Date Type Department Care Team (Late st Contact Info) Description 08/03/[address] [phone] Barbara Garner, LOG YARD DERRICK OPERATOR 1060 [place], [place] [address] Other migraine without status migrainosus, not intractable; [...] 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 [address] PCP - General Internal Medicine 09/29/19 01/22/20 Pcp, No PCP - General 01/23/20 03/06/20 Marii Woods MD [address] [facility] [place] [address] PCP - Cigna Commercial Attributed 10/16/19 04/15/20 Marii Woods MD [address] [facility] [place] [address] PCP - General Internal Medicine 03/07/20 08/07/21 Marii Woods MD [address] [facility] [place] [address] PCP - Cigna Commercial Attributed 08/15/20 05/16/21 Jadon Devlin MD [address] [place] [address] Gastroenterology 09/29/19 documented as of this encounter
--- OUTSIDE RECORDS SUMMARY | 2024-09-28 09:03 | XMS_ITS | Encounter Summary ---
Author Organization [facility] Address [address] [place] [address] Care Team Providers Care Fishing Vessel Deckhand Name Role Phone Michelle Mccoy DO Primary Care Provider [phone] Shanika Hillman MD Primary Care Provider [phone] Shanika Hillman MD Unavailable [phone] Jadon Devlin MD Unavailable [phone] Marii Woods MD Primary Care Provider Pcp, No Primary Care Provider UnavailMarii Dominguez MD Unavailable +[phone] Marii Woods MD Primary Care Provider + [phone] Marii Woods MD Unavailable [phone] Encounter Details Date Type Department Care Team (Late st Contact Info) Description 11/11/2016 Scanned Document [address] [phone] Michelle Mccoy DO [address] [place] [address] Social History Tobacco Use Types Packs/Day Years [...] on filedocumented in this encounter Care Teams Fishing Vessel Deckhand Relationship Specialty Start Date End Date Michelle Mccoy DO PCP - General Family Medicine 02/03/16 12/28/17 Shanika Hillman MD PCP - General Internal Medicine 12/29/17 09/28/19 Shanika Hillman MD [address] [place] [address] 4011 [place] [address] PCP - Cigna Commercial Attributed 02/14/19 05/16/19 Marii Woods MD [address] [facility] [place] [address] PCP - General Internal Medicine 09/29/19 01/22/20 Pcp, No PCP - General 01/23/20 03/06/20 Marii Woods MD [address] [facility] [place] [address] PCP - Cigna Commercial Attributed 10/16/19 04/15/20 Marii Woods MD 1060 [facility] [place] [address] PCP - General Internal Medicine 03/07/20 08/07/21 Marii Woods MD 1060 [facility] [place] [place] [address] PCP - Cigna Commercial Attributed 08/15/20 05/16/21 Jadon Devlin MD 21 [place] [address] Gastroenterology 09/29/19 documented as of this encounter
--- OUTSIDE RECORDS SUMMARY | 2024-09-28 09:03 | XMS_ITS | Encounter Summary ---
Author Organization [facility] Address [address] [place] [address] Care Team Providers Care Fish Drier Name Role Phone Shanika Hillman MD Primary Care Provider [phone] Shanika Hillman MD Unavailable [phone] Jadon Devlin MD Unavailable [phone] Marii Woods MD Primary Care Provider [phone] Pcp, No Primary Care Provider Unavailolivia e Marii Woods MD Unavailable [phone] Marii Woods MD Primary Care Provider + [phone] Marii Woods MD Unavailable [phone] Reason for Visit * Reason Comments Medication Refill Encounter Details Date Type Department Care Team (Late st Contact Info) Description 02/01/[address] [address] Shanika Hillman MD [address] [place] [address] Mild intermittent asthmatic bronchitis with acute [...] 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 documented as of this encounter Plan of Treatment Not on file documented as of this encounter Visit Diagnoses Diagnosis Mild intermittent asthmatic bronchitis with acute exacerbation documented in this encounter Care Teams Fish Drier Relationship Specialty Start Date End Date Shanika Hillman MD PCP - General Internal Medicine 12/29/17 09/28/19 Shanika Hillman MD 234 [facility] 4011 [place] [address] PCP - Cign[employer] Commercial Attributed 02/14/19 05/16/19 Marii Woods MD 1060 [facility] [place] [address] PCP - General Internal Medicine 09/29/19 01/22/20 Pcp, No PCP - General 01/23/20 03/06/20 Marii Woods MD 1060 [facility] [place] [address] PCP - Cigna Commercial Attributed 10/16/19 04/15/20 Marii Woods MD 1060 [facility] [place] [address] PCP - General Internal Medicine 03/07/20 08/07/21 Marii Woods MD 1060 [facility] [place] [address] PCP - Cigna Commercial Attributed 08/15/20 05/16/21 Jadon Devlin MD [address] [place] [address] 100 [place] [address] Gastroenterology 09/29/19 documented as of this encounter
--- OUTSIDE RECORDS SUMMARY | 2024-09-28 09:03 | XMS_ITS | Encounter Summary ---
Author Organization [facility] Address [address] [place] [address] Care Team Providers Care Parcel Post Officer Name Role Phone Naty Rendon MD Primary Care Provider Michelle Mccoy DO Primary Care Provider [phone] Shanika Hillman MD Primary Care Provider [phone] Shanika Hillman MD Unavailable [phone] Jadon Devlin MD Unavailable [phone] Marii Woods MD Primary Care Provider [phone] Pcp, No Primary Care Provider Unavailolivia e Marii Woods MD Unavailable Marii Woods MD Primary Care Provider Marii Woods MD Unavailable [phone] Encounter Details Date Type Department Care Team (Late st Contact Info) Description 08/26/2015 Scanned Document [facility] 10[address] [place] [address] Naty Rendon MD [facility] [address] [place] [address] Social History Tobacco Use Types Packs/Day [...] on filedocumented in this encounter Care Teams Parcel Post Officer Relationship Specialty Start Date End Date Naty Rendon MD PCP - General Internal Medicine 03/18/15 02/02/16 Michelle Mccoy DO PCP - General Family Medicine 02/03/16 12/28/17 Shanika Hillman MD PCP - General Internal Medicine 12/29/17 09/28/19 Shanika Hillman MD [address] [place] [address] 4[address] [place] [address] PCP - Cigna Commercial Attributed 02/14/19 05/16/19 Marii Woods MD 1060 [facility] [place] [address] PCP - General Internal Medicine 09/29/19 01/22/20 Pcp, No PCP - General 01/23/20 03/06/20 Marii Woods MD [address] [place] [address] PCP - Cigna Commercial Attributed 10/16/19 04/15/20 Marii Woods MD 1060 [facility] [place] [address] PCP - General Internal Medicine 03/07/20 08/07/21 Marii Woods MD 1060 [place] [address] PCP - Cigna Commercial Attributed 08/15/20 05/16/21 Jadon Devlin MD 21 [facility] 100 [place] [address] Gastroenterology 09/29/19 documented as of this encounter
--- OUTSIDE RECORDS SUMMARY | 2024-09-28 09:04 | XMS_ITS | Encounter Summary ---
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
--- OUTSIDE RECORDS SUMMARY | 2024-09-28 09:04 | XMS_ITS | Encounter Summary ---
Author Organization [facility] Address [address] [place] [address] Care Team Providers Care Track Equipment Operator Name Role Phone Jadon Devlin MD Unavailable [phone] Marii Woods MD Primary Care Provider + [phone] Marii Woods MD Unavailable [phone] Reason for Visit * Reason Comments Medication Refill Encounter Details Date Type Department Care Team (Late st Contact Info) Description 12/19/2020 Refill [facility] 10[address] [place] [address] Barbara Garner, PLANNING DIRECTOR 1060 [place] [address] Other depression; Chronic migraine without aura, with [...] 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 Not on file documented as of this encounter Plan of Treatment Not on file documented as of this encounter Visit Diagnoses Diagnosis Other depression Chronic migraine without aura, with intractable migraine, so stated, with status migrainosus Other migraine without status migrainosus, not intractable documented in this encounter Care Teams Track Equipment Operator Relationship Specialty Start Date End Date Marii Woods MD 1060 [facility] [place] [address] PCP - General Internal Medicine 03/07/20 08/07/21 Marii Woods MD 1060 [facility] [place] [address] PCP - Cigna Commercial Attributed 08/15/20 05/16/21 Jadon Devlin MD [address] [place] [address] Gastroenterology 09/29/19 documented as of this encounter
--- OUTSIDE RECORDS SUMMARY | 2024-09-28 09:04 | XMS_ITS | Encounter Summary ---
Author Organization [facility] Address [address] [place] [address] Care Team Providers Care Fire Control Officer Name Role Phone Jadon Devlin MD Unavailable [phone] Marii Woods MD Primary Care Provider + [phone] Marii Woods MD Unavailable [phone] Reason for Visit * Reason Comments Medication Refill Encounter Details Date Type Department Care Team (Late st Contact Info) Description 08/21/[address] 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
--- OUTSIDE RECORDS SUMMARY | 2024-09-28 09:04 | XMS_ITS | Encounter Summary ---
Author Organization [facility] Address [address] [place] [address] Care Team Providers Care Bobcat Driver/Labor Name Role Phone Shanika Hillman MD Primary Care Provider Shanika Hillman MD Unavailable [phone] Jadon Devlin MD Unavailable [phone] Marii Woods MD Primary Care Provider [phone] Pcp, No Primary Care Provider Unavailolivia e Marii Woods MD Unavailable [phone] Marii Woods MD Primary Care Provider + [phone] Marii Woods MD Unavailable [phone] Encounter Details Date Type Department Care Team (Late st Contact Info) Description 01/09/[address] [facility] 10 [facility] [address] [place] [phone] Jadon Devlin MD [address] [place] [address] Social History Tobacco Use Types Packs/Day Years [...] 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 Not [...] on filedocumented in this encounter Care Teams Bobcat Driver/Labor Relationship Specialty Start Date End Date Shanika Hillman MD PCP - General Internal Medicine 12/29/17 09/28/19 Shanika Hillman MD 234 [facility] 4011 [place] [address] PCP - Cigna Commercial Attributed 02/14/19 05/16/19 Marii Woods MD 1060 [facility] [place] [address] PCP - General Internal Medicine 09/29/19 01/22/20 Pcp, No PCP - General 01/23/20 03/06/20 Marii Woods MD 1060 [facility] [place] [address] PCP - Cigna Commercial Attributed 10/16/19 04/15/20 Marii Woods MD 1060 [facility] [place] [address] PCP - General Internal Medicine 03/07/20 08/07/21 Marii Woods MD 1060 [place] [address] PCP - Cigna Commercial Attributed 08/15/20 05/16/21 Jadon Devlin MD [address] [place] [address] 100 [place] [address] Gastroenterology 09/29/19 documented as of this encounter
--- OUTSIDE RECORDS SUMMARY | 2024-09-28 09:04 | XMS_ITS | Encounter Summary ---
Author Organization [facility] Address [address] [place] [address] Care Team Providers Care Senior Network Architect Name Role Phone Jadon Devlin MD Unavailable [phone] Marii Woods MD Primary Care Provider + [phone] Marii Woods MD Unavailable [phone] Reason for Visit * Reason Comments Medication Refill Encounter Details Date Type Department Care Team (Late st Contact Info) Description 10/09/2020 Refill [facility] [address] [address] Marii Woods MD [address] [place] [address] Other depression; Chronic migraine without aura, [...] 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
--- OUTSIDE RECORDS SUMMARY | 2024-09-28 09:04 | XMS_ITS | Encounter Summary ---
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
--- OUTSIDE RECORDS SUMMARY | 2024-09-28 09:04 | XMS_ITS | Encounter Summary ---
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
--- OUTSIDE RECORDS SUMMARY | 2024-09-28 09:04 | XMS_ITS | Encounter Summary ---
Author Organization [facility] Address [address] [place] [address] Care Team Providers Care Band Saw Marker Name Role Phone Shanika Hillman MD Primary Care Provider Shanika Hillman MD Unavailable [phone] Jadon Devlin MD Unavailable [phone] Marii Woods MD Primary Care Provider [phone] Pcp, No Primary Care Provider Unavailolivia e Marii Woods MD Unavailable Marii Woods MD Primary Care Provider + [phone] Marii Woods MD Unavailable [phone] Reason for Visit * Reason Comments Medication Refill Encounter Details Date Type Department Care Team (Late st Contact Info) Description 05/04/[address] [address] Shanika Hillman MD [address] [place] [address] Chronic migraine without aura, with intractable [...] 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 Not on file documented as of this encounter Plan of Treatment Not on file documented as of this encounter Visit Diagnoses Diagnosis Chronic migraine without aura, with intractable migraine, so stated, with status migrainosus Other migraine without status migrainosus, not intractable Other depression documented in this encounter Care Teams Band Saw Marker Relationship Specialty Start Date End Date Shanika Hillman MD PCP - General Internal Medicine 12/29/17 09/28/19 Shanika Hillman MD [address] [place] [address] 4011 [place] [address] PCP - Cigna Commercial Attributed 02/14/19 05/16/19 Marii Woods MD 1060 [facility] [place] [place] [address] PCP - General Internal Medicine 09/29/19 01/22/20 Pcp, No PCP - General 01/23/20 03/06/20 Marii Woods MD 1060 [facility] [place] [address] PCP - Cigna Commercial Attributed 10/16/19 04/15/20 Marii Woods MD 1060 [facility] [place] [address] PCP - General Internal Medicine 03/07/20 08/07/21 Marii Woods MD 1060 [facility] [place] [address] PCP - Cigna Commercial Attributed 08/15/20 05/16/21 Jadon Devlin MD [address] [place] [address] 100 [place] [address] Gastroenterology 09/29/19 documented as of this encounter
--- OUTSIDE RECORDS SUMMARY | 2024-09-28 09:04 | XMS_ITS | Encounter Summary ---
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
--- OUTSIDE RECORDS SUMMARY | 2024-09-28 09:04 | XMS_ITS | Encounter Summary ---
Author Organization [facility] Address [address] [place] [address] Care Team Providers Care Toy Assembly Supervisor Name Role Phone Michelle Mccoy DO Primary Care Provider [phone] Shanika Hillman MD Primary Care Provider [phone] Shanika Hillman MD Unavailable [phone] Jadon Devlin MD Unavailable [phone] Marii Woods MD Primary Care Provider Pcp, No Primary Care Provider UnavailMarii Domignuez MD Unavailable [phone] Marii Woods MD Primary Care Provider + [phone] Marii Woods MD Unavailable [phone] Encounter Details Date Type Department Care Team (Late st Contact Info) Description 03/18/2017 Scanned Document [facility] 1060 [place] [address] Michelle Mccoy DO 339 [place] [address] Social History Tobacco Use Types Packs/Day Years [...] on filedocumented in this encounter Care Teams Toy Assembly Supervisor Relationship Specialty Start Date End Date Michelle Mccoy DO PCP - General Family Medicine 02/03/16 12/28/17 Shanika Hillman MD PCP - General Internal Medicine 12/29/17 09/28/19 Shanika Hillman MD [address] [place] [address] 4011 [place] [address] PCP - Cigna Commercial Attributed 02/14/19 05/16/19 Marii Woods MD 1060 [place] [address] PCP - General Internal Medicine 09/29/19 01/22/20 Pcp, No PCP - General 01/23/20 03/06/20 Marii Woods MD 1060 [place] [address] PCP - Cigna Commercial Attributed 10/16/19 04/15/20 Marii Woods MD 1060 [place] [address] PCP - General Internal Medicine 03/07/20 08/07/21 Marii Woods MD 1060 [place] [address] PCP - Cigna Commercial Attributed 08/15/20 05/16/21 Jadon Devlin MD [address] [place] [address] Gastroenterology 09/29/19 documented as of this encounter
--- OUTSIDE RECORDS SUMMARY | 2024-09-28 09:04 | XMS_ITS | Encounter Summary ---
Author Organization [facility] Address [address] [place] [address] Care Team Providers Care Offshore Diver Name Role Phone Shanika Hillman MD Primary Care Provider Shanika Hillman MD Unavailable [phone] Jadon Devlin MD Unavailable [phone] Marii Woods MD Primary Care Provider Pcp, No Primary Care Provider Unavailolivia e Marii Woods MD Unavailable [phone] Marii Woods MD Primary Care Provider + [phone] Marii Woods MD Unavailable [phone] Reason for Visit * Reason Comments Medication Refill Encounter Details Date Type Department Care Team (Late st Contact Info) Description 04/06/[address] [address] Shanika Hillman MD [address] [place] [address] Depressive disorder (Primary Dx) Social History [...] 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 Not on file documented as of this encounter Plan of Treatment Not on file documented as of this encounter Visit Diagnoses Diagnosis Depressive disorder- Primary Depressive disorder, not elsewhere classified documented in this encounter Care Teams Offshore Diver Relationship Specialty Start Date End Date Shanika Hillman MD PCP - General Internal Medicine 12/29/17 09/28/19 Shanika Hillman MD 234 [facility] 4011 [place] [address] PCP - Cigna Commercial Attributed 02/14/19 05/16/19 Marii Woods MD 1060 [facility] [place] [address] PCP - General Internal Medicine 09/29/19 01/22/20 Pcp, No PCP - General 01/23/20 03/06/20 Marii Woods MD 1060 [facility] [place] [address] PCP - Cigna Commercial Attributed 10/16/19 04/15/20 Marii Woods MD 1060 [facility] [place] [address] PCP - General Internal Medicine 03/07/20 08/07/21 Marii Woods MD 1060 [facility] [place] [address] PCP - Cigna Commercial Attributed 08/15/20 05/16/21 Jadon Devlin MD [address] [place] [address] 100 [place] [address] Gastroenterology 09/29/19 documented as of this encounter
--- OUTSIDE RECORDS SUMMARY | 2024-09-28 09:04 | XMS_ITS | Encounter Summary ---
Author Organization [facility] Address [address] [place] [address] Care Team Providers Care Physician Recruiter Name Role Phone Dede Mccoyi Lorna MATHEWS Primary Care Provider [phone] Shanika Hillman MD Primary Care Provider [phone] Shanika Hillman MD Unavailable [phone] Jadon Devlin MD Unavailable [phone] Marii Woods MD Primary Care Provider + [phone] Pcp, No Primary Care Provider Unavailolivia e Marii Woods MD Unavailable [phone] Marii Woods MD Primary Care Provider [phone] Marii Woods MD Unavailable [phone] Encounter Details Date Type Department Care Team (Late st Contact Info) Description 04/01/2016 Scanned Document [address] [phone] Provider, Generic Social History Tobacco Use Types [...] on filedocumented in this encounter Care Teams Physician Recruiter Relationship Specialty Start Date End Date Michelle Mccoy DO PCP - General Family Medicine 02/03/16 12/28/17 Shanika Hillman MD PCP - General Internal Medicine 12/29/17 09/28/19 Shanika Hillman MD 234 [facility] 4011 [place] [address] PCP - Cigna Commercial Attributed 02/14/19 05/16/19 Marii Woods MD 1060 [facility] [place] [address] PCP - General Internal Medicine 09/29/19 01/22/20 Pcp, No PCP - General 01/23/20 03/06/20 Marii Woods MD 1060 [facility] [place] [address] PCP - Cigna Commercial Attributed 10/16/19 04/15/20 Marii Woods MD [address] [place] [address] PCP - General Internal Medicine 03/07/20 08/07/21 Marii Woods MD [address] [place] [address] PCP - Cigna Commercial Attributed 08/15/20 05/16/21 Jadon Devlin MD [address] [place] [address] 100 [place] [address] Gastroenterology 09/29/19 documented as of this encounter
--- OUTSIDE RECORDS SUMMARY | 2024-09-28 09:04 | XMS_ITS | Encounter Summary ---
Author Organization [facility] Address [address] [place] [address] Care Team Providers Care Agile Developer Name Role Phone Shanika Hillman MD Primary Care Provider [phone] Shanika Hillman MD Unavailable [phone] Jadon Devlin MD Unavailable [phone] Marii Woods MD Primary Care Provider + [phone] Pcp, No Primary Care Provider Unavailolivia e Marii Woods MD Unavailable [phone] Marii Woods MD Primary Care Provider + [phone] Marii Woods MD Unavailable [phone] Encounter Details Date Type Department Care Team (Late st Contact Info) Description 10/15/2018 Scanned Document [address] [address] Provider, Generic Social History Tobacco [...] on filedocumented in this encounter Care Teams Agile Developer Relationship Specialty Start Date End Date Shanika Hillman MD PCP - General Internal Medicine 12/29/17 09/28/19 Shanika Hillman MD [facility] [address] [place] [address] PCP - C[employer] Commercial Attributed 02/14/19 05/16/19 Marii Woods MD 1060 [facility] [place] [address] PCP - General Internal Medicine 09/29/19 01/22/20 Pcp, No PCP - General 01/23/20 03/06/20 Marii Woods MD 1060 [facility] [place] [facility] [place] [address] PCP - Cign[employer] Commercial Attributed 10/16/19 04/15/20 Marii Woods MD 1060 [facility] [place] [address] PCP - General Internal Medicine 03/07/20 08/07/21 Marii Woods MD 1060 [facility] [place] [address] PCP - C[employer] Commercial Attributed 08/15/20 05/16/21 Jadon Devlin MD [address] [place] [address] 100 [place] [address] Gastroenterology 09/29/19 documented as of this encounter
--- OUTSIDE RECORDS SUMMARY | 2024-09-28 09:04 | XMS_ITS | Encounter Summary ---
Author Organization [facility] Address [address] [place] [address] Care Team Providers Care Patrol Man Name Role Phone Jadon Devlin MD Unavailable [phone] Marii Woods MD Unavailable [phone] Marii Woods MD Primary Care Provider Marii Woods MD Unavailable [phone] Reason for Visit * Reason Comments Medication Refill Encounter Details Date Type Department Care Team (Late st Contact Info) Description 03/19/[address] [address] Chirag Hicks PA [facility] [address] [place] [address] Other depression; Chronic migraine without aura, with [...] 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
--- OUTSIDE RECORDS SUMMARY | 2024-09-28 09:04 | XMS_ITS | Encounter Summary ---
Author Organization [facility] Address [address] [place] [address] Care Team Providers Care Invasive Manager Name Role Phone Jadon Devlin MD Unavailable [phone] Reason for Visit * Reason Comments Medication Refill Encounter Details Date Type Department Care Team (Late st Contact Info) Description 09/06/2021 Refill [facility] [address] [place] [phone] Barbara Garner, AUTOMATIC GRINDER OPERATOR [address] [place] [address] Other depression; Chronic migraine without aura, with [...] 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
--- OUTSIDE RECORDS SUMMARY | 2024-09-28 09:04 | XMS_ITS | Encounter Summary ---
Author Organization [facility] Address [address] [place] [address] Care Team Providers Care Cnc Programmer Name Role Phone Dede Mccoyi Lorna MATHEWS Primary Care Provider [phone] Shanika Hillman MD Primary Care Provider [phone] Shanika Hillman MD Unavailable [phone] Jadon Devlin MD Unavailable [phone] Marii Woods MD Primary Care Provider + [phone] Pcp, No Primary Care Provider Unavailolivia e Marii Woods MD Unavailable [phone] Marii Woods MD Primary Care Provider [phone] Marii Woods MD Unavailable [phone] Encounter Details Date Type Department Care Team (Late st Contact Info) Description 05/19/2016 Scanned Document [address] [phone] Provider, Generic Social History Tobacco Use Types [...] on filedocumented in this encounter Care Teams Cnc Programmer Relationship Specialty Start Date End Date Michelle MccoyDO PCP - General Family Medicine 02/03/16 12/28/17 Shanika Hillman MD PCP - General Internal Medicine 12/29/17 09/28/19 Shanika Hillman MD [address] [place] [address] 4[address] [place] [address] PCP - Cign[employer] Commercial Attributed 02/14/19 05/16/19 Marii Woods MD 1060 [facility] [place] [address] PCP - General Internal Medicine 09/29/19 01/22/20 Pcp, No PCP - General 01/23/20 03/06/20 Marii Woods MD 1060 [facility] [place] [address] PCP - Cigna Commercial Attributed 10/16/19 04/15/20 Marii Woods MD 1060 [facility] [place] [address] PCP - General Internal Medicine 03/07/20 08/07/21 Marii Woods MD 1060 [facility] [place] [address] PCP - Cigna Commercial Attributed 08/15/20 05/16/21 Jadon Devlin MD [address] [address] Gastroenterology 09/29/19 documented as of this encounter
--- OUTSIDE RECORDS SUMMARY | 2024-09-28 09:04 | XMS_ITS | Encounter Summary ---
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
--- OUTSIDE RECORDS SUMMARY | 2024-09-28 09:04 | XMS_ITS | Encounter Summary ---
Author Organization [facility] Address [address] [place] [address] Care Team Providers Care Tarring Machine Operator Name Role Phone Shanika Hillman MD Primary Care Provider [phone] Jadon Devlin MD Unavailable [phone] Marii Woods MD Primary Care Provider [phone] Pcp, No Primary Care Provider UnavailMarii Dominguez MD Unavailable [phone] Marii Woods MD Primary Care Provider + [phone] Marii Woods MD Unavailable [phone] Reason for Visit * Reason Comments Medication Refill Encounter Details Date Type Department Care Team (Late st Contact Info) Description 06/02/[address] [address] Shanika Hillman MD [address] [place] [address] Gastroesophageal reflux disease without esophagitis Social [...] 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 Not on file documented as of this encounter Plan of Treatment Not on file documented as of this encounter Visit Diagnoses Diagnosis Gastroesophageal reflux disease without esophagitis Esophageal reflux documented in this encounter Care Teams Tarring Machine Operator Relationship Specialty Start Date End Date Shanika Hillman MD PCP - General Internal Medicine 12/29/17 09/28/19 Marii Woods MD 1060 [place] [address] PCP - General Internal Medicine 09/29/19 01/22/20 Pcp, No PCP - General 01/23/20 03/06/20 Marii Woods MD 1060 [place] [address] PCP - Cigna Commercial Attributed 10/16/19 04/15/20 Marii Woods MD 1060 [place] [address] PCP - General Internal Medicine 03/07/20 08/07/21 Marii Woods MD [address] [place] [address], [place] [address] PCP - Cigna Commercial Attributed 08/15/20 05/16/21 Jadon Devlin MD [address] [place] [address] Gastroenterology 09/29/19 documented as of this encounter
--- OUTSIDE RECORDS SUMMARY | 2024-09-28 09:04 | XMS_ITS | Encounter Summary ---
Author Organization [facility] Address [address] [place] [address] Care Team Providers Care Survey Superintendent Name Role Phone Jadon Devlin MD Unavailable [phone] Marii Woods MD Unavailable [phone] Marii Woods MD Primary Care Provider Marii Woods MD Unavailable [phone] Reason for Visit * Reason Onset Date Comments Medication Refill 03/12/2020 Encounter Details Date Type Department Care Team (Late st Contact Info) Description 03/12/[address] [phone] Chirag Hicks, 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
--- OUTSIDE RECORDS SUMMARY | 2024-09-28 09:04 | XMS_ITS | Encounter Summary ---
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
--- OUTSIDE RECORDS SUMMARY | 2024-09-28 09:04 | XMS_ITS | Encounter Summary ---
Author Organization [facility] Address [address] [place] [address] Care Team Providers Care Art Objects Repairer Name Role Phone Shanika Hillman MD Primary Care Provider Shanika Hillman MD Unavailable [phone] Jadon Devlin MD Unavailable [phone] Marii Woods MD Primary Care Provider [phone] Pcp, No Primary Care Provider Unavailolivia e Marii Woods MD Unavailable [phone] Marii Woods MD Primary Care Provider + [phone] Marii Woods MD Unavailable Reason for Visit * Reason Onset Date Comments Medication Refill 04/27/2018 Encounter Details Date Type Department Care Team (Late st Contact Info) Description 04/27/2018 Refill [facility] 10[address] [place] [phone] Shanika Hillman MD [address] [place] [address] Chronic migraine without aura, with intractable [...] depression documented in this encounter Care Teams Art Objects Repairer Relationship Specialty Start Date End Date Shanika Hillman MD PCP - General Internal Medicine 12/29/17 09/28/19 Shanika Hillman MD [address] [employer] [address] [place] [address] PCP - Cigna Commercial Attributed 02/14/19 05/16/19 Marii Woods MD [address] [place] [address] PCP - General Internal Medicine 09/29/19 01/22/20 Pcp, No PCP - General 01/23/20 03/06/20 Marii Woods MD [address] [place] [address] PCP - Cigna Commercial Attributed 10/16/19 04/15/20 Marii Woods MD 1060 [place] [address] PCP - General Internal Medicine 03/07/20 08/07/21 Marii Woods MD 1060 [place] [address] PCP - Cigna Commercial Attributed 08/15/20 05/16/21 Jadon Devlin MD 21 [facility] 100 [place] [address] Gastroenterology 09/29/19 documented as of this encounter
--- OUTSIDE RECORDS SUMMARY | 2024-09-28 09:04 | XMS_ITS | Encounter Summary ---
Author Organization [facility] Address [address] [place] [address] Care Team Providers Care Cargo Tank Mechanic Name Role Phone Michelle Mccoy DO Primary Care Provider [phone] Shanika Hillman MD Primary Care Provider [phone] Shanika Hillman MD Unavailable [phone] Jadon Devlin MD Unavailable [phone] Marii Woods MD Primary Care Provider Pcp, No Primary Care Provider UnavailMarii Dominguez MD Unavailable [phone] Marii Woods MD Primary Care Provider + [phone] Marii Woods MD Unavailable [phone] Encounter Details Date Type Department Care Team (Late st Contact Info) Description 03/04/2017 Scanned Document [place] [address] [place] [address] Michelle Mccoy DO [address] [place] [address] Social History Tobacco Use Types Packs/Day Years [...] on filedocumented in this encounter Care Teams Cargo Tank Mechanic Relationship Specialty Start Date End Date Michelle Mccoy DO PCP - General Family Medicine 02/03/16 12/28/17 Shanika Hillman MD PCP - General Internal Medicine 12/29/17 09/28/19 Shanika Hillman MD [address] [place] [address] [address] [place] [address] PCP - Cigna Commercial Attributed 02/14/19 05/16/19 Marii Woods MD 1060 [place] [address] PCP - General Internal Medicine 09/29/19 01/22/20 Pcp, No PCP - General 01/23/20 03/06/20 Marii Woods MD 1060 [place] [address] PCP - Cigna Commercial Attributed 10/16/19 04/15/20 Marii Woods MD 1060 [place] [address] PCP - General Internal Medicine 03/07/20 08/07/21 Marii Woods MD 1060 [place] [address] PCP - Cigna Commercial Attributed 08/15/20 05/16/21 Jadon Devlin MD [address] [place] [address] Gastroenterology 09/29/19 documented as of this encounter
--- OUTSIDE RECORDS SUMMARY | 2024-09-28 09:04 | XMS_ITS | Encounter Summary ---
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 documented as of this encounter Plan of Treatment Not on file documented as of this encounter Visit Diagnoses Not on filedocumented in this encounter Care Teams Research Assoc Relationship Specialty Start Date End Date Marii Woods MD 1060 [facility] [place] [address] PCP - General Internal Medicine 03/07/20 08/07/21 [place] [address] [place], [place] [address], [place] [address] PCP - Cigna Commercial Attributed 08/15/20 05/16/21 Jadon Devlin MD [address] [place] [address] [address] [place] [address] Gastroenterology 09/29/19 documented as of this encounter
--- OUTSIDE RECORDS SUMMARY | 2024-09-28 09:04 | XMS_ITS | Encounter Summary ---
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
--- OUTSIDE RECORDS SUMMARY | 2024-09-28 09:04 | XMS_ITS | Encounter Summary ---
Author Organization [facility] Address [address] [place] [address] Care Team Providers Care Knitter Operator Name Role Phone Naty Rendon MD Primary Care Provider Michelle Mccoy DO Primary Care Provider [phone] Shanika Hillman MD Primary Care Provider [phone] Shanika Hillman MD Unavailable [phone] Jadon Devlin MD Unavailable Marii Woods MD Primary Care Provider [phone] Pcp, No Primary Care Provider Unavailolivia e Marii Woods MD Unavailable [phone] Marii Woods MD Primary Care Provider Marii Woods MD Unavailable [phone] Encounter Details Date Type Department Care Team (Late st Contact Info) Description 10/24/2015 Telephone [facility] [address] [place] [address] Naty Rendon MD [facility] [address] [place] [address] Social History Tobacco Use Types Packs/Day [...] on filedocumented in this encounter Care Teams Knitter Operator Relationship Specialty Start Date End Date Naty Rendon MD PCP - General Internal Medicine 03/18/15 02/02/16 Michelle Mccoy DO PCP - General Family Medicine 02/03/16 12/28/17 Shanika Hillman MD PCP - General Internal Medicine 12/29/17 09/28/19 Shanika Hillman MD [address] [facility] [address] [place] [address] PCP - Cigna Commercial Attributed 02/14/19 05/16/19 Marii Woods MD [address] [facility] [place] [address] PCP - General Internal Medicine 09/29/19 01/22/20 Pcp, No PCP - General 01/23/20 03/06/20 Marii Woods MD [address] [place] [address], [place] [address] PCP - Cigna Commercial Attributed 10/16/19 04/15/20 Marii Woods MD [address] [place] [address], [place] [address] PCP - General Internal Medicine 03/07/20 08/07/21 Marii Woods MD [address] [place] [address], [place] [address] PCP - C[employer]a Commercial Attributed 08/15/20 05/16/21 Jadon Devlin MD [address] [place] [address] [address] [place] [address] Gastroenterology 09/29/19 documented as of this encounter
--- OUTSIDE RECORDS SUMMARY | 2024-09-28 09:04 | XMS_ITS | Clinical Summary ---
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 [...] IMAGING BREAST/BX/MAMMO Routine 06/06/2020 THINPREP PAP TEST (STEREO MAP PLOTTER OPERATOR) WITH HPV SCREEN Routine 07/28/2018 2:15 PM EDT Screening for cervical cancer HXAMB HEPATITIS C VIRAL RNA QUAL TMA Routine 03/01/2012 8:46 AM EDT from Last 3 Months or Most Recently Relevant to Health Maintenance Results * (ABNORMAL) Lipid panel (11/28/2020 7:11 AM EDT) Cholesterol, Total 217(H) <200 mg/dL [facility] Cholesterol, HDL 42(L) > OR = 50 mg/dL [facility] Triglycerides 187(H) <150 mg/dL [facility] LDL Cholesterol 143(H) mg/dL (calc) [facility] Comment: Reference range: <100 Desirable range <100 mg/dL for primary prevention; ?? <70 mg/dL for patients with CHD or diabetic patients with > or = 2 CHD risk factors. LDL-C is now calculated using the Fani calculation, which is a validated novel method providing better accuracy than the Friedewald equation in the estimation of LDL-C. Jamal PICHARDO et al. VASILIY. 2013;310(19): 0869-9766 (http://education.Iotelligent/faq/WMT615) Cholesterol/HDL Ratio 5.2(H) <5.0 (calc) [facility] Non HDL Chol. (LDL+VLDL) 175(H) <130 mg/dL (calc) [facility] Comment: For patients with diabetes plus 1 major ASCVD risk factor, treating to a non-HDL-C goal of <100 mg/dL (LDL-C of <70 mg/dL) is considered a therapeutic option. Blood specimen (specimen) Heel structure / Unknown 11/28/2020 7:11 AM EDT 11/28/2020 7:12 AM EDT Narrative [facility] - 11/29/2020 4:14 PM EDT FASTING:YES FASTING: YES Chirag SORIANO LAB BLOOD ORDERABLES Final Resul t [employer] [address], [place] [address] * (ABNORMAL) IMAGING BREAST/BX/MAMMO (06/06/2020) Anatomical Region Laterality Modality Other Marii Woods MD IMG LEGACY PROCEDURES Edit ed Result - Final * ThinPrep Pap Test ([employer]) with HPV Screen (07/28/2018 2:15 PM EDT) [...] has been evaluated with computer assisted technology. Information Developer: OLGA Laticínios Bom Gosto/LBR RAYSHAWN NL1 Comment: KN, CT(ASCP) CT screening location: [address] ??[address] Review Information Developer: DINORA TABARES NL1 Comment: MSM, CT(ASCP) CT screening location: [address] ??[address] Comment [facility] NL1 Comment: EXPLANATORY NOTE: [...] was performed using the APTIMA HPV Assay ([employer] This assay detects E6/E7 viral messenger RNA (mRNA) from 14 high-risk HPV types (16,18,31,33,35,39,45,51,52,56,58,59,66,68). The analytical performance characteristics of this assay have been determined by [employer]. The modifications have not been cleared or approved by the FDA. This assay has been validated pursuant to the CLIA regulations and is used for clinical purposes. 07/28/2018 2:15 PM EDT 07/29/2018 2:39 AM EDT Narrative Resulting Agency Comment Performing Organization Information: ?Site ID: [id number] ?Name: [facility] [employer] ?Address: [address] [place] [address], [place] [address] ?Director: Zbigniew Willson MD us Shanika Hillman MD LAB AMB PATH/CYTO ORDERABLES F inal Result [employer] [facility] [address], [place] [address] * Hepatitis C Viral Rna Qual TMA (03/01/2012 8:46 AM EDT) Hepatitis C Viral Rna Qual Tma NONREACTIVE NONREACTIVE [facility] CONVERSION 03/01/2012 8:46 AM EDT us Rafi SORIANO HX LAB Final Result [facility] CONVERSION from Last 3 Months or Most Recently Relevant to Health Maintenance Insurance [employer] HMO Care Teams Beer Runner Relationship Specialty Start Date End Date Jadon Devlin MD [address] [place] [address] Gastroenterology 09/29/19
--- OUTSIDE RECORDS SUMMARY | 2024-09-28 09:04 | XMS_ITS | Encounter Summary ---
Author Organization [facility] Address [address] [place] [address] Care Team Providers Care Skiing Teacher Name Role Phone Shanika Hillman MD Primary Care Provider Shanika Hillman MD Unavailable [phone] Jadon Devlin MD Unavailable [phone] Marii Woods MD Primary Care Provider [phone] Pcp, No Primary Care Provider Unavailolivia e Marii Woods MD Unavailable [phone] Marii Woods MD Primary Care Provider + [phone] Marii Woods MD Unavailable [phone] Encounter Details Date Type Department Care Team (Late st Contact Info) Description 03/27/2019 Scanned Document [id number] [place] [address] Shanika Hillman MD [address] [place] [address] Social History Tobacco Use Types Packs/Day [...] 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 Not on file documented as of this encounter Plan of Treatment Not on file documented as of this encounter Visit Diagnoses Not on filedocumented in this encounter Care Teams Skiing Teacher Relationship Specialty Start Date End Date Shanika Hillman MD PCP - General Internal Medicine 12/29/17 09/28/19 Shanika Hillman MD [address] [place] [address] [address] [place] [address] PCP - [employer] Commercial Attributed 02/14/19 05/16/19 Marii Woods MD 1060 [facility] [place] [address] PCP - General Internal Medicine 09/29/19 01/22/20 Pcp, No PCP - General 01/23/20 03/06/20 Marii Woods MD 1060 [facility] [place] [address] PCP - C[employer] Commercial Attributed 10/16/19 04/15/20 Marii Woods MD 1060 [facility] [place] [address] PCP - General Internal Medicine 03/07/20 08/07/21 Marii Woods MD 1060 [facility] [place] [address] PCP - C[employer] Commercial Attributed 08/15/20 05/16/21 Jadon Devlin MD [address] [place] [address] 100 [place] [address] Gastroenterology 09/29/19 documented as of this encounter
--- OUTSIDE RECORDS SUMMARY | 2024-09-28 09:04 | XMS_ITS | Encounter Summary ---
Author Organization [facility] Address [address] [place] [address] Care Team Providers Care School Health Aide Name Role Phone Jadon Devlin MD Unavailable [phone] Reason for Visit * Reason Comments Medication Refill Encounter Details Date Type Department Care Team (Late st Contact Info) Description 09/05/[address] 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
--- OUTSIDE RECORDS SUMMARY | 2024-09-28 09:04 | XMS_ITS | Encounter Summary ---
Author Organization [facility] Address [address] [place] [address] Care Team Providers Care Ship Runner Name Role Phone Jadon Devlin MD Unavailable [phone] Marii Woods MD Unavailable [phone] Marii Woods MD Primary Care Provider + [phone] Marii Woods MD Unavailable [phone] Reason for Visit * Reason Onset Date Comments Medication Refill 03/12/2020 Encounter Details Date Type Department Care Team (Late st Contact Info) Description 03/12/[address] [address] Marii Woods MD [address] [place] [address] Mild intermittent asthmatic bronchitis with acute [...] 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
--- OUTSIDE RECORDS SUMMARY | 2024-09-28 09:04 | XMS_ITS | Encounter Summary ---
Author Organization [facility] Address [address] [place] [address] Care Team Providers Care Commercial Drafter Name Role Phone Dede Mccoyi Lorna MATHEWS Primary Care Provider [phone] Shanika Hillman MD Primary Care Provider [phone] Shanika Hillman MD Unavailable [phone] Jadon Devlin MD Unavailable [phone] Marii Woods MD Primary Care Provider + [phone] Pcp, No Primary Care Provider Unavailolivia e Marii Woods MD Unavailable [phone] Marii Woods MD Primary Care Provider [phone] Marii Woods MD Unavailable [phone] Encounter Details Date Type Department Care Team (Late st Contact Info) Description 02/21/2016 Scanned Document [address] [phone] Provider, Generic Social History Tobacco Use Types [...] on filedocumented in this encounter Care Teams Commercial Drafter Relationship Specialty Start Date End Date Michelle Mccoy DO PCP - General Family Medicine 02/03/16 12/28/17 Shanika Hillman MD PCP - General Internal Medicine 12/29/17 09/28/19 Shanika Hillman MD [address] [place] [address] [address] [place] [address] PCP - Cigna Commercial Attributed 02/14/19 05/16/19 Marii Woods MD [address] [place] [address] PCP - General Internal Medicine 09/29/19 01/22/20 Pcp, No PCP - General 01/23/20 03/06/20 Marii Woods MD [address] [place] [address] PCP - Cigna Commercial Attributed 10/16/19 04/15/20 Marii Woods MD [address] [place] [address] PCP - General Internal Medicine 03/07/20 08/07/21 [place] [address] [place] [address] PCP - Cigna Commercial Attributed 08/15/20 05/16/21 Jadon Devlin MD [address] [place] [address] Gastroenterology 09/29/19 documented as of this encounter
--- OUTSIDE RECORDS SUMMARY | 2024-09-28 09:04 | XMS_ITS | Encounter Summary ---
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
--- OUTSIDE RECORDS SUMMARY | 2024-09-28 09:04 | XMS_ITS | Encounter Summary ---
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 Not on file documented as of this encounter Miscellaneous Notes * Telephone Encounter - Marii Woods MD - 08/08/2021 3:14 PM EDT TRANSFERRING TO NEW PCP documented in this encounter Plan of Treatment Not on file documented as of this encounter Visit Diagnoses Diagnosis Essential hypertension Unspecified essential hypertension documented in this encounter Care Teams Php Engineer Relationship Specialty Start Date End Date Marii Woods MD 1060 [place] [address] PCP - General Internal Medicine 03/07/20 08/07/21 Jadon Devlin MD 21 [facility] 100 [place] [address] Gastroenterology 09/29/19 documented as of this encounter
--- OUTSIDE RECORDS SUMMARY | 2024-09-28 09:04 | XMS_ITS | Encounter Summary ---
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
--- OUTSIDE RECORDS SUMMARY | 2024-09-28 09:04 | XMS_ITS | Encounter Summary ---
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
--- OUTSIDE RECORDS SUMMARY | 2024-09-28 09:04 | XMS_ITS | Encounter Summary ---
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
--- OUTSIDE RECORDS SUMMARY | 2024-09-28 09:04 | XMS_ITS | Encounter Summary ---
Author Organization [facility] Address [address] [place] [address] Care Team Providers Care Cupola Liner Helper Name Role Phone Jadon Devlin MD Unavailable [phone] Marii Woods MD Unavailable [phone] Marii Woods MD Primary Care Provider Marii Woods MD Unavailable [phone] Reason for Visit * Reason Onset Date Comments Medication Refill 03/12/2020 Encounter Details Date Type Department Care Team (Late st Contact Info) Description 03/12/[address] [phone] Chirag Hicks, [facility] [address] [place] [address] Other depression; Chronic migraine without aura, with [...] 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
== END 2024-09-28 09:15 | disposition home or self-care (01) ==
LOC: HO.HMCFM 08:40
PROVIDERS: Visit Provider Physician Assistant Medical
DX: E78.00 Pure hypercholesterolemia, unspecified (principal); K76.0 Fatty (change of) liver, not elsewhere classified; E11.9 Type 2 diabetes mellitus without complications; I10 Essential (primary) hypertension; Z00.00 Encounter for general adult medical examination without abnormal findings; M25.551 Pain in right hip; M25.552 Pain in left hip; N39.3 Stress incontinence (female) (male); R35.1 Nocturia

== ENCOUNTER → 2024-09-28 08:39 | Outpatient (BNVA) | payer BC, SELFPAY | PROVIDERS: Visit Provider Physician Assistant Medical | DX: Z00.00 Encounter for general adult medical examination without abnormal findings (principal); E11.9 Type 2 diabetes mellitus without complications; I10 Essential (primary) hypertension; G43.909 Migraine, unspecified, not intractable, without status migrainosus; J45.909 Unspecified asthma, uncomplicated; M47.816 Spondylosis without myelopathy or radiculopathy, lumbar region; E11.43 Type 2 diabetes mellitus with diabetic autonomic (poly)neuropathy; K31.84 Gastroparesis; E78.00 Pure hypercholesterolemia, unspecified; K76.0 Fatty (change of) liver, not elsewhere classified; M25.551 Pain in right hip; M25.552 Pain in left hip; N39.3 Stress incontinence (female) (male); R35.1 Nocturia; Z79.899 Other long term (current) drug therapy | CPT/HCPCS: 96127; 96160 ==

== ENCOUNTER 2024-09-28 09:38 | Outpatient (REF) | payer BC, SELFPAY ==
--- OUTSIDE RECORDS SUMMARY | 2024-09-28 10:29 | XMS_ITS | Encounter Summary ---
Author Organization [facility] Address [address] [place] [address] Care Team Providers Care Perennial House Manager Name Role Phone Naty Rendon MD Primary Care Provider Michelle Mccoy DO Primary Care Provider [phone] Shanika Hillman MD Primary Care Provider [phone] Shanika Hillman MD Unavailable [phone] Jadon Devlin MD Unavailable [phone] Marii Woods MD Primary Care Provider + [phone] Pcp, No Primary Care Provider Unavailabl e Marii Woods MD Unavailable [phone] Marii Woods MD Primary Care Provider + [phone] Marii Woods MD Unavailable [phone] Encounter Details Date Type Department Care Team (Late st Contact Info) Description 06/08/2015 Scanned Document [address] [phone] Provider, Generic Social History Tobacco Use Types [...] on filedocumented in this encounter Care Teams Perennial House Manager Relationship Specialty Start Date End Date Naty Rendon MD PCP - General Internal Medicine 03/18/15 02/02/16 Michelle Mccoy DO PCP - General Family Medicine 02/03/16 12/28/17 Shanika Hillman MD PCP - General Internal Medicine 12/29/17 09/28/19 Shanika Hillman MD [address] [place] [address] 4011 [place] [address] PCP - Cigna Commercial Attributed 02/14/19 05/16/19 Marii Woods MD 1060 [facility] [place] [address] PCP - General Internal Medicine 09/29/19 01/22/20 Pcp, No PCP - General 01/23/20 03/06/20 Marii Woods MD 1060 [facility] [place] [address] PCP - Cigna Commercial Attributed 10/16/19 04/15/20 Marii Woods MD 1060 [facility] [place] [address] PCP - General Internal Medicine 03/07/20 08/07/21 Marii Woods MD 1060 [place] [address] PCP - Cigna Commercial Attributed 08/15/20 05/16/21 Jadon Devlin MD 21 [facility] 100 [place] [address] Gastroenterology 09/29/19 documented as of this encounter
--- OUTSIDE RECORDS SUMMARY | 2024-09-28 10:29 | XMS_ITS | Encounter Summary ---
Author Organization [facility] Address [address] [place] [address] Care Team Providers Care Chiller Tender Name Role Phone Dede Mccoyi Lorna MATHEWS Primary Care Provider [phone] Shanika Hillman MD Primary Care Provider [phone] Shanika Hillman MD Unavailable [phone] Jadon Devlin MD Unavailable [phone] Marii Woods MD Primary Care Provider + [phone] Pcp, No Primary Care Provider Unavailolivia e Marii Woods MD Unavailable [phone] Marii Woods MD Primary Care Provider [phone] Marii Woods MD Unavailable [phone] Encounter Details Date Type Department Care Team (Late st Contact Info) Description 12/18/2016 Scanned Document [address] [phone] Provider, Generic Social History Tobacco Use Types [...] on filedocumented in this encounter Care Teams Chiller Tender Relationship Specialty Start Date End Date Michelle Mccoy DO PCP - General Family Medicine 02/03/16 12/28/17 Shanika Hillman MD PCP - General Internal Medicine 12/29/17 09/28/19 Shanika Hillman MD [address] [facility] [address] [place] [address] PCP - Cigna Commercial Attributed 02/14/19 05/16/19 Marii Woods MD 1060 [facility] [place], [place] [address] PCP - General Internal Medicine 09/29/19 01/22/20 Pcp, No PCP - General 01/23/20 03/06/20 Marii Woods MD 1060 [facility] [place] [address] PCP - Cigna Commercial Attributed 10/16/19 04/15/20 Marii Woods MD 1060 [facility] [place] [address] PCP - General Internal Medicine 03/07/20 08/07/21 Marii Woods MD [address]60 [place] [address] PCP - Cigna Commercial Attributed 08/15/20 05/16/21 Jadon Devlin MD [address] [address] Gastroenterology 09/29/19 documented as of this encounter
--- OUTSIDE RECORDS SUMMARY | 2024-09-28 10:29 | XMS_ITS | Encounter Summary ---
Author Organization [facility] Address [address] [place] [address] Care Team Providers Care Ground Crew Supervisor Name Role Phone Naty Renodn MD Primary Care Provider Michelle Mccoy DO Primary Care Provider [phone] Shanika Hillman MD Primary Care Provider [phone] Shanika Hillman MD Unavailable [phone] Jadon Devlin MD Unavailable [phone] Marii Woods MD Primary Care Provider + [phone] Pcp, No Primary Care Provider Unavailabl e Marii Woods MD Unavailable [phone] Marii Woods MD Primary Care Provider + [phone] Marii Woods MD Unavailable [phone] Encounter Details Date Type Department Care Team (Late st Contact Info) Description 03/26/2015 Scanned Document [address] [phone] Provider, Generic Social History Tobacco Use Types [...] on filedocumented in this encounter Care Teams Ground Crew Supervisor Relationship Specialty Start Date End Date Naty Rendon MD PCP - General Internal Medicine 03/18/15 02/02/16 Michelle Mccoy DO PCP - General Family Medicine 02/03/16 12/28/17 Shanika Hillman MD PCP - General Internal Medicine 12/29/17 09/28/19 Shanika Hillman MD [address] [place] [address] 4[address] [place] [address] PCP - Cigna Commercial Attributed 02/14/19 05/16/19 Marii Woods MD 1060 [facility] [address] PCP - General Internal Medicine 09/29/19 01/22/20 Pcp, No PCP - General 01/23/20 03/06/20 Marii Woods MD 1060 [facility] [place] [address] PCP - Cigna Commercial Attributed 10/16/19 04/15/20 Marii Woods MD 1060 [facility] [address] PCP - General Internal Medicine 03/07/20 08/07/21 Marii Woods MD 1060 [place] [address] PCP - Cigna Commercial Attributed 08/15/20 05/16/21 Jadon Devlin MD 21 [facility] 100 [place] [address] Gastroenterology 09/29/19 documented as of this encounter
--- OUTSIDE RECORDS SUMMARY | 2024-09-28 10:29 | XMS_ITS | Encounter Summary ---
Author Organization [facility] Address [address] [place] [address] Care Team Providers Care Curator Natural History Museum Name Role Phone Shanika Hillman MD Primary Care Provider [phone] Jadon Devlin MD Unavailable [phone] Marii Woods MD Primary Care Provider Pcp, No Primary Care Provider UnavailMarii Dominguez MD Unavailable +[phone] Marii Woods MD Primary Care Provider + [phone] Marii Woods MD Unavailable +[phone] Reason for Visit * Reason Comments Medication Refill Encounter Details Date Type Department Care Team (Late st Contact Info) Description 09/28/2019 Refill [facility] [address] [place] [address] Barbara Garner, HEALTH CARE RECRUITER [address] [place] [address] Chronic migraine without aura, with intractable migraine, [...] 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 Not [...] migrainosus documented in this encounter Care Teams Curator Natural History Museum Relationship Specialty Start Date End Date Shanika Hillman MD PCP - General Internal Medicine 12/29/17 09/28/19 Marii Woods MD [address] [place] [address] PCP - General Internal Medicine 09/29/19 01/22/20 Pcp, No PCP - General 01/23/20 03/06/20 Marii Woods MD [address] [place] [address] PCP - [employer] Commercial Attributed 10/16/19 04/15/20 Marii Woods MD [address] [place] [address] PCP - General Internal Medicine 03/07/20 08/07/21 Marii Woods MD [address] [place] [address] PCP - [employer] Commercial Attributed 08/15/20 05/16/21 Jadon Devlin MD [address] [place] [address] Gastroenterology 09/29/19 documented as of this encounter
--- OUTSIDE RECORDS SUMMARY | 2024-09-28 10:29 | XMS_ITS | Encounter Summary ---
Author Organization [facility]ly [facility] Address [address] [place] [address] Care Team Providers Care Bridge Operator Name Role Phone Dede Mccoyi Lorna MATHEWS Primary Care Provider [phone] Shanika Hillman MD Primary Care Provider +[phone] Shanika Hillman MD Unavailable [phone] Jadon Devlin MD Unavailable +[phone] Marii Woods MD Primary Care Provider + [phone] Pcp, No Primary Care Provider Unavailolivia e Marii Woods MD Unavailable [phone] Marii Woods MD Primary Care Provider +[phone] Marii Woods MD Unavailable [phone] Encounter Details Date Type Department Care Team (Late st Contact Info) Description 11/01/2016 Scanned Document [address] [phone] Provider, Generic Social History Tobacco Use Types [...] on filedocumented in this encounter Care Teams Bridge Operator Relationship Specialty Start Date End Date Michelle MccoyDO PCP - General Family Medicine 02/03/16 12/28/17 Shanika Hillman MD PCP - General Internal Medicine 12/29/17 09/28/19 Shanika Hillman MD [address] [place] [address] 4011 [place] [address] PCP - [employer] Commercial Attributed 02/14/19 05/16/19 Marii Woods MD 1060 [facility] [place] [address] PCP - General Internal Medicine 09/29/19 01/22/20 Pcp, No PCP - General 01/23/20 03/06/20 Marii Woods MD 1060 [facility] [place] [address] PCP - [employer] Commercial Attributed 10/16/19 04/15/20 Marii Woods MD 1060 [facility] [place] [address] PCP - General Internal Medicine 03/07/20 08/07/21 Marii Woods MD 1060 [place] [address] PCP - C[employer] Commercial Attributed 08/15/20 05/16/21 Jadon Devlin MD [address] [address] Gastroenterology 09/29/19 documented as of this encounter
--- OUTSIDE RECORDS SUMMARY | 2024-09-28 10:29 | XMS_ITS | Encounter Summary ---
Author Organization [facility] Address [address] [place] [address] Care Team Providers Care Cyber Defense Analyst Name Role Phone Shanika Hillman MD Primary Care Provider [phone] Jadon Devlin MD Unavailable [phone] Marii Woods MD Primary Care Provider Pcp, No Primary Care Provider UnavailMarii Dominguez MD Unavailable +[phone] Marii Woods MD Primary Care Provider + [phone] Marii Woods MD Unavailable [phone] Reason for Visit * Reason Comments Medication Refill Encounter Details Date Type Department Care Team (Late st Contact Info) Description 08/31/2019 Refill [facility] [address] [place] [address] Barbara Garner, TECHNOLOGY COORDINATOR [address] [place] [address] Chronic migraine without aura, with intractable migraine, [...] 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 Not on file documented as of this encounter Plan of Treatment Not on file documented as of this encounter Visit Diagnoses Diagnosis Chronic migraine without aura, with intractable migraine, so stated, with status migrainosus documented in this encounter Care Teams Cyber Defense Analyst Relationship Specialty Start Date End Date Shanika Hillman MD PCP - General Internal Medicine 12/29/17 09/28/19 Marii Woods MD 1060 [facility] [place] [address] PCP - General Internal Medicine 09/29/19 01/22/20 Pcp, No PCP - General 01/23/20 03/06/20 [place] [address] [place] [address], [place] [address] PCP - C[employer] Commercial Attributed 10/16/19 04/15/20 Marii Woods MD 1060 [facility] [place] [address] PCP - General Internal Medicine 03/07/20 08/07/21 [place] [address] [place] [address], [place] [address] PCP - C[employer] Commercial Attributed 08/15/20 05/16/21 Jadon Devlin MD [address] [place] [address] Gastroenterology 09/29/19 documented as of this encounter
--- OUTSIDE RECORDS SUMMARY | 2024-09-28 10:29 | XMS_ITS | Encounter Summary ---
Author Organization [facility] Address [address] [place] [address] Care Team Providers Care Management Lead Name Role Phone Naty Rendon MD Primary Care Provider Michelle Mccoy DO Primary Care Provider [phone] Shanika Hillman MD Primary Care Provider [phone] Shanika Hillman MD Unavailable [phone] Jadon Devlin MD Unavailable [phone] Marii Woods MD Primary Care Provider [phone] Pcp, No Primary Care Provider Unavailolivia e Marii Woods MD Unavailable +[phone] Marii Woods MD Primary Care Provider Marii Woods MD Unavailable [phone] Encounter Details Date Type Department Care Team (Late st Contact Info) Description 08/23/2015 Scanned Document [facility] 10[address] [place] [address] Naty Rendon MD [facility] [address] [place] [address] Social History Tobacco Use Types Packs/Day [...] filedocumented in this encounter Care Teams Management Lead Relationship Specialty Start Date End Date Naty Rendon MD PCP - General Internal Medicine 03/18/15 02/02/16 Michelle Mccoy DO PCP - General Family Medicine 02/03/16 12/28/17 Shanika Hillman MD PCP - General Internal Medicine 12/29/17 09/28/19 Shanika Hillman MD [address] [place] [address] 4[address] [place] [address] PCP - Cign[employer] Commercial Attributed 02/14/19 05/16/19 Marii Woods MD 1060 [facility] [place] [address] PCP - General Internal Medicine 09/29/19 01/22/20 Pcp, No PCP - General 01/23/20 03/06/20 Marii Woods MD [address] [place] [address] PCP - Cign[employer] Commercial Attributed 10/16/19 04/15/20 Marii Woods MD 1060 [facility] [place] [address] PCP - General Internal Medicine 03/07/20 08/07/21 Marii Woods MD [address] [place] [address] PCP - Cign[employer] Commercial Attributed 08/15/20 05/16/21 Jadon Devlin MD 21 [facility] 100 [place] [address] Gastroenterology 09/29/19 documented as of this encounter
--- OUTSIDE RECORDS SUMMARY | 2024-09-28 10:29 | XMS_ITS | Encounter Summary ---
Author Organization [facility] Address [address] [place] [address] Care Team Providers Care Yarn Bleaching Machine Operator Name Role Phone Naty Rendon MD Primary Care Provider Michelle Mccoy DO Primary Care Provider [phone] Shanika Hillman MD Primary Care Provider [phone] Shanika Hillman MD Unavailable [phone] Jadon Devlin MD Unavailable [phone] Marii Woods MD Primary Care Provider [phone] Pcp, No Primary Care Provider Unavailolivia e Marii Woods MD Unavailable Marii Woods MD Primary Care Provider Marii Woods MD Unavailable [phone] Encounter Details Date Type Department Care Team (Late st Contact Info) Description 08/26/2015 Scanned Document [facility] [address] [place] [address] Naty Rendon MD [facility] [address] [place] [address] Social History Tobacco Use Types Packs/Day [...] on filedocumented in this encounter Care Teams Yarn Bleaching Machine Operator Relationship Specialty Start Date End Date Naty Rendon MD PCP - General Internal Medicine 03/18/15 02/02/16 Michelle Mccoy DO PCP - General Family Medicine 02/03/16 12/28/17 Shanika Hillman MD PCP - General Internal Medicine 12/29/17 09/28/19 Shanika Hillman MD [address] [place] [address] 4011 [place] [address] PCP - Cign[employer] Commercial Attributed 02/14/19 05/16/19 Marii Woods MD 1060 [facility] [place] [address] PCP - General Internal Medicine 09/29/19 01/22/20 Pcp, No PCP - General 01/23/20 03/06/20 Marii Woods MD [address] [place] [address] PCP - Cigna Commercial Attributed 10/16/19 04/15/20 Marii Woods MD 1060 [facility] [place] [address] PCP - General Internal Medicine 03/07/20 08/07/21 Marii Woods MD 1060 [place] [address] PCP - Cign[employer] Commercial Attributed 08/15/20 05/16/21 Jadon Devlin MD 21 [facility] 100 [place] [address] Gastroenterology 09/29/19 documented as of this encounter
--- OUTSIDE RECORDS SUMMARY | 2024-09-28 10:29 | XMS_ITS | Encounter Summary ---
Author Organization [facility] Address [address] [place] [address] Care Team Providers Care Seat Pack Inspector Name Role Phone Shanika Hillman MD Primary Care Provider Shanika Hillman MD Unavailable [phone] Jadon Devlin MD Unavailable [phone] Marii Woods MD Primary Care Provider Pcp, No Primary Care Provider Unavailolivia e Marii Woods MD Unavailable +[phone] Marii Woods MD Primary Care Provider + [phone] Marii Woods MD Unavailable [phone] Reason for Visit * Reason Comments Medication Refill Encounter Details Date Type Department Care Team (Late st Contact Info) Description 04/06/[address] [address] Shanika Hillman MD [address] [place] [address] Depressive disorder (Primary Dx) Social History [...] 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 file documented as of this encounter Plan of Treatment Not on file documented as of this encounter Visit Diagnoses Diagnosis Depressive disorder- Primary Depressive disorder, not elsewhere classified documented in this encounter Care Teams Seat Pack Inspector Relationship Specialty Start Date End Date Shanika Hillman MD PCP - General Internal Medicine 12/29/17 09/28/19 Shanika Hillman MD 234 [facility] 4011 [place] [address] PCP - Cign[employer] Commercial Attributed 02/14/19 05/16/19 Marii Woods MD 1060 [facility] [place] [address] PCP - General Internal Medicine 09/29/19 01/22/20 Pcp, No PCP - General 01/23/20 03/06/20 Marii Woods MD 1060 [facility] [address] PCP - Cigna Commercial Attributed 10/16/19 04/15/20 Marii Woods MD 1060 [facility] [place] [address] PCP - General Internal Medicine 03/07/20 08/07/21 Marii Woods MD 1060 [facility] [address] PCP - Cigna Commercial Attributed 08/15/20 05/16/21 Jadon Devlin MD [address] [place] [address] 100 [place] [address] Gastroenterology 09/29/19 documented as of this encounter
--- OUTSIDE RECORDS SUMMARY | 2024-09-28 10:29 | XMS_ITS | Encounter Summary ---
Author Organization [facility] Address [address] [place], [place] [id number] Care Team Providers Care Combat Rifle Crewmember Name Role Phone Naty Rendon MD Primary Care Provider [phone] Michelle Mccoy DO Primary Care Provider [phone] Shanika Hillman MD Primary Care Provider [phone] Shanika Hillman MD Unavailable [phone] Jadon Devlin MD Unavailable +[phone] Marii Woods MD Primary Care Provider [phone] Pcp, No Primary Care Provider UnavailMarii Dominguez MD Unavailable [phone] Marii Woods MD Primary Care Provider + [phone] Marii Woods MD Unavailable [phone] Naty Rendon MD Primary Care Provider [phone] Encounter Details Date Type Department Care Team (Late st Contact Info) Description 02/01/2015 Scanned Document [address] [phone] Provider, Generic Social History Tobacco Use Types [...] on filedocumented in this encounter Care Teams Combat Rifle Crewmember Relationship Specialty Start Date End Date Naty Rendon MD PCP - General Internal Medicine 03/18/15 02/02/16 Michelle Mccoy DO PCP - General Family Medicine 02/03/16 12/28/17 Shanika Hillman MD PCP - General Internal Medicine 12/29/17 09/28/19 Shanika Hillman MD 234 [facility] [address] [place] [address] PCP - Cigna Commercial Attributed 02/14/19 05/16/19 Marii Woods MD 1060 [facility] [place] [address] PCP - General Internal Medicine 09/29/19 01/22/20 Pcp, No PCP - General 01/23/20 03/06/20 Marii Woods MD 1060 [place] [address] PCP - Cigna Commercial Attributed 10/16/19 04/15/20 Marii Woods MD [address] [facility] [address] PCP - General Internal Medicine 03/07/20 08/07/21 Marii Woods MD 1060 [place] [address] PCP - Cigna Commercial Attributed 08/15/20 05/16/21 Naty Rendon MD [address] [place] [address] PCP - General 03/17/15 Jadon Devlin MD [address] [place] [address] 100 [place] [address] Gastroenterology 09/29/19 documented as of this encounter
--- OUTSIDE RECORDS SUMMARY | 2024-09-28 10:29 | XMS_ITS | Encounter Summary ---
Author Organization [facility] Address [address] [place] [address] Care Team Providers Care Board Member Name Role Phone Michelle Mccoy DO Primary Care Provider [phone] Shanika Hillman MD Primary Care Provider [phone] Shanika Hillman MD Unavailable [phone] Jadon Devlin MD Unavailable [phone] Marii Woods MD Primary Care Provider Pcp, No Primary Care Provider UnavailMarii Dominguez MD Unavailable [phone] Marii Woods MD Primary Care Provider + [phone] Marii Woods MD Unavailable [phone] Encounter Details Date Type Department Care Team (Late st Contact Info) Description 11/11/2016 Scanned Document [address] [address] Michelle Mccoy DO [address] [place] [address] Social History Tobacco Use Types Packs/Day Years [...] on filedocumented in this encounter Care Teams Board Member Relationship Specialty Start Date End Date Michelle Mccoy DO PCP - General Family Medicine 02/03/16 12/28/17 Shanika Hillman MD PCP - General Internal Medicine 12/29/17 09/28/19 Shanika Hillman MD [address] [place] [address] [place] [address] PCP - Cigna Commercial Attributed 02/14/19 05/16/19 Marii Woods MD 1060 [place] [address] PCP - General Internal Medicine 09/29/19 01/22/20 Pcp, No PCP - General 01/23/20 03/06/20 Marii Woods MD 1060 [place] [address] PCP - Cigna Commercial Attributed 10/16/19 04/15/20 Marii Woods MD [address] [place] [address] PCP - General Internal Medicine 03/07/20 08/07/21 Marii Woods MD [address] [place] [place] [address] PCP - Cigna Commercial Attributed 08/15/20 05/16/21 Jadon Devlin MD 21 [place] [address] Gastroenterology 09/29/19 documented as of this encounter
--- OUTSIDE RECORDS SUMMARY | 2024-09-28 10:29 | XMS_ITS | Encounter Summary ---
Author Organization [facility] Address [address] [place] [address] Care Team Providers Care Boom Man Name Role Phone Dede Mccoyi Lorna MATHEWS Primary Care Provider [phone] Shanika Hillman MD Primary Care Provider [phone] Shanika Hillman MD Unavailable [phone] Jadon Devlin MD Unavailable [phone] Marii Woods MD Primary Care Provider + [phone] Pcp, No Primary Care Provider Unavailolivia e Marii Woods MD Unavailable [phone] Marii Woods MD Primary Care Provider [phone] Marii Woods MD Unavailable [phone] Encounter Details Date Type Department Care Team (Late st Contact Info) Description 05/19/2016 Scanned Document [address] [phone] Provider, Generic Social History Tobacco Use Types [...] on filedocumented in this encounter Care Teams Boom Man Relationship Specialty Start Date End Date Michelle MccoyDO PCP - General Family Medicine 02/03/16 12/28/17 Shanika Hillman MD PCP - General Internal Medicine 12/29/17 09/28/19 Shanika Hillman MD [address] [place] [address] 4011 [place] [address] PCP - Cigna Commercial Attributed 02/14/19 05/16/19 Marii Woods MD 1060 [place] [address] PCP - General Internal Medicine 09/29/19 01/22/20 Pcp, No PCP - General 01/23/20 03/06/20 Marii Woods MD 1060 [place] [address] PCP - Cigna Commercial Attributed 10/16/19 04/15/20 Marii Woods MD 1060 [place] [address] PCP - General Internal Medicine 03/07/20 08/07/21 Marii Woods MD 1060 [facility] [place] [address] PCP - Cigna Commercial Attributed 08/15/20 05/16/21 Jadon Devlin MD [address] [address] Gastroenterology 09/29/19 documented as of this encounter
--- OUTSIDE RECORDS SUMMARY | 2024-09-28 10:29 | XMS_ITS | Encounter Summary ---
Author Organization [facility] Address [address] [place] [address] Care Team Providers Care Test Tech Name Role Phone Naty Rendon MD Primary Care Provider [phone] Michelle Mccoy DO Primary Care Provider [phone] Shanika Hillman MD Primary Care Provider [phone] Shanika Hillman MD Unavailable [phone] Jadon Devlin MD Unavailable [phone] Marii Woods MD Primary Care Provider + [phone] Pcp, No Primary Care Provider Unavailabl e Marii Woods MD Unavailable [phone] Marii Woods MD Primary Care Provider + [phone] Marii Woods MD Unavailable [phone] Encounter Details Date Type Department Care Team (Late st Contact Info) Description 08/22/2015 Scanned Document [address] [phone] Provider, Generic Social History Tobacco Use Types [...] on filedocumented in this encounter Care Teams Test Tech Relationship Specialty Start Date End Date Naty Rendon MD PCP - General Internal Medicine 03/18/15 02/02/16 Michelle Mccoy DO PCP - General Family Medicine 02/03/16 12/28/17 Shanika Hillman MD PCP - General Internal Medicine 12/29/17 09/28/19 Shanika Hillman MD 234 [facility] 4[address] [place] [address] PCP - Cigna Commercial Attributed 02/14/19 05/16/19 Marii Woods MD 1060 [place] [address] PCP - General Internal Medicine 09/29/19 01/22/20 Pcp, No PCP - General 01/23/20 03/06/20 Marii Woods MD 1060 [place] [address] PCP - Cigna Commercial Attributed 10/16/19 04/15/20 Marii Woods MD 1060 [place] [address] PCP - General Internal Medicine 03/07/20 08/07/21 Marii Woods MD 1060 [place] [address] PCP - Cigna Commercial Attributed 08/15/20 05/16/21 Jadon Devlin MD [address] [place] [address] Gastroenterology 09/29/19 documented as of this encounter
--- OUTSIDE RECORDS SUMMARY | 2024-09-28 10:29 | XMS_ITS | Encounter Summary ---
Author Organization [facility] Address [address] [place] [address] Care Team Providers Care Digital Data Analyst Name Role Phone Shanika Hillman MD Primary Care Provider Shanika Hillman MD Unavailable [phone] Jadon Devlin MD Unavailable [phone] Marii Woods MD Primary Care Provider [phone] Pcp, No Primary Care Provider Unavailolivia e Marii Woods MD Unavailable +[phone] Marii Woods MD Primary Care Provider + [phone] Marii Woods MD Unavailable [phone] Reason for Visit * Reason Comments Medication Refill Encounter Details Date Type Department Care Team (Late st Contact Info) Description 05/04/[address] [address] Shanika Hillman MD [address] [place] [address] Chronic migraine without aura, with intractable [...] 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 file documented as of this encounter Plan of Treatment Not on file documented as of this encounter Visit Diagnoses Diagnosis Chronic migraine without aura, with intractable migraine, so stated, with status migrainosus Other migraine without status migrainosus, not intractable Other depression documented in this encounter Care Teams Digital Data Analyst Relationship Specialty Start Date End Date Shanika Hillman MD PCP - General Internal Medicine 12/29/17 09/28/19 Shanika Hillman MD [address] [place] [address] 4[address] [place] [address] PCP - Cigna Commercial Attributed 02/14/19 05/16/19 Marii Woods MD 1060 [facility] [place] [address] PCP - General Internal Medicine 09/29/19 01/22/20 Pcp, No PCP - General 01/23/20 03/06/20 Marii Woods MD 1060 [place] [address] PCP - Cigna Commercial Attributed 10/16/19 04/15/20 Marii Woods MD 1060 [place] [address] PCP - General Internal Medicine 03/07/20 08/07/21 Marii Woods MD 1060 [place] [address] PCP - Cigna Commercial Attributed 08/15/20 05/16/21 Jadon Devlin MD [address] [place] [address] 100 [place] [address] Gastroenterology 09/29/19 documented as of this encounter
--- OUTSIDE RECORDS SUMMARY | 2024-09-28 10:29 | XMS_ITS | Encounter Summary ---
Author Organization [facility] Address [address] [place] [address] Care Team Providers Care Fur Ironer Name Role Phone Jadon Devlin MD Unavailable [phone] Marii Woods MD Primary Care Provider + [phone] Pcp, No Primary Care Provider Unavailabl e Marii Woods MD Unavailable +[phone] Marii Woods MD Primary Care Provider + [phone] Marii Woods MD Unavailable [phone] Reason for Visit * Reason Comments Medication Refill Encounter Details Date Type Department Care Team (Late st Contact Info) Description 10/26/2019 Refill [facility] 1060 [place] [phone] Barbara Garner, ENGLISH DRAWER 10[address] [place], [place] [address] Other migraine without status migrainosus, not intractable; [...] 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 Not [...] depression documented in this encounter Care Teams Fur Ironer Relationship Specialty Start Date End Date Marii Woods MD 1060 [place] [address] PCP - General Internal Medicine 09/29/19 01/22/20 Pcp, No PCP - General 01/23/20 03/06/20 Marii Woods MD 1059 [place] [address] PCP - C[employer] Commercial Attributed 10/16/19 04/15/20 Marii Woods MD 1060 [facility] [place] [address] PCP - General Internal Medicine 03/07/20 08/07/21 Marii Woods MD 1060 [facility] [place] [address] PCP - Cigna Commercial Attributed 08/15/20 05/16/21 Jadon Devlin MD [address] [place] [address] Gastroenterology 09/29/19 documented as of this encounter
--- OUTSIDE RECORDS SUMMARY | 2024-09-28 10:29 | XMS_ITS | Encounter Summary ---
Author Organization [facility] Address [address] [place] [address] Care Team Providers Care Hydro Pneumatic Tester Name Role Phone Shanika Hillman MD Primary Care Provider Jadon Devlin MD Unavailable [phone] Marii Woods MD Primary Care Provider Pcp, No Primary Care Provider UnavailMarii Dominguez MD Unavailable [phone] Marii Woods MD Primary Care Provider + [phone] Marii Woods MD Unavailable [phone] Reason for Visit * Reason Comments Medication Refill Encounter Details Date Type Department Care Team (Late st Contact Info) Description 08/03/[address] [address] Barbara Garner, JOURNEYMAN GLAZIER 1060 [place], [place] [address] Other migraine without status migrainosus, not intractable; [...] 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 [...] depression documented in this encounter Care Teams Hydro Pneumatic Tester Relationship Specialty Start Date End Date Shanika Hillman MD PCP - General Internal Medicine 12/29/17 09/28/19 Marii Woods MD 1060 [facility] [place] [address] PCP - General Internal Medicine 09/29/19 01/22/20 Pcp, No PCP - General 01/23/20 03/06/20 Marii Woods MD 1060 [facility] [place] [address] PCP - [employer] Commercial Attributed 10/16/19 04/15/20 Marii Woods MD 1060 [facility] [address] PCP - General Internal Medicine 03/07/20 08/07/21 Marii Woods MD 1060 [facility] [address] PCP - [employer] Commercial Attributed 08/15/20 05/16/21 Jadon Devlin MD [address] [place] [address] Gastroenterology 09/29/19 documented as of this encounter
--- OUTSIDE RECORDS SUMMARY | 2024-09-28 10:29 | XMS_ITS | Encounter Summary ---
Author Organization [facility] Address [address] [place] [address] Care Team Providers Care Tableau Lead Name Role Phone Dede Mccoyi Lorna MATHEWS Primary Care Provider [phone] Shanika Hillman MD Primary Care Provider [phone] Shanika Hillman MD Unavailable [phone] Jadon Devlin MD Unavailable [phone] Marii Woods MD Primary Care Provider + [phone] Pcp, No Primary Care Provider Unavailolivia e Marii Woods MD Unavailable [phone] Marii Woods MD Primary Care Provider [phone] Marii Woods MD Unavailable [phone] Encounter Details Date Type Department Care Team (Late st Contact Info) Description 10/19/2016 Scanned Document [address] [phone] Provider, Generic Social History Tobacco Use Types [...] on filedocumented in this encounter Care Teams Tableau Lead Relationship Specialty Start Date End Date Michelle MccoyDO PCP - General Family Medicine 02/03/16 12/28/17 Shanika Hillman MD PCP - General Internal Medicine 12/29/17 09/28/19 Shanika Hillman MD [address] [place] [address] 4011 [place] [address] PCP - [employer] Commercial Attributed 02/14/19 05/16/19 Marii Woods MD 1060 [place] [address] PCP - General Internal Medicine 09/29/19 01/22/20 Pcp, No PCP - General 01/23/20 03/06/20 Marii Woods MD 1060 [place] [address] PCP - [employer] Commercial Attributed 10/16/19 04/15/20 Marii Woods MD 1060 [place] [address] PCP - General Internal Medicine 03/07/20 08/07/21 Marii Woods MD 1060 [place] [address] PCP - [employer] Commercial Attributed 08/15/20 05/16/21 Jadon Devlin MD [address] [address] Gastroenterology 09/29/19 documented as of this encounter
--- OUTSIDE RECORDS SUMMARY | 2024-09-28 10:29 | XMS_ITS | Encounter Summary ---
Author Organization [facility] Address [address] [place] [address] Care Team Providers Care Shutdown Planner Name Role Phone Naty Rendon MD Primary Care Provider [phone] Michelle Mccoy DO Primary Care Provider [phone] Shanika Hillman MD Primary Care Provider [phone] Shanika Hillman MD Unavailable [phone] Jadon Devlin MD Unavailable [phone] Marii Woods MD Primary Care Provider [phone] Pcp, No Primary Care Provider Unavailolivia e Marii Woods MD Unavailable +[phone] Marii Woods MD Primary Care Provider Marii Woods MD Unavailable [phone] Encounter Details Date Type Department Care Team (Late st Contact Info) Description 08/21/2015 Scanned Document [facility] 1060 [place] [address] Naty Rendon MD [facility] [address] [place] [address] Social History Tobacco Use Types Packs/Day [...] on filedocumented in this encounter Care Teams Shutdown Planner Relationship Specialty Start Date End Date Naty Rendon MD PCP - General Internal Medicine 03/18/15 02/02/16 Michelle Mccoy DO PCP - General Family Medicine 02/03/16 12/28/17 Shanika Hillman MD PCP - General Internal Medicine 12/29/17 09/28/19 Shanika Hillman MD [address] [place] [address] 4011 [place] [address] PCP - [employer] Commercial Attributed 02/14/19 05/16/19 Marii Woods MD 1060 [facility] [place] [address] PCP - General Internal Medicine 09/29/19 01/22/20 Pcp, No PCP - General 01/23/20 03/06/20 Marii Woods MD [address] [place] [address] PCP - [employer] Commercial Attributed 10/16/19 04/15/20 Marii Woods MD 1060 [facility] [place] [address] PCP - General Internal Medicine 03/07/20 08/07/21 Marii Woods MD 10[address] [place] [address] PCP - [employer] Commercial Attributed 08/15/20 05/16/21 Jadon Devlin MD 21 [facility] 100 [place] [address] Gastroenterology 09/29/19 documented as of this encounter
--- OUTSIDE RECORDS SUMMARY | 2024-09-28 10:29 | XMS_ITS | Encounter Summary ---
Author Organization [facility] Address [address] [place] [address] Care Team Providers Care Product Handler Name Role Phone Naty Rendon MD Primary Care Provider Michelle Mccoy DO Primary Care Provider [phone] Shanika Hillman MD Primary Care Provider [phone] Shanika Hillman MD Unavailable [phone] Jadon Devlin MD Unavailable [phone] Marii Woods MD Primary Care Provider + [phone] Pcp, No Primary Care Provider Unavailabl e Marii Woods MD Unavailable [phone] Marii Woods MD Primary Care Provider + [phone] Marii Woods MD Unavailable [phone] Encounter Details Date Type Department Care Team (Late st Contact Info) Description 07/08/2015 Scanned Document [address] [phone] Provider, Generic Social History Tobacco Use Types [...] on filedocumented in this encounter Care Teams Product Handler Relationship Specialty Start Date End Date Naty Rendon MD PCP - General Internal Medicine 03/18/15 02/02/16 Michelle Mccoy DO PCP - General Family Medicine 02/03/16 12/28/17 Shanika Hillman MD PCP - General Internal Medicine 12/29/17 09/28/19 Shanika Hillman MD [address] [place] [address] 4011 [place] [address] PCP - [employer] Commercial Attributed 02/14/19 05/16/19 Marii Woods MD 1060 [facility] [place] [address] PCP - General Internal Medicine 09/29/19 01/22/20 Pcp, No PCP - General 01/23/20 03/06/20 Marii Woods MD 1060 [facility] [place] [address] PCP - [employer] Commercial Attributed 10/16/19 04/15/20 Marii Woods MD 1060 [facility] [address] PCP - General Internal Medicine 03/07/20 08/07/21 Marii Woods MD 1060 [place] [address] PCP - [employer] Commercial Attributed 08/15/20 05/16/21 Jadon Devlin MD 21 [facility] 100 [place] [address] Gastroenterology 09/29/19 documented as of this encounter
--- OUTSIDE RECORDS SUMMARY | 2024-09-28 10:29 | XMS_ITS | Encounter Summary ---
Author Organization [facility] Address [address] [place] [address] Care Team Providers Care Student Life Coordinator Name Role Phone Shanika Hillman MD Primary Care Provider [phone] Shanika Hillman MD Unavailable [phone] Jadon Devlin MD Unavailable [phone] Marii Woods MD Primary Care Provider [phone] Pcp, No Primary Care Provider Unavailolivia e Marii Woods MD Unavailable [phone] Marii Woods MD Primary Care Provider + [phone] Marii Woods MD Unavailable [phone] Reason for Visit * Reason Comments Medication Refill Encounter Details Date Type Department Care Team (Late st Contact Info) Description 02/01/[address] [address] Shanika Hillman MD [address] [place] [address] Mild intermittent asthmatic bronchitis with acute [...] 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 Not on file documented as of this encounter Plan of Treatment Not on file documented as of this encounter Visit Diagnoses Diagnosis Mild intermittent asthmatic bronchitis with acute exacerbation documented in this encounter Care Teams Student Life Coordinator Relationship Specialty Start Date End Date Shanika Hillman MD PCP - General Internal Medicine 12/29/17 09/28/19 Shanika Hillman MD 234 [facility] 4011 [place] [address] PCP - [employer] Commercial Attributed 02/14/19 05/16/19 Marii Woods MD 1060 [place] [address] PCP - General Internal Medicine 09/29/19 01/22/20 Pcp, No PCP - General 01/23/20 03/06/20 Marii Woods MD 1060 [place] [address] PCP - [employer] Commercial Attributed 10/16/19 04/15/20 Marii Woods MD 1060 [place] [address] PCP - General Internal Medicine 03/07/20 08/07/21 Marii Woods MD 1060 [place] [address] PCP - [employer] Commercial Attributed 08/15/20 05/16/21 Jadon Devlin MD [address] [place] [address] 100 [place] [address] Gastroenterology 09/29/19 documented as of this encounter
--- OUTSIDE RECORDS SUMMARY | 2024-09-28 10:29 | XMS_ITS | Encounter Summary ---
Author Organization [facility] Address [address] [place] [address] Care Team Providers Care Carpet Winder Name Role Phone Shanika Hillman MD Primary Care Provider [phone] Jadon Devlin MD Unavailable [phone] Marii Woods MD Primary Care Provider [phone] Pcp, No Primary Care Provider UnavailMarii Dominguez MD Unavailable [phone] Marii Woods MD Primary Care Provider + [phone] Marii Woods MD Unavailable [phone] Reason for Visit * Reason Comments Medication Refill Encounter Details Date Type Department Care Team (Late st Contact Info) Description 06/02/[address] [address] Shanika Hillman MD [address] [place] [address] Gastroesophageal reflux disease without esophagitis Social [...] 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 [place] [address] PCP - General Internal Medicine 09/29/19 01/22/20 Pcp, No PCP - General 01/23/20 03/06/20 Marii Woods MD [address] [facility] [place] [address] PCP - [employer] Commercial Attributed 10/16/19 04/15/20 Marii Woods MD [address] [facility] [place] [address] PCP - General Internal Medicine 03/07/20 08/07/21 Marii Woods MD [address] [place] [address], [place] [address] PCP - [employer] Commercial Attributed 08/15/20 05/16/21 Jadon Devlin MD [address] [place] [address] Gastroenterology 09/29/19 documented as of this encounter
--- OUTSIDE RECORDS SUMMARY | 2024-09-28 10:30 | XMS_ITS | Encounter Summary ---
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
--- OUTSIDE RECORDS SUMMARY | 2024-09-28 10:30 | XMS_ITS | Encounter Summary ---
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 Not on file documented as of this encounter Plan of Treatment Not on file documented as of this encounter Visit Diagnoses Not on filedocumented in this encounter Care Teams Water Conservationist Relationship Specialty Start Date End Date Marii Woods MD 1060 [facility] [address] PCP - General Internal Medicine 03/07/20 08/07/21 [place] [address] [place], [place] [address], [place] [address] PCP - [employer] Commercial Attributed 08/15/20 05/16/21 Jadon Devlin MD [address] [place] [address] 100 [place] [address] Gastroenterology 09/29/19 documented as of this encounter
--- OUTSIDE RECORDS SUMMARY | 2024-09-28 10:30 | XMS_ITS | Clinical Summary ---
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 file [...] IMAGING BREAST/BX/MAMMO Routine 06/06/2020 THINPREP PAP TEST (GUIDE RAIL CLEANER) WITH HPV SCREEN Routine 07/28/2018 2:15 PM EDT Screening for cervical cancer HXAMB HEPATITIS C VIRAL RNA QUAL TMA Routine 03/01/2012 8:46 AM EDT from Last 3 Months or Most Recently Relevant to Health Maintenance Results * (ABNORMAL) Lipid panel (11/28/2020 7:11 AM EDT) Cholesterol, Total 217(H) <200 mg/dL [facility] Cholesterol, HDL 42(L) > OR = 50 mg/dL [facility] Triglycerides 187(H) <150 mg/dL [facility] LDL Cholesterol 143(H) mg/dL (calc) [facility] Comment: Reference range: <100 Desirable range <100 mg/dL for primary prevention; ?? <70 mg/dL for patients with CHD or diabetic patients with > or = 2 CHD risk factors. LDL-C is now calculated using the Fani calculation, which is a validated novel method providing better accuracy than the Friedewald equation in the estimation of LDL-C. Jamal PICHARDO et al. VASILIY. 2013;310(19): 2230-8873 (http://education.Cinpost/faq/AZQ405) Cholesterol/HDL Ratio 5.2(H) <5.0 (calc) [facility] Non HDL Chol. (LDL+VLDL) 175(H) <130 mg/dL (calc) [facility] Comment: For patients with diabetes plus 1 major ASCVD risk factor, treating to a non-HDL-C goal of <100 mg/dL (LDL-C of <70 mg/dL) is considered a therapeutic option. Blood specimen (specimen) Heel structure / Unknown 11/28/2020 7:11 AM EDT 11/28/2020 7:12 AM EDT Narrative [facility] - 11/29/2020 4:14 PM EDT FASTING:YES FASTING: YES [facility] SORIAN[facility] LAB BLOOD ORDERABLES Final Resul t [facility] [address], [place] [address] * (ABNORMAL) IMAGING BREAST/BX/MAMMO (06/06/2020) Anatomical Region Laterality Modality Other Marii Woods MD IMG LEGACY PROCEDURES Edit ed Result - Final * ThinPrep Pap Test (Song Lyricist) with HPV Screen (07/28/2018 2:15 PM EDT) [...] has been evaluated with computer assisted technology. Foundry Helper: OLGA Mavent RAYSHAWN NL1 Comment: KN, CT(ASCP) CT screening location: [address] ??[address] Review Foundry Helper: DINORA TABARES NL1 Comment: MSM, CT(ASCP) CT screening location: [address] ??[address] Comment [facility] Comment: EXPLANATORY NOTE: [...] was performed using the APTIMA HPV Assay ([employer] This assay detects E6/E7 viral messenger RNA (mRNA) from 14 high-risk HPV types (16,18,31,33,35,39,45,51,52,56,58,59,66,68). The analytical performance characteristics of this assay have been determined by [facility]. The modifications have not been cleared or approved by the FDA. This assay has been validated pursuant to the CLIA regulations and is used for clinical purposes. 07/28/2018 2:15 PM EDT 07/29/2018 2:39 AM EDT Narrative Resulting Agency Comment Performing Organization Information: ?Site ID: [id number] ?Name: [facility] ?Address: [address] [place] [address], [place] [address] ?Director: Zbigniew Willson MD us Shanika Hillman MD LAB AMB PATH/CYTO ORDERABLES F inal Result [facility] [address], [place] [address] * Hepatitis C Viral Rna Qual TMA (03/01/2012 8:46 AM EDT) Hepatitis C Viral Rna Qual Tma NONREACTIVE NONREACTIVE [facility] CONVERSION 03/01/2012 8:46 AM EDT us Rafi SORIANO HX LAB Final Result [facility] CONVERSION from Last 3 Months or Most Recently Relevant to Health Maintenance Insurance [employer] HMO Care Teams Automatic Cigar Wrapper Tender Relationship Specialty Start Date End Date Jadon Devlin MD [address] [place] [address] Gastroenterology 09/29/19
--- OUTSIDE RECORDS SUMMARY | 2024-09-28 10:30 | XMS_ITS | Encounter Summary ---
Author Organization [facility] Address [address] [place] [address] Care Team Providers Care Barrel Straightener Name Role Phone Jadon Devlin MD Unavailable [phone] Marii Woods MD Unavailable [phone] Marii Woods MD Primary Care Provider + [phone] Marii Woods MD Unavailable [phone] Reason for Visit * Reason Onset Date Comments Medication Refill 03/12/2020 Encounter Details Date Type Department Care Team (Late st Contact Info) Description 03/12/[address] [address] Marii Woods MD [address] [place] [address] Mild intermittent asthmatic bronchitis with acute [...] 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 Not [...] reflux documented in this encounter Care Teams Barrel Straightener Relationship Specialty Start Date End Date Marii Woods MD 1060 [facility] [address] PCP - C[employer] Commercial Attributed 10/16/19 04/15/20 Marii Woods MD 1060 [facility] [address] PCP - General Internal Medicine 03/07/20 08/07/21 Marii Woods MD 0 [facility] [address] PCP - C[employer] Commercial Attributed 08/15/20 05/16/21 Jadon Devlin MD [address] [place] [address] Gastroenterology 09/29/19 documented as of this encounter
--- OUTSIDE RECORDS SUMMARY | 2024-09-28 10:30 | XMS_ITS | Encounter Summary ---
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
--- OUTSIDE RECORDS SUMMARY | 2024-09-28 10:30 | XMS_ITS | Encounter Summary ---
Author Organization 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
--- OUTSIDE RECORDS SUMMARY | 2024-09-28 10:30 | XMS_ITS | Encounter Summary ---
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
--- OUTSIDE RECORDS SUMMARY | 2024-09-28 10:30 | XMS_ITS | Encounter Summary ---
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
--- OUTSIDE RECORDS SUMMARY | 2024-09-28 10:30 | XMS_ITS | Encounter Summary ---
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 [address] PCP - General Internal Medicine 03/07/20 08/07/21 [place] [address] [place], [place] [address], [place] [address] PCP - [employer] Commercial Attributed 08/15/20 05/16/21 Jadon Devlin MD [address] [place] [address] 100 [place] [address] Gastroenterology 09/29/19 documented as of this encounter
--- OUTSIDE RECORDS SUMMARY | 2024-09-28 10:30 | XMS_ITS | Encounter Summary ---
Author Organization [facility] Address [address] [place] [address] Care Team Providers Care Benzene Still Utility Operator Name Role Phone Jadon Devlin MD Unavailable [phone] Marii Woods MD Primary Care Provider + [phone] Marii Woods MD Unavailable [phone] Reason for Visit * Reason Comments Medication Refill Encounter Details Date Type Department Care Team (Late st Contact Info) Description 12/19/2020 Refill [facility] [place] [address] [place] [address] Barbara Garner, SENIOR MANUFACTURING TECHNICIAN [address] [place] [address] Other depression; Chronic migraine without aura, with [...] 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 Not on file documented as of this encounter Plan of Treatment Not on file documented as of this encounter Visit Diagnoses Diagnosis Other depression Chronic migraine without aura, with intractable migraine, so stated, with status migrainosus Other migraine without status migrainosus, not intractable documented in this encounter Care Teams Benzene Still Utility Operator Relationship Specialty Start Date End Date Marii Woods MD 1060 [facility] [place] [address] PCP - General Internal Medicine 03/07/20 08/07/21 Marii Woods MD 1060 [facility] [place] [address] PCP - C[employer] Commercial Attributed 08/15/20 05/16/21 Jadon Devlin MD [address] [place] [address] Gastroenterology 09/29/19 documented as of this encounter
--- OUTSIDE RECORDS SUMMARY | 2024-09-28 10:30 | XMS_ITS | Encounter Summary ---
Author Organization [facility] Address [address] [place] [address] Care Team Providers Care Gerentological Physiotherapist Name Role Phone Shanika Hillman MD Primary Care Provider Shanika Hillman MD Unavailable [phone] Jadon Devlin MD Unavailable Marii Woods MD Primary Care Provider [phone] Pcp, No Primary Care Provider Unavailolivia e Marii Woods MD Unavailable [phone] Marii Woods MD Primary Care Provider + [phone] Marii Woods MD Unavailable [phone] Encounter Details Date Type Department Care Team (Late st Contact Info) Description 01/09/[address] [facility] 10 [facility] [address] [place] [phone] Jadon Devlin MD [address] [place] [address] Social History Tobacco Use Types Packs/Day Years [...] 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 Not [...] on filedocumented in this encounter Care Teams Gerentological Physiotherapist Relationship Specialty Start Date End Date Shanika Hillman MD PCP - General Internal Medicine 12/29/17 09/28/19 Shanika Hillman MD 234 [facility] 4011 [place] [address] PCP - C[employer] Commercial Attributed 02/14/19 05/16/19 Marii Woods MD 1060 [facility] [place] [place] [address] PCP - General Internal Medicine 09/29/19 01/22/20 Pcp, No PCP - General 01/23/20 03/06/20 Marii Woods MD 1060 [facility] [place] [place] [address] PCP - C[employer] Commercial Attributed 10/16/19 04/15/20 Marii Woods MD 1060 [facility] [place] [place] [address] PCP - General Internal Medicine 03/07/20 08/07/21 Marii Woods MD 1060 [place] [address] PCP - C[employer] Commercial Attributed 08/15/20 05/16/21 Jadon Devlin MD [address] [place] [address] 100 [place] [address] Gastroenterology 09/29/19 documented as of this encounter
--- OUTSIDE RECORDS SUMMARY | 2024-09-28 10:30 | XMS_ITS | Encounter Summary ---
Author Organization [facility] Address [address] [place] [address] Care Team Providers Care Transaction Coordinator Name Role Phone Jadon Devlin MD Unavailable [phone] Marii Woods MD Primary Care Provider [phone] Reason for Visit * Reason Comments Medication Refill Encounter Details Date Type Department Care Team (Late st Contact Info) Description 08/05/2021 Refill [facility] Medical [address] [phone] Marii Woods MD [address] [place] [address] Essential hypertension Social History Tobacco Use [...] 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 Not on file documented as of this encounter Miscellaneous Notes * Telephone Encounter - Marii Woods MD - 08/08/2021 3:14 PM EDT TRANSFERRING TO NEW PCP documented in this encounter Plan of Treatment Not on file documented as of this encounter Visit Diagnoses Diagnosis Essential hypertension Unspecified essential hypertension documented in this encounter Care Teams Transaction Coordinator Relationship Specialty Start Date End Date Marii Woods MD 1060 [place] [address] PCP - General Internal Medicine 03/07/20 08/07/21 Jadon Devlin MD 21 [facility] 100 [place] [address] Gastroenterology 09/29/19 documented as of this encounter
--- OUTSIDE RECORDS SUMMARY | 2024-09-28 10:30 | XMS_ITS | Encounter Summary ---
Author Organization [facility] Address [address] [place] [address] Care Team Providers Care Supervisor Audit Clerks Name Role Phone Naty Rendon MD Primary Care Provider Michelle Mccoy DO Primary Care Provider [phone] Shanika Hillman MD Primary Care Provider [phone] Shanika Hillman MD Unavailable [phone] Jadon Devlin MD Unavailable Marii Woods MD Primary Care Provider [phone] Pcp, No Primary Care Provider Unavailolivia e Marii Woods MD Unavailable [phone] Marii Woods MD Primary Care Provider Marii Woods MD Unavailable [phone] Encounter Details Date Type Department Care Team (Late st Contact Info) Description 10/24/2015 Telephone [facility] 10[address] [place] [address] Naty Rendon MD [facility] [address] [place] [address] Social History Tobacco Use Types Packs/Day [...] filedocumented in this encounter Care Teams Supervisor Audit Clerks Relationship Specialty Start Date End Date Naty Rendon MD PCP - General Internal Medicine 03/18/15 02/02/16 Michelle Mccoy DO PCP - General Family Medicine 02/03/16 12/28/17 Shanika Hillman MD PCP - General Internal Medicine 12/29/17 09/28/19 Shanika Hillman MD [address] [email or web address] 4[address] [place] [address] PCP - Cigna Commercial Attributed 02/14/19 05/16/19 Marii Woods MD [address] [facility] [place] [address] PCP - General Internal Medicine 09/29/19 01/22/20 Pcp, No PCP - General 01/23/20 03/06/20 Marii Woods MD [address] [place] [address], [place] [address] PCP - C[employer]a Commercial Attributed 10/16/19 04/15/20 Marii Woods MD [address] [place] [address], [place] [address] PCP - General Internal Medicine 03/07/20 08/07/21 Marii Woods MD [address] [place] [address], [place] [address] PCP - C[employer]a Commercial Attributed 08/15/20 05/16/21 Jadon Devlin MD [address] [place] [address] 100 [place] [address] Gastroenterology 09/29/19 documented as of this encounter
--- OUTSIDE RECORDS SUMMARY | 2024-09-28 10:30 | XMS_ITS | Encounter Summary ---
Author Organization [facility] Address [address] [place] [address] Care Team Providers Care Application Packaging Consultant Name Role Phone Jadon Devlin MD Unavailable [phone] Marii Woods MD Primary Care Provider + [phone] Marii Woods MD Unavailable [phone] Reason for Visit * Reason Comments Medication Refill Encounter Details Date Type Department Care Team (Late st Contact Info) Description 08/21/2020 Refill [facility] [address] [address] Marii Woods MD [address] [place] [phone] Gastroesophageal reflux disease without esophagitis Social History [...] 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
--- OUTSIDE RECORDS SUMMARY | 2024-09-28 10:30 | XMS_ITS | Encounter Summary ---
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
--- OUTSIDE RECORDS SUMMARY | 2024-09-28 10:30 | XMS_ITS | Encounter Summary ---
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
--- OUTSIDE RECORDS SUMMARY | 2024-09-28 10:30 | XMS_ITS | Encounter Summary ---
Author Organization [facility] Address [address] [place] [address] Care Team Providers Care Assistant Kitchen Manager Name Role Phone Jadon Devlin MD Unavailable [phone] Marii Woods MD Primary Care Provider + [phone] Marii Woods MD Unavailable [phone] Reason for Visit * Reason Comments Medication Refill Encounter Details Date Type Department Care Team (Late st Contact Info) Description 03/04/2021 Refill [facility] [address] [address] Marii Woods MD [address] [place] [phone] Left chest pressure; Palpitations; Tachycardia; Essential hypertension [...] 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 Not on file documented as of this encounter Plan of Treatment Not on file documented as of this encounter Visit Diagnoses Diagnosis Left chest pressure Palpitations Tachycardia Unspecified tachycardia Essential hypertension Unspecified essential hypertension documented in this encounter Care Teams Assistant Kitchen Manager Relationship Specialty Start Date End Date Marii Woods MD 1060 [place] [address] PCP - General Internal Medicine 03/07/20 08/07/21 Marii Woods MD 0 [place] [address] PCP - Cign[employer] Commercial Attributed 08/15/20 05/16/21 Jadon Devlin MD [address] [place] [address] 100 [place] [address] Gastroenterology 09/29/19 documented as of this encounter
--- OUTSIDE RECORDS SUMMARY | 2024-09-28 10:30 | XMS_ITS | Encounter Summary ---
Author Organization [facility] Address [address] [place] [address] Care Team Providers Care Textile Knitter Name Role Phone Shanika Hillman MD Primary Care Provider [phone] Shanika Hillman MD Unavailable [phone] Jadon Devlin MD Unavailable [phone] Marii Woods MD Primary Care Provider [phone] Pcp, No Primary Care Provider Unavailolivia e Marii Woods MD Unavailable [phone] Marii Woods MD Primary Care Provider + [phone] Marii Woods MD Unavailable [phone] Encounter Details Date Type Department Care Team (Late st Contact Info) Description 03/27/2019 Scanned Document [place] [id number] [place] [address] Shanika Hillman MD [address] [place] [address] Social History Tobacco Use Types Packs/Day [...] 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 Not on file documented as of this encounter Plan of Treatment Not on file documented as of this encounter Visit Diagnoses Not on filedocumented in this encounter Care Teams Textile Knitter Relationship Specialty Start Date End Date Shanika Hillman MD PCP - General Internal Medicine 12/29/17 09/28/19 Shanika Hillman MD [address] [place] [address] 4[address] [place] [address] PCP - C[employer] Commercial Attributed 02/14/19 05/16/19 Marii Woods MD 1060 [place] [address] PCP - General Internal Medicine 09/29/19 01/22/20 Pcp, No PCP - General 01/23/20 03/06/20 Marii Woods MD 1060 [place] [address] PCP - C[employer] Commercial Attributed 10/16/19 04/15/20 Marii Woods MD 1060 [place] [address] PCP - General Internal Medicine 03/07/20 08/07/21 Marii Woods MD 1060 [place] [address] PCP - [employer] Commercial Attributed 08/15/20 05/16/21 Jadon Devlin MD [address] [place] [address] 100 [place] [address] Gastroenterology 09/29/19 documented as of this encounter
--- OUTSIDE RECORDS SUMMARY | 2024-09-28 10:30 | XMS_ITS | Encounter Summary ---
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
--- OUTSIDE RECORDS SUMMARY | 2024-09-28 10:30 | XMS_ITS | Encounter Summary ---
Author Organization [facility] Address [address] [place] [address] Care Team Providers Care Informatics Physician Name Role Phone Jadon Devlin MD Unavailable [phone] Marii Woods MD Unavailable [phone] Marii Woods MD Primary Care Provider Marii Woods MD Unavailable [phone] Reason for Visit * Reason Comments Medication Refill Encounter Details Date Type Department Care Team (Late st Contact Info) Description 03/19/[address] [address] Chirag Hicks PA [facility] [address] [place] [address] Other depression; Chronic migraine without aura, with [...] 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
--- OUTSIDE RECORDS SUMMARY | 2024-09-28 10:30 | XMS_ITS | Encounter Summary ---
Author Organization [facility] Address [address] [place] [address] Care Team Providers Care Salad Maker Name Role Phone Michelle Mccoy DO Primary Care Provider [phone] Shanika Hillman MD Primary Care Provider [phone] Shanika Hillman MD Unavailable [phone] Jadon Devlin MD Unavailable [phone] Marii Woods MD Primary Care Provider Pcp, No Primary Care Provider UnavailMarii Dominguez MD Unavailable [phone] Marii Woods MD Primary Care Provider + [phone] Marii Woods MD Unavailable [phone] Encounter Details Date Type Department Care Team (Late st Contact Info) Description 03/18/2017 Scanned Document [facility] 1060 [place] [address] Michelle Mccoy DO [address] [place] [address] Social History Tobacco Use Types Packs/Day Years [...] on filedocumented in this encounter Care Teams Salad Maker Relationship Specialty Start Date End Date Michelle Mccoy DO PCP - General Family Medicine 02/03/16 12/28/17 Shanika Hillman MD PCP - General Internal Medicine 12/29/17 09/28/19 Shanika Hillman MD [address] [place] [address] 4011 [place] [address] PCP - C[employer] Commercial Attributed 02/14/19 05/16/19 Marii Woods MD 1060 [facility] [place] [address] PCP - General Internal Medicine 09/29/19 01/22/20 Pcp, No PCP - General 01/23/20 03/06/20 Marii Woods MD 1060 [facility] [place] [address] PCP - C[employer] Commercial Attributed 10/16/19 04/15/20 Marii Woods MD 1060 [facility] [place] [address] PCP - General Internal Medicine 03/07/20 08/07/21 Marii Woods MD 1060 [facility] [place] [address] PCP - C[employer] Commercial Attributed 08/15/20 05/16/21 Jadon Devlin MD [address] [place] [address] Gastroenterology 09/29/19 documented as of this encounter
--- OUTSIDE RECORDS SUMMARY | 2024-09-28 10:30 | XMS_ITS | Encounter Summary ---
Author Organization [facility] Address [address] [place] [address] Care Team Providers Care Profile Shaper Operator Name Role Phone Shanika Hillman MD Primary Care Provider Shanika Hillman MD Unavailable [phone] Jadon Devlin MD Unavailable [phone] Marii Woods MD Primary Care Provider [phone] Pcp, No Primary Care Provider Unavailolivia e Marii Woods MD Unavailable [phone] Marii Woods MD Primary Care Provider + [phone] Marii Woods MD Unavailable Reason for Visit * Reason Onset Date Comments Medication Refill 04/27/2018 Encounter Details Date Type Department Care Team (Late st Contact Info) Description 04/27/2018 Refill [facility] [address] [place] [phone] Shanika Hillman MD [address] [place] [address] Chronic migraine without aura, with intractable [...] depression documented in this encounter Care Teams Profile Shaper Operator Relationship Specialty Start Date End Date Shanika Hillman MD PCP - General Internal Medicine 12/29/17 09/28/19 Shanika Hillman MD 234 [facility] 4[address] [place] [address] PCP - C[employer] Commercial Attributed 02/14/19 05/16/19 Marii Woods MD 1060 [place] [address] PCP - General Internal Medicine 09/29/19 01/22/20 Pcp, No PCP - General 01/23/20 03/06/20 Marii Woods MD [address] [place] [address] PCP - C[employer] Commercial Attributed 10/16/19 04/15/20 Marii Woods MD 1060 [place] [address] PCP - General Internal Medicine 03/07/20 08/07/21 Marii Woods MD 1060 [place] [address] PCP - C[employer] Commercial Attributed 08/15/20 05/16/21 Jadon Devlin MD 21 [facility] 100 [place] [address] Gastroenterology 09/29/19 documented as of this encounter
--- OUTSIDE RECORDS SUMMARY | 2024-09-28 10:30 | XMS_ITS | Encounter Summary ---
Author Organization [facility] Address [address] [place] [address] Care Team Providers Care Wet Chemistry Analyst Name Role Phone Dede Mccoyi Lorna MATHEWS Primary Care Provider [phone] Shanika Hillman MD Primary Care Provider [phone] Shanika Hillman MD Unavailable [phone] Jadon Devlin MD Unavailable [phone] Marii Woods MD Primary Care Provider + [phone] Pcp, No Primary Care Provider Unavailolivia e Marii Woods MD Unavailable [phone] Marii Woods MD Primary Care Provider +[phone] Marii Woods MD Unavailable [phone] Encounter Details Date Type Department Care Team (Late st Contact Info) Description 04/01/2016 Scanned Document [address] [phone] Provider, Generic Social History Tobacco Use Types [...] on filedocumented in this encounter Care Teams Wet Chemistry Analyst Relationship Specialty Start Date End Date Michelle Mccoy DO PCP - General Family Medicine 02/03/16 12/28/17 Shanika Hillman MD PCP - General Internal Medicine 12/29/17 09/28/19 Shanika Hillman MD 234 [facility] 4011 [place] [address] PCP - Cigna Commercial Attributed 02/14/19 05/16/19 Marii Woods MD 1060 [facility] [place] [address] PCP - General Internal Medicine 09/29/19 01/22/20 Pcp, No PCP - General 01/23/20 03/06/20 Marii Woods MD 1060 [facility] [place] [address] PCP - Cigna Commercial Attributed 10/16/19 04/15/20 Marii Woods MD [address] [place] [address] PCP - General Internal Medicine 03/07/20 08/07/21 Marii Woods MD [address] [place] [address] PCP - C[employer] Commercial Attributed 08/15/20 05/16/21 Jadon Devlin MD [address] [place] [address] 100 [place] [address] Gastroenterology 09/29/19 documented as of this encounter
--- OUTSIDE RECORDS SUMMARY | 2024-09-28 10:30 | XMS_ITS | Encounter Summary ---
Author Organization [facility] Address [address] [place] [address] Care Team Providers Care Vp Human Resources Name Role Phone Jadon Devlin MD Unavailable [phone] Marii Woods MD Primary Care Provider + [phone] Marii Woods MD Unavailable [phone] Reason for Visit * Reason Comments Medication Refill Encounter Details Date Type Department Care Team (Late st Contact Info) Description 10/09/2020 Refill [facility] [address] [address] Marii Woods MD [address] [place] [address] Other depression; Chronic migraine without aura, [...] 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
--- OUTSIDE RECORDS SUMMARY | 2024-09-28 10:30 | XMS_ITS | Encounter Summary ---
Author Organization [facility] Address [address] [place] [address] Care Team Providers Care Spinning And Winding Supervisor Name Role Phone Shanika Hillman MD Primary Care Provider [phone] Shanika Hillman MD Unavailable Jdaon Devlin MD Unavailable [phone] Marii Woods MD Primary Care Provider + [phone] Pcp, No Primary Care Provider Unavailolivia e Marii Woods MD Unavailable [phone] Marii Woods MD Primary Care Provider + [phone] Marii Woods MD Unavailable [phone] Encounter Details Date Type Department Care Team (Late st Contact Info) Description 10/15/2018 Scanned Document [address] [address] Provider, Generic Social History Tobacco [...] on filedocumented in this encounter Care Teams Spinning And Winding Supervisor Relationship Specialty Start Date End Date Shanika Hillman MD PCP - General Internal Medicine 12/29/17 09/28/19 Shanika Hillman MD [facility] [address] [place] [address] PCP - Cigna Commercial Attributed 02/14/19 05/16/19 Marii Woods MD 1060 [place] [address] PCP - General Internal Medicine 09/29/19 01/22/20 Pcp, No PCP - General 01/23/20 03/06/20 Marii Woods MD 1060 [place] [address] PCP - Cigna Commercial Attributed 10/16/19 04/15/20 Marii Woods MD 1060 [place] [address] PCP - General Internal Medicine 03/07/20 08/07/21 Marii Woods MD 1060 [place] [address] PCP - Cign[employer] Commercial Attributed 08/15/20 05/16/21 Jadon Devlin MD [address] [place] [address] 100 [place] [address] Gastroenterology 09/29/19 documented as of this encounter
--- OUTSIDE RECORDS SUMMARY | 2024-09-28 10:30 | XMS_ITS | Encounter Summary ---
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
--- OUTSIDE RECORDS SUMMARY | 2024-09-28 10:30 | XMS_ITS | Encounter Summary ---
Author Organization [facility] Address [address] [place] [address] Care Team Providers Care Boilermaker Fitter Name Role Phone Dede Mccoyi Lorna MATHEWS Primary Care Provider [phone] Shanika Hillman MD Primary Care Provider [phone] Shanika Hillman MD Unavailable [phone] Jadon Devlin MD Unavailable [phone] Marii Woods MD Primary Care Provider + [phone] Pcp, No Primary Care Provider Unavailolivia e Marii Woods MD Unavailable [phone] Marii Woods MD Primary Care Provider [phone] Marii Woods MD Unavailable [phone] Encounter Details Date Type Department Care Team (Late st Contact Info) Description 02/21/2016 Scanned Document [address] [phone] Provider, Generic Social History Tobacco Use Types [...] on filedocumented in this encounter Care Teams Boilermaker Fitter Relationship Specialty Start Date End Date Michelle Mccoy DO PCP - General Family Medicine 02/03/16 12/28/17 Shanika Hillman MD PCP - General Internal Medicine 12/29/17 09/28/19 Shanika Hillman MD [address] [place] [address] 4[address] [place] [address] PCP - Cigna Commercial Attributed 02/14/19 05/16/19 Marii Woods MD [address] [place] [address] PCP - General Internal Medicine 09/29/19 01/22/20 Pcp, No PCP - General 01/23/20 03/06/20 Marii Woods MD [address] [place] [address] PCP - Cigna Commercial Attributed 10/16/19 04/15/20 Marii Woods MD [address] [place] [address] PCP - General Internal Medicine 03/07/20 08/07/21 [place] [address] [place] [address] PCP - Cigna Commercial Attributed 08/15/20 05/16/21 Jadon Devlin MD [address] [place] [address] Gastroenterology 09/29/19 documented as of this encounter
--- OUTSIDE RECORDS SUMMARY | 2024-09-28 10:30 | XMS_ITS | Encounter Summary ---
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
--- OUTSIDE RECORDS SUMMARY | 2024-09-28 10:30 | XMS_ITS | Encounter Summary ---
Author Organization [facility] Address [address] [place] [address] Care Team Providers Care Beveller Operator Name Role Phone Michelle Mccoy DO Primary Care Provider [phone] Shanika Hillman MD Primary Care Provider [phone] Shanika Hillman MD Unavailable [phone] Jadon Devlin MD Unavailable [phone] Marii Woods MD Primary Care Provider Pcp, No Primary Care Provider UnavailMarii Dominguez MD Unavailable [phone] Marii Woods MD Primary Care Provider + [phone] Marii Woods MD Unavailable [phone] Encounter Details Date Type Department Care Team (Late st Contact Info) Description 03/04/2017 Scanned Document [place] [address] [place] [address] Michelle Mccoy DO [address] [place] [address] Social History Tobacco Use Types Packs/Day Years [...] on filedocumented in this encounter Care Teams Beveller Operator Relationship Specialty Start Date End Date Michelle Mccoy DO PCP - General Family Medicine 02/03/16 12/28/17 Shanika Hillman MD PCP - General Internal Medicine 12/29/17 09/28/19 Shanika Hillman MD [address] [place] [address] 4[address] [place] [address] PCP - Cigna Commercial Attributed 02/14/19 05/16/19 Marii Woods MD [address]60 [place] [address] PCP - General Internal Medicine 09/29/19 01/22/20 Pcp, No PCP - General 01/23/20 03/06/20 Marii Woods MD [address] [place] [address] PCP - Cigna Commercial Attributed 10/16/19 04/15/20 Marii Woods MD [address] [place] [address] PCP - General Internal Medicine 03/07/20 08/07/21 Marii Woods MD [address] [place] [address] PCP - Cigna Commercial Attributed 08/15/20 05/16/21 Jadon Devlin MD [address] [place] [address] Gastroenterology 09/29/19 documented as of this encounter
--- OUTSIDE RECORDS SUMMARY | 2024-09-28 10:30 | XMS_ITS | Encounter Summary ---
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
--- OUTSIDE RECORDS SUMMARY | 2024-09-28 10:30 | XMS_ITS | Encounter Summary ---
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 Not on file Not on file documented as of this encounter Plan of Treatment Not on file documented as of this encounter Visit Diagnoses Not on filedocumented in this encounter Care Teams Fire Control Mechanic Relationship Specialty Start Date End Date Marii Woods MD 1060 [facility] [place] [address] PCP - General Internal Medicine 03/07/20 08/07/21 [place] [address] [place], [place] [address], [place] [address] PCP - Cigna Commercial Attributed 08/15/20 05/16/21 Jadon Devlin MD [address] [place] [address] 100 [place] [address] Gastroenterology 09/29/19 documented as of this encounter
--- OUTSIDE RECORDS SUMMARY | 2024-09-28 10:30 | XMS_ITS | Encounter Summary ---
Author Organization [facility] Address [address] [place] [address] Care Team Providers Care Navigating Officer Name Role Phone Jadon Devlin MD Unavailable [phone] Marii Woods MD Unavailable [phone] Marii Woods MD Primary Care Provider Marii Woods MD Unavailable [phone] Reason for Visit * Reason Onset Date Comments Medication Refill 03/12/2020 Encounter Details Date Type Department Care Team (Late st Contact Info) Description 03/12/[address] [phone] Chirag Hicks, BO [facility] [address] [place] [address] Other depression Social History Tobacco Use Types [...] 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
--- OUTSIDE RECORDS SUMMARY | 2024-09-28 10:30 | XMS_ITS | Encounter Summary ---
Author Organization [facility] Address [address] [place] [address] Care Team Providers Care Garment Looper Name Role Phone Jadon Devlin MD Unavailable [phone] Marii Woods MD Unavailable [phone] Marii Woods MD Primary Care Provider Marii Woods MD Unavailable [phone] Reason for Visit * Reason Onset Date Comments Medication Refill 03/12/2020 Encounter Details Date Type Department Care Team (Late st Contact Info) Description 03/12/[address] [phone] Chirag Hicks, BO [facility] [address] [place] [address] Other depression; Chronic migraine without aura, with [...] 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
[2024-09-28 12:06] LABS: Appearance Urine Clear; Color Urine Yellow; Glucose Urine UA Negative (Negative); Leukocyte Esterase Urine Negative (Negative); Nitrite Urine Negative (Negative); PH 6.5 (5.0-9.0); Urine Blood Negative (Negative); Urine Ketones Negative (Negative); Urine Protein Negative (Neg-Trace)
[2024-09-28 12:09] LABS: Bacteria Urine Trace (None Seen); Hyaline Casts Urine 0-2 /LPF (0-2); RBC Urine 0-2 /HPF (0-2); WBC Urine 0-5 /HPF (0-5)
== END 2024-09-28 09:39 | disposition home or self-care (01) ==
LOC: HO.WFDLDS 09:38
PROVIDERS: Visit Provider Physician Assistant Medical
DX: R35.1 Nocturia (principal); R39.9 Unspecified symptoms and signs involving the genitourinary system
CPT/HCPCS: 81001; 87086

== ENCOUNTER 2024-11-30 06:29 | Outpatient (REF) | payer BC, SELFPAY ==
--- NOTE | ~2024-11-30 | XR_ITS ---
EXAMINATION: XR HIP 2 OR MORE VIEWS BILATERAL HISTORY: M25.551 - Pain in right hip COMPARISON: There are no prior studies available for comparison. FINDINGS: A single AP view of the pelvis and two views of each hip are submitted. Osseous mineralization is normal. There is no fracture or dislocation. The joint space is maintained. The soft tissues are unremarkable. A disc prosthesis is seen at L5-S1. XR/XR hip BI w PEL1V IMPRESSION: Unremarkable examination of the bilateral hips. Electronically signed by: Rigoberto Gomez MD 11/30/2024 07:58 AM EDT
--- OUTSIDE RECORDS SUMMARY | 2024-11-30 06:32 | XMS_ITS ---
Author Name [facility] Organization Unknown History of Medication Use Medication Directions Dispensed Refills Start Date End Date Stat us EPINEPHrine 0.15 mg/0.3 mL IJ auto-injection Inject 0.6 mL (0.3 mg total) into the shoulder, thigh, or buttocks once as needed for allergic reaction. 01/31/2019 active albuterol (PROVENTIL HFA; VENTOLIN HFA) 108 (90 Base) MCG/ACT inhaler Inhale 2 puffs 4 times daily (every 6 hours) as needed for wheezing or shortness of breath. 04/28/2018 active Allergies Allergen Reaction Severity Comment Documented Date Source Statu s BEE VENOM ANAPHYLAXIS 03/19/2015 [facility] active Problems Problem Status Onset Date Problem Type Date of Resoluti on Source Asthma active 2013-10-25 ProblemAct [facility] PSVT (paroxysmal [...] ProblemAct [facility] Palpitations active 2020-07-30 ProblemAct [facility] Migraine active 2013-10-25 ProblemAct [facility] Displacement of lumbar intervertebral disc without myelopathy active 2013-10-25 ProblemAct [facility] Low back pain active 2014-02-21 ProblemAct [facility] T Class 3 severe obesity due to excess calories without serious comorbidity with body mass index (BMI) of 40.0 to 44.9 in adult active 2018-03-01 ProblemAct [facility] Insomnia active 2014-07-09 ProblemAct [facility] Chest pain active 2020-07-18 ProblemAct [facility] Gamble's esophagus without dysplasia active 2019-01-04 ProblemAct [facility] Thyroid nodule active 2020-01-30 ProblemAct [facility] B12 deficiency active 2013-10-25 ProblemAct [facility] Depressive disorder active 2014-05-28 ProblemAct [facility] Essential hypertension active 2020-07-30 ProblemAct [facility] Delayed gastric emptying active 2016-04-15 ProblemAct [facility] Pulmonary nodule active 2019-09-29 ProblemAct [facility] Status post laparoscopic Lizeth fundoplication active 2019-01-04 ProblemAct [facility] Prediabetes active 2016-03-24 ProblemAct [facility] Immunizations Vaccine Date Source Lot Number Status Influenza Inactivated/Split Preservative Free IM 03/01/2018 CCT [id number] completed Influenza Inactivated/Split Preservative Free IM 03/25/2017 CCT [id number] - FLUARIX 0.5 ML SYRINGE completed Influenza Inactivated/Split Preservative Free IM 02/20/2016 CCT [id number] completed Influenza Inactivated/Split Preservative Free IM 06/13/2015 [facility] [id number] - FLUARIX 0.5 ML SYRINGE completed Influenza Inactivated/Split with Preservative IM 02/21/2014 [facility] [id number] completed Influenza Inactivated/Split Preservative Free IM 03/07/2013 [facility] [id number] completed Influenza Inactivated/Split Preservative Free IM 03/09/2012 CCT [id number] completed Influenza Inactivated/Split Preservative Free IM 02/19/2011 CCT [id number] completed Influenza Inactivated/Split Preservative Free IM 01/22/2010 CCT [id number] completed Tdap 08/15/2007 CCT [id number] completed Tdap 07/16/2007 [facility] completed Care Team Organization Name Specialty Phone Email Start Date End Da te [facility] BONNIE NUÑEZ, Primary Care
== END 2024-11-30 06:30 | disposition home or self-care (01) ==
LOC: HO.XRAY 06:29
PROVIDERS: PCP Physician Assistant Medical; Visit Provider Physician Assistant Medical
DX: M25.551 Pain in right hip (principal); M25.552 Pain in left hip
CPT/HCPCS: 73521

== ENCOUNTER → 2024-11-30 06:34 | Outpatient (BNV) | payer BC, SELFPAY | PROVIDERS: PCP Physician Assistant Medical; Visit Provider Radiology Diagnostic Radiology | DX: M25.551 Pain in right hip (principal) | CPT/HCPCS: 73521 ==

== ENCOUNTER 2024-12-27 07:28 | Outpatient (REF) | payer BC, SELFPAY ==
--- OUTSIDE RECORDS SUMMARY | 2024-12-27 07:30 | XMS_ITS | Encounter Summary ---
Author Organization [facility] Address [address] [place] [address] Care Team Providers Care Repair Servicer Name Role Phone Shanika Hillman MD Primary Care Provider Jadon Devlin MD Unavailable [phone] Marii Woods MD Primary Care Provider Pcp, No Primary Care Provider UnavailMarii Dominguez MD Unavailable [phone] Marii Woods MD Primary Care Provider + [phone] Marii Woods MD Unavailable [phone] Reason for Visit * Reason Comments Medication Refill Encounter Details Date Type Department Care Team (Late st Contact Info) Description 09/28/2019 Refill [facility] [address] [place] [address] Barbara Garner, WEEDER THINNER [address] [place] [address] Chronic migraine without aura, with intractable migraine, [...] 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 on file [...] intractable migraine, so stated, with status migrainosus Chronic migraine without aura, with intractable migraine, so stated, with status migrainosus documented in this encounter Care Teams Repair Servicer Relationship Specialty Start Date End Date Shanika Hillman MD PCP - General Internal Medicine 12/29/17 09/28/19 Marii Woods MD [address] [place] [address] PCP - General Internal Medicine 09/29/19 01/22/20 Pcp, No PCP - General 01/23/20 03/06/20 Marii Woods MD [facility] [place] [address] PCP - Cigna Commercial Attributed 10/16/19 04/15/20 Marii Woods MD [address]60 [facility] [place] [address] PCP - General Internal Medicine 03/07/20 08/07/21 Marii Woods MD [address] [facility] [place] [address] PCP - C[employer] Commercial Attributed 08/15/20 05/16/21 Jadon Devlin MD [address] [place] [address] 100 [place] [address] Gastroenterology 09/29/19 documented as of this encounter
[2024-12-27 11:25] LABS: MANUAL DIFF FLAG NO
[2024-12-27 11:29] LABS: Appearance Urine Clear; Glucose Urine UA Negative (Negative); PH 6.5 (5.0-9.0); Specific Gravity - Urine 1.020 (1.005-1.025); UMIC TRIGGER UA YES
[2024-12-27 11:32] LABS: Hematocrit 39.4 % (37.0-47.0); Hemoglobin 12.4 g/dl (12.0-16.0); Imm Gran Abs Auto 0.01 X10*3/uL (0.00-0.03); Imm Gran Pct Auto 0.2 % (0.0-0.4); Lymphocytes Absolute Auto 1.8 X10*3/uL (1.2-4.9); Mean Corpuscular HGB Conc 31.5 g/dl (31.0-35.0); Mean Corpuscular Hemoglobin 25.7 pg (27.0-33.0); Mean Corpuscular Volume 81.7 fL (80.0-98.0); NRBC Abs Auto 0.000 X10*3/uL (0.0-0.012); NRBC Pct Auto 0.0 /100WBC (0.0-0.2); Platelet Count 225 X10*3/uL (160-400); Red Blood Count 4.82 X10*6/uL (4.20-5.50); White Blood Count 4.6 X10*3/uL (4.8-10.8)
[2024-12-27 12:07] LABS: Alanine Aminotransferase 25 U/L (0-31); Albumin Level 4.2 g/dL (3.5-5.0); Alkaline Phosphatase 57 U/L (39-117); Anion Gap 10 (12-20); Aspartate Amino Transferase 25 U/L (5-31); Blood Urea Nitrogen 15 mg/dL (9-16); Calcium 8.9 mg/dL (8.4-10.2); Carbon Dioxide 24 mmol/L (22-29); Chloride 111 mmol/L (96-108); Estimated Glomerular Filt Rate > 60; Magnesium 2.3 mg/dL (1.6-2.6); Potassium 4.2 mmol/L (3.3-5.1); Sodium 141 mmol/L (135-145); Total Protein 6.6 g/dL (6.5-8.0)
[2024-12-27 12:15] LABS: Hemoglobin A1C 165.7486 umol/L; Total Hemoglobin (HGBA1C) 3355.1646 umol/L
[2024-12-27 12:18] LABS: Vitamin B12 1160 pg/mL (200-900)
[2024-12-28 14:43] LABS: Lyme Abs Screen <0.90 index
[2025-01-01 12:48] LABS: Vitamin D 25-OH, D2 <4 ng/mL; Vitamin D 25-OH, D3 28 ng/mL; Vitamin D 25-OH, Total 28 ng/mL (30-100)
== END 2024-12-27 07:29 | disposition home or self-care (01) ==
LOC: HO.WFDLDS 07:28
PROVIDERS: Visit Provider Physician Assistant Medical
DX: Z01.84 Encounter for antibody response examination (principal); E11.9 Type 2 diabetes mellitus without complications; R20.2 Paresthesia of skin; M85.80 Other specified disorders of bone density and structure, unspecified site; R39.9 Unspecified symptoms and signs involving the genitourinary system; Z91.89 Other specified personal risk factors, not elsewhere classified
CPT/HCPCS: 36415; 80053; 81001; 82306; 82607; 83036; 83735; 84443; 85025; 85652; 86617; 86618; 87086

== ENCOUNTER 2025-01-01 08:54 | Outpatient (AMB) | payer BC, SELFPAY ==
--- NOTE | 2025-01-01 08:58 | A.OFFPC_ITS ---
Vital Signs 01/01/25 09:04 Height 5 ft 3 in Weight 235 lb 4 oz BMI 41.7 BP 102/68 Blood Pressure Location Lt brachial Position Sitting Respiration 14 Pulse 85 Pulse Source Pulse Oximeter Temp 97 F Temp Source Temporal Artery Scan Pulse Oximetry (%) 97 Oxygen Delivery Method Room Air Intake Visit Reasons: diabetes Intake Note: Thelma presents in the office today for diabetes. Allergies pneumococcal vaccine (From Prevnar 20 (PF)) Allergy (Mild, Verified 09/28/24 08:45) Other bee pollen (BEE STINGS) Allergy (Unknown, Verified 09/28/24 08:45) ANAPHYLAXIS Tobacco use date assessed: 01/01/25 Dental Screening Dental Screen Date: 01/01/25 Did you have a dental visit in the last 12 months?: No Did you have a dental problem in the last 6 months where you did not have access to dental care?: No Was dental information given to patient?: Yes HPI HPI Comments History of Present Illness Details This is a 59-year-old female with hyperlipidemia, type 2 diabetes, hypertension, migraine headaches, hepatic steatosis, hepatitis-C status post treatment in 2009, gastroparesis, thyroid nodules, asthma and lumbar spondylosis presenting for follow up. Endorses intermittent bitter taste in mouth for the past 6 months. Associated symptoms include intermittent numbness and tingling in her hands and feet and less frequently around her lips. This happens randomly when she is s itting on a couch or standing. If it is present in around her lips it lasted minutes or less. She has had carpal tunnel syndrome years ago and an L5 fusion some [address] Valera. She endorses pain in her neck and lower back. She has chronic numbness on the left side of the hip since L5 fusion. This has gotten worse, and it is associated with a burning sensation. She endorses fatigue for several months. She wakes up sometimes at night due to a difficult time swallowing. Denies headaches. Denies vision changes. Sees Dr. Lagunas. No ophthalmic complications of diabetes. X-rays of the hips in November was negative. Patient says she does not have great balance, but this has been the case for ever. We reviewed her labs which demonstrated no significant abnormalities on CBC, normal renal function and electrolytes, normal hepatic function. B12 is elevated, and she is on a supplement daily. Vitamin-D is mildly decreased at 28. Lyme screening is negative. She takes Topamax for migraines. She's been on this for 20 years. Her headaches have been much better since laser iridotomy for prevention of narrow angle glaucoma.. She does not want to stop this medication without starting something else because the headaches were debilitating in the past. She is on a tricyclic antidepressant and beta-daniel as well. She takes atorvastatin for hyperlipidemia. Asthma-followed by pulmonology. She is on Spiriva and Symbicort. She uses albuterol as needed. Hypertension-taking metoprolol XL 50 mg and lisinopril 10 mg daily. She has a history of PSVT. No recurrence on beta-daniel. She was released from cardiology follow up. Type 2 diabetes-hemoglobin A1c 6.7% Patient is taking metformin extended release a 1000 mg twice a day and glipizide 5 mg daily. No retinopathy. She is monitoring her blood glucose readings at home. She met with the ramp flight attendant.. Hyperlipidemia-taking atorvastatin 20 mg daily. LDL at goal. Gastroparesis, Gamble's esophagus-She had a CT scan of the abdomen and pelvis in July 2021 which was normal aside from hepatic steatosis. She had an upper endoscopy in June 2021 which was stable. History of hiatal hernia repair in 2015 at [facility]. Now followed by Gastroenterology at [facility]. She had a mammogram in July at at [facility] which was normal. She received the Prevnar 20 vaccine in 07/2023. Patient said she had an inj ection site reaction that lasted a month, and she does not plan to receive this vaccine again. Received seasonal influenza vaccine. She is not interested in COVID vaccine right now. ROS: Constitutional: No unexplained weight loss, fever, chills, night sweats and unexplained weight loss. Eyes: Denies vision changes, vision loss, double vision, eye pain or redness. ENT: No hearing loss, sneezing, congestion, runny nose or sore throat. Respiratory: No shortness of breath, cough or sputum production. Cardiovascular: No chest pain, chest pressure or chest discomfort. No palpitations or pedal edema. Gastrointestinal: No anorexia, nausea, vomiting or diarrhea. No abdominal pain or blood in stool. Genitourinary: No dysuria, hematuria or history of kidney stones. No flank pain. Neurologic: No syncope, tremors, seizures. See HPI. Musculoskeletal: see HPI Hematologic/Lymphatics: No bleeding or bruising. No painful lymph nodes. Skin: No rash or itching. Seen by dermatology for skin exams. Endocrine: No cold or heat intolerance. No polydipsia. Psychiatric: No depression or anxiety. No SI/HI. Physical exam: Constitutional: Alert, in no distress. Head: Normocephalic. Eyes: Pupils are equal, round and reactive to light. Extraocular muscles intact. Ear, Nose and Throat: Canals clear. TMs normal. Normal nasal mucosa. No nasal discharge. No oral lesions. Neck: Supple, Full range of motion. No lymphadenopathy. No palpable thyroid masses. Respiratory: Clear to auscultation. Cardiovascular: S1 S2 regular. No murmurs. No carotid bruits. Gastrointestinal: Abdomen soft, non-tender, non-distended. Normal bowel sounds. No palpable masses. Genitourinary: No costovertebral angle tenderness. Neurologic:?Alert and oriented x 3, no focal deficits observed, CN 2-12 intact, svljbr-dajr-zmmyuo normal, sensation equal and symmetric, strength UE and LE 5/5 bilaterally, reflexes equal and symmetric.? Normal gait.? Patient able to heel walk, toe walk and walk heel-to-toe across the floor.? No pronator drift.? Negative Romberg. Skin: No rashes Musculoskeletal: hips: FROM, strength 5/5, nontender, no crepitus Extremities: Warm and well perfused. No clubbing, cyanosis or edema. Intact peripheral pulses bilaterally. [facility] Medical History (Updated 01/02/25 @ 10:57 by BO Spain) Low back pain Fatigue Numbness and tingling Paresthesia Bilateral hip pain Stress incontinence Nocturia Routine physical examination Screening for breast cancer Mild asthma exacerbation Asthma Rosacea Thyroid nodule Lung nodule PSVT (paroxysmal supraventricular tachycardia) History of hepatitis C Gastroparesis Barretts esophagus Adopted Hepatic steatosis Pure hypercholesterolemia Morbid obesity Migraines Essential hypertension Type II diabetes mellitus Carpal tunnel syndrome Hiatal hernia H/O mammogram Surgical History (Updated 03/27/24 @ 15:30 by Crystal Diggs CMA) Hx of spinal fusion H/O breast biopsy Family History Other Family history unknown Social History (Updated 08/18/25 @ 09:04 by Kendal Trevino MA) Housing: House Alcohol intake: former Patient Tobacco Use Status: Never used Tobacco e-Cigarette/Vaping Use: Never Used Second Hand Smoke Exposure: No Substance Use Type: Former Substance User and Marijuana service: No Current occupational status: employed ([employer] ) Current occupational exposures/hazards: No Cognitive needs: No Hearing needs: No Vision needs: Yes (glasses) Questionnaire PHQ-9 Over the last 2 weeks, how often have you been bothered by any of the following problems? 6. Feeling bad about yourself - or that you are a failure or have let yourself or your family down: not at all 7. Trouble concentrating on things, such as reading the newspaper or watching television: not at all 8. Moving or speaking so slowly that other people could have noticed. Or the opposite - being so fidgety or restless that you have been moving around a lot more than usual: not at all 9. Thoughts that you would be better off or of hurting yourself in some way: not at all Source: Developed by Drs. Rigoberto Frazier, America Salguero, Alistair Burleson and colleagues, with an educational sanaz from [employer]. Thrive Questionnaire Date Thrive assessed: 06/29/24 I am a: Patient What is your living situation today?: I have a steady place to live Within the past 12 months, did the food you bought not last and you didn't have the money to get more?: Never true Within the past 12 months, did you worry whether your food would run out before you got money to buy more?: Never true Do you have trouble paying for medicines?: No Do you have trouble getting transportation to medical appointments?: No Do you have trouble paying your heating and electricity bill?: No Do you have trouble taking care of your child, family member or friend?: No Do you have trouble with day-to-day activities such as bathing, preparing meals, shopping, managing finances, etc.?: No Are you currently unemployed and looking for a job?: No Are you interested in more education?: No Please select the resources that you would like help with: None Currently or been in a relationship where the following occur: No concerns reported THRIVE Score: 0 AUDIT C Alcohol Use Questionnaire (AUDIT-C) 3. How often do you have six or more drinks on one occasion?: Never Total Score: 0 RICHARD-7 AMB Questionnaire RICHARD-7 Date RICHARD - 7 assessed: 06/29/24 Source: Developed by Drs. Rigoberto Frazier, Ameriac Salguero, Alistair Burleson and colleagues, with an educational sanaz from [employer]. Physical exam (Primary Care) Vital Signs: Last Vital Signs Temp 97 F 01/01/25 09:04 Pulse 85 01/01/25 09:04 Resp 14 01/01/25 09:04 BP 102/68 01/01/25 09:04 Pulse Ox 97 01/01/25 09:04 Oxygen Delivery Method Room Air 01/01/25 09:04 BMI result Body Mass Index 41.7 Tobacco/Smoking Status: Tobacco use Status Tobacco use date assessed 01/01/25 01/01/25 09:04 Patient Tobacco Use Status Never used Tobacco 01/01/25 09:04 e-Cigarette/Vaping Use Never Used 01/01/25 09:04 Thrive Assessment: Date of Thrive Assessment Date Thrive assessed 06/29/24 01/01/25 09:00 Currently or been in a relationship where the following occur: No concerns reported Coding Level of Care Code Est Pt Level 4 (77648) Complex EM visit Add On G2211 Diagnoses Numbness and tingling R20.0; R20.2 Chronic fatigue R53.82 Fatigue type: chronic, unspecified Essential hypertension I10 Pure hypercholesterolemia E78.00 Type 2 diabetes mellitus without complication, without long-term current use of insulin E11.9 Diabetes mellitus termite control servicer insulin use: without termite control servicer use Diabetes mellitus complication status: without complication Morbid obesity E66.01 Gastroparesis K31.84 Bilateral hip pain M25.551; M25.552 Migraines G43.909 Migraine type: unspecified Assessment & Plan Assessment & Plan (1) Numbness and tingling: Code(s): R20.0 - Anesthesia of skin; R20.2 - Paresthesia of skin Category: Medical (2) Fatigue: Code(s): R53.83 - Other fatigue Category: Medical Qualifiers: Fatigue type: chronic, unspecified Qualified Code(s): R53.82 - Chronic fatigue, unspecified (3) Essential hypertension: Code(s): I10 - Essential (primary) hypertension Category: Medical (4) Pure hypercholesterolemia: Code(s): E78.00 - Pure hypercholesterolemia, unspecified Category: Medical (5) Type II diabetes mellitus: Code(s): E11.9 - Type 2 diabetes mellitus without complications Category: Medical Qualifiers: Diabetes mellitus termite control servicer insulin use: without intermediate use Diabetes mellitus complication status: without complication Qualified Code(s): E11.9 - Type 2 diabetes mellitus without complications (6) Morbid obesity: Code(s): E66.01 - Morbid (severe) obesity due to excess calories Category: Medical (7) Gastroparesis: Code(s): K31.84 - Gastroparesis Category: Medical (8) Bilateral hip pain: Code(s): M25.551 - Pain in right hip; M25.552 - Pain in left hip Category: Medical (9) Migraines: Code(s): G43.909 - Migraine, unspecified, not intractable, without status migrainosus Category: Medical Qualifiers: Migraine type: unspecified Plan In summary this is a 59-year-old female with a past medical history of controlled type 2 diabetes, morbid obesity, hypertension, Barretts esophagus, hepatic steatosis and asthma presenting for routine follow up with concerns of paresthesias involving her bilateral upper and lower extremities and occasionally the perioral area as well as fatigue and increased pain in her neck and lower back. We discussed possible etiologies for paresthesias including statin induced neuropathy, diabetic neuropathy, cervical and/or lumbar spondylosis, carpal tunnel amongst other things. May also be a side effect of Topamax. Her lab evaluation did not demonstrate any significant abnormalities. She will start a vitamin-D supplement. MRI of the head/brain ordered for evaluation of possible demyelinating disease. Ordered x-rays of the cervical and lumbar spine. Referred to physiatry and Neurology. Hold statin for 2 weeks to see if symptoms resolve or improve. She does not want to decrease or stop Topamax without replacing it with something else. She is already on a tricyclic antidepressant and beta-daniel. I am referring her to Neurology for consideration of alternative medications for migraine prophylaxis. Follow up in 4 weeks. Orders: Orders MR head/brain wo/w con 01/01/25 R20.0 - Anesthesia of skin, R20.2 - Paresthesia of skin, R53.83 - Other fatigue XR lumbar spine 2-3V 01/01/25 R20.0 - Anesthesia of skin, R20.2 - Paresthesia of skin XR cervical spine 4V 01/01/25 R20.0 - Anesthesia of skin, R20.2 - Paresthesia of skin Referrals Neurology Referral G43.909 - Migraine, unspecified, not intractable, without status migrainosus, R20.0 - Anesthesia of skin, R20.2 - Paresthesia of skin, R53.83 - Other fatigue Physiatry Referral M54.50 - Low back pain, unspecified, R20.0 - Anesthesia of skin, R20.2 - Paresthesia of skin
[2025-01-01 09:04] VITALS: BP 102/68; PULSE 85; RESP 14; TEMP 36.1; O2SAT 97; BMI 41.7
--- OUTSIDE RECORDS SUMMARY | 2025-01-01 09:24 | XMS_ITS | Encounter Summary ---
Author Organization [facility] Address [address] [place] [address] Care Team Providers Care Parachute Cushion Installer Name Role Phone Shanika Hillman MD Primary Care Provider Jadon Devlin MD Unavailable [phone] Marii Woods MD Primary Care Provider Pcp, No Primary Care Provider UnavailMarii Dominguez MD Unavailable [phone] Marii Woods MD Primary Care Provider + [phone] Marii Woods MD Unavailable [phone] Reason for Visit * Reason Comments Medication Refill Encounter Details Date Type Department Care Team (Late st Contact Info) Description 09/28/2019 Refill [facility] [address] [place] [id number] Barbara Garner, PECAN HULLER [address] [place] [address] Chronic migraine without aura, with intractable migraine, [...] 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 Not [...] migrainosus documented in this encounter Care Teams Parachute Cushion Installer Relationship Specialty Start Date End Date Shanika Hillman MD PCP - General Internal Medicine 12/29/17 09/28/19 Marii Woods MD [address] [place] [address] PCP - General Internal Medicine 09/29/19 01/22/20 Pcp, No PCP - General 01/23/20 03/06/20 Marii Woods MD [facility] [place] [address] PCP - [employer] Attributed 10/16/19 04/15/20 Marii Woods MD [address] [facility] [address] PCP - General Internal Medicine 03/07/20 08/07/21 Marii Woods MD [address] [facility] [address] PCP - [employer] Commercial Attributed 08/15/20 05/16/21 Jadon Devlin MD [address] [place] [address] [address] [place] [address] Gastroenterology 09/29/19 documented as of this encounter
== END 2025-01-01 09:44 | disposition home or self-care (01) ==
LOC: HO.HMCFM 08:55
PROVIDERS: PCP Physician Assistant Medical; Visit Provider Physician Assistant Medical
DX: E11.43 Type 2 diabetes mellitus with diabetic autonomic (poly)neuropathy (principal); E66.01 Morbid (severe) obesity due to excess calories; Z68.41 Body mass index [BMI] 40.0-44.9, adult; R20.0 Anesthesia of skin; R20.2 Paresthesia of skin; K31.84 Gastroparesis; R53.82 Chronic fatigue, unspecified; I10 Essential (primary) hypertension; E78.00 Pure hypercholesterolemia, unspecified; M25.551 Pain in right hip; M25.552 Pain in left hip; G43.909 Migraine, unspecified, not intractable, without status migrainosus

== ENCOUNTER 2025-01-27 08:43 | Outpatient (REF) | payer BC, SELFPAY ==
--- NOTE | ~2025-01-27 | XR_ITS ---
EXAMINATION: XR CERVICAL SPINE 4-5 VIEWS HISTORY: R20.0 - Anesthesia of skin COMPARISON: There are no prior studies available for comparison. FINDINGS: AP, lateral, bilateral oblique, and open-mouth odontoid views of the cervical spine are submitted. Osseous mineralization is normal. Seven cervical vertebral bodies are identified maintaining normal height and alignment without evidence of fracture or subluxation. The intervertebral disc spaces are preserved. There is mild narrowing of the right C6-7 neural foramen secondary to facet osteoarthritis. There is mild to moderate narrowing of the left C3-4 and C4-5 neural foramen secondary to facet osteoarthritis and uncovertebral joint hypertrophy. The odontoid and lateral masses of C1 are intact. There is no prevertebral soft tissue swelling. XR/XR cervical spine 4V IMPRESSION: Bilateral neural foraminal narrowing as described. Electronically signed by: Rigoberto Gomez MD 01/29/2025 08:01 AM EDT
--- NOTE | ~2025-01-27 | MR_ITS ---
EXAMINATION: MR BRAIN WITHOUT IV CONTRAST HISTORY: G43.909 - Migraine, unspecified, not intractable, without status migrainosus... TECHNIQUE: Sagittal T1 and FLAIR, and axial T1, FLAIR, T2, gradient echo, and diffusion weighted MR images of the brain were obtained. COMPARISON: There are no prior studies available for comparison. FINDINGS: The pituitary is normal in size. The cerebellar tonsils are normally located. The brain parenchyma is unremarkable, demonstrating normal dwyer/white differentiation. No foci of abnormal signal intensity are identified. The ventricular system is normal in size and configuration. There is no mass effect or midline shift. No intra or extra-axial fluid collections are identified. There are no foci of restricted diffusion. Normal vascular flow voids are noted in the basilar and carotid arteries. The visualized paranasal sinuses are clear. MR/MR head/brain wo con IMPRESSION: Unremarkable MRI of the brain without contrast. Electronically signed by: Rigoberto Gomez MD 01/29/2025 07:09 AM EDT
--- NOTE | ~2025-01-27 | XR_ITS ---
EXAMINATION: XR LUMBAR SPINE 2-3 VIEWS HISTORY: R20.0 - Anesthesia of skin COMPARISON: There are no prior studies for comparison. FINDINGS: AP, lateral, and coned down views of the lumbar spine are submitted. Osseous mineralization is normal. An intervertebral disc prosthesis is noted at the L5-S1 level. Five nonrib-bearing lumbar vertebral bodies are identified, maintaining normal height without evidence of fracture. There is minimal anterolisthesis of L4 on L5. There is mild degenerative disc disease with disc space narrowing and osteophyte formation. There is osteoarthritis of the facet joints. The visualized paraspinal soft tissues are unremarkable. XR/XR lumbar spine 2-3V IMPRESSION: 1. 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 2. Minimal anterolisthesis of L4 on L5. Mild degenerative disc disease. Electronically signed by: Rigoberto Gomez MD 01/29/2025 07:59 AM EDT
--- OUTSIDE RECORDS SUMMARY | 2025-01-27 08:47 | XMS_ITS | Encounter Summary ---
Author Organization [facility] Address [address] [place] [address] Care Team Providers Care Patient Services Clerk Name Role Phone Shanika Hillman MD Primary Care Provider Jadon Devlin MD Unavailable [phone] Marii Woods MD Primary Care Provider Pcp, No Primary Care Provider UnavailMarii Dominguez MD Unavailable [phone] Marii Woods MD Primary Care Provider + [phone] Marii Woods MD Unavailable [phone] Reason for Visit * Reason Comments Medication Refill Encounter Details Date Type Department Care Team (Late st Contact Info) Description 09/28/2019 Refill [facility] [address] [place] [phone] Barbara Garner, EARLY CHILDHOOD EDUCATOR AIDE [address] [place] [address] Chronic migraine without aura, with intractable migraine, [...] 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 Not [...] migrainosus documented in this encounter Care Teams Patient Services Clerk Relationship Specialty Start Date End Date Shanika Hillman MD PCP - General Internal Medicine 12/29/17 09/28/19 Marii Woods MD [address] [place] [address] PCP - General Internal Medicine 09/29/19 01/22/20 Pcp, No PCP - General 01/23/20 03/06/20 Marii Woods MD [facility] [place] [address] PCP - [employer] Commercial Attributed 10/16/19 04/15/20 Marii Woods MD [address] [facility] [place] [address] PCP - General Internal Medicine 03/07/20 08/07/21 Marii Woods MD [address] [facility] [place] [address] PCP - [employer] Attributed 08/15/20 05/16/21 Jadon Devlin MD [address] [place] [address] [address] [place] [address] Gastroenterology 09/29/19 documented as of this encounter
--- OUTSIDE RECORDS SUMMARY | 2025-01-27 08:47 | XMS_ITS | Encounter Summary ---
Author Organization [facility] Address [address] [place] [address] Care Team Providers Care Rivet Machine Operator Name Role Phone Michelle Mccoy DO Primary Care Provider [phone] Shanika Hillman MD Primary Care Provider [phone] Shanika Hillman MD Unavailable Jadon Devlin MD Unavailable [phone] Marii Woods MD Primary Care Provider Pcp, No Primary Care Provider UnavailMarii Dominguez MD Unavailable [phone] Marii Woods MD Primary Care Provider + [phone] Marii Woods MD Unavailable [phone] Encounter Details Date Type Department Care Team (Late st Contact Info) Description 11/11/2016 Scanned Document [address] [phone] Michelle Mccoy DO [address] [place] [address] Social History Tobacco Use Types Packs/Day Years [...] on filedocumented in this encounter Care Teams Rivet Machine Operator Relationship Specialty Start Date End Date Michelle Mccoy DO PCP - General Family Medicine 02/03/16 12/28/17 Shanika Hillman MD PCP - General Internal Medicine 12/29/17 09/28/19 Shanika Hillman MD [address] [place] [address] [address] [place] [address] PCP - [employer] Commercial Attributed 02/14/19 05/16/19 Marii Woods MD [address] [facility] [place] [address] PCP - General Internal Medicine 09/29/19 01/22/20 Pcp, No PCP - General 01/23/20 03/06/20 Marii Woods MD [address] [facility] [place] [address] PCP - [employer] Attributed 10/16/19 04/15/20 Marii Woods MD [address] [place] [address] PCP - General Internal Medicine 03/07/20 08/07/21 Marii Woods MD [address] [place] [address] PCP - [employer] Commercial Attributed 08/15/20 05/16/21 Jadon Devlin MD [address] [place] [address] Gastroenterology 09/29/19 documented as of this encounter
--- OUTSIDE RECORDS SUMMARY | 2025-01-27 08:47 | XMS_ITS | Encounter Summary ---
Author Organization [facility] Address [address] [place] [address] Care Team Providers Care Well Testing Operator Name Role Phone Dede Mccoyi Lorna MATHEWS Primary Care Provider [phone] Shanika Hillman MD Primary Care Provider [phone] Shanika Hillman MD Unavailable [phone] Jadon Devlin MD Unavailable [phone] Marii Woods MD Primary Care Provider + [phone] Pcp, No Primary Care Provider Unavailolivia e Marii Woods MD Unavailable [phone] Marii Woods MD Primary Care Provider [phone] Marii Woods MD Unavailable [phone] Encounter Details Date Type Department Care Team (Late st Contact Info) Description 11/01/2016 Scanned Document [address] [phone] Provider, Generic Social History Tobacco Use Types [...] on filedocumented in this encounter Care Teams Well Testing Operator Relationship Specialty Start Date End Date Michelle MccoyDO PCP - General Family Medicine 02/03/16 12/28/17 Shanika Hillman MD PCP - General Internal Medicine 12/29/17 09/28/19 Shanika Hillman MD [address] [place] [address] [address] [place] [address] PCP - [employer] Commercial Attributed 02/14/19 05/16/19 Marii Woods MD [address]60 [place] [address] PCP - General Internal Medicine 09/29/19 01/22/20 Pcp, No PCP - General 01/23/20 03/06/20 Marii Woods MD [address] [place] [address] PCP - [employer] Commercial Attributed 10/16/19 04/15/20 Marii Woods MD [address] [place] [address] PCP - General Internal Medicine 03/07/20 08/07/21 Marii Woods MD [address]60 [facility] [place] [address] PCP - [employer] Commercial Attributed 08/15/20 05/16/21 Jadon Devlin MD [address] [address] Gastroenterology 09/29/19 documented as of this encounter
--- OUTSIDE RECORDS SUMMARY | 2025-01-27 08:47 | XMS_ITS | Encounter Summary ---
Author Organization [facility] Address [address] [place] [address] Care Team Providers Care Solar Sales Assessor Name Role Phone Naty Rendon MD Primary Care Provider Michelle Mccoy DO Primary Care Provider [phone] Shanika Hillman MD Primary Care Provider [phone] Shanika Hillman MD Unavailable [phone] Jadon Devlin MD Unavailable [phone] Marii Woods MD Primary Care Provider + [phone] Pcp, No Primary Care Provider Unavailabl e Marii Woods MD Unavailable [phone] Marii Woods MD Primary Care Provider + [phone] Marii Woods MD Unavailable [phone] Encounter Details Date Type Department Care Team (Late st Contact Info) Description 07/08/2015 Scanned Document [address] [phone] Provider, Generic Social History Tobacco Use Types [...] on filedocumented in this encounter Care Teams Solar Sales Assessor Relationship Specialty Start Date End Date Naty Rendon MD PCP - General Internal Medicine 03/18/15 02/02/16 Michelle Mccoy DO PCP - General Family Medicine 02/03/16 12/28/17 Shanika Hillman MD PCP - General Internal Medicine 12/29/17 09/28/19 Shanika Hillman MD [address] [place] [address] [address] [place] [address] PCP - [employer] Commercial Attributed 02/14/19 05/16/19 Marii Woods MD [address] [facility] [place] [address] PCP - General Internal Medicine 09/29/19 01/22/20 Pcp, No PCP - General 01/23/20 03/06/20 Marii Woods MD [address] [facility] [place] [address] PCP - [employer] Commercial Attributed 10/16/19 04/15/20 Marii Woods MD [address] [facility] [place] [address] PCP - General Internal Medicine 03/07/20 08/07/21 Marii Woods MD [address] [place] [address] PCP - [employer] Commercial Attributed 08/15/20 05/16/21 Jadon Devlin MD 21 [facility] [address] [place] [address] Gastroenterology 09/29/19 documented as of this encounter
--- OUTSIDE RECORDS SUMMARY | 2025-01-27 08:48 | XMS_ITS | Encounter Summary ---
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
--- OUTSIDE RECORDS SUMMARY | 2025-01-27 08:48 | XMS_ITS | Encounter Summary ---
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
--- OUTSIDE RECORDS SUMMARY | 2025-01-27 08:48 | XMS_ITS | Encounter Summary ---
Author Organization [facility] Address [address] [place] [address] Care Team Providers Care Oceanographer Assistant Name Role Phone Naty Rendon MD Primary Care Provider [phone] Michelle Mccoy DO Primary Care Provider [phone] Shanika Hillman MD Primary Care Provider [phone] Shanika Hillman MD Unavailable [phone] Jadon Devlin MD Unavailable [phone] Marii Woods MD Primary Care Provider + [phone] Pcp, No Primary Care Provider Unavailabl e Marii Woods MD Unavailable [phone] Marii Woods MD Primary Care Provider + [phone] Marii Woods MD Unavailable [phone] Encounter Details Date Type Department Care Team (Late st Contact Info) Description 08/22/2015 Scanned Document [address] [phone] Provider, Generic Social History Tobacco Use Types [...] on filedocumented in this encounter Care Teams Oceanographer Assistant Relationship Specialty Start Date End Date Naty Rendon MD PCP - General Internal Medicine 03/18/15 02/02/16 Michelle Mccoy DO PCP - General Family Medicine 02/03/16 12/28/17 Shanika Hillman MD PCP - General Internal Medicine 12/29/17 09/28/19 Shanika Hillman MD 234 [facility] 4[address] [place] [address] PCP - Cigna Commercial Attributed 02/14/19 05/16/19 Marii Woods MD 1060 [facility] [place] [address] PCP - General Internal Medicine 09/29/19 01/22/20 Pcp, No PCP - General 01/23/20 03/06/20 Marii Woods MD 1060 [facility] [place] [address] PCP - Cigna Commercial Attributed 10/16/19 04/15/20 Marii Woods MD 1060 [facility] [place] [address] PCP - General Internal Medicine 03/07/20 08/07/21 Marii Woods MD 1060 [facility] [place] [address] PCP - Cigna Commercial Attributed 08/15/20 05/16/21 Jadon Devlin MD [address] [place] [address] Gastroenterology 09/29/19 documented as of this encounter
--- OUTSIDE RECORDS SUMMARY | 2025-01-27 08:48 | XMS_ITS | Encounter Summary ---
Author Organization [facility] Address [address] [place] [address] Care Team Providers Care Reverse Unit Operator Fisherman Name Role Phone Shanika Hillman MD Primary Care Provider [phone] Jadon Devlin MD Unavailable [phone] Marii Woods MD Primary Care Provider Pcp, No Primary Care Provider UnavailMarii Dominguez MD Unavailable [phone] Marii Woods MD Primary Care Provider + [phone] Marii Woods MD Unavailable [phone] Reason for Visit * Reason Comments Medication Refill Encounter Details Date Type Department Care Team (Late st Contact Info) Description 08/31/2019 Refill [facility] 10[address] [place] [address] Barbara Garner, BOAT CARPENTER MECHANIC [address] [place] [address] Chronic migraine without aura, with intractable migraine, [...] 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 file documented as of this encounter Plan of Treatment Not on file documented as of this encounter Visit Diagnoses Diagnosis Chronic migraine without aura, with intractable migraine, so stated, with status migrainosus Chronic migraine without aura, with intractable migraine, so stated, with status migrainosus documented in this encounter Care Teams Reverse Unit Operator Fisherman Relationship Specialty Start Date End Date Shanika Hillman MD PCP - General Internal Medicine 12/29/17 09/28/19 Marii Woods MD 1060 [facility] [place] [address] PCP - General Internal Medicine 09/29/19 01/22/20 Pcp, No PCP - General 01/23/20 03/06/20 Marii Woods MD 1060 [place] [address] PCP - Cigna Commercial Attributed 10/16/19 04/15/20 Marii Woods MD 1060 [facility] [place] [address] PCP - General Internal Medicine 03/07/20 08/07/21 Marii Woods MD 1060 [facility] [place] [address] PCP - Cigna Commercial Attributed 08/15/20 05/16/21 Jadon Devlin MD [address] [place] [address] Gastroenterology 09/29/19 documented as of this encounter
--- OUTSIDE RECORDS SUMMARY | 2025-01-27 08:48 | XMS_ITS | Encounter Summary ---
Author Organization [facility] Address [address] [place] [address] Care Team Providers Care Agronomy Specialist Name Role Phone Naty Rendon MD Primary Care Provider Michelle Mccoy DO Primary Care Provider [phone] Shanika Hillman MD Primary Care Provider [phone] Shanika Hillman MD Unavailable [phone] Jadon Devlin MD Unavailable [phone] Marii Woods MD Primary Care Provider + [phone] Pcp, No Primary Care Provider Unavailabl e Marii Woods MD Unavailable [phone] Marii Woods MD Primary Care Provider + [phone] Marii Woods MD Unavailable [phone] Encounter Details Date Type Department Care Team (Late st Contact Info) Description 06/08/2015 Scanned Document [address] [phone] Provider, Generic Social History Tobacco Use Types [...] on filedocumented in this encounter Care Teams Agronomy Specialist Relationship Specialty Start Date End Date Naty Rendon MD PCP - General Internal Medicine 03/18/15 02/02/16 Michelle Mccoy DO PCP - General Family Medicine 02/03/16 12/28/17 Shanika Hillman MD PCP - General Internal Medicine 12/29/17 09/28/19 Shanika Hillman MD [address] [place] [address] 4011 [place] [address] PCP - Cigna Commercial Attributed 02/14/19 05/16/19 Marii Woods MD 1060 [facility] [place] [address] PCP - General Internal Medicine 09/29/19 01/22/20 Pcp, No PCP - General 01/23/20 03/06/20 Marii Woods MD 1060 [facility] [place] [address] PCP - Cigna Commercial Attributed 10/16/19 04/15/20 Marii Woods MD 1060 [facility] [place] [address] PCP - General Internal Medicine 03/07/20 08/07/21 Marii Woods MD 10[address] [place] [address] PCP - Cigna Commercial Attributed 08/15/20 05/16/21 Jadon Devlin MD 21 [facility] 100 [place] [address] Gastroenterology 09/29/19 documented as of this encounter
--- OUTSIDE RECORDS SUMMARY | 2025-01-27 08:48 | XMS_ITS | Encounter Summary ---
Author Organization [facility] Address [address] [place] [address] Care Team Providers Care Sales Ledger Administrator Name Role Phone Shanika Hillman MD Primary Care Provider Shanika Hillman MD Unavailable [phone] Jadon Devlin MD Unavailable [phone] Marii Woods MD Primary Care Provider [phone] Pcp, No Primary Care Provider Unavailolivia e Marii Woods MD Unavailable [phone] Marii Woods MD Primary Care Provider + [phone] Marii Woods MD Unavailable [phone] Encounter Details Date Type Department Care Team (Late st Contact Info) Description 03/27/2019 Scanned Document [place] [address] [place] [address] Shanika Hillman MD [address] [place] [address] Social History Tobacco Use Types Packs/Day [...] 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 Not on file documented as of this encounter Plan of Treatment Not on file documented as of this encounter Visit Diagnoses Not on filedocumented in this encounter Care Teams Sales Ledger Administrator Relationship Specialty Start Date End Date Shanika Hillman MD PCP - General Internal Medicine 12/29/17 09/28/19 Shanika Hillman MD [address] [place] [address] 4[address] [place] [address] PCP - Cigna Commercial Attributed 02/14/19 05/16/19 Marii Woods MD 1060 [facility] [place] [address] PCP - General Internal Medicine 09/29/19 01/22/20 Pcp, No PCP - General 01/23/20 03/06/20 Marii Woods MD 1060 [facility] [place] [address] PCP - Cigna Commercial Attributed 10/16/19 04/15/20 Marii Woods MD 1060 [facility] [place] [address] PCP - General Internal Medicine 03/07/20 08/07/21 Marii Woods MD 1060 [facility] [place] [address] PCP - Cigna Commercial Attributed 08/15/20 05/16/21 Jadon Devlin MD [address] [place] [address] 100 [place] [address] Gastroenterology 09/29/19 documented as of this encounter
--- OUTSIDE RECORDS SUMMARY | 2025-01-27 08:48 | XMS_ITS | Encounter Summary ---
Author Organization [facility] Address [address] [place] [address] Care Team Providers Care Storekeeper Engineering Name Role Phone Naty Rendon MD Primary Care Provider Michelle Mccoy DO Primary Care Provider [phone] Shanika Hillman MD Primary Care Provider [phone] Shanika Hillman MD Unavailable [phone] Jadon Devlin MD Unavailable Marii Woods MD Primary Care Provider [phone] Pcp, No Primary Care Provider Unavailoliiva e Marii Woods MD Unavailable Marii Woods MD Primary Care Provider Marii Woods MD Unavailable [phone] Encounter Details Date Type Department Care Team (Late st Contact Info) Description 08/26/2015 Scanned Document [facility] 10[address] [place] [address] Naty Rendon MD [facility] [address] [place] [address] Social History Tobacco Use Types Packs/Day [...] on filedocumented in this encounter Care Teams Storekeeper Engineering Relationship Specialty Start Date End Date Naty Rendon MD PCP - General Internal Medicine 03/18/15 02/02/16 Michelle Mccoy DO PCP - General Family Medicine 02/03/16 12/28/17 Shanika Hillman MD PCP - General Internal Medicine 12/29/17 09/28/19 Shanika Hillman MD [address] [place] [address] 4011 [place] [address] PCP - Cigna Commercial Attributed 02/14/19 05/16/19 Marii Woods MD 1060 [facility] [place] [address] PCP - General Internal Medicine 09/29/19 01/22/20 Pcp, No PCP - General 01/23/20 03/06/20 Marii Woods MD [address] [place] [address] PCP - Cigna Commercial Attributed 10/16/19 04/15/20 Marii Woods MD 1060 [facility] [place] [address] PCP - General Internal Medicine 03/07/20 08/07/21 Marii Woods MD 1060 [place] [address] PCP - Cigna Commercial Attributed 08/15/20 05/16/21 Jadon Devlin MD 21 [facility] 100 [place] [address] Gastroenterology 09/29/19 documented as of this encounter
--- OUTSIDE RECORDS SUMMARY | 2025-01-27 08:48 | XMS_ITS | Encounter Summary ---
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
--- OUTSIDE RECORDS SUMMARY | 2025-01-27 08:48 | XMS_ITS | Encounter Summary ---
Author Organization [facility] Address [address] [place] [address] Care Team Providers Care Pumper Gager Name Role Phone Shanika Hillman MD Primary Care Provider Shanika Hillman MD Unavailable [phone] Jadon Devlin MD Unavailable [phone] Marii Woods MD Primary Care Provider Pcp, No Primary Care Provider Unavailolivia e Marii Woods MD Unavailable [phone] Marii Woods MD Primary Care Provider + [phone] Marii Woods MD Unavailable [phone] Reason for Visit * Reason Comments Medication Refill Encounter Details Date Type Department Care Team (Late st Contact Info) Description 04/06/[address] [address] Shanika Hillman MD [address] [place] [address] Depressive disorder (Primary Dx) Social History [...] 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 Not on file documented as of this encounter Plan of Treatment Not on file documented as of this encounter Visit Diagnoses Diagnosis Depressive disorder- Primary Depressive disorder, not elsewhere classified documented in this encounter Care Teams Pumper Gager Relationship Specialty Start Date End Date Shanika Hillman MD PCP - General Internal Medicine 12/29/17 09/28/19 Shanika Hillman MD 234 [facility] 4011 [place] [address] PCP - Cigna Commercial Attributed 02/14/19 05/16/19 Marii Woods MD 1060 [facility] [place] [address] PCP - General Internal Medicine 09/29/19 01/22/20 Pcp, No PCP - General 01/23/20 03/06/20 Marii Woods MD 1060 [facility] [place] [address] PCP - Cigna Commercial Attributed 10/16/19 04/15/20 Marii Woods MD 1060 [facility] [place] [address] PCP - General Internal Medicine 03/07/20 08/07/21 Marii Woods MD 1060 [facility] [place] [address] PCP - Cigna Commercial Attributed 08/15/20 05/16/21 Jadon Devlin MD [address] [place] [address] 100 [place] [address] Gastroenterology 09/29/19 documented as of this encounter
--- OUTSIDE RECORDS SUMMARY | 2025-01-27 08:48 | XMS_ITS | Encounter Summary ---
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 Not on file documented as of this encounter Miscellaneous Notes * Telephone Encounter - Marii Woods MD - 08/08/2021 3:14 PM EDT TRANSFERRING TO NEW PCP documented in this encounter Plan of Treatment Not on file documented as of this encounter Visit Diagnoses Diagnosis Essential hypertension Unspecified essential hypertension documented in this encounter Care Teams Health Consultant Relationship Specialty Start Date End Date Marii Woods MD 1060 [place] [address] PCP - General Internal Medicine 03/07/20 08/07/21 Jadon Devlin MD 21 [facility] 100 [place] [address] Gastroenterology 09/29/19 documented as of this encounter
--- OUTSIDE RECORDS SUMMARY | 2025-01-27 08:48 | XMS_ITS | Encounter Summary ---
Author Organization [facility] Address [address] [place] [address] Care Team Providers Care Pyrotechnics Press Tender Name Role Phone Shanika Hillman MD Primary Care Provider Jadon Devlin MD Unavailable [phone] Marii Woods MD Primary Care Provider Pcp, No Primary Care Provider UnavailMarii Dominguez MD Unavailable [phone] Marii Woods MD Primary Care Provider + [phone] Marii Woods MD Unavailable [phone] Reason for Visit * Reason Comments Medication Refill Encounter Details Date Type Department Care Team (Late st Contact Info) Description 08/03/[address] [address] Barbara Garner, PRODUCT CRAFTSMAN 1060 [place], [place] [address] Other migraine without status migrainosus, not intractable; [...] 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 Not on file [...] depression documented in this encounter Care Teams Pyrotechnics Press Tender Relationship Specialty Start Date End Date Shanika Hillman MD PCP - General Internal Medicine 12/29/17 09/28/19 Marii Woods MD 0 [facility] [place] [address] PCP - General Internal Medicine 09/29/19 01/22/20 Pcp, No PCP - General 01/23/20 03/06/20 Marii Woods MD 1060 [facility] [place] [address] PCP - Cigna Commercial Attributed 10/16/19 04/15/20 Marii Woods MD 1060 [facility] [place] [address] PCP - General Internal Medicine 03/07/20 08/07/21 Marii Woods MD 1060 [facility] [place] [address] PCP - Cigna Commercial Attributed 08/15/20 05/16/21 Jadon Devlin MD [address] [place] [address] Gastroenterology 09/29/19 documented as of this encounter
--- OUTSIDE RECORDS SUMMARY | 2025-01-27 08:48 | XMS_ITS | Encounter Summary ---
Author Organization [facility] Address [address] [place] [address] Care Team Providers Care Land Sales Agent Name Role Phone Dede Mccoyi Lorna MATHEWS Primary Care Provider [phone] Shanika Hillman MD Primary Care Provider [phone] Shanika Hillman MD Unavailable [phone] Jadon Devlin MD Unavailable [phone] Marii Woods MD Primary Care Provider + [phone] Pcp, No Primary Care Provider Unavailolivia e Marii Woods MD Unavailable [phone] Marii Woods MD Primary Care Provider [phone] Marii Woods MD Unavailable [phone] Encounter Details Date Type Department Care Team (Late st Contact Info) Description 10/19/2016 Scanned Document [address] [address] Provider, Generic Social History Tobacco Use Types [...] on filedocumented in this encounter Care Teams Land Sales Agent Relationship Specialty Start Date End Date Michelle MccoyDO PCP - General Family Medicine 02/03/16 12/28/17 Shanika Hillman MD PCP - General Internal Medicine 12/29/17 09/28/19 Shanika Hillman MD [address] [place] [address] 4011 [place] [address] PCP - Cigna Commercial Attributed 02/14/19 05/16/19 Marii Woods MD 1060 [facility] [place] [address] PCP - General Internal Medicine 09/29/19 01/22/20 Pcp, No PCP - General 01/23/20 03/06/20 Marii Woods MD 1060 [facility] [place] [address] PCP - Cigna Commercial Attributed 10/16/19 04/15/20 Marii Woods MD 1060 [facility] [place] [address] PCP - General Internal Medicine 03/07/20 08/07/21 Marii Woods MD [address] [place] [address] PCP - Cigna Commercial Attributed 08/15/20 05/16/21 Jadon Devlin MD [address] [address] Gastroenterology 09/29/19 documented as of this encounter
--- OUTSIDE RECORDS SUMMARY | 2025-01-27 08:48 | XMS_ITS | Encounter Summary ---
Author Organization [facility] Address [address] [place] [address] Care Team Providers Care Hi Ranger Operator Name Role Phone Naty Rendon MD Primary Care Provider Michelle Mccoy DO Primary Care Provider [phone] Shanika Hillman MD Primary Care Provider [phone] Shanika Hillman MD Unavailable [phone] Jadon Devlin MD Unavailable [phone] Marii Woods MD Primary Care Provider [phone] Pcp, No Primary Care Provider Unavailolivia e Marii Woods MD Unavailable [phone] Marii Woods MD Primary Care Provider Marii Woods MD Unavailable [phone] Encounter Details Date Type Department Care Team (Late st Contact Info) Description 08/23/2015 Scanned Document [facility] 1060 [place] [address] Naty Rendon MD [facility] [address] [place] [address] Social History Tobacco Use Types Packs/Day [...] on filedocumented in this encounter Care Teams Hi Ranger Operator Relationship Specialty Start Date End Date Naty Rendon MD PCP - General Internal Medicine 03/18/15 02/02/16 Michelle Mccoy DO PCP - General Family Medicine 02/03/16 12/28/17 Shanika Hillman MD PCP - General Internal Medicine 12/29/17 09/28/19 Shanika Hillman MD [address] [place] [address] 4011 [place] [address] PCP - Cigna Commercial Attributed 02/14/19 05/16/19 Marii Woods MD 1060 [facility] [place] [address] PCP - General Internal Medicine 09/29/19 01/22/20 Pcp, No PCP - General 01/23/20 03/06/20 Marii Woods MD [address] [place] [address] PCP - Cigna Commercial Attributed 10/16/19 04/15/20 Marii Woods MD 1060 [facility] [place] [address] PCP - General Internal Medicine 03/07/20 08/07/21 Marii Woods MD 1060 [place] [address] PCP - Cigna Commercial Attributed 08/15/20 05/16/21 Jadon Devlin MD 21 [facility] 100 [place] [address] Gastroenterology 09/29/19 documented as of this encounter
--- OUTSIDE RECORDS SUMMARY | 2025-01-27 08:48 | XMS_ITS | Encounter Summary ---
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 [place] [address] PCP - General Internal Medicine 03/07/20 08/07/21 [place] [address] [place], [place] [address], [place] [address] PCP - C[employer] Commercial Attributed 08/15/20 05/16/21 Jadon Devlin MD [address] [place] [address] 100 [place] [address] Gastroenterology 09/29/19 documented as of this encounter
--- OUTSIDE RECORDS SUMMARY | 2025-01-27 08:48 | XMS_ITS | Encounter Summary ---
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
--- OUTSIDE RECORDS SUMMARY | 2025-01-27 08:48 | XMS_ITS | Encounter Summary ---
Author Organization [facility] Address [address] [place] [address] Care Team Providers Care Principal Investigator Name Role Phone Dede Mccoyi Lorna MATHEWS Primary Care Provider [phone] Shanika Hillman MD Primary Care Provider [phone] Shanika Hillman MD Unavailable [phone] Jadon Devlin MD Unavailable [phone] Marii Woods MD Primary Care Provider + [phone] Pcp, No Primary Care Provider Unavailolivia e Marii Woods MD Unavailable [phone] Marii Woods MD Primary Care Provider [phone] Marii Woods MD Unavailable [phone] Encounter Details Date Type Department Care Team (Late st Contact Info) Description 05/19/2016 Scanned Document [address] [phone] Provider, Generic Social History Tobacco Use Types [...] on filedocumented in this encounter Care Teams Principal Investigator Relationship Specialty Start Date End Date Michelle MccoyDO PCP - General Family Medicine 02/03/16 12/28/17 Shanika Hillman MD PCP - General Internal Medicine 12/29/17 09/28/19 Shanika Hillman MD [address] [place] [address] 4011 [place] [address] PCP - C[employer]a Commercial Attributed 02/14/19 05/16/19 Marii Woods MD 1060 [facility] [place] [address] PCP - General Internal Medicine 09/29/19 01/22/20 Pcp, No PCP - General 01/23/20 03/06/20 Marii Woods MD 1060 [facility] [place] [address] PCP - Cigna Commercial Attributed 10/16/19 04/15/20 Marii Woods MD 1060 [facility] [place] [address] PCP - General Internal Medicine 03/07/20 08/07/21 Marii Woods MD 1060 [facility] [place] [address] PCP - Cigna Commercial Attributed 08/15/20 05/16/21 Jadon Devlin MD [address] [address] Gastroenterology 09/29/19 documented as of this encounter
--- OUTSIDE RECORDS SUMMARY | 2025-01-27 08:48 | XMS_ITS | Encounter Summary ---
Author Organization [facility] Address [address] [place], [place] [address] Care Team Providers Care Gold Assayer Name Role Phone Naty Rendon MD Primary Care Provider [phone] Michelle Mccoy DO Primary Care Provider [phone] Shanika Hillman MD Primary Care Provider [phone] Shanika Hillman MD Unavailable [phone] Jadon Devlin MD Unavailable [phone] Marii Woods MD Primary Care Provider [phone] Pcp, No Primary Care Provider UnavailMarii Dominguez MD Unavailable +[phone] Marii Woods MD Primary Care Provider + [phone] Marii Woods MD Unavailable [phone] Naty Rendon MD Primary Care Provider [phone] Encounter Details Date Type Department Care Team (Late st Contact Info) Description 02/01/2015 Scanned Document [address] [phone] Provider, Generic Social History Tobacco Use Types [...] on filedocumented in this encounter Care Teams Gold Assayer Relationship Specialty Start Date End Date Naty Rendon MD PCP - General Internal Medicine 03/18/15 02/02/16 Michelle Mccoy DO PCP - General Family Medicine 02/03/16 12/28/17 Shanika Hillman MD PCP - General Internal Medicine 12/29/17 09/28/19 Shanika Hillman MD [address] [facility] 4[address] [place] [address] PCP - Cigna Commercial Attributed 02/14/19 05/16/19 Marii Woods MD [address] [facility] [place] [place] [address] PCP - General Internal Medicine 09/29/19 01/22/20 Pcp, No PCP - General 01/23/20 03/06/20 Marii Woods MD 1060 [facility] [place] [address] PCP - Cigna Commercial Attributed 10/16/19 04/15/20 Marii Woods MD [address] [place] [address] PCP - General Internal Medicine 03/07/20 08/07/21 Marii Woods MD 1060 [facility] [place] [address] PCP - Cigna Commercial Attributed 08/15/20 05/16/21 Naty Rendon MD [address] [place] [address] PCP - General 03/17/15 Jadon Devlin MD [address] [place] [address] 100 [place] [address] Gastroenterology 09/29/19 documented as of this encounter
--- OUTSIDE RECORDS SUMMARY | 2025-01-27 08:48 | XMS_ITS | Encounter Summary ---
Author Organization [facility] Address [address] [place] [address] Care Team Providers Care Ncqa Specialist Name Role Phone Jadon Devlin MD Unavailable [phone] Marii Woods MD Primary Care Provider + [phone] Pcp, No Primary Care Provider Unavailabl e Marii Woods MD Unavailable [phone] Marii Woods MD Primary Care Provider + [phone] Marii Woods MD Unavailable [phone] Reason for Visit * Reason Comments Medication Refill Encounter Details Date Type Department Care Team (Late st Contact Info) Description 10/26/2019 Refill [facility] 1060 [place] [phone] Barbara Garner, MARKETING ANALYTICS SPECIALIST 1060 [place], [place] [address] Other migraine without status migrainosus, not intractable; [...] 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 [address] PCP - General Internal Medicine 03/07/20 08/07/21 Marii Woods MD [address] [place] [address] PCP - Cigna Commercial Attributed 08/15/20 05/16/21 Jadon Devlin MD [address] [place] [address] Gastroenterology 09/29/19 documented as of this encounter
--- OUTSIDE RECORDS SUMMARY | 2025-01-27 08:48 | XMS_ITS | Encounter Summary ---
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
--- OUTSIDE RECORDS SUMMARY | 2025-01-27 08:48 | XMS_ITS | Encounter Summary ---
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
--- OUTSIDE RECORDS SUMMARY | 2025-01-27 08:48 | XMS_ITS | Encounter Summary ---
Author Organization [facility] Address [address] [place] [address] Care Team Providers Care Distributed Energy Systems Consultant Name Role Phone Ntay Rendon MD Primary Care Provider Michelle Mccoy DO Primary Care Provider [phone] Shanika Hillman MD Primary Care Provider [phone] Shanika Hillman MD Unavailable [phone] Jadon Devlin MD Unavailable [phone] Marii Woods MD Primary Care Provider + [phone] Pcp, No Primary Care Provider Unavailabl e Marii Woods MD Unavailable [phone] Marii Woods MD Primary Care Provider + [phone] Marii Woods MD Unavailable [phone] Encounter Details Date Type Department Care Team (Late st Contact Info) Description 03/26/2015 Scanned Document [address] [phone] Provider, Generic Social History Tobacco Use Types [...] on filedocumented in this encounter Care Teams Distributed Energy Systems Consultant Relationship Specialty Start Date End Date Naty Rendon MD PCP - General Internal Medicine 03/18/15 02/02/16 Michelle Mccoy DO PCP - General Family Medicine 02/03/16 12/28/17 Shanika Hillman MD PCP - General Internal Medicine 12/29/17 09/28/19 Shanika Hillman MD [address] [place] [address] 4011 [place] [address] PCP - Cigna Commercial Attributed 02/14/19 05/16/19 Marii Woods MD 1060 [facility] [place] [address] PCP - General Internal Medicine 09/29/19 01/22/20 Pcp, No PCP - General 01/23/20 03/06/20 Marii Woods MD 1060 [facility] [place] [address] PCP - Cigna Commercial Attributed 10/16/19 04/15/20 Marii Woods MD 1060 [facility] [place] [address] PCP - General Internal Medicine 03/07/20 08/07/21 Marii Woods MD 1060 [place] [address] PCP - Cigna Commercial Attributed 08/15/20 05/16/21 Jadon Devlin MD 21 [facility] 100 [place] [address] Gastroenterology 09/29/19 documented as of this encounter
--- OUTSIDE RECORDS SUMMARY | 2025-01-27 08:48 | XMS_ITS | Encounter Summary ---
Author Organization [facility] Address [address] [place] [address] Care Team Providers Care Early Childhood Specialist Name Role Phone Jadon Devlin MD Unavailable [phone] Reason for Visit * Reason Comments Medication Refill Encounter Details Date Type Department Care Team (Late st Contact Info) Description 08/28/[address] 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
--- OUTSIDE RECORDS SUMMARY | 2025-01-27 08:48 | XMS_ITS | Encounter Summary ---
Author Organization [facility] Address [address] [place] [address] Care Team Providers Care Lab Tester Name Role Phone Shanika Hillman MD Primary Care Provider Shanika Hillman MD Unavailable [phone] Jadon Devlin MD Unavailable [phone] Marii Woods MD Primary Care Provider [phone] Pcp, No Primary Care Provider Unavailolivia e Marii Woods MD Unavailable Marii Woods MD Primary Care Provider + [phone] Marii Woods MD Unavailable Reason for Visit * Reason Comments Medication Refill Encounter Details Date Type Department Care Team (Late st Contact Info) Description 02/01/[address] [phone] Shanika Hillman MD [address] [place] [address] Mild intermittent asthmatic bronchitis with acute [...] 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 Not on file documented as of this encounter Plan of Treatment Not on file documented as of this encounter Visit Diagnoses Diagnosis Mild intermittent asthmatic bronchitis with acute exacerbation documented in this encounter Care Teams Lab Tester Relationship Specialty Start Date End Date Shanika Hillman MD PCP - General Internal Medicine 12/29/17 09/28/19 Shanika Hillman MD 234 [facility] 4[address] [place] [address] PCP - Cigna Commercial Attributed 02/14/19 05/16/19 Marii Woods MD 1060 [facility] [place] [address] PCP - General Internal Medicine 09/29/19 01/22/20 Pcp, No PCP - General 01/23/20 03/06/20 Marii Woods MD 1060 [facility] [place] [address] PCP - Cigna Commercial Attributed 10/16/19 04/15/20 Marii Woods MD 1060 [facility] [place] [address] PCP - General Internal Medicine 03/07/20 08/07/21 Marii Woods MD 1060 [facility] [place] [address] PCP - Cigna Commercial Attributed 08/15/20 05/16/21 Jadon Devlin MD [address] [place] [address] 100 [place] [address] Gastroenterology 09/29/19 documented as of this encounter
--- OUTSIDE RECORDS SUMMARY | 2025-01-27 08:48 | XMS_ITS | Encounter Summary ---
Author Organization [facility] Address [address] [place] [address] Care Team Providers Care Grinder Brake Lining Name Role Phone Shanika Hillman MD Primary Care Provider [phone] Jadon Devlin MD Unavailable [phone] Marii Woods MD Primary Care Provider [phone] Pcp, No Primary Care Provider UnavailMarii Dominguez MD Unavailable [phone] Marii Woods MD Primary Care Provider + [phone] Marii Woods MD Unavailable [phone] Reason for Visit * Reason Comments Medication Refill Encounter Details Date Type Department Care Team (Late st Contact Info) Description 06/02/[address] [phone] Shanika Hillman MD [address] [place] [address] Gastroesophageal reflux disease without esophagitis Social [...] 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 Not on file documented as of this encounter Plan of Treatment Not on file documented as of this encounter Visit Diagnoses Diagnosis Gastroesophageal reflux disease without esophagitis Esophageal reflux documented in this encounter Care Teams Grinder Brake Lining Relationship Specialty Start Date End Date Shanika Hillman MD PCP - General Internal Medicine 12/29/17 09/28/19 Marii Woods MD [address] [facility] [place] [address] PCP - General Internal Medicine 09/29/19 01/22/20 Pcp, No PCP - General 01/23/20 03/06/20 Marii Woods MD [address] [facility] [place] [address] PCP - Cigna Commercial Attributed 10/16/19 04/15/20 Marii Woods MD [address] [facility] [place] [address] PCP - General Internal Medicine 03/07/20 08/07/21 Marii Woods MD [address] [place] [address], [place] [address] PCP - Cigna Commercial Attributed 08/15/20 05/16/21 Jadon Devlin MD [address] [place] [address] Gastroenterology 09/29/19 documented as of this encounter
--- OUTSIDE RECORDS SUMMARY | 2025-01-27 08:48 | XMS_ITS | Encounter Summary ---
Author Organization [facility] Address [address] [place] [address] Care Team Providers Care Truck Engine Technician Name Role Phone Shanika Hillman MD Primary Care Provider [phone] Shanika Hillman MD Unavailable [phone] Jadon Devlin MD Unavailable [phone] Marii Woods MD Primary Care Provider [phone] Pcp, No Primary Care Provider Unavailolivia e Marii Woods MD Unavailable Marii Woods MD Primary Care Provider + [phone] Marii Woods MD Unavailable [phone] Reason for Visit * Reason Comments Medication Refill Encounter Details Date Type Department Care Team (Late st Contact Info) Description 05/04/[address] [phone] Shanika Hillman MD [address] [place] [address] Chronic migraine without aura, with intractable [...] 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 file [...] depression documented in this encounter Care Teams Truck Engine Technician Relationship Specialty Start Date End Date Shanika Hillman MD PCP - General Internal Medicine 12/29/17 09/28/19 Shanika Hillman MD [address] [place] [address] PCP - Cigna Commercial Attributed 02/14/19 05/16/19 Marii Woods MD 1060 [place], [place] [address] PCP - General Internal Medicine 09/29/19 01/22/20 Pcp, No PCP - General 01/23/20 03/06/20 Marii Woods MD 1060 [place] [address] PCP - Cigna Commercial Attributed 10/16/19 04/15/20 Marii Woods MD 1060 [place] [address] PCP - General Internal Medicine 03/07/20 08/07/21 Marii Woods MD [address] [facility] [address] PCP - Cigna Commercial Attributed 08/15/20 05/16/21 Jadon Devlin MD 21 [facility] 100 [place] [address] Gastroenterology 09/29/19 documented as of this encounter
--- OUTSIDE RECORDS SUMMARY | 2025-01-27 08:48 | XMS_ITS | Encounter Summary ---
Author Organization [facility] Address [address] [place] [address] Care Team Providers Care Deli Cutter Slicer Name Role Phone Naty Rendon MD Primary Care Provider Michelle Mccoy DO Primary Care Provider [phone] Shanika Hillman MD Primary Care Provider [phone] Shanika Hillman MD Unavailable [phone] Jadon Devlin MD Unavailable Marii Woods MD Primary Care Provider [phone] Pcp, No Primary Care Provider Unavailolivia e Marii Woods MD Unavailable Marii Woods MD Primary Care Provider Marii Woods MD Unavailable [phone] Encounter Details Date Type Department Care Team (Late st Contact Info) Description 08/21/2015 Scanned Document [facility] 1060 [place] [address] Naty Rendon MD [facility] [address] [place] [address] Social History Tobacco Use Types Packs/Day [...] on filedocumented in this encounter Care Teams Deli Cutter Slicer Relationship Specialty Start Date End Date Naty Rendon MD PCP - General Internal Medicine 03/18/15 02/02/16 Michelle Mccoy DO PCP - General Family Medicine 02/03/16 12/28/17 Shanika Hillman MD PCP - General Internal Medicine 12/29/17 09/28/19 Shanika Hillman MD [address] [place] [address] 4011 [place] [address] PCP - Cigna Commercial Attributed 02/14/19 05/16/19 Marii Woods MD 1060 [facility] [place] [address] PCP - General Internal Medicine 09/29/19 01/22/20 Pcp, No PCP - General 01/23/20 03/06/20 Marii Woods MD [address] [place] [address] PCP - Cigna Commercial Attributed 10/16/19 04/15/20 Marii Woods MD 1060 [facility] [place] [address] PCP - General Internal Medicine 03/07/20 08/07/21 Marii Woods MD 1060 [place] [address] PCP - Cigna Commercial Attributed 08/15/20 05/16/21 Jadon Devlin MD 21 [facility] 100 [place] [address] Gastroenterology 09/29/19 documented as of this encounter
--- OUTSIDE RECORDS SUMMARY | 2025-01-27 08:48 | XMS_ITS | Encounter Summary ---
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
--- OUTSIDE RECORDS SUMMARY | 2025-01-27 08:48 | XMS_ITS | Encounter Summary ---
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
--- OUTSIDE RECORDS SUMMARY | 2025-01-27 08:48 | XMS_ITS | Encounter Summary ---
Author Organization [facility] Address [address] [place] [address] Care Team Providers Care Brine Supervisor Name Role Phone Shanika Hillman MD Primary Care Provider Shanika Hillman MD Unavailable [phone] Jadon Devlin MD Unavailable [phone] Marii Woods MD Primary Care Provider [phone] Pcp, No Primary Care Provider Unavailolivia e Marii Woods MD Unavailable [phone] Marii Woods MD Primary Care Provider + [phone] Marii Woods MD Unavailable [phone] Encounter Details Date Type Department Care Team (Late st Contact Info) Description 01/09/[address] 10 [facility] [address] [place] [phone] Jadon Devlin MD [address] [place] [address] Social History Tobacco Use Types Packs/Day Years [...] 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 Not [...] on filedocumented in this encounter Care Teams Brine Supervisor Relationship Specialty Start Date End Date Shanika Hillman MD PCP - General Internal Medicine 12/29/17 09/28/19 Shanika Hillman MD 234 [facility] 4011 [place] [address] PCP - Cigna Commercial Attributed 02/14/19 05/16/19 Marii Woods MD 1060 [facility] [place] [address] PCP - General Internal Medicine 09/29/19 01/22/20 Pcp, No PCP - General 01/23/20 03/06/20 Marii Woods MD 1060 [facility] [place] [address] PCP - Cigna Commercial Attributed 10/16/19 04/15/20 Marii Woods MD 1060 [facility] [place] [address] PCP - General Internal Medicine 03/07/20 08/07/21 Marii Woods MD 1060 [place] [address] PCP - Cigna Commercial Attributed 08/15/20 05/16/21 Jadon Devlin MD [address] [place] [address] 100 [place] [address] Gastroenterology 09/29/19 documented as of this encounter
--- OUTSIDE RECORDS SUMMARY | 2025-01-27 08:48 | XMS_ITS | Encounter Summary ---
Author Organization [facility] Address [address] [place] [address] Care Team Providers Care Canvas Shrinker Name Role Phone Darius Michelle Lorna MATHEWS Primary Care Provider [phone] Shanika Hillman MD Primary Care Provider [phone] Shanika Hillman MD Unavailable [phone] Jadon Devlin MD Unavailable [phone] Marii Woods MD Primary Care Provider + [phone] Pcp, No Primary Care Provider Unavailolivia e Marii Woods MD Unavailable [phone] Marii Woods MD Primary Care Provider [phone] Marii Woods MD Unavailable [phone] Encounter Details Date Type Department Care Team (Late st Contact Info) Description 12/18/2016 Scanned Document [address] [phone] Provider, Generic Social History Tobacco Use Types [...] on filedocumented in this encounter Care Teams Canvas Shrinker Relationship Specialty Start Date End Date Michelle Mccoy DO PCP - General Family Medicine 02/03/16 12/28/17 Shanika Hillman MD PCP - General Internal Medicine 12/29/17 09/28/19 Shanika Hillman MD 234 [facility] 4011 [place] [address] PCP - Cigna Commercial Attributed 02/14/19 05/16/19 Marii Woods MD 1060 [facility] [place], [place] [address] PCP - General Internal Medicine 09/29/19 01/22/20 Pcp, No PCP - General 01/23/20 03/06/20 Marii Woods MD 1060 [facility] [place] [address] PCP - Cigna Commercial Attributed 10/16/19 04/15/20 Marii Woods MD 1060 [facility] [place] [address] PCP - General Internal Medicine 03/07/20 08/07/21 Marii Woods MD 1060 [place] [address] PCP - Cigna Commercial Attributed 08/15/20 05/16/21 Jadon Devlin MD [address] [address] Gastroenterology 09/29/19 documented as of this encounter
--- OUTSIDE RECORDS SUMMARY | 2025-01-27 08:48 | XMS_ITS | Encounter Summary ---
Author Organization [facility] Address [address] [place] [address] Care Team Providers Care Range Management Specialist Name Role Phone Jadon Devlin MD Unavailable [phone] Marii Woods MD Primary Care Provider + [phone] Marii Woods MD Unavailable [phone] Reason for Visit * Reason Comments Medication Refill Encounter Details Date Type Department Care Team (Late st Contact Info) Description 03/04/2021 Refill [facility] [address] [address] Marii Woods MD [address] [place] [phone] Left chest pressure; Palpitations; Tachycardia; Essential hypertension [...] 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 documented as of this encounter Plan of Treatment Not on file documented as of this encounter Visit Diagnoses Diagnosis Left chest pressure Palpitations Tachycardia Unspecified tachycardia Essential hypertension Unspecified essential hypertension documented in this encounter Care Teams Range Management Specialist Relationship Specialty Start Date End Date Marii Woods MD 1060 [place] [address] PCP - General Internal Medicine 03/07/20 08/07/21 Marii Woods MD 0 [place] [address] PCP - Cigna Commercial Attributed 08/15/20 05/16/21 Jadon Devlin MD [address] [place] [address] 100 [place] [address] Gastroenterology 09/29/19 documented as of this encounter
--- OUTSIDE RECORDS SUMMARY | 2025-01-27 08:49 | XMS_ITS | Encounter Summary ---
Author Organization [facility] Address [address] [place] [address] Care Team Providers Care Canary Breeder Name Role Phone Naty Rendon MD Primary Care Provider Michelle Mccoy DO Primary Care Provider [phone] Shanika Hillman MD Primary Care Provider [phone] Shanika Hillman MD Unavailable [phone] Jadon Devlin MD Unavailable [phone] Marii Woods MD Primary Care Provider [phone] Pcp, No Primary Care Provider Unavailolivia e Marii Woods MD Unavailable Marii Woods MD Primary Care Provider Marii Woods MD Unavailable [phone] Encounter Details Date Type Department Care Team (Late st Contact Info) Description 10/24/2015 Telephone [facility] 1060 [place] [address] Naty Rendon MD [facility] [address] [place] [address] Social History Tobacco Use Types Packs/Day [...] on filedocumented in this encounter Care Teams Canary Breeder Relationship Specialty Start Date End Date Naty Rendon MD PCP - General Internal Medicine 03/18/15 02/02/16 Michelle Mccoy DO PCP - General Family Medicine 02/03/16 12/28/17 Shanika Hillman MD PCP - General Internal Medicine 12/29/17 09/28/19 Shanika Hillman MD 234 [facility] 4011 [place] [address] PCP - Cigna Commercial Attributed 02/14/19 05/16/19 Marii Woods MD 1060 [facility] [place] [address] PCP - General Internal Medicine 09/29/19 01/22/20 Pcp, No PCP - General 01/23/20 03/06/20 Marii Woods MD [address] [place] [address], [place] [address] PCP - Cigna Commercial Attributed 10/16/19 04/15/20 Marii Woods MD [address] [place] [address], [place] [address] PCP - General Internal Medicine 03/07/20 08/07/21 Marii Woods MD [address] [place] [address], [place] [address] PCP - Cigna Commercial Attributed 08/15/20 05/16/21 Jadon Devlin MD [address] [place] [address] 100 [place] [address] Gastroenterology 09/29/19 documented as of this encounter
--- OUTSIDE RECORDS SUMMARY | 2025-01-27 08:49 | XMS_ITS | Encounter Summary ---
Author Organization [facility] Address [address] [place] [address] Care Team Providers Care Biosecurity Officer Name Role Phone Shanika Hillman MD Primary Care Provider Shanika Hillman MD Unavailable [phone] Jadon Devlin MD Unavailable Marii Woods MD Primary Care Provider [phone] Pcp, No Primary Care Provider Unavailolivia e Marii Woods MD Unavailable Marii Woods MD Primary Care Provider Marii Woods MD Unavailable Reason for Visit * Reason Onset Date Comments Medication Refill 04/27/2018 Encounter Details Date Type Department Care Team (Late st Contact Info) Description 04/27/2018 Refill [facility] 1060 [place] [phone] Shanika Hillman MD [address] [place] [address] Chronic migraine without aura, with intractable [...] depression documented in this encounter Care Teams Biosecurity Officer Relationship Specialty Start Date End Date Shanika Hillman MD PCP - General Internal Medicine 12/29/17 09/28/19 Shanika Hillman MD 234 [facility] 4011 [place] [address] PCP - Cigna Commercial Attributed 02/14/19 05/16/19 Marii Woods MD 1060 [facility] [place] [address] PCP - General Internal Medicine 09/29/19 01/22/20 Pcp, No PCP - General 01/23/20 03/06/20 Marii Woods MD 1060 [facility] [place] [address] PCP - Cigna Commercial Attributed 10/16/19 04/15/20 [place] [address] [place] [address] PCP - General Internal Medicine 03/07/20 08/07/21 [place] [address] [place] [address] PCP - Cigna Commercial Attributed 08/15/20 05/16/21 Jadon Devlin MD [address] [place] [address] 100 [place] [address] Gastroenterology 09/29/19 documented as of this encounter
--- OUTSIDE RECORDS SUMMARY | 2025-01-27 08:49 | XMS_ITS | Encounter Summary ---
Author Organization [facility] Address [address] [place] [address] Care Team Providers Care Electric Organ Assembler Name Role Phone Jadon Devlin MD Unavailable [phone] Marii Woods MD Unavailable [phone] Marii Woods MD Primary Care Provider Marii Woods MD Unavailable [phone] Reason for Visit * Reason Comments Medication Refill Encounter Details Date Type Department Care Team (Late st Contact Info) Description 03/19/[address] [address] Chirag Hicks PA [facility] [address] [place] [address] Other depression; Chronic migraine without aura, with [...] 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
--- OUTSIDE RECORDS SUMMARY | 2025-01-27 08:49 | XMS_ITS | Encounter Summary ---
Author Organization [facility] Address [address] [place] [address] Care Team Providers Care Clearing Supervisor Name Role Phone Jadon Devlin MD Unavailable [phone] Marii Woods MD Unavailable [phone] Marii Woods MD Primary Care Provider Marii Woods MD Unavailable [phone] Reason for Visit * Reason Onset Date Comments Medication Refill 03/12/2020 Encounter Details Date Type Department Care Team (Late st Contact Info) Description 03/12/[address] [phone] Chirag Hicks, [facility] 164 [place] [address] Other depression; Chronic migraine without aura, with [...] 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
--- OUTSIDE RECORDS SUMMARY | 2025-01-27 08:49 | XMS_ITS | Encounter Summary ---
Author Organization [facility] Address [address] [place] [address] Care Team Providers Care Thermoforming Operator Name Role Phone Jadon Devlin MD Unavailable [phone] Marii Woods MD Unavailable [phone] Marii Woods MD Primary Care Provider + [phone] Marii Woods MD Unavailable [phone] Reason for Visit * Reason Onset Date Comments Medication Refill 03/12/2020 Encounter Details Date Type Department Care Team (Late st Contact Info) Description 03/12/[address] [address] Marii Woods MD [address] [place] [address] Mild intermittent asthmatic bronchitis with acute [...] 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
--- OUTSIDE RECORDS SUMMARY | 2025-01-27 08:49 | XMS_ITS | Encounter Summary ---
Author Organization [facility] Address [address] [place] [address] Care Team Providers Care At&T Retailer Sales Consultant Name Role Phone Jadon Devlin MD Unavailable [phone] Marii Woods MD Primary Care Provider + [phone] Marii Woods MD Unavailable [phone] Reason for Visit * Reason Comments Medication Refill Encounter Details Date Type Department Care Team (Late st Contact Info) Description 08/21/2020 Refill [facility] [address] [address] Marii Woods MD [address] [place] [phone] Gastroesophageal reflux disease without esophagitis Social History [...] 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 [address] PCP - Cigna Commercial Attributed 08/15/20 05/16/21 Jadon Devlin MD [address] [place] [address] Gastroenterology 09/29/19 documented as of this encounter
--- OUTSIDE RECORDS SUMMARY | 2025-01-27 08:49 | XMS_ITS | Clinical Summary ---
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 Last Filed Vital Signs Vital Sign Reading Time Taken Comments Blood Pressure 107/74 10/08/2020 9:45 AM EDT Pulse 90 10/08/2020 9:45 AM EDT Temperature 36.3 C (97.3 F) 10/08/2020 9:45 AM EDT Respiratory Rate 18 10/08/2020 9:45 AM EDT [...] 01/15, 01/26/2019, Additional history exists Influenza Vaccine 12/15/2024 03/13/2020, , 03/25/2017, Additional history exists COVID-19 Vaccine (2024-2 6 season) 2025 08/31/2020, 08/05/2020 Colonoscopy 01/09/2029 01/09/2019 (Prev iously Completed) DTaP/Tdap/Td Vaccines (4 - T d or Tdap) 03/13/2030 03/13/2020, 08/15/2007, 07/16/2007 Hepatitis C Virus Screening Completed 03/24/2016, 1 Procedures Procedure Name Priority Date/Time Associated Diagnosis Comments LIPID PANEL WITH NONHDL Routine 11/28/2020 7:11 AM EDT Mixed hyperlipidemia Prediabetes IMAGING BREAST/BX/MAMMO Routine 06/06/2020 THINPREP PAP TEST (STAINED GLASS ARTIST) WITH HPV SCREEN Routine 07/28/2018 2:15 PM EDT Screening for cervical cancer HXAMB HEPATITIS C VIRAL RNA QUAL TMA Routine 03/01/2012 8:46 AM EDT from Last 3 Months or Most Recently Relevant to Health Maintenance Results * (ABNORMAL) Lipid panel (11/28/2020 7:11 AM EDT) Cholesterol, Total 217(H) <200 mg/dL [facility] Cholesterol, HDL 42(L) > OR = 50 mg/dL [facility] Triglycerides 187(H) <150 mg/dL [facility] LDL Cholesterol 143(H) mg/dL (calc) [facility] Comment: Reference range: <100 Desirable range <100 mg/dL for primary prevention; <70 mg/dL for patients with CHD or diabetic patients with > or = 2 CHD risk factors. LDL-C is now calculated using the Fani calculation, which is a validated novel method providing better accuracy than the Friedewald equation in the estimation of LDL-C. Jamal PICHARDO et al. VASILIY. 2013;310(19): 8375-8762 (http://education.Jobulous/faq/GEO930) Cholesterol/HDL Ratio 5.2(H) <5.0 (calc) [facility] Non HDL Chol. (LDL+VLDL) 175(H) <130 mg/dL (calc) [facility] Comment: For patients with diabetes plus 1 major ASCVD risk factor, treating to a non-HDL-C goal of <100 mg/dL (LDL-C of <70 mg/dL) is considered a therapeutic option. Blood specimen (specimen) Heel structure / Unknown 11/28/2020 7:11 AM EDT 11/28/2020 7:12 AM EDT Narrative [facility] - 11/29/2020 4:14 PM EDT FASTING:YES FASTING: YES Chirag SORIANO LAB BLOOD ORDERABLES Final Resul t [facility] [address] [place] [address], [place] [address] * (ABNORMAL) IMAGING BREAST/BX/MAMMO (06/06/2020) Anatomical Region Laterality Modality Other Marii Woods MD IMG LEGACY PROCEDURES Edit ed Result - Final * ThinPrep Pap Test (Pack Operator) with HPV Screen (07/28/2018 2:15 PM EDT) [...] has been evaluated with computer assisted technology. Rustic Fence Builder: [facility] Comment: KN, CT(ASCP) CT screening location: [address] [address] Review Rustic Fence Builder: [facility]IN[facility] TABARES NL1 Comment: MSM, CT(ASCP) CT screening location: [place] [address] Comment [facility] Comment: EXPLANATORY NOTE: [...] was performed using the APTIMA HPV Assay ([employer] This assay detects E6/E7 viral messenger RNA (mRNA) from 14 high-risk HPV types (16,18,31,33,35,39,45,51,52,56,58,59,66,68). The analytical performance characteristics of this assay have been determined by [employer]. The modifications have not been cleared or approved by the FDA. This assay has been validated pursuant to the CLIA regulations and is used for clinical purposes. 07/28/2018 2:15 PM EDT 07/29/2018 2:39 AM EDT Narrative Resulting Agency Comment Performing Organization Information: Site ID: [id number] Name: [facility] Address: [address] [place] [address], [facility] [place] [address] Director: Zbigniew Willson MD us Shanika Hillman MD LAB AMB PATH/CYTO ORDERABLES F inal Result [facility] [address], [facility] [place] [place] [address] * Hepatitis C Viral Rna Qual TMA (03/01/2012 8:46 AM EDT) Hepatitis C Viral Rna Qual Tma NONREACTIVE NONREACTIVE [facility] CONVERSION 03/01/2012 8:46 AM EDT us Rafi SORIANO [facility] LAB Final Result [facility]TS CONVERSION from Last 3 Months or Most Recently Relevant to Health Maintenance Insurance [employer] HMO Care Teams President Consumer Electronics Company Relationship Specialty Start Date End Date Jadon Devlin MD [address] [place] [address] 100 [place] [address] Gastroenterology 09/29/19
--- OUTSIDE RECORDS SUMMARY | 2025-01-27 08:49 | XMS_ITS | Encounter Summary ---
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 Not on file documented as of this encounter Plan of Treatment Not on file documented as of this encounter Visit Diagnoses Not on filedocumented in this encounter Care Teams Concrete Stone Fabricator Relationship Specialty Start Date End Date Marii Woods MD [facility] [facility] [place] [address] PCP - General Internal Medicine 03/07/20 08/07/21 [place] [address] [place], [place] [address], [place] [address] PCP - Cigna Commercial Attributed 08/15/20 05/16/21 Jadon Devlin MD [address] [place] [address] 100 [place] [address] Gastroenterology 09/29/19 documented as of this encounter
--- OUTSIDE RECORDS SUMMARY | 2025-01-27 08:49 | XMS_ITS | Encounter Summary ---
Author Organization [facility] Address [address] [place] [address] Care Team Providers Care Salad Maker Name Role Phone Shanika Hillman MD Primary Care Provider [phone] Shanika Hillman MD Unavailable [phone] Jadon Devlin MD Unavailable [phone] Marii Woods MD Primary Care Provider + [phone] Pcp, No Primary Care Provider Unavailolivia e Marii Woods MD Unavailable [phone] Marii Woods MD Primary Care Provider + [phone] Marii Woods MD Unavailable [phone] Encounter Details Date Type Department Care Team (Late st Contact Info) Description 10/15/2018 Scanned Document [address] [address] Provider, Generic Social History Tobacco [...] Maker Relationship Specialty Start Date End Date Shanika Hillman MD PCP - General Internal Medicine 12/29/17 09/28/19 Shanika Hillman MD [facility] 4[address] [place] [address] PCP - Cigna Commercial Attributed 02/14/19 05/16/19 Marii Woods MD 1060 [facility] [place] [address] PCP - General Internal Medicine 09/29/19 01/22/20 Pcp, No PCP - General 01/23/20 03/06/20 Marii Woods MD 1060 [facility] [place] [address] PCP - Cigna Commercial Attributed 10/16/19 04/15/20 Marii Woods MD 1060 [facility] [place] [address] PCP - General Internal Medicine 03/07/20 08/07/21 Marii Woods MD [address] [facility] [place] [address] PCP - Cigna Commercial Attributed 08/15/20 05/16/21 Jadon Devlin MD [address] [place] [address] 100 [place] [address] Gastroenterology 09/29/19 documented as of this encounter
--- OUTSIDE RECORDS SUMMARY | 2025-01-27 08:49 | XMS_ITS | Encounter Summary ---
Author Organization [facility] Address [address] [place] [address] Care Team Providers Care Oracle Sql Developer Name Role Phone Jadon Devlin MD Unavailable [phone] Marii Woods MD Primary Care Provider + [phone] Marii Woods MD Unavailable [phone] Reason for Visit * Reason Comments Medication Refill Encounter Details Date Type Department Care Team (Late st Contact Info) Description 12/19/2020 Refill [facility] [place] [address] [place] [address] Barbara Garner, UX DESIGNER [address] [place] [address] Other depression; Chronic migraine without aura, with [...] 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
--- OUTSIDE RECORDS SUMMARY | 2025-01-27 08:49 | XMS_ITS | Encounter Summary ---
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 [address] PCP - General Internal Medicine 03/07/20 08/07/21 [place] [address] [place], [place] [address], [place] [address] PCP - [employer] Commercial Attributed 08/15/20 05/16/21 Jadon Devlin MD [address] [place] [address] 100 [place] [address] Gastroenterology 09/29/19 documented as of this encounter
--- OUTSIDE RECORDS SUMMARY | 2025-01-27 08:49 | XMS_ITS | Encounter Summary ---
Author Organization [facility] Address [address] [place] [address] Care Team Providers Care Radiologist Chief Of Breast Imaging Name Role Phone Dede Mccoyi Lorna MATHEWS Primary Care Provider [phone] Shanika Hillman MD Primary Care Provider +[phone] Shanika Hillman MD Unavailable [phone] Jadon Devlin MD Unavailable +[phone] Marii Woods MD Primary Care Provider + [phone] Pcp, No Primary Care Provider Unavailolivia e Marii Woods MD Unavailable [phone] Marii Woods MD Primary Care Provider +[phone] Marii Woods MD Unavailable [phone] Encounter Details Date Type Department Care Team (Late st Contact Info) Description 04/01/2016 Scanned Document [address] [phone] Provider, Generic Social History Tobacco Use Types [...] on filedocumented in this encounter Care Teams Radiologist Chief Of Breast Imaging Relationship Specialty Start Date End Date Michelle Mccoy DO PCP - General Family Medicine 02/03/16 12/28/17 Shanika Hillman MD PCP - General Internal Medicine 12/29/17 09/28/19 Shanika Hillman MD 234 [facility] 4011 [place] [address] PCP - [employer] Commercial Attributed 02/14/19 05/16/19 Marii Woods MD [address] [place] [address] PCP - General Internal Medicine 09/29/19 01/22/20 Pcp, No PCP - General 01/23/20 03/06/20 Marii Woods MD 1060 [facility] [address] PCP - [employer] Commercial Attributed 10/16/19 04/15/20 Marii Woods MD [address] [place] [address] PCP - General Internal Medicine 03/07/20 08/07/21 Marii Woods MD [address] [place] [address] PCP - [employer] Commercial Attributed 08/15/20 05/16/21 Jadon Devlin MD [address] [place] [address] 100 [place] [address] Gastroenterology 09/29/19 documented as of this encounter
--- OUTSIDE RECORDS SUMMARY | 2025-01-27 08:49 | XMS_ITS | Encounter Summary ---
Author Organization [facility] Address [address] [place] [address] Care Team Providers Care Audit Director Name Role Phone Michelle Mccoy DO Primary Care Provider [phone] Shanika Hillman MD Primary Care Provider +[phone] Shanika Hillman MD Unavailable [phone] Jadon Devlin MD Unavailable +[phone] Marii Woods MD Primary Care Provider Pcp, No Primary Care Provider UnavailMarii Dominguez MD Unavailable +[phone] Marii Woods MD Primary Care Provider + [phone] Marii Woods MD Unavailable [phone] Encounter Details Date Type Department Care Team (Late st Contact Info) Description 03/04/2017 Scanned Document [id number] [place] [address] Michelle Mccoy DO [address] [place] [address] Social History Tobacco Use Types Packs/Day Years [...] on filedocumented in this encounter Care Teams Audit Director Relationship Specialty Start Date End Date Michelle Mccoy DO PCP - General Family Medicine 02/03/16 12/28/17 Shanika Hillman MD PCP - General Internal Medicine 12/29/17 09/28/19 Shanika Hillman MD [address] [place] [address] 4[address] [place] [address] PCP - [employer] Commercial Attributed 02/14/19 05/16/19 Marii Woods MD 1060 [place] [address] PCP - General Internal Medicine 09/29/19 01/22/20 Pcp, No PCP - General 01/23/20 03/06/20 Marii Woods MD 10[address] [place] [address] PCP - [employer] Commercial Attributed 10/16/19 04/15/20 Marii Woods MD 10[address] [place] [address] PCP - General Internal Medicine 03/07/20 08/07/21 Marii Woods MD [address] [place] [address] PCP - [employer] Commercial Attributed 08/15/20 05/16/21 Jadon Devlin MD [address] [place] [address] Gastroenterology 09/29/19 documented as of this encounter
--- OUTSIDE RECORDS SUMMARY | 2025-01-27 08:49 | XMS_ITS | Encounter Summary ---
Author Organization [facility] Address [address] [place] [address] Care Team Providers Care Digester Operator Helper Name Role Phone Dede Mccoyi Lorna MATHEWS Primary Care Provider [phone] Shanika Hillman MD Primary Care Provider [phone] Shanika Hillman MD Unavailable [phone] Jadon Devlin MD Unavailable +[phone] Marii Woods MD Primary Care Provider + [phone] Pcp, No Primary Care Provider Unavailolivia e Marii Woods MD Unavailable +[phone] Marii Woods MD Primary Care Provider +[phone] Marii Woods MD Unavailable [phone] Encounter Details Date Type Department Care Team (Late st Contact Info) Description 02/21/2016 Scanned Document [address] [phone] Provider, Generic Social History Tobacco Use Types [...] on filedocumented in this encounter Care Teams Digester Operator Helper Relationship Specialty Start Date End Date Michelle Mccoy DO PCP - General Family Medicine 02/03/16 12/28/17 Shanika Hillman MD PCP - General Internal Medicine 12/29/17 09/28/19 Shanika Hillman MD [address] [place] [address] 4[address] [place] [address] PCP - [employer] Commercial Attributed 02/14/19 05/16/19 Marii Woods MD [address] [place] [address] PCP - General Internal Medicine 09/29/19 01/22/20 Pcp, No PCP - General 01/23/20 03/06/20 Marii Woods MD [address] [place] [address] PCP - [employer] Commercial Attributed 10/16/19 04/15/20 Marii Woods MD [address] [place] [address] PCP - General Internal Medicine 03/07/20 08/07/21 [place] [address] [place] [address] PCP - [employer] Commercial Attributed 08/15/20 05/16/21 Jadon Devlin MD [address] [place] [address] Gastroenterology 09/29/19 documented as of this encounter
--- OUTSIDE RECORDS SUMMARY | 2025-01-27 08:49 | XMS_ITS | Encounter Summary ---
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
--- OUTSIDE RECORDS SUMMARY | 2025-01-27 08:49 | XMS_ITS | Encounter Summary ---
Author Organization [facility] Address [address] [place] [address] Care Team Providers Care Ultrasound Supervisor Name Role Phone Michelle Mccoy DO Primary Care Provider [phone] Shanika Hillman MD Primary Care Provider +[phone] Shanika Hillman MD Unavailable [phone] Jadon Devlin MD Unavailable +[phone] Marii Woods MD Primary Care Provider Pcp, No Primary Care Provider UnavailMarii Dominguez MD Unavailable +[phone] Marii Woods MD Primary Care Provider + [phone] Marii Woods MD Unavailable [phone] Encounter Details Date Type Department Care Team (Late st Contact Info) Description 03/18/2017 Scanned Document [facility] 1060 [place] [address] Michelle Mccoy DO 339 [place] [address] Social History Tobacco Use Types Packs/Day Years [...] on filedocumented in this encounter Care Teams Ultrasound Supervisor Relationship Specialty Start Date End Date Michelle Mccoy DO PCP - General Family Medicine 02/03/16 12/28/17 Shanika Hillman MD PCP - General Internal Medicine 12/29/17 09/28/19 Shanika Hillman MD [address] [place] [address] 4011 [place] [address] PCP - [employer] Commercial Attributed 02/14/19 05/16/19 Marii Woods MD 1060 [facility] [place] [address] PCP - General Internal Medicine 09/29/19 01/22/20 Pcp, No PCP - General 01/23/20 03/06/20 Marii Woods MD 1060 [facility] [place] [address] PCP - [employer] Commercial Attributed 10/16/19 04/15/20 Marii Woods MD [address] [facility] [address] PCP - General Internal Medicine 03/07/20 08/07/21 Marii Woods MD [address] [facility] [place] [address] PCP - [employer] Commercial Attributed 08/15/20 05/16/21 Jadon Devlin MD [address] [place] [address] Gastroenterology 09/29/19 documented as of this encounter
--- OUTSIDE RECORDS SUMMARY | 2025-01-27 08:49 | XMS_ITS | Encounter Summary ---
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
--- OUTSIDE RECORDS SUMMARY | 2025-01-27 08:49 | XMS_ITS | Encounter Summary ---
Author Organization [facility] Address [address] [place] [address] Care Team Providers Care Paving Contractor Name Role Phone Jadon Devlin MD Unavailable [phone] Marii Woods MD Primary Care Provider + [phone] Marii Woods MD Unavailable [phone] Reason for Visit * Reason Comments Medication Refill Encounter Details Date Type Department Care Team (Late st Contact Info) Description 10/09/2020 Refill [facility] [address] [phone] Marii Woods MD [address] [place] [address] Other depression; Chronic migraine without aura, [...] 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 [address] PCP - General Internal Medicine 03/07/20 08/07/21 Marii Woods MD [address] [facility] [place] [address] PCP - [employer] Commercial Attributed 08/15/20 05/16/21 Jadon Devlin MD [address] [place] [address] Gastroenterology 09/29/19 documented as of this encounter
--- OUTSIDE RECORDS SUMMARY | 2025-01-27 08:49 | XMS_ITS | Encounter Summary ---
Author Organization [facility] Address [address] [place] [address] Care Team Providers Care Cellulose Insulation Helper Name Role Phone Jadon Devlin MD Unavailable [phone] Marii Woods MD Unavailable [phone] Marii Woods MD Primary Care Provider + [phone] Marii Woods MD Unavailable [phone] Reason for Visit * Reason Onset Date Comments Medication Refill 03/12/2020 Encounter Details Date Type Department Care Team (Late st Contact Info) Description 03/12/[address] [phone] Chirag Hicks, [facility] [address] [place] [address] Other depression Social History Tobacco Use Types [...] 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
== END 2025-01-27 08:44 | disposition home or self-care (01) ==
LOC: HO.MRI 08:43
PROVIDERS: PCP Physician Assistant Medical; Visit Provider Physician Assistant Medical
DX: R20.0 Anesthesia of skin (principal); R20.2 Paresthesia of skin; G43.909 Migraine, unspecified, not intractable, without status migrainosus; R53.82 Chronic fatigue, unspecified
CPT/HCPCS: 70551; 72050; 72100

== ENCOUNTER → 2025-01-27 08:54 | Outpatient (BNV) | payer BC, SELFPAY | PROVIDERS: PCP Physician Assistant Medical; Visit Provider Radiology Diagnostic Radiology | DX: G43.909 Migraine, unspecified, not intractable, without status migrainosus (principal); M48.02 Spinal stenosis, cervical region; M43.16 Spondylolisthesis, lumbar region | CPT/HCPCS: 70551; 72050; 72100 ==

== ENCOUNTER 2025-03-29 09:46 | Outpatient (REF) | payer BC, SELFPAY ==
--- NOTE | ~2025-03-29 | MR_ITS ---
EXAMINATION: MR LUMBAR SPINE WITHOUT CONTRAST CLINICAL INFORMATION: Sacroiliitis. Status post laminectomy. Radiculopathy. COMPARISON: Correlated to x-ray dated January 27, 2025. TECHNIQUE: MRI of the lumbar spine was obtained using routine sequences without contrast. FINDINGS: Paramagnetic field distortion secondary to metallic hardware/intervertebral discs spacer at L5-S1. Last rib-bearing vertebra labeled T12. No bone marrow STIR signal abnormality in the included axial skeleton. Multilevel marginal osteophyte formation and disc desiccation decreased intervertebral disc height throughout the axial skeleton. Overall normal alignment. Loss of the physiologic lumbar lordosis. Conus medullaris ends at intervertebral disc L1-2 with normal signal. T12-L1: No disc herniation. Facet joint hypertrophy. L1-2: No disc herniation. No central spinal canal or neuroforamina stenosis. L2-3: Broad-based disc bulging. Facet joint hypertrophy. Reduced AP diameter of the thecal sac and the left neuroforamina and. L3-4: Broad-based disc bulging. Facet joint and ligamentum flavum hypertrophy. Reduced AP diameter of the thecal sac and left neuroforamina. L4-5: Broad-based disc bulging. Facet joint and ligamentum flavum hypertrophy resulting in CSF effacement of the thecal sac central spinal canal stenosis and bilateral neuroforamina narrowing. L5-S1: Post surgical changes with a left hemilaminectomy. Facet joint hypertrophy. No central spinal canal stenosis. Bilateral neuroforamina narrowing. There is fatty atrophy of the lower lumbar muscles from L4 or to sacrum. There is no pseudomeningocele. No prevertebral hematoma, mass or fluid collection.. MR/MR lumbar spine wo con IMPRESSION: Multilevel lumbar spondylosis pronounced at L4-5 resulting in central spinal canal and left neuroforamina and stenosis encroaching the neural elements. Electronically signed by: Vazquez Hardin MD 03/29/2025 11:14 AM LESLY
--- OUTSIDE RECORDS SUMMARY | 2025-03-29 11:37 | XMS_ITS | Encounter Summary ---
Author Organization [facility] Address [address] [place] [address] Care Team Providers Care Editor Newspaper Name Role Phone Shanika Hillman MD Primary Care Provider [phone] Shanika Hillman MD Unavailable [phone] Jadon Devlin MD Unavailable [phone] Marii Woods MD Primary Care Provider + [phone] Pcp, No Primary Care Provider Unavailolivia e Marii Woods MD Unavailable [phone] Marii Woods MD Primary Care Provider + [phone] Marii Woods MD Unavailable [phone] Encounter Details Date Type Department Care Team (Late st Contact Info) Description 10/15/2018 Scanned Document [address] [phone] Provider, Generic Social History Tobacco [...] on filedocumented in this encounter Care Teams Editor Newspaper Relationship Specialty Start Date End Date Shanika Hillman MD PCP - General Internal Medicine 12/29/17 09/28/19 Shanika Hillman MD [facility] [address] [place] [address] PCP - [employer] Commercial Attributed 02/14/19 05/16/19 Marii Woods MD 1060 [place] [address] PCP - General Internal Medicine 09/29/19 01/22/20 Pcp, No PCP - General 01/23/20 03/06/20 Marii Woods MD [facility] [place] [address] PCP - [employer] Commercial Attributed 10/16/19 04/15/20 Marii Woods MD 1060 [place] [address] PCP - General Internal Medicine 03/07/20 08/07/21 Marii Woods MD 1060 [place] [address] PCP - [employer] Commercial Attributed 08/15/20 05/16/21 Jadon Devlin MD [address] [place] [address] 100 [place] [address] Gastroenterology 09/29/19 documented as of this encounter
--- OUTSIDE RECORDS SUMMARY | 2025-03-29 11:38 | XMS_ITS | Encounter Summary ---
Author Organization [facility] Address [address] [place] [address] Care Team Providers Care Photocopying Equipment Repairer Name Role Phone Darius Michelle Lorna MATHEWS Primary Care Provider [phone] Shanika Hillman MD Primary Care Provider [phone] Shanika Hillman MD Unavailable [phone] Jadon Devlin MD Unavailable [phone] Marii Woods MD Primary Care Provider + [phone] Pcp, No Primary Care Provider Unavailolivia e Marii Woods MD Unavailable [phone] Marii Woods MD Primary Care Provider +[phone] Marii Woods MD Unavailable [phone] Encounter Details Date Type Department Care Team (Late st Contact Info) Description 12/18/2016 Scanned Document [address] [phone] Provider, Generic Social History Tobacco Use Types [...] on filedocumented in this encounter Care Teams Photocopying Equipment Repairer Relationship Specialty Start Date End Date Michelle Mccoy DO PCP - General Family Medicine 02/03/16 12/28/17 Shanika Hillman MD PCP - General Internal Medicine 12/29/17 09/28/19 Shanika Hillman MD [address] [facility] 4[address] [place] [address] PCP - [employer] Commercial Attributed 02/14/19 05/16/19 Marii Woods MD 1060 [facility] [place], [place] [address] PCP - General Internal Medicine 09/29/19 01/22/20 Pcp, No PCP - General 01/23/20 03/06/20 Mairi Woods MD 1060 [facility] [place] [address] PCP - [employer] Commercial Attributed 10/16/19 04/15/20 Marii Woods MD 1060 [facility] [place] [address] PCP - General Internal Medicine 03/07/20 08/07/21 Marii Woods MD [address]60 [place] [address] PCP - [employer] Commercial Attributed 08/15/20 05/16/21 Jadon Devlin MD [address] [address] Gastroenterology 09/29/19 documented as of this encounter
--- OUTSIDE RECORDS SUMMARY | 2025-03-29 11:38 | XMS_ITS | Encounter Summary ---
Author Organization [facility] Address [address] [place] [address] Care Team Providers Care Restrike Hammer Operator Name Role Phone Naty Rendon MD Primary Care Provider [phone] Michelle Mccoy DO Primary Care Provider [phone] Shanika Hillman MD Primary Care Provider [phone] Shanika Hillman MD Unavailable [phone] Jadon Devlin MD Unavailable [phone] Marii Woods MD Primary Care Provider [phone] Pcp, No Primary Care Provider Unavailolivia e Marii Woods MD Unavailable Marii Woods MD Primary Care Provider Marii Woods MD Unavailable [phone] Encounter Details Date Type Department Care Team (Late st Contact Info) Description 08/21/2015 Scanned Document [facility] [address] [place] [address] Naty Rendon MD [facility] [address] [place] [address] Social History Tobacco Use Types Packs/Day [...] on filedocumented in this encounter Care Teams Restrike Hammer Operator Relationship Specialty Start Date End Date Naty Rendon MD PCP - General Internal Medicine 03/18/15 02/02/16 Michelle Mccoy DO PCP - General Family Medicine 02/03/16 12/28/17 Shanika Hillman MD PCP - General Internal Medicine 12/29/17 09/28/19 Shanika Hillman MD [address] [place] [address] 4011 [place] [address] PCP - [employer] Commercial Attributed 02/14/19 05/16/19 Marii Woods MD 1060 [facility] [place] [address] PCP - General Internal Medicine 09/29/19 01/22/20 Pcp, No PCP - General 01/23/20 03/06/20 Marii Woods MD [address] [place] [address] PCP - [employer] Commercial Attributed 10/16/19 04/15/20 Marii Woods MD 1060 [facility] [place] [address] PCP - General Internal Medicine 03/07/20 08/07/21 Marii Woods MD 1060 [place] [address] PCP - [employer] Commercial Attributed 08/15/20 05/16/21 Jadon Devlin MD 21 [facility] 100 [place] [address] Gastroenterology 09/29/19 documented as of this encounter
--- OUTSIDE RECORDS SUMMARY | 2025-03-29 11:38 | XMS_ITS | Encounter Summary ---
Author Organization [facility] Address [address] [place] [address] Care Team Providers Care Ict Customer Support Officer Name Role Phone Dede Mccoyi Lorna MATHEWS Primary Care Provider [phone] Shanika Hillman MD Primary Care Provider +[phone] Shanika Hillman MD Unavailable [phone] Jadon Devlin MD Unavailable +[phone] Marii Woods MD Primary Care Provider + [phone] Pcp, No Primary Care Provider Unavailolivia e Marii Woods MD Unavailable [phone] Marii Woods MD Primary Care Provider +[phone] Marii Woods MD Unavailable [phone] Encounter Details Date Type Department Care Team (Late st Contact Info) Description 10/19/2016 Scanned Document [address] [address] Provider, Generic Social History Tobacco Use Types [...] on filedocumented in this encounter Care Teams Ict Customer Support Officer Relationship Specialty Start Date End Date Michelle MccoyDO PCP - General Family Medicine 02/03/16 12/28/17 Shanika Hillman MD PCP - General Internal Medicine 12/29/17 09/28/19 Shanika Hillman MD [address] [place] [address] 4[address] [place] [address] PCP - C[employer] Commercial Attributed 02/14/19 05/16/19 Marii Woods MD [address] [facility] [place] [address] PCP - General Internal Medicine 09/29/19 01/22/20 Pcp, No PCP - General 01/23/20 03/06/20 Marii Woods MD [address] [facility] [place] [address] PCP - [employer] Commercial Attributed 10/16/19 04/15/20 Marii Woods MD [address] [facility] [place] [address] PCP - General Internal Medicine 03/07/20 08/07/21 Marii Woods MD 1060 [facility] [place] [address] PCP - C[employer] Commercial Attributed 08/15/20 05/16/21 Jadon Devlin MD [address] [address] Gastroenterology 09/29/19 documented as of this encounter
--- OUTSIDE RECORDS SUMMARY | 2025-03-29 11:38 | XMS_ITS | Encounter Summary ---
Author Organization [facility] Address [address] [place] [address] Care Team Providers Care Textile Chemist Name Role Phone Michelle Mccoy DO Primary Care Provider [phone] Shanika Hillman MD Primary Care Provider +[phone] Shanika Hillman MD Unavailable [phone] Jadon Devlin MD Unavailable +[phone] Marii Woods MD Primary Care Provider Pcp, No Primary Care Provider UnavailMarii Dominguez MD Unavailable +[phone] Marii Woods MD Primary Care Provider + [phone] Marii Woods MD Unavailable +[phone] Encounter Details Date Type Department Care Team (Late st Contact Info) Description 03/18/2017 Scanned Document [facility] 1060 [place] [address] Michelle Mccoy DO 339 [place] [address] Social History Tobacco Use Types Packs/Day Years [...] filedocumented in this encounter Care Teams Textile Chemist Relationship Specialty Start Date End Date Michelle Mccoy DO PCP - General Family Medicine 02/03/16 12/28/17 Shanika Hillman MD PCP - General Internal Medicine 12/29/17 09/28/19 Shanika Hillman MD [address] [place] [address] 4011 [place] [address] PCP - C[employer] Commercial Attributed 02/14/19 05/16/19 Marii Woods MD 1060 [facility] [address] PCP - General Internal Medicine 09/29/19 01/22/20 Pcp, No PCP - General 01/23/20 03/06/20 Marii Woods MD 1060 [facility] [address] PCP - C[employer] Commercial Attributed 10/16/19 04/15/20 Marii Woods MD 1060 [facility] [address] PCP - General Internal Medicine 03/07/20 08/07/21 Marii Woods MD 1060 [facility] [address] PCP - C[employer] Commercial Attributed 08/15/20 05/16/21 Jadon Devlin MD [address] [place] [address] Gastroenterology 09/29/19 documented as of this encounter
--- OUTSIDE RECORDS SUMMARY | 2025-03-29 11:38 | XMS_ITS | Encounter Summary ---
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
--- OUTSIDE RECORDS SUMMARY | 2025-03-29 11:38 | XMS_ITS | Encounter Summary ---
Author Organization [facility] Address [address] [place] [address] Care Team Providers Care Pipe Welder Name Role Phone Naty Rendon MD Primary Care Provider [phone] Michelle Mccoy DO Primary Care Provider [phone] Shanika Hillman MD Primary Care Provider +[phone] Shanika Hillamn MD Unavailable [phone] Jadon Devlin MD Unavailable +[phone] Marii Woods MD Primary Care Provider + [phone] Pcp, No Primary Care Provider Unavailabl e Marii Woods MD Unavailable +[phone] Marii Woods MD Primary Care Provider + [phone] Marii Woods MD Unavailable [phone] Encounter Details Date Type Department Care Team (Late st Contact Info) Description 08/22/2015 Scanned Document [address] [phone] Provider, Generic Social History Tobacco Use Types [...] on filedocumented in this encounter Care Teams Pipe Welder Relationship Specialty Start Date End Date Naty Rendon MD PCP - General Internal Medicine 03/18/15 02/02/16 Michelle Mccoy DO PCP - General Family Medicine 02/03/16 12/28/17 Shanika Hillman MD PCP - General Internal Medicine 12/29/17 09/28/19 Shanika Hillman MD 234 [facility] 4011 [place] [address] PCP - C[employer] Commercial Attributed 02/14/19 05/16/19 Marii Woods MD 1060 [facility] [place] [address] PCP - General Internal Medicine 09/29/19 01/22/20 Pcp, No PCP - General 01/23/20 03/06/20 Marii Woods MD 1060 [facility] [place] [address] PCP - C[employer] Commercial Attributed 10/16/19 04/15/20 Marii Woods MD 1060 [facility] [place] [address] PCP - General Internal Medicine 03/07/20 08/07/21 Marii Woods MD 1060 [facility] [place] [address] PCP - C[employer] Commercial Attributed 08/15/20 05/16/21 Jadon Devlin MD [address] [place] [address] Gastroenterology 09/29/19 documented as of this encounter
--- OUTSIDE RECORDS SUMMARY | 2025-03-29 11:38 | XMS_ITS | Encounter Summary ---
Author Organization [facility] Address [address] [place] [address] Care Team Providers Care Freight Car Repairer Name Role Phone Shanika Hillman MD Primary Care Provider [phone] Shanika Hillman MD Unavailable [phone] Jadon Devlin MD Unavailable [phone] Marii Woods MD Primary Care Provider [phone] Pcp, No Primary Care Provider Unavailolivia e Marii Woods MD Unavailable +[phone] Marii Woods MD Primary Care Provider + [phone] Marii Woods MD Unavailable [phone] Encounter Details Date Type Department Care Team (Late st Contact Info) Description 01/09/[address] [facility] 10 [facility] [address] [place] [phone] Jadon Devlin MD [address] [place] [address] Social History Tobacco Use Types Packs/Day Years [...] 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 [...] on filedocumented in this encounter Care Teams Freight Car Repairer Relationship Specialty Start Date End Date Shanika Hillman MD PCP - General Internal Medicine 12/29/17 09/28/19 Shanika Hillman MD 234 [facility] 4011 [place] [address] PCP - C[employer] Commercial Attributed 02/14/19 05/16/19 Marii Woods MD 1060 [facility] [place] [address] PCP - General Internal Medicine 09/29/19 01/22/20 Pcp, No PCP - General 01/23/20 03/06/20 Marii Woods MD 1060 [facility] [place] [address] PCP - C[employer] Commercial Attributed 10/16/19 04/15/20 Marii Woods MD 1060 [facility] [place] [address] PCP - General Internal Medicine 03/07/20 08/07/21 Marii Woods MD 1060 [place] [address] PCP - Cign[employer] Commercial Attributed 08/15/20 05/16/21 Jadon Devlin MD [address] [place] [address] 100 [place] [address] Gastroenterology 09/29/19 documented as of this encounter
--- OUTSIDE RECORDS SUMMARY | 2025-03-29 11:38 | XMS_ITS | Encounter Summary ---
Author Organization [facility] Address [address] [place] [address] Care Team Providers Care Garment Tag Stringer Name Role Phone Michelle Mccoy DO Primary Care Provider [phone] Shanika Hillman MD Primary Care Provider +[phone] Shanika Hillman MD Unavailable [phone] Jadon Devlin MD Unavailable +[phone] Marii Woods MD Primary Care Provider Pcp, No Primary Care Provider UnavailMarii Dominguez MD Unavailable +[phone] Marii Woods MD Primary Care Provider + [phone] Marii Woods MD Unavailable [phone] Encounter Details Date Type Department Care Team (Late st Contact Info) Description 03/04/2017 Scanned Document [place] [address] [place] [address] Michelle Mccoy DO 339 [place] [address] Social History Tobacco Use Types Packs/Day Years [...] on filedocumented in this encounter Care Teams Garment Tag Stringer Relationship Specialty Start Date End Date Michelle Mccoy DO PCP - General Family Medicine 02/03/16 12/28/17 Shanika Hillman MD PCP - General Internal Medicine 12/29/17 09/28/19 Shanika Hillman MD [address] [place] [address] 4011 [place] [address] PCP - Cigna Commercial Attributed 02/14/19 05/16/19 Marii Woods MD 1060 [facility] [place] [address] PCP - General Internal Medicine 09/29/19 01/22/20 Pcp, No PCP - General 01/23/20 03/06/20 Marii Woods MD 1060 [facility] [place] [address] PCP - C[employer] Commercial Attributed 10/16/19 04/15/20 Marii Woods MD 1060 [facility] [place] [address] PCP - General Internal Medicine 03/07/20 08/07/21 Marii Woods MD 1060 [facility] [place] [address] PCP - Cigna Commercial Attributed 08/15/20 05/16/21 Jadon Devlin MD [address] [place] [address] Gastroenterology 09/29/19 documented as of this encounter
--- OUTSIDE RECORDS SUMMARY | 2025-03-29 11:38 | XMS_ITS | Encounter Summary ---
Author Organization [facility] Address [address] [place] [address] Care Team Providers Care Fur Dresser Name Role Phone Naty Rendon MD Primary Care Provider [phone] Michelle Mccoy DO Primary Care Provider [phone] Shanika Hillman MD Primary Care Provider +[phone] Shanika Hillman MD Unavailable [phone] Jadon Devlin MD Unavailable +[phone] Marii Woods MD Primary Care Provider + [phone] Pcp, No Primary Care Provider Unavailabl e Marii Woods MD Unavailable +[phone] Marii Woods MD Primary Care Provider + [phone] Marii Woods MD Unavailable [phone] Encounter Details Date Type Department Care Team (Late st Contact Info) Description 06/08/2015 Scanned Document [address] [phone] Provider, Generic Social History Tobacco Use Types [...] on filedocumented in this encounter Care Teams Fur Dresser Relationship Specialty Start Date End Date Naty Rendon MD PCP - General Internal Medicine 03/18/15 02/02/16 Michelle Mccoy DO PCP - General Family Medicine 02/03/16 12/28/17 Shanika Hillman MD PCP - General Internal Medicine 12/29/17 09/28/19 Shanika Hillman MD [address] [place] [address] 4011 [place] [address] PCP - Cigna Commercial Attributed 02/14/19 05/16/19 Marii Woods MD 1060 [facility] [place] [address] PCP - General Internal Medicine 09/29/19 01/22/20 Pcp, No PCP - General 01/23/20 03/06/20 Marii Woods MD 1060 [facility] [place] [address] PCP - Cigna Commercial Attributed 10/16/19 04/15/20 Marii Woods MD 1060 [facility] [place] [address] PCP - General Internal Medicine 03/07/20 08/07/21 Marii Woods MD 1060 [place] [address] PCP - Cigna Commercial Attributed 08/15/20 05/16/21 Jadon Devlin MD 21 [facility] 100 [place] [address] Gastroenterology 09/29/19 documented as of this encounter
--- OUTSIDE RECORDS SUMMARY | 2025-03-29 11:38 | XMS_ITS | Encounter Summary ---
Author Organization [facility] Address [address] [place] [address] Care Team Providers Care Rn Maternity Name Role Phone Dede Mccoyi Lorna MATHEWS Primary Care Provider [phone] Shanika Hillman MD Primary Care Provider +[phone] Shanika Hillman MD Unavailable [phone] Jadon Devlin MD Unavailable +[phone] Marii Woods MD Primary Care Provider + [phone] Pcp, No Primary Care Provider Unavailolivia e Marii Woods MD Unavailable +[phone] Marii Woods MD Primary Care Provider +[phone] Marii Woods MD Unavailable [phone] Encounter Details Date Type Department Care Team (Late st Contact Info) Description 02/21/2016 Scanned Document [address] [phone] Provider, Generic Social History Tobacco Use Types [...] filedocumented in this encounter Care Teams Rn Maternity Relationship Specialty Start Date End Date Michelle Mccoy DO PCP - General Family Medicine 02/03/16 12/28/17 Shanika Hillman MD PCP - General Internal Medicine 12/29/17 09/28/19 Shanika Hillman MD [address] [place] [address] 4011 [place] [address] PCP - Cigna Commercial Attributed 02/14/19 05/16/19 Marii Woods MD [address] [place] [address] PCP - General Internal Medicine 09/29/19 01/22/20 Pcp, No PCP - General 01/23/20 03/06/20 Marii Woods MD [address] [place] [address] PCP - C[employer]a Commercial Attributed 10/16/19 04/15/20 Marii Woods MD [address] [place] [address] PCP - General Internal Medicine 03/07/20 08/07/21 [place] [address] [place] [address] PCP - Cigna Commercial Attributed 08/15/20 05/16/21 Jadon Devlin MD [address] [place] [address] Gastroenterology 09/29/19 documented as of this encounter
--- OUTSIDE RECORDS SUMMARY | 2025-03-29 11:38 | XMS_ITS | Encounter Summary ---
Author Organization [facility] Address [address] [place] [address] Care Team Providers Care Library Sales Consultant Name Role Phone Dede Mccoyi Lorna MATHEWS Primary Care Provider [phone] Shanika Hillman MD Primary Care Provider [phone] Shanika Hillman MD Unavailable [phone] Jadon Devlin MD Unavailable +[phone] Marii Woods MD Primary Care Provider + [phone] Pcp, No Primary Care Provider Unavailolivia e Marii Woods MD Unavailable +[phone] Marii Woods MD Primary Care Provider +[phone] Marii Woods MD Unavailable [phone] Encounter Details Date Type Department Care Team (Late st Contact Info) Description 11/01/2016 Scanned Document [address] [phone] Provider, Generic Social History Tobacco Use Types [...] on filedocumented in this encounter Care Teams Library Sales Consultant Relationship Specialty Start Date End Date Michelle MccoyDO PCP - General Family Medicine 02/03/16 12/28/17 Shanika Hillman MD PCP - General Internal Medicine 12/29/17 09/28/19 Shanika Hillman MD [address] [place] [address] 4[address] [place] [address] PCP - Cigna Commercial Attributed 02/14/19 05/16/19 Marii Woods MD 1060 [facility] [place] [address] PCP - General Internal Medicine 09/29/19 01/22/20 Pcp, No PCP - General 01/23/20 03/06/20 Marii Woods MD 1060 [facility] [place] [address] PCP - Cigna Commercial Attributed 10/16/19 04/15/20 Marii Woods MD 1060 [facility] [place] [address] PCP - General Internal Medicine 03/07/20 08/07/21 Marii Woods MD 1060 [facility] [place] [address] PCP - Cigna Commercial Attributed 08/15/20 05/16/21 Jadon Devlin MD [address] [address] Gastroenterology 09/29/19 documented as of this encounter
--- OUTSIDE RECORDS SUMMARY | 2025-03-29 11:38 | XMS_ITS | Encounter Summary ---
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
--- OUTSIDE RECORDS SUMMARY | 2025-03-29 11:38 | XMS_ITS | Encounter Summary ---
Author Organization [facility] Address [address] [place] [address] Care Team Providers Care Animal Pathologist Name Role Phone Naty Rendon MD Primary Care Provider Michelle Mccoy DO Primary Care Provider [phone] Shanika Hillman MD Primary Care Provider [phone] Shanika Hillman MD Unavailable [phone] Jadon Devlin MD Unavailable +[phone] Marii Woods MD Primary Care Provider + [phone] Pcp, No Primary Care Provider Unavailabl e Marii Woods MD Unavailable +[phone] Marii Woods MD Primary Care Provider + [phone] Marii Woods MD Unavailable [phone] Encounter Details Date Type Department Care Team (Late st Contact Info) Description 03/26/2015 Scanned Document [address] [phone] Provider, Generic Social History Tobacco Use Types [...] on filedocumented in this encounter Care Teams Animal Pathologist Relationship Specialty Start Date End Date Naty Rendon MD PCP - General Internal Medicine 03/18/15 02/02/16 Michelle Mccoy DO PCP - General Family Medicine 02/03/16 12/28/17 Shanika Hillman MD PCP - General Internal Medicine 12/29/17 09/28/19 Shanika Hillman MD [address] [place] [address] 4011 [place] [address] PCP - Cigna Commercial Attributed 02/14/19 05/16/19 Marii Woods MD 1060 [place] [address] PCP - General Internal Medicine 09/29/19 01/22/20 Pcp, No PCP - General 01/23/20 03/06/20 Marii Woods MD 1060 [place] [address] PCP - Cigna Commercial Attributed 10/16/19 04/15/20 Marii Woods MD 1060 [place] [address] PCP - General Internal Medicine 03/07/20 08/07/21 Marii Woods MD 1060 [place] [address] PCP - Cigna Commercial Attributed 08/15/20 05/16/21 Jadon Devlin MD [address] [facility] 100 [place] [address] Gastroenterology 09/29/19 documented as of this encounter
--- OUTSIDE RECORDS SUMMARY | 2025-03-29 11:38 | XMS_ITS | Encounter Summary ---
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
--- OUTSIDE RECORDS SUMMARY | 2025-03-29 11:38 | XMS_ITS | Encounter Summary ---
Author Organization [facility] Address [address] [place] [address] Care Team Providers Care Weatherization Coordinator Name Role Phone Shanika Hillman MD Primary Care Provider Shanika Hillman MD Unavailable [phone] Jadon Devlin MD Unavailable [phone] Marii Woods MD Primary Care Provider [phone] Pcp, No Primary Care Provider Unavailolivia e Marii Woods MD Unavailable +[phone] Marii Woods MD Primary Care Provider + [phone] Marii Woods MD Unavailable [phone] Encounter Details Date Type Department Care Team (Late st Contact Info) Description 03/27/2019 Scanned Document [place] [address] [place] [address] Shanika Hillman MD [address] [place] [address] Social History Tobacco Use Types Packs/Day [...] 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 [address] PCP - General Internal Medicine 09/29/19 01/22/20 Pcp, No PCP - General 01/23/20 03/06/20 Marii Woods MD [address] [facility] [place] [address] PCP - C[employer] Commercial Attributed 10/16/19 04/15/20 Marii Woods MD [address] [facility] [place] [address] PCP - General Internal Medicine 03/07/20 08/07/21 Marii Woods MD [address] [facility] [place] [address] PCP - C[employer]a Commercial Attributed 08/15/20 05/16/21 Jadon Devlin MD [address] [place] [address] 100 [place] [address] Gastroenterology 09/29/19 documented as of this encounter
--- OUTSIDE RECORDS SUMMARY | 2025-03-29 11:38 | XMS_ITS | Encounter Summary ---
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
--- OUTSIDE RECORDS SUMMARY | 2025-03-29 11:38 | XMS_ITS | Encounter Summary ---
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 Not on file documented as of this encounter Plan of Treatment Not on file documented as of this encounter Visit Diagnoses Not on filedocumented in this encounter Care Teams Java User Interface Developer Relationship Specialty Start Date End Date Marii Woods MD [address] [facility] [place] [address] PCP - General Internal Medicine 03/07/20 08/07/21 [place] [address] [place], [place] [address], [place] [address] PCP - [employer] Commercial Attributed 08/15/20 05/16/21 Jadon Devlin MD [address] [place] [address] 100 [place] [address] Gastroenterology 09/29/19 documented as of this encounter
--- OUTSIDE RECORDS SUMMARY | 2025-03-29 11:38 | XMS_ITS | Encounter Summary ---
Author Organization [facility] Address [address] [place], [place] [id number] Care Team Providers Care Hunter Guide Name Role Phone Naty Rendon MD Primary Care Provider [phone] Michelle Mccoy DO Primary Care Provider [phone] Shanika Hillman MD Primary Care Provider +[phone] Shanika Hillman MD Unavailable [phone] Jadon Devlin MD Unavailable [phone] Marii Woods MD Primary Care Provider [phone] Pcp, No Primary Care Provider UnavailMarii Dominguez MD Unavailable +[phone] Marii Woods MD Primary Care Provider + [phone] Marii Woods MD Unavailable [phone] Naty Rendon MD Primary Care Provider [phone] Encounter Details Date Type Department Care Team (Late st Contact Info) Description 02/01/2015 Scanned Document [address] [phone] Provider, Generic Social History Tobacco Use Types [...] on filedocumented in this encounter Care Teams Hunter Guide Relationship Specialty Start Date End Date Naty Rendon MD PCP - General Internal Medicine 03/18/15 02/02/16 Michelle Mccoy DO PCP - General Family Medicine 02/03/16 12/28/17 Shanika Hillman MD PCP - General Internal Medicine 12/29/17 09/28/19 Shanika Hillman MD [address] [facility] [address] [place] [address] PCP - Cign[employer] Commercial Attributed 02/14/19 05/16/19 Marii Woods MD 1060 [facility] [place] [address] PCP - General Internal Medicine 09/29/19 01/22/20 Pcp, No PCP - General 01/23/20 03/06/20 Marii Woods MD 1060 [place] [address] PCP - Cign[employer] Commercial Attributed 10/16/19 04/15/20 Marii Woods MD [address] [place] [address] PCP - General Internal Medicine 03/07/20 08/07/21 Marii Woods MD 1060 [place] [address] PCP - [employer] Commercial Attributed 08/15/20 05/16/21 Naty Rendon MD [address] [place] [address] PCP - General 03/17/15 Jadon Devlin MD [address] [place] [address] 100 [place] [address] Gastroenterology 09/29/19 documented as of this encounter
--- OUTSIDE RECORDS SUMMARY | 2025-03-29 11:38 | XMS_ITS | Encounter Summary ---
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 Not on file documented as of this encounter Plan of Treatment Not on file documented as of this encounter Visit Diagnoses Not on filedocumented in this encounter Care Teams Co Founder And President Relationship Specialty Start Date End Date Marii Woods MD [address] [facility] [place] [address] PCP - General Internal Medicine 03/07/20 08/07/21 [place] [address] [place], [place] [address], [place] [address] PCP - [employer] Commercial Attributed 08/15/20 05/16/21 Jadon Devlin MD [address] [place] [address] 100 [place] [address] Gastroenterology 09/29/19 documented as of this encounter
--- OUTSIDE RECORDS SUMMARY | 2025-03-29 11:38 | XMS_ITS | Encounter Summary ---
Author Organization [facility] Address [address] [place] [address] Care Team Providers Care Glass Installer Name Role Phone Dede Mccoyi Lorna MATHEWS Primary Care Provider [phone] Shanika Hillman MD Primary Care Provider +[phone] Shanika Hillman MD Unavailable [phone] Jadon Devlin MD Unavailable +[phone] Marii Woods MD Primary Care Provider + [phone] Pcp, No Primary Care Provider Unavailolivia e Marii Woods MD Unavailable [phone] Marii Woods MD Primary Care Provider +[phone] Marii Woods MD Unavailable [phone] Encounter Details Date Type Department Care Team (Late st Contact Info) Description 05/19/2016 Scanned Document [address] [phone] Provider, Generic Social History Tobacco Use Types [...] on filedocumented in this encounter Care Teams Glass Installer Relationship Specialty Start Date End Date Michelle MccoyDO PCP - General Family Medicine 02/03/16 12/28/17 Shanika Hillman MD PCP - General Internal Medicine 12/29/17 09/28/19 Shanika Hillman MD [address] [place] [address] 4[address] [place] [address] PCP - C[employer] Commercial Attributed 02/14/19 05/16/19 Marii Woods MD 1060 [facility] [address] PCP - General Internal Medicine 09/29/19 01/22/20 Pcp, No PCP - General 01/23/20 03/06/20 Marii Woods MD 1060 [facility] [address] PCP - C[employer] Commercial Attributed 10/16/19 04/15/20 Marii Woods MD 1060 [facility] [address] PCP - General Internal Medicine 03/07/20 08/07/21 Marii Woods MD 1060 [facility] [place] [address] PCP - Cign[employer] Commercial Attributed 08/15/20 05/16/21 Jadon Devlin MD [address] [address] Gastroenterology 09/29/19 documented as of this encounter
--- OUTSIDE RECORDS SUMMARY | 2025-03-29 11:38 | XMS_ITS | Encounter Summary ---
Author Organization [facility] Address [address] [place] [address] Care Team Providers Care Accountant Controller Name Role Phone Naty Rendon MD Primary Care Provider [phone] Michelle Mccoy DO Primary Care Provider [phone] Shanika Hillman MD Primary Care Provider +[phone] Shanika Hillman MD Unavailable [phone] Jadon Devlin MD Unavailable [phone] Marii Woods MD Primary Care Provider [phone] Pcp, No Primary Care Provider Unavailolivia e Marii Woods MD Unavailable +[phone] Marii Woods MD Primary Care Provider Marii Woods MD Unavailable [phone] Encounter Details Date Type Department Care Team (Late st Contact Info) Description 08/26/2015 Scanned Document [facility] 1060 [place] [address] Naty Rendon MD [facility] [address] [place] [address] Social History Tobacco Use Types Packs/Day [...] on filedocumented in this encounter Care Teams Accountant Controller Relationship Specialty Start Date End Date Naty Rendon MD PCP - General Internal Medicine 03/18/15 02/02/16 Michelle Mccoy DO PCP - General Family Medicine 02/03/16 12/28/17 Shanika Hillman MD PCP - General Internal Medicine 12/29/17 09/28/19 Shanika Hillman MD [address] [place] [address] 4[address] [place] [address] PCP - Cigna Commercial Attributed 02/14/19 05/16/19 Marii Woods MD 1060 [facility] [place] [address] PCP - General Internal Medicine 09/29/19 01/22/20 Pcp, No PCP - General 01/23/20 03/06/20 Marii Woods MD [address] [place] [address] PCP - C[employer] Commercial Attributed 10/16/19 04/15/20 Marii Woods MD 1060 [facility] [place] [address] PCP - General Internal Medicine 03/07/20 08/07/21 Marii Woods MD 1060 [place] [address] PCP - Cigna Commercial Attributed 08/15/20 05/16/21 Jadon Devlin MD 21 [employer] 100 [place] [address] Gastroenterology 09/29/19 documented as of this encounter
--- OUTSIDE RECORDS SUMMARY | 2025-03-29 11:38 | XMS_ITS | Encounter Summary ---
Author Organization [facility] Address [address] [place] [address] Care Team Providers Care Gum Dipper Name Role Phone Naty Rendon MD Primary Care Provider Michelle Mcocy DO Primary Care Provider [phone] Shanika Hillman MD Primary Care Provider [phone] Shanika Hillman MD Unavailable [phone] Jadon Devlin MD Unavailable [phone] Marii Woods MD Primary Care Provider [phone] Pcp, No Primary Care Provider Unavailolivia e Marii Woods MD Unavailable [phone] Marii Woods MD Primary Care Provider Marii Woods MD Unavailable [phone] Encounter Details Date Type Department Care Team (Late st Contact Info) Description 08/23/2015 Scanned Document [facility] 1060 [place] [address] Naty Rendon MD [facility] [address] [place] [address] Social History Tobacco Use Types Packs/Day [...] on filedocumented in this encounter Care Teams Gum Dipper Relationship Specialty Start Date End Date Naty Rendon MD PCP - General Internal Medicine 03/18/15 02/02/16 Michelle Mccoy DO PCP - General Family Medicine 02/03/16 12/28/17 Shanika Hillman MD PCP - General Internal Medicine 12/29/17 09/28/19 Shanika Hillman MD [address] [place] [address] 4[address] [place] [address] PCP - Cigna Commercial Attributed 02/14/19 05/16/19 Marii Woods MD 1060 [facility] [place] [address] PCP - General Internal Medicine 09/29/19 01/22/20 Pcp, No PCP - General 01/23/20 03/06/20 Marii Woods MD [address] [place] [address] PCP - Cigna Commercial Attributed 10/16/19 04/15/20 Marii Woods MD 1060 [facility] [place] [address] PCP - General Internal Medicine 03/07/20 08/07/21 Marii Woods MD 1060 [place] [address] PCP - Cigna Commercial Attributed 08/15/20 05/16/21 Jadon Devlin MD 21 [facility] 100 [place] [address] Gastroenterology 09/29/19 documented as of this encounter
--- OUTSIDE RECORDS SUMMARY | 2025-03-29 11:38 | XMS_ITS | Encounter Summary ---
Author Organization [facility] Address [address] [place] [address] Care Team Providers Care Sports Marketer Name Role Phone Naty Rendon MD Primary Care Provider Michelle Mccoy DO Primary Care Provider [phone] Shanika Hillman MD Primary Care Provider [phone] Shanika Hillman MD Unavailable [phone] Jadon Devlin MD Unavailable [phone] Marii Woods MD Primary Care Provider + [phone] Pcp, No Primary Care Provider Unavailabl e Marii Woods MD Unavailable [phone] Marii Woods MD Primary Care Provider + [phone] Marii Woods MD Unavailable [phone] Encounter Details Date Type Department Care Team (Late st Contact Info) Description 07/08/2015 Scanned Document [address] [phone] Provider, Generic Social History Tobacco Use Types [...] on filedocumented in this encounter Care Teams Sports Marketer Relationship Specialty Start Date End Date Naty Rendon MD PCP - General Internal Medicine 03/18/15 02/02/16 Michelle Mccoy DO PCP - General Family Medicine 02/03/16 12/28/17 Shanika Hillman MD PCP - General Internal Medicine 12/29/17 09/28/19 Shanika Hillman MD [address] [place] [address] 4011 [place] [address] PCP - Cigna Commercial Attributed 02/14/19 05/16/19 Marii Woods MD 1060 [facility] [place] [address] PCP - General Internal Medicine 09/29/19 01/22/20 Pcp, No PCP - General 01/23/20 03/06/20 Marii Woods MD 10[address] [facility] [place] [address] PCP - Cigna Commercial Attributed 10/16/19 04/15/20 Marii Woods MD 10[address] [facility] [place] [address] PCP - General Internal Medicine 03/07/20 08/07/21 Marii Woods MD 1060 [place] [address] PCP - Cigna Commercial Attributed 08/15/20 05/16/21 Jadon Devlin MD 21 [facility] 100 [place] [address] Gastroenterology 09/29/19 documented as of this encounter
--- OUTSIDE RECORDS SUMMARY | 2025-03-29 11:38 | XMS_ITS | Encounter Summary ---
Author Organization [facility] Address [address] [place] [address] Care Team Providers Care Insurance Rater Name Role Phone Michelle Mccoy DO Primary Care Provider [phone] Shanika Hillman MD Primary Care Provider [phone] Shanika Hillman MD Unavailable Jadon Devlin MD Unavailable [phone] Marii oWods MD Primary Care Provider Pcp, No Primary Care Provider UnavailMarii Dominguez MD Unavailable +[phone] Marii Woods MD Primary Care Provider + [phone] Marii Woods MD Unavailable [phone] Encounter Details Date Type Department Care Team (Late st Contact Info) Description 11/11/2016 Scanned Document [address] [phone] Michelle Mccoy DO [address] [place] [address] Social History Tobacco Use Types Packs/Day Years [...] on filedocumented in this encounter Care Teams Insurance Rater Relationship Specialty Start Date End Date Michelle Mccoy DO PCP - General Family Medicine 02/03/16 12/28/17 Shanika Hillman MD PCP - General Internal Medicine 12/29/17 09/28/19 Shanika Hillman MD [address] [place] [address] 4011 [place] [address] PCP - Cigna Commercial Attributed 02/14/19 05/16/19 Marii Woods MD 1060 [facility] [place] [address] PCP - General Internal Medicine 09/29/19 01/22/20 Pcp, No PCP - General 01/23/20 03/06/20 Marii Woods MD 1060 [facility] [place] [address] PCP - Cigna Commercial Attributed 10/16/19 04/15/20 Marii Woods MD [address] [place] [address] PCP - General Internal Medicine 03/07/20 08/07/21 Marii Woods MD [address] [place] [address] PCP - Cigna Commercial Attributed 08/15/20 05/16/21 Jadon Devlin MD 21 [place] [address] Gastroenterology 09/29/19 documented as of this encounter
--- OUTSIDE RECORDS SUMMARY | 2025-03-29 11:38 | XMS_ITS | Encounter Summary ---
Author Organization [facility] Address [address] [place] [address] Care Team Providers Care Fabric Worker Name Role Phone Dede Mccoyi Lorna MATHEWS Primary Care Provider [phone] Shanika Hillman MD Primary Care Provider [phone] Shanika Hillman MD Unavailable [phone] Jadon Devlin MD Unavailable [phone] Marii Woods MD Primary Care Provider + [phone] Pcp, No Primary Care Provider Unavailolivia e Marii Woods MD Unavailable [phone] Marii Woods MD Primary Care Provider [phone] Marii Woods MD Unavailable [phone] Encounter Details Date Type Department Care Team (Late st Contact Info) Description 04/01/2016 Scanned Document [address] [phone] Provider, Generic Social History Tobacco Use Types [...] on filedocumented in this encounter Care Teams Fabric Worker Relationship Specialty Start Date End Date Michelle Mccoy DO PCP - General Family Medicine 02/03/16 12/28/17 Shanika Hillman MD PCP - General Internal Medicine 12/29/17 09/28/19 Shanika Hillman MD 234 [facility] 4011 [place] [address] PCP - Cigna Commercial Attributed 02/14/19 05/16/19 Marii Woods MD 1060 [facility] [place] [address] PCP - General Internal Medicine 09/29/19 01/22/20 Pcp, No PCP - General 01/23/20 03/06/20 Marii Woods MD 1060 [facility] [place] [address] PCP - Cigna Commercial Attributed 10/16/19 04/15/20 Marii Woods MD [address] [place] [address] PCP - General Internal Medicine 03/07/20 08/07/21 Marii Woods MD [address] [place] [address] PCP - Cigna Commercial Attributed 08/15/20 05/16/21 Jadon Devlin MD [address] [place] [address] 100 [place] [address] Gastroenterology 09/29/19 documented as of this encounter
--- OUTSIDE RECORDS SUMMARY | 2025-03-29 11:38 | XMS_ITS | Clinical Summary ---
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 [...] 50+ (1 of 2 - PCV) 1986 RSV Vaccine 50 years and old er and Patients (1 - Risk 50-74 years 1-dose series) 2017 Zoster (Shingles) Vaccine (1 of 2) 2017 Mammogram 06/06/2021 06/06/2020, 10/2018, 03/20/2019 (Previously Completed), Additional history exists Pap Smear (Ages 21-65) 07/28/2021 07/28/2018, 2015 Lipid Panel 11/28/2021 11/28/2020, 01/15, 01/26/2019, Additional history exists Influenza Vaccine 12/15/2024 03/13/2020, , 03/25/2017, Additional history exists COVID-19 Vaccine (3 - 2024-2 6 season) 2025 08/31/2020, 08/05/2020 Colonoscopy 01/09/2029 01/09/2019 (Prev iously Completed) DTaP/Tdap/Td Vaccines (4 - T d or Tdap) 03/13/2030 03/13/2020, 08/15/2007, 07/16/2007 Hepatitis C Virus Screening Completed 03/24/2016, 1 Procedures Procedure Name Priority Date/Time Associated Diagnosis Comments LIPID PANEL WITH NONHDL Routine 11/28/2020 7:11 AM EDT Mixed hyperlipidemia Prediabetes IMAGING BREAST/BX/MAMMO Routine 06/06/2020 THINPREP PAP TEST (STUDY ABROAD ADVISOR) WITH HPV SCREEN Routine 07/28/2018 2:15 PM EDT Screening for cervical cancer HXAMB HEPATITIS C VIRAL RNA QUAL TMA Routine 03/01/2012 8:46 AM EDT from Last 3 Months or Most Recently Relevant to Health Maintenance Results * (ABNORMAL) Lipid panel (11/28/2020 7:11 AM EDT) Cholesterol, Total 217(H) <200 mg/dL [facility] Cholesterol, HDL 42(L) > OR = 50 mg/dL [facility] Triglycerides 187(H) <150 mg/dL [facility] LDL Cholesterol 143(H) mg/dL (calc) [facility] Comment: Reference range: <100 Desirable range <100 mg/dL for primary prevention; <70 mg/dL for patients with CHD or diabetic patients with > or = 2 CHD risk factors. LDL-C is now calculated using the Fani calculation, which is a validated novel method providing better accuracy than the Friedewald equation in the estimation of LDL-C. Jamal SS et al. VASILIY. 2013;310(64): 3181-1553 (http://education.farmbuy/faq/NEM566) Cholesterol/HDL Ratio 5.2(H) <5.0 (calc) [facility] Non HDL Chol. (LDL+VLDL) 175(H) <130 mg/dL (calc) [facility] Comment: For patients with diabetes plus 1 major ASCVD risk factor, treating to a non-HDL-C goal of <100 mg/dL (LDL-C of <70 mg/dL) is considered a therapeutic option. Blood specimen (specimen) Heel structure / Unknown 11/28/2020 7:11 AM EDT 11/28/2020 7:12 AM EDT Narrative [facility] - 11/29/2020 4:14 PM EDT FASTING:YES FASTING: YES Chir[facility] SORIAN[facility] LAB BLOOD ORDERABLES Final Resul t [facility] [address], [place] [address] * (ABNORMAL) IMAGING BREAST/BX/MAMMO (06/06/2020) Anatomical Region Laterality Modality Other Marii Woods MD IMG LEGACY PROCEDURES Edit ed Result - Final * ThinPrep Pap Test (Renewal Specialist) with HPV Screen (07/28/2018 2:15 PM EDT) [...] has been evaluated with computer assisted technology. [facility] Hospitalist: [email or web address] NL1 Comment: KN, CT(ASCP) CT screening location: [place] [address] Review [facility] Hospitalist: [facility] Comment: MSM, CT(ASCP) CT screening location: [place] [address] Comment [facility] Comment: EXPLANATORY NOTE: [...] was performed using the APTIMA HPV Assay ([employer] This assay detects E6/E7 viral messenger RNA (mRNA) from 14 high-risk HPV types (16,18,31,33,35,39,45,51,52,56,58,59,66,68). The analytical performance characteristics of this assay have been determined by [employer]. The modifications have not been cleared or approved by the FDA. This assay has been validated pursuant to the CLIA regulations and is used for clinical purposes. 07/28/2018 2:15 PM EDT 07/29/2018 2:39 AM EDT Narrative Resulting Agency Comment Performing Organization Information: Site ID: [id number] Name: [facility] Address: [address] [place] [address], [place] [address] Director: Zbigniew Willson MD Shanika Hillman MD LAB AMB PATH/CYTO ORDERABLES F inal Result [facility] NL[address] [place] [address], [place] [address] * Hepatitis C Viral Rna Qual TMA (03/01/2012 8:46 AM EDT) Hepatitis C Viral Rna Qual Tma NONREACTIVE NONREACTIVE [facility] CONVERSION 03/01/2012 8:46 AM EDT us Raf[facility]ORIAN[facility]X LAB Final Result [facility] CONVERSION from Last 3 Months or Most Recently Relevant to Health Maintenance Insurance [facility] Care Teams Branch Retail Executive Relationship Specialty Start Date End Date Jadon Devlin MD [address] [place] [address] Gastroenterology 09/29/19
== END 2025-03-29 09:47 | disposition home or self-care (01) ==
LOC: HO.MRI 09:46
PROVIDERS: PCP Physician Assistant Medical; Visit Provider Physical Medicine & Rehabilitation
DX: M54.16 Radiculopathy, lumbar region (principal)
CPT/HCPCS: 72148

== ENCOUNTER → 2025-03-29 09:51 | Outpatient (BNV) | payer BC, SELFPAY | PROVIDERS: PCP Physician Assistant Medical; Visit Provider Radiology Diagnostic Radiology | DX: Z48.811 Encounter for surgical aftercare following surgery on the nervous system (principal) | CPT/HCPCS: 72148 ==

== ENCOUNTER 2025-04-30 09:09 | Outpatient (AMB) | payer BC, SELFPAY ==
--- NOTE | 2025-04-30 09:04 | MHC.PC.OV ---
Intake Visit Reasons: discuss GLp1? Intake Note: Thelma presents for a telehealth appointment to discuss GLP-1. Document Specialist Required: No Is last menstrual period known: No Post menopausal: Yes Patient : No Allergies pneumococcal vaccine (From Prevnar 20 (PF)) Allergy (Mild, Verified 04/30/25 09:06) Other bee pollen (BEE STINGS) Allergy (Unknown, Verified 04/30/25 09:06) ANAPHYLAXIS Tobacco use date assessed: 04/30/25 Dental Screening Dental Screen Date: 04/30/25 Did you have a dental visit in the last 12 months?: No Did you have a dental problem in the last 6 months where you did not have access to dental care?: No Was dental information given to patient?: Patient declined HPI HPI Comments History of Present Illness Details This is a 59-year-old female with hyperlipidemia, type 2 diabetes, hypertension, migraine headaches, hepatic steatosis, hepatitis-C status post treatment in 2009, thyroid nodules, asthma and lumbar spondylosis presenting for follow up. Type 2 diabetes-hemoglobin- last A1c 6.7% December 2024. Patient is taking metformin extended release a 1000 mg twice a day and glipizide 5 mg daily. No retinopathy. She is monitoring her blood glucose readings at home. Fasting 155-170. She met with the certified adapted physical educator. She met because she had a recent gastric emptying study which showed no evidence of gastroparesis. In the past she was diagnosed, but it was questionable because she also had a large hiatal hernia that could have been impacting her symptoms. The hiatal hernia was repaired in 2015. She is followed by [facility]. She had a CAT scan of the abdomen and pelvis in July 2021 which was normal aside from hepatic steatosis. She reports that she did lose 12 lb with lifestyle modification. She is trying to exercise and following a low carbohydrate, low sugar diet. She does not drink alcohol. She takes 20 mg of atorvastatin for hyperlipidemia. She is on an THERON inhibitor for hypertension. ROS: Constitutional: No unexplained weight loss Gastrointestinal: No abdominal pain, vomiting, diarrhea or blood in stools. Endocrine: Denies polyuria and polydipsia [facility] Medical History (Updated 04/30/25 @ 09:46 by BO Spain) Low vitamin D level Low back pain Fatigue Numbness and tingling Paresthesia Bilateral hip pain Stress incontinence Nocturia Routine physical examination Screening for breast cancer Mild asthma exacerbation Asthma Rosacea Thyroid nodule Lung nodule PSVT (paroxysmal supraventricular tachycardia) History of hepatitis C Gastroparesis Barretts esophagus Adopted Hepatic steatosis Pure hypercholesterolemia Morbid obesity Migraines Essential hypertension Type II diabetes mellitus Carpal tunnel syndrome Hiatal hernia H/O mammogram Surgical History (Updated 03/27/24 @ 15:30 by Crystal Diggs CMA) Hx of spinal fusion H/O breast biopsy Family History Other Family history unknown Social History (Updated 04/30/25 @ 09:08 by Kendal Trevino CMA) Housing: House Alcohol intake: former Patient Tobacco Use Status: Never used Tobacco e-Cigarette/Vaping Use: Never Used Second Hand Smoke Exposure: No Substance Use Type: Former Substance User and Marijuana Patient : No service: No Current occupational status: employed Current occupational exposures/hazards: No Cognitive needs: No Hearing needs: No Vision needs: Yes (glasses) Questionnaire Thrive Questionnaire Date Thrive assessed: 06/29/24 RICHARD-7 AMB Questionnaire RICHARD-7 Date RICHRAD - 7 assessed: 06/29/24 Source: Developed by Drs. Rigoberto Frazier, America Salguero, Alistair Burleson and colleagues, with an educational sanaz from [employer]. Physical exam (Primary Care) Tobacco/Smoking Status: Tobacco use Status Tobacco use date assessed 04/30/25 04/30/25 09:08 Patient Tobacco Use Status Never used Tobacco 04/30/25 09:08 e-Cigarette/Vaping Use Never Used 04/30/25 09:08 Thrive Assessment: Date of Thrive Assessment Date Thrive assessed 06/29/24 04/30/25 09:08 Telehealth Telehealth Telehealth Platform: Telephone Location of provider rendering services: practice address Location of patient: address on file Patient Identification confirmed using: Name, : Yes Telehealth method: voice only Patient verbally consented to treatment: Yes Patient verbally consented to billing insurance company: Yes Patient informed of any privacy concerns related to visit: Yes Minutes spent on Phone/Video with Pt.: 13 Coding Level of Care Code Est Pt Level 4 (92140) Add On Problem Visit Only Diagnoses Essential hypertension I10 Pure hypercholesterolemia E78.00 Type 2 diabetes mellitus without complication, without long-term current use of insulin E11.9 Diabetes mellitus penitentiary insulin use: without termite treater use Diabetes mellitus complication status: without complication Morbid obesity E66.01 Assessment & Plan Assessment & Plan (1) Essential hypertension: Code(s): I10 - Essential (primary) hypertension Category: Medical (2) Pure hypercholesterolemia: Code(s): E78.00 - Pure hypercholesterolemia, unspecified Category: Medical (3) Type II diabetes mellitus: Code(s): E11.9 - Type 2 diabetes mellitus without complications Category: Medical Qualifiers: Diabetes mellitus termite treater insulin use: without penitentiary use Diabetes mellitus complication status: without complication Qualified Code(s): E11.9 - Type 2 diabetes mellitus without complications (4) Morbid obesity: Code(s): E66.01 - Morbid (severe) obesity due to excess calories Category: Medical Plan Patient will have fasting lab work completed. She will continue atorvastatin for hyperlipidemia. She will continue her current regimen for hypertension which is historically well-controlled. She would like to try a GLP 1 for type 2 diabetes management. This has additional benefits including risk reduction for cardiovascular disease and weight loss. Patient has morbid obesity, and she has been implementing lifestyle modifications. She met with the certified adapted physical educator. Patient is adopted, and she does not know her family history. We discussed GLP 1 is contraindicated if there is a known family history of medullary thyroid cancer or men 2 syndrome. She has no history of pancreatitis. She has no gallbladder disease. Prescribed Mounjaro 2.5 mg weekly. Side effects and administration reviewed. Discussed the need for titration based on efficacy and tolerability. Continue metformin extended release 1000 mg daily. Follow up in 4-6 weeks for a med review. Orders: Orders Vitamin D 25-OH (D2 and D3) Today E11.9 - Type 2 diabetes mellitus without complications, R79.89 - Other specified abnormal findings of blood chemistry Hemoglobin A1c Today E11.9 - Type 2 diabetes mellitus without complications, R73.9 - Hyperglycemia, unspecified Microalbumin, Random (w Creat) Today E11.9 - Type 2 diabetes mellitus without complications Lipid Panel Today E11.9 - Type 2 diabetes mellitus without complications, E78.5 - Hyperlipidemia, unspecified Basic Metabolic Panel Today E11.9 - Type 2 diabetes mellitus without complications Medications: New tirzepatide (Mounjaro) for 4 weeks 2.5 mg (0.5 mL) subcut QWEEK 2 mL 0RF
== END 2025-04-30 10:03 | disposition home or self-care (01) ==
LOC: HO.HMCFM 09:09
PROVIDERS: PCP Physician Assistant Medical; Visit Provider Physician Assistant Medical
DX: E11.9 Type 2 diabetes mellitus without complications (principal); E66.01 Morbid (severe) obesity due to excess calories; I10 Essential (primary) hypertension; E78.00 Pure hypercholesterolemia, unspecified

== ENCOUNTER 2025-05-04 12:24 | Outpatient (REF) | payer BC, SELFPAY | END 2025-05-04 12:25 | disposition home or self-care (01) | LOC: HO.HPHYSR 12:24 | PROVIDERS: PCP Physician Assistant Medical; Visit Provider Physical Medicine & Rehabilitation | DX: M53.3 Sacrococcygeal disorders, not elsewhere classified (principal); M46.1 Sacroiliitis, not elsewhere classified | CPT/HCPCS: 27096; J2003; J3301; Q9967 ==

== ENCOUNTER 2025-05-04 12:24 | Outpatient (AMB) | payer BC, SELFPAY ==
[2025-05-04 12:40] VITALS: BP 120/70; PULSE 99; TEMP 36.2; O2SAT 99; BMI 40.7
--- NOTE | 2025-05-04 12:40 | A.PHYSOV_ITS ---
Vital Signs 05/04/25 12:40 Height 5 ft 3 in Weight 230 lb BMI 40.7 BP 120/70 Blood Pressure Location Lt radial Position Sitting Pulse 99 Pulse Source Pulse Oximeter Temp 97.2 F Temp Source Temporal Artery Scan Pulse Oximetry (%) 99 Oxygen Delivery Method Room Air Intake Visit Reasons: Left Sacroiliac Joint Injection Intake Note: Patient is a 59 year old female in office today for left sacroiliac joint injection. Supervisor Prep Required: No Allergies pneumococcal vaccine (From Prevnar 20 (PF)) Allergy (Mild, Verified 05/04/25 12:43) Other bee pollen (BEE STINGS) Allergy (Unknown, Verified 05/04/25 12:43) ANAPHYLAXIS PFS Medical History (Updated 05/04/25 @ 12:54 by Simone Fuchs DO) Sacroiliac inflammation Sacroiliac dysfunction Low vitamin D level Low back pain Fatigue Numbness and tingling Paresthesia Bilateral hip pain Stress incontinence Nocturia Routine physical examination Screening for breast cancer Mild asthma exacerbation Asthma Rosacea Thyroid nodule Lung nodule PSVT (paroxysmal supraventricular tachycardia) History of hepatitis C Gastroparesis Barretts esophagus Adopted Hepatic steatosis Pure hypercholesterolemia Morbid obesity Migraines Essential hypertension Type II diabetes mellitus Carpal tunnel syndrome Hiatal hernia H/O mammogram Surgical History Hx of spinal fusion H/O breast biopsy Family History Other Family history unknown Social History Housing: House Alcohol intake: former Patient Tobacco Use Status: Never used Tobacco e-Cigarette/Vaping Use: Never Used Second Hand Smoke Exposure: No Use of substances other than those prescribed or required for medical reasons: No Substance Use Type: Former Substance User and Marijuana service: No Current occupational status: employed Current occupational exposures/hazards: No Cognitive needs: No Hearing needs: No Vision needs: Yes (glasses) Physical Exam Vital Signs: Last Vital Signs Temp 97.2 F 05/04/25 12:40 Pulse 99 05/04/25 12:40 BP 120/70 05/04/25 12:40 Pulse Ox 99 05/04/25 12:40 Oxygen Delivery Method Room Air 05/04/25 12:40 BMI result Body Mass Index 40.7 Office Procedures AMB Sacroiliac Joint Injection AMB Sacroiliac Joint Injection Procedure Details: Procedure performed: Left sacroiliac joint injection Preop diagnosis: SI joint mediated pain, sacroiliitis Postop diagnosis: The same Anesthesia: Local After informed consent was obtained patient was brought into the procedure room and placed in prone position on the procedure table. Skin over lumbar sacral ar ea was prepped and draped in the usual sterile manner. The inferior portion of the left sacroiliac joint was visualized utilizing fluoroscopy. 5 in 22 gauge spinal needle was introduced percutaneously and advanced into the joint. Needle placement was verified utilizing 0.5 cc of Omnipaque contrast solution. 2.5 cc of therapeutic solution containing 40 mg of triamcinolone and 2% lidocaine was i njected after negative aspiration for blood. The C-arm was obliqued about 30? in the contralateral direction an area just medial the proximal portion of the sacroiliac joint was visualized. 5 in 22 gauge spinal needle was introduced percutaneously and advanced to enter the area. Once in place, needle placement was identified utilizing 1 cc of Omnipaque contrast solution. Total volume of 2.5 cc containing 40 mg of triamcinolone and 2% lidocaine was injected to block the lateral branches at the sacroiliac ligament. Radiation exposure was documented in the chart. Sacroiliac Joint Injections 20213 - use with FL Gd order: Left All charges added?: Procedure code (CPT) selection complete Office Meds Kenalog 40 mg/mL suspension for injection Performing Provider: Simone Fuchs DO Per[facility] Administered by: Simone Fuchs DO on 05/04/25 12:54 Dose Route Admin Location Dispensed Lot Number Expiration Date [facility] Property Consultant 80 mg intra-articular 2 mL [id number] [employer] Total Dispensed Waste 2 mL 0 % lidocaine (PF) 20 mg/mL (2 %) injection solution Performing Provider: Simone Fuchs DO Performing Location: [facility] Administered by: Simone Fuchs DO on 05/04/25 12:54 Dose Route Admin Location Dispensed Lot Number Expiration Date [facility] Property Consultant 120 mg intra-articular 10 mL [id number] [facility] PHAR Total Dispensed Waste 10 mL 40 % Omnipaque 300 300 mg iodine/mL intravenous solution Performing Provider: Simone Fuchs DO Performing Location: [facility] Administered by: Simone Fuchs DO on 05/04/25 12:54 Dose Route Admin Location Dispensed Lot Number Expiration Date [facility] Property Consultant 3 mL intra-articular 10 mL [id number] [employer] Total Dispensed Waste 10 mL 70 % Assessment & Plan Assessment & Plan (1) Sacroiliac dysfunction: Code(s): M53.3 - Sacrococcygeal disorders, not elsewhere classified Category: Medical Plan: Procedure (2) Sacroiliac inflammation: Code(s): M46.1 - Sacroiliitis, not elsewhere classified Category: Medical Plan: Procedure Orders: Orders FL Guided Sacroiliac Jt Inj LT Today M46.1 - Sacroiliitis, not elsewhere classified, M53.3 - Sacrococcygeal disorders, not elsewhere classified AMB Sacroiliac Joint Injection Today M46.1 - Sacroiliitis, not elsewhere classified, M53.3 - Sacrococcygeal disorders, not elsewhere classified Medications: New tizanidine 4 mg PO Q8H PRN 90 tabs 0RF muscle spasticity 30 days M46.1 - Sacroiliitis, not elsewhere classified, M53.3 - Sacrococcygeal disorders, not elsewhere classified Coding Level of Care Code Procedure Only Diagnoses Sacroiliac dysfunction M53.3 Sacroiliac inflammation M46.1 CPT Codes AMB Sacroiliac Joint Injection - Hip intraarticular Injection - : Left ([id number])
--- OUTSIDE RECORDS SUMMARY | 2025-05-04 14:18 | XMS_ITS | Encounter Summary ---
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 Not on file Not on file documented as of this encounter Plan of Treatment Not on file documented as of this encounter Visit Diagnoses Not on filedocumented in this encounter Care Teams Film Processing Supervisor Relationship Specialty Start Date End Date Marii Wodos MD [address] [place] [address] PCP - General Internal Medicine 03/07/20 08/07/21 [place] [address] [place], [place] [address], [place] [address] PCP - [employer] Attributed 08/15/20 05/16/21 Jadon Devlin MD [address] [place] [address] [address] [place] [address] Gastroenterology 09/29/19 documented as of this encounter
--- OUTSIDE RECORDS SUMMARY | 2025-05-04 14:18 | XMS_ITS | Encounter Summary ---
Author Organization [facility] Address [address] [place] [address] Care Team Providers Care Food And Nutrition Services Assistant Name Role Phone Naty Rendon MD Primary Care Provider Michelle Mccoy DO Primary Care Provider [phone] Shanika Hillman MD Primary Care Provider [phone] Shanika Hillman MD Unavailable [phone] Jadon Devlin MD Unavailable [phone] Marii Woods MD Primary Care Provider + [phone] Pcp, No Primary Care Provider Unavailabl e Marii Woods MD Unavailable [phone] Marii Woods MD Primary Care Provider + [phone] Marii Woods MD Unavailable [phone] Encounter Details Date Type Department Care Team (Late st Contact Info) Description 07/08/2015 Scanned Document [address] [phone] Provider, Generic Social History Tobacco Use Types [...] filedocumented in this encounter Care Teams Food And Nutrition Services Assistant Relationship Specialty Start Date End Date Naty Rendon MD PCP - General Internal Medicine 03/18/15 02/02/16 Michelle Mccoy DO PCP - General Family Medicine 02/03/16 12/28/17 Shanika Hillman MD PCP - General Internal Medicine 12/29/17 09/28/19 Shanika Hillman MD [address] [place] [address] [address] [place] [address] PCP - [employer] Attributed 02/14/19 05/16/19 Marii Woods MD [address] [place] [address] PCP - General Internal Medicine 09/29/19 01/22/20 Pcp, No PCP - General 01/23/20 03/06/20 Marii Woods MD [address] [place] [address] PCP - [employer] Attributed 10/16/19 04/15/20 Marii Woods MD [address] [place] [address] PCP - General Internal Medicine 03/07/20 08/07/21 Marii Woods MD [address] [place] [address] PCP - [employer] Attributed 08/15/20 05/16/21 Jadon Devlin MD [address] [facility] [address] [place] [address] Gastroenterology 09/29/19 documented as of this encounter
--- OUTSIDE RECORDS SUMMARY | 2025-05-04 14:18 | XMS_ITS | Encounter Summary ---
Author Organization [facility] Address [address] [place] [address] Care Team Providers Care Contact Center Associate Name Role Phone Shanika Hillman MD Primary Care Provider [phone] Shanika Hillman MD Unavailable [phone] Jadon Devlin MD Unavailable [phone] Marii Woods MD Primary Care Provider + [phone] Pcp, No Primary Care Provider Unavailolivia e Marii Woods MD Unavailable [phone] Marii Woods MD Primary Care Provider + [phone] Marii Woods MD Unavailable [phone] Encounter Details Date Type Department Care Team (Late st Contact Info) Description 10/15/2018 Scanned Document [address] [phone] Provider, Generic Social History Tobacco [...] on filedocumented in this encounter Care Teams Contact Center Associate Relationship Specialty Start Date End Date Shanika Hillman MD PCP - General Internal Medicine 12/29/17 09/28/19 Shanika Hillman MD [facility] [address] [place] [address] PCP - [employer] Attributed 02/14/19 05/16/19 Marii Woods MD [address] [place] [address] PCP - General Internal Medicine 09/29/19 01/22/20 Pcp, No PCP - General 01/23/20 03/06/20 Marii Woods MD [address] [facility] [place] [address] PCP - [employer] Attributed 10/16/19 04/15/20 Marii Woods MD [address] [place] [address] PCP - General Internal Medicine 03/07/20 08/07/21 Marii Woods MD [address] [place] [address] PCP - [employer] Attributed 08/15/20 05/16/21 Jadon Devlin MD [address] [place] [address] [address] [place] [address] Gastroenterology 09/29/19 documented as of this encounter
--- OUTSIDE RECORDS SUMMARY | 2025-05-04 14:19 | XMS_ITS | Encounter Summary ---
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 Not on file Not on file documented as of this encounter Plan of Treatment Not on file documented as of this encounter Visit Diagnoses Not on filedocumented in this encounter Care Teams Bar Pilot Relationship Specialty Start Date End Date Marii Woods MD [address] [facility] [place] [address] PCP - General Internal Medicine 03/07/20 08/07/21 [place] [address] [place], [place] [address], [place] [address] PCP - [employer] Attributed 08/15/20 05/16/21 Jadon Devlin MD [address] [place] [address] [address] [place] [address] Gastroenterology 09/29/19 documented as of this encounter
--- OUTSIDE RECORDS SUMMARY | 2025-05-04 14:19 | XMS_ITS | Encounter Summary ---
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
--- OUTSIDE RECORDS SUMMARY | 2025-05-04 14:19 | XMS_ITS | Encounter Summary ---
Author Organization [facility] Address [address] [place] [address] Care Team Providers Care Electron Beam Welder Name Role Phone Naty Rendon MD Primary Care Provider Michelle Mccoy DO Primary Care Provider [phone] Shanika Hillman MD Primary Care Provider +[phone] Shanika Hillman MD Unavailable [phone] Jadon Devlin MD Unavailable +[phone] Marii Woods MD Primary Care Provider [phone] Pcp, No Primary Care Provider Unavailolivia e Marii Woods MD Unavailable +[phone] Marii Woods MD Primary Care Provider Marii Woods MD Unavailable [phone] Encounter Details Date Type Department Care Team (Late st Contact Info) Description 08/23/2015 Scanned Document [facility] [address] [place] [address] Naty Rendon MD Formerly [facility] [address] [place] [address] Social History Tobacco Use Types Packs/Day [...] on filedocumented in this encounter Care Teams Electron Beam Welder Relationship Specialty Start Date End Date Naty Rendon MD PCP - General Internal Medicine 03/18/15 02/02/16 Michelle Mccoy DO PCP - General Family Medicine 02/03/16 12/28/17 Shanika Hillman MD PCP - General Internal Medicine 12/29/17 09/28/19 Shanika Hillman MD [address] [place] [address] 4011 [place] [address] PCP - [employer] Commercial Attributed 02/14/19 05/16/19 Marii Woods MD 1060 [facility] [place] [address] PCP - General Internal Medicine 09/29/19 01/22/20 Pcp, No PCP - General 01/23/20 03/06/20 Marii Woods MD [address] [place] [address] PCP - [employer] Commercial Attributed 10/16/19 04/15/20 Marii Woods MD 1060 [facility] [place] [address] PCP - General Internal Medicine 03/07/20 08/07/21 Marii Woods MD 1060 [place] [address] PCP - C[employer] Commercial Attributed 08/15/20 05/16/21 Jadon Devlin MD 21 [facility] 100 [place] [address] Gastroenterology 09/29/19 documented as of this encounter
--- OUTSIDE RECORDS SUMMARY | 2025-05-04 14:19 | XMS_ITS | Encounter Summary ---
Author Organization [facility] Address [address] [place] [address] Care Team Providers Care Incising Machine Operator Name Role Phone Darius Michelle Lorna MATHEWS Primary Care Provider [phone] Shanika Hillman MD Primary Care Provider +[phone] Shanika Hillman MD Unavailable [phone] Jadon Devlin MD Unavailable +[phone] Marii Woods MD Primary Care Provider + [phone] Pcp, No Primary Care Provider Unavailolivia e Marii Woods MD Unavailable [phone] Marii Woods MD Primary Care Provider [phone] Marii Woods MD Unavailable [phone] Encounter Details Date Type Department Care Team (Late st Contact Info) Description 12/18/2016 Scanned Document [address] [phone] Provider, Generic Social History Tobacco Use Types [...] on filedocumented in this encounter Care Teams Incising Machine Operator Relationship Specialty Start Date End Date Michelle Mccoy DO PCP - General Family Medicine 02/03/16 12/28/17 Shanika Hillman MD PCP - General Internal Medicine 12/29/17 09/28/19 Shanika Hillman MD 234 [facility] [address] [place] [address] PCP - [employer] Commercial Attributed 02/14/19 05/16/19 Marii Woods MD 1060 [facility] [place], [place] [address] PCP - General Internal Medicine 09/29/19 01/22/20 Pcp, No PCP - General 01/23/20 03/06/20 Marii Woods MD 1060 [facility] [place] [address] PCP - [employer] Commercial Attributed 10/16/19 04/15/20 Marii Woods MD 1060 [facility] [place] [address] PCP - General Internal Medicine 03/07/20 08/07/21 Marii Woods MD 1060 [place] [address] PCP - [employer] Commercial Attributed 08/15/20 05/16/21 Jadon Devlin MD [address] [address] Gastroenterology 09/29/19 documented as of this encounter
--- OUTSIDE RECORDS SUMMARY | 2025-05-04 14:19 | XMS_ITS | Encounter Summary ---
Author Organization [facility] Address [address] [place] [address] Care Team Providers Care Corporate Communications Associate Name Role Phone Michelle Mccoy DO Primary Care Provider [phone] Shanika Hillman MD Primary Care Provider +[phone] Shanika Hillman MD Unavailable [phone] Jadon Devlin MD Unavailable [phone] Marii Woods MD Primary Care Provider Pcp, No Primary Care Provider UnavailMarii Dominguez MD Unavailable +[phone] Marii Woods MD Primary Care Provider + [phone] Marii Woods MD Unavailable [phone] Encounter Details Date Type Department Care Team (Late st Contact Info) Description 11/11/2016 Scanned Document [address] [address] Michelle Mccoy DO [address] [place] [address] Social History Tobacco Use Types Packs/Day Years [...] on filedocumented in this encounter Care Teams Corporate Communications Associate Relationship Specialty Start Date End Date Michelle Mccoy DO PCP - General Family Medicine 02/03/16 12/28/17 Shanika Hillman MD PCP - General Internal Medicine 12/29/17 09/28/19 Shanika Hillman MD [address] [place] [address] 4011 [place] [address] PCP - [employer] Commercial Attributed 02/14/19 05/16/19 Marii Woods MD 1060 [place] [address] PCP - General Internal Medicine 09/29/19 01/22/20 Pcp, No PCP - General 01/23/20 03/06/20 Marii Woods MD 1060 [place] [address] PCP - [employer] Commercial Attributed 10/16/19 04/15/20 Marii Woods MD 1060 [facility] [place] [address] PCP - General Internal Medicine 03/07/20 08/07/21 Marii Woods MD 1060 [facility] [place] [place] [address] PCP - C[employer] Commercial Attributed 08/15/20 05/16/21 Jadon Devlin MD 21 [place] [address] Gastroenterology 09/29/19 documented as of this encounter
--- OUTSIDE RECORDS SUMMARY | 2025-05-04 14:19 | XMS_ITS | Encounter Summary ---
Author Organization [facility] Address [address] [place] [address] Care Team Providers Care Boiler Assistant Operator Name Role Phone Naty Rendon MD Primary Care Provider Michelle Mccoy DO Primary Care Provider [phone] Shanika Hillman MD Primary Care Provider [phone] Shanika Hillman MD Unavailable [phone] Jadon Devlin MD Unavailable +[phone] Marii Woods MD Primary Care Provider + [phone] Pcp, No Primary Care Provider Unavailabl e Marii Woods MD Unavailable +[phone] Marii Woods MD Primary Care Provider + [phone] Marii Woods MD Unavailable [phone] Encounter Details Date Type Department Care Team (Late st Contact Info) Description 08/22/2015 Scanned Document [address] [phone] Provider, Generic Social History Tobacco Use Types [...] on filedocumented in this encounter Care Teams Boiler Assistant Operator Relationship Specialty Start Date End Date Naty Rendon MD PCP - General Internal Medicine 03/18/15 02/02/16 Michelle Mccoy DO PCP - General Family Medicine 02/03/16 12/28/17 Shanika Hillman MD PCP - General Internal Medicine 12/29/17 09/28/19 Shanika Hillman MD 234 [facility] 4011 [place] [address] PCP - C[employer] Commercial Attributed 02/14/19 05/16/19 Marii Woods MD [address] [facility] [place] [address] PCP - General Internal Medicine 09/29/19 01/22/20 Pcp, No PCP - General 01/23/20 03/06/20 Marii Woods MD [address] [facility] [place] [address] PCP - [employer] Commercial Attributed 10/16/19 04/15/20 Marii Woods MD [address] [facility] [place] [address] PCP - General Internal Medicine 03/07/20 08/07/21 Marii Woods MD [address] [facility] [place] [address] PCP - C[employer] Commercial Attributed 08/15/20 05/16/21 Jadon Devlin MD [address] [place] [address] Gastroenterology 09/29/19 documented as of this encounter
--- OUTSIDE RECORDS SUMMARY | 2025-05-04 14:19 | XMS_ITS | Encounter Summary ---
Author Organization [facility] Address [address] [place] [address] Care Team Providers Care Oracle Ascp Consultant Name Role Phone Michelle Mccoy DO Primary Care Provider [phone] Shanika Hillman MD Primary Care Provider [phone] Shanika Hillman MD Unavailable [phone] Jadon Devlin MD Unavailable [phone] Marii Woods MD Primary Care Provider Pcp, No Primary Care Provider UnavailMarii Dominguez MD Unavailable +[phone] Marii Woods MD Primary Care Provider + [phone] Marii Woods MD Unavailable [phone] Encounter Details Date Type Department Care Team (Late st Contact Info) Description 03/04/2017 Scanned Document [facility] [address] [place] [address] Michelle Mccoy DO 339 [place] [address] Social History Tobacco Use Types Packs/Day Years [...] filedocumented in this encounter Care Teams Oracle Ascp Consultant Relationship Specialty Start Date End Date Michelle Mccoy DO PCP - General Family Medicine 02/03/16 12/28/17 Shanika Hillman MD PCP - General Internal Medicine 12/29/17 09/28/19 Shanika Hillman MD [address] [place] [address] 4[address] [place] [address] PCP - C[employer] Commercial Attributed 02/14/19 05/16/19 Marii Woods MD 1060 [place] [address] PCP - General Internal Medicine 09/29/19 01/22/20 Pcp, No PCP - General 01/23/20 03/06/20 Marii Woods MD 1060 [place] [address] PCP - C[employer] Commercial Attributed 10/16/19 04/15/20 Marii Woods MD 1060 [place] [address] PCP - General Internal Medicine 03/07/20 08/07/21 Marii Woods MD 1060 [place] [address] PCP - C[employer] Commercial Attributed 08/15/20 05/16/21 Jadon Devlin MD [address] [place] [address] Gastroenterology 09/29/19 documented as of this encounter
--- OUTSIDE RECORDS SUMMARY | 2025-05-04 14:19 | XMS_ITS | Encounter Summary ---
Author Organization [facility] Address [address] [place] [address] Care Team Providers Care Chief Deputy Sheriff Name Role Phone Shanika Hillman MD Primary Care Provider Shanika Hillman MD Unavailable [phone] Jadon Devlin MD Unavailable [phone] Marii Woods MD Primary Care Provider [phone] Pcp, No Primary Care Provider Unavailolivia e Marii Woods MD Unavailable [phone] Marii Woods MD Primary Care Provider + [phone] Marii Woods MD Unavailable [phone] Encounter Details Date Type Department Care Team (Late st Contact Info) Description 01/09/[address] [facility] 10 [facility] [address] [place] [address] Jadon Devlin MD [address] [place] [address] Social History Tobacco Use Types Packs/Day Years [...] 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 [...] on filedocumented in this encounter Care Teams Chief Deputy Sheriff Relationship Specialty Start Date End Date Shanika Hillman MD PCP - General Internal Medicine 12/29/17 09/28/19 Shanika Hillman MD 234 [facility] 4011 [place] [address] PCP - C[employer] Commercial Attributed 02/14/19 05/16/19 Marii Woods MD 1060 [facility] [place] [address] PCP - General Internal Medicine 09/29/19 01/22/20 Pcp, No PCP - General 01/23/20 03/06/20 Marii Woods MD [address] [facility] [place] [address] PCP - C[employer] Commercial Attributed 10/16/19 04/15/20 Marii Woods MD [address] [facility] [place] [address] PCP - General Internal Medicine 03/07/20 08/07/21 Marii Woods MD 1060 [place] [address] PCP - Cign[employer] Commercial Attributed 08/15/20 05/16/21 Jadon Devlin MD [address] [place] [address] 100 [place] [address] Gastroenterology 09/29/19 documented as of this encounter
--- OUTSIDE RECORDS SUMMARY | 2025-05-04 14:19 | XMS_ITS | Encounter Summary ---
Author Organization [facility] Address [address] [place] [address] Care Team Providers Care Inspector Welded Parts Name Role Phone Naty Rendon MD Primary Care Provider Michelle Mccoy DO Primary Care Provider [phone] Shanika Hillman MD Primary Care Provider [phone] Shanika Hillman MD Unavailable [phone] Jadon Devlin MD Unavailable Marii Woods MD Primary Care Provider [phone] Pcp, No Primary Care Provider Unavailolivia e Marii Woods MD Unavailable Marii Woods MD Primary Care Provider Marii Woods MD Unavailable [phone] Encounter Details Date Type Department Care Team (Late st Contact Info) Description 08/26/2015 Scanned Document [facility] 1060 [place] [address] Naty Rendon MD [facility] [address] [place] [address] Social History Tobacco Use Types Packs/Day [...] on filedocumented in this encounter Care Teams Inspector Welded Parts Relationship Specialty Start Date End Date Naty Rendon MD PCP - General Internal Medicine 03/18/15 02/02/16 Michelle Mccoy DO PCP - General Family Medicine 02/03/16 12/28/17 Shanika Hillman MD PCP - General Internal Medicine 12/29/17 09/28/19 Shanika Hillman MD [address] [place] [address] 4[address] [place] [address] PCP - C[employer] Commercial Attributed 02/14/19 05/16/19 Marii Woods MD 1060 [facility] [place] [place] [address] PCP - General Internal Medicine 09/29/19 01/22/20 Pcp, No PCP - General 01/23/20 03/06/20 Marii Woods MD [address] [place] [address] PCP - C[employer] Commercial Attributed 10/16/19 04/15/20 Marii Woods MD 1060 [facility] [place] [address] PCP - General Internal Medicine 03/07/20 08/07/21 Marii Woods MD 1060 [place] [address] PCP - Cign[employer] Commercial Attributed 08/15/20 05/16/21 Jadon Devlin MD 21 [facility] 100 [place] [address] Gastroenterology 09/29/19 documented as of this encounter
--- OUTSIDE RECORDS SUMMARY | 2025-05-04 14:19 | XMS_ITS | Encounter Summary ---
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
--- OUTSIDE RECORDS SUMMARY | 2025-05-04 14:19 | XMS_ITS | Encounter Summary ---
Author Organization [facility] Address [address] [place] [address] Care Team Providers Care Portable Irrigation Operator Name Role Phone Dede Mccoyi Lorna MATHEWS Primary Care Provider [phone] Shanika Hillman MD Primary Care Provider [phone] Shanika Hillman MD Unavailable [phone] Jadon Devlin MD Unavailable [phone] Marii Woods MD Primary Care Provider + [phone] Pcp, No Primary Care Provider Unavailolivia e Marii Woods MD Unavailable [phone] Marii Woods MD Primary Care Provider [phone] Marii Woods MD Unavailable [phone] Encounter Details Date Type Department Care Team (Late st Contact Info) Description 10/19/2016 Scanned Document [address] [address] Provider, Generic Social History Tobacco Use Types [...] on filedocumented in this encounter Care Teams Portable Irrigation Operator Relationship Specialty Start Date End Date Michelle MccoyDO PCP - General Family Medicine 02/03/16 12/28/17 Shanika Hillman MD PCP - General Internal Medicine 12/29/17 09/28/19 Shanika Hillman MD [address] [place] [address] 4011 [place] [address] PCP - C[employer] Commercial Attributed 02/14/19 05/16/19 Marii Woods MD 1060 [facility] [place] [address] PCP - General Internal Medicine 09/29/19 01/22/20 Pcp, No PCP - General 01/23/20 03/06/20 Marii Woods MD 1060 [facility] [place] [address] PCP - C[employer] Commercial Attributed 10/16/19 04/15/20 Marii Woods MD 1060 [facility] [place] [address] PCP - General Internal Medicine 03/07/20 08/07/21 Marii Woods MD 1060 [place] [address] PCP - C[employer] Commercial Attributed 08/15/20 05/16/21 Jadon Devlin MD [address] [address] Gastroenterology 09/29/19 documented as of this encounter
--- OUTSIDE RECORDS SUMMARY | 2025-05-04 14:19 | XMS_ITS | Encounter Summary ---
Author Organization [facility] Address [address] [place] [address] Care Team Providers Care Show Host Name Role Phone Dede Mccoyi Lorna MATHEWS Primary Care Provider [phone] Shanika Hillman MD Primary Care Provider [phone] Shanika Hillman MD Unavailable [phone] Jadon Devlin MD Unavailable +[phone] Marii Woods MD Primary Care Provider + [phone] Pcp, No Primary Care Provider Unavailolivia e Marii Woods MD Unavailable +[phone] Marii Woods MD Primary Care Provider +[phone] Marii Woods MD Unavailable [phone] Encounter Details Date Type Department Care Team (Late st Contact Info) Description 11/01/2016 Scanned Document [address] [phone] Provider, Generic Social History Tobacco Use Types [...] on filedocumented in this encounter Care Teams Show Host Relationship Specialty Start Date End Date Michelle MccoyDO PCP - General Family Medicine 02/03/16 12/28/17 Shanika Hillman MD PCP - General Internal Medicine 12/29/17 09/28/19 Shanika Hillman MD [address] [place] [address] 4011 [place] [address] PCP - Cigna Commercial Attributed 02/14/19 05/16/19 Marii Woods MD [address] [facility] [address] PCP - General Internal Medicine 09/29/19 01/22/20 Pcp, No PCP - General 01/23/20 03/06/20 Marii Woods MD [address] [facility] [address] PCP - Cigna Commercial Attributed 10/16/19 04/15/20 Marii Woods MD [address] [facility] [address] PCP - General Internal Medicine 03/07/20 08/07/21 Marii Woods MD [address] [place] [address] PCP - Cigna Commercial Attributed 08/15/20 05/16/21 Jadon Devlin MD [address] [address] Gastroenterology 09/29/19 documented as of this encounter
--- OUTSIDE RECORDS SUMMARY | 2025-05-04 14:19 | XMS_ITS | Encounter Summary ---
Author Organization [facility] Address [address] [place] [address] Care Team Providers Care Call Out Operator Name Role Phone Dede Mccoyi Lorna MATHEWS Primary Care Provider [phone] Shanika Hillman MD Primary Care Provider [phone] Shanika Hillman MD Unavailable [phone] Jadon Devlin MD Unavailable +[phone] Marii Woods MD Primary Care Provider + [phone] Pcp, No Primary Care Provider Unavailolivia e Marii Woods MD Unavailable [phone] Marii Woods MD Primary Care Provider [phone] Marii Woods MD Unavailable [phone] Encounter Details Date Type Department Care Team (Late st Contact Info) Description 05/19/2016 Scanned Document [address] [phone] Provider, Generic Social History Tobacco Use Types [...] on filedocumented in this encounter Care Teams Call Out Operator Relationship Specialty Start Date End Date Michelle MccoyDO PCP - General Family Medicine 02/03/16 12/28/17 Shanika Hillman MD PCP - General Internal Medicine 12/29/17 09/28/19 Shanika Hillman MD [address] [place] [address] 4[address] [place] [address] PCP - C[employer] Commercial Attributed 02/14/19 05/16/19 Marii Woods MD 1060 [facility] [place] [address] PCP - General Internal Medicine 09/29/19 01/22/20 Pcp, No PCP - General 01/23/20 03/06/20 Marii Woods MD 1060 [facility] [place] [address] PCP - C[employer] Commercial Attributed 10/16/19 04/15/20 Marii Woods MD 1060 [facility] [place] [address] PCP - General Internal Medicine 03/07/20 08/07/21 Marii Woods MD 1060 [place] [address] PCP - Cigna Commercial Attributed 08/15/20 05/16/21 Jadon Devlin MD [address] [address] Gastroenterology 09/29/19 documented as of this encounter
--- OUTSIDE RECORDS SUMMARY | 2025-05-04 14:19 | XMS_ITS | Encounter Summary ---
Author Organization [facility] Address [address] [place] [address] Care Team Providers Care Bellows Tester Name Role Phone Dede Mccoyi Lorna MATHEWS Primary Care Provider [phone] Shanika Hillman MD Primary Care Provider +[phone] Shanika Hillman MD Unavailable [phone] Jadon Devlin MD Unavailable +[phone] Marii Woods MD Primary Care Provider + [phone] Pcp, No Primary Care Provider Unavailolivia e Marii Woods MD Unavailable +[phone] Marii Woods MD Primary Care Provider +[phone] Marii Woods MD Unavailable [phone] Encounter Details Date Type Department Care Team (Late st Contact Info) Description 04/01/2016 Scanned Document [address] [phone] Provider, Generic Social History Tobacco Use Types [...] on filedocumented in this encounter Care Teams Bellows Tester Relationship Specialty Start Date End Date Michelle Mccoy DO PCP - General Family Medicine 02/03/16 12/28/17 Shanika Hillman MD PCP - General Internal Medicine 12/29/17 09/28/19 Shanika Hillman MD 234 [facility] 4011 [place] [address] PCP - C[employer] Commercial Attributed 02/14/19 05/16/19 Marii Woods MD 1060 [facility] [address] PCP - General Internal Medicine 09/29/19 01/22/20 Pcp, No PCP - General 01/23/20 03/06/20 Marii Woods MD 1060 [place] [address] PCP - C[employer] Commercial Attributed 10/16/19 04/15/20 Marii Woods MD [address] [place] [address] PCP - General Internal Medicine 03/07/20 08/07/21 Marii Woods MD [address] [place] [address] PCP - C[employer] Commercial Attributed 08/15/20 05/16/21 Jadon Devlin MD [address] [place] [address] 100 [place] [address] Gastroenterology 09/29/19 documented as of this encounter
--- OUTSIDE RECORDS SUMMARY | 2025-05-04 14:19 | XMS_ITS | Clinical Summary ---
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 Not [...] IMAGING BREAST/BX/MAMMO Routine 06/06/2020 THINPREP PAP TEST (ADJUSTMENT EXAMINER) WITH HPV SCREEN Routine 07/28/2018 2:15 PM EDT Screening for cervical cancer HXAMB HEPATITIS C VIRAL RNA QUAL TMA Routine 03/01/2012 8:46 AM EDT from Last 3 Months or Most Recently Relevant to Health Maintenance Results * (ABNORMAL) Lipid panel (11/28/2020 7:11 AM EDT) Cholesterol, Total 217(H) <200 mg/dL [facility] Cholesterol, HDL 42(L) > OR = 50 mg/dL [facility] Triglycerides 187(H) <150 mg/dL [facility] LDL Cholesterol 143(H) mg/dL (calc) [facility] Comment: Reference range: <100 Desirable range <100 mg/dL for primary prevention; <70 mg/dL for patients with CHD or diabetic patients with > or = 2 CHD risk factors. LDL-C is now calculated using the Fani calculation, which is a validated novel method providing better accuracy than the Friedewald equation in the estimation of LDL-C. Jamal SS et al. VASILIY. 2013;310(17): 0830-9052 (http://education.[employer]/faq/FTU218) Cholesterol/HDL Ratio 5.2(H) <5.0 (calc) [facility] Non HDL Chol. (LDL+VLDL) 175(H) <130 mg/dL (calc) [facility] Comment: For patients with diabetes plus 1 major ASCVD risk factor, treating to a non-HDL-C goal of <100 mg/dL (LDL-C of <70 mg/dL) is considered a therapeutic option. Blood specimen (specimen) Heel structure / Unknown 11/28/2020 7:11 AM EDT 11/28/2020 7:12 AM EDT Narrative [facility] - 11/29/2020 4:14 PM EDT FASTING:YES FASTING: YES Chir[facility] S[facility]IAN[facility] LAB BLOOD ORDERABLES Final Resul t [facility] [address], [place] [address] * (ABNORMAL) IMAGING BREAST/BX/MAMMO (06/06/2020) Anatomical Region Laterality Modality Other Marii Woods MD IMG LEGACY PROCEDURES Edit ed Result - Final * ThinPrep Pap Test (Diesel Roller Operator) with HPV Screen (07/28/2018 2:15 PM [...] has been evaluated with computer assisted technology. Database Marketing Manager: OLGA Saber Hacer RAYSHAWN NL1 Comment: KN, CT(ASCP) CT screening location: [place] [address] Review Database Marketing Manager: [facility] Comment: MSM, CT(ASCP) CT screening location: [place] [address] Comment [facility] Comment: EXPLANATORY NOTE: [...] was performed using the APTIMA HPV Assay ([employer] This assay detects E6/E7 viral messenger RNA (mRNA) from 14 high-risk HPV types (16,18,31,33,35,39,45,51,52,56,58,59,66,68). The analytical performance characteristics of this assay have been determined by [employer]. The modifications have not been cleared or approved by the FDA. This assay has been validated pursuant to the CLIA regulations and is used for clinical purposes. 07/28/2018 2:15 PM EDT 07/29/2018 2:39 AM EDT Narrative Resulting Agency Comment Performing Organization Information: Site ID: [id number] Name: [facility] Address: [address] [place] [address], [place] [address] Director: Zbigniew Willson MD Shanika Hillman MD LAB AMB PATH/CYTO ORDERABLES F inal Result [facility] [address] [place] [address], [facility] [place] [address] * Hepatitis C Viral Rna Qual TMA (03/01/2012 8:46 AM EDT) Hepatitis C Viral Rna Qual Tma NONREACTIVE NONREACTIVE [facility] CONVERSION 03/01/2012 8:46 AM EDT us [facility] Final Result [facility] CONVERSION from Last 3 Months or Most Recently Relevant to Health Maintenance Insurance [facility] Care Teams Automobile Rental Agent Relationship Specialty Start Date End Date Jadon Devlin MD [address] [place] [address] Gastroenterology 09/29/19
--- OUTSIDE RECORDS SUMMARY | 2025-05-04 14:19 | XMS_ITS | Encounter Summary ---
Author Organization [facility] Address [address] [place] [address] Care Team Providers Care Machine Veneer Repairer Name Role Phone Naty Rendon MD Primary Care Provider [phone] Michelle Mccoy DO Primary Care Provider [phone] Shanika Hillman MD Primary Care Provider [phone] Shanika Hillman MD Unavailable [phone] Jadon Devlin MD Unavailable [phone] Marii Woods MD Primary Care Provider + [phone] Pcp, No Primary Care Provider Unavailabl e Marii Woods MD Unavailable [phone] Marii Woods MD Primary Care Provider + [phone] Marii Woods MD Unavailable [phone] Encounter Details Date Type Department Care Team (Late st Contact Info) Description 06/08/2015 Scanned Document [address] [phone] Provider, Generic Social History Tobacco Use Types [...] on filedocumented in this encounter Care Teams Machine Veneer Repairer Relationship Specialty Start Date End Date Naty Rendon MD PCP - General Internal Medicine 03/18/15 02/02/16 Michelle Mccoy DO PCP - General Family Medicine 02/03/16 12/28/17 Shanika Hillman MD PCP - General Internal Medicine 12/29/17 09/28/19 Shanika Hillman MD [address] [place] [address] [address] [place] [address] PCP - Cigna Commercial Attributed 02/14/19 05/16/19 Marii Woods MD [address] [facility] [place] [address] PCP - General Internal Medicine 09/29/19 01/22/20 Pcp, No PCP - General 01/23/20 03/06/20 Marii Woods MD [address] [facility] [place] [address] PCP - Cigna Commercial Attributed 10/16/19 04/15/20 Marii Woods MD [address] [facility] [place] [address] PCP - General Internal Medicine 03/07/20 08/07/21 Marii Woods MD 1060 [place] [address] PCP - Cign[employer] Commercial Attributed 08/15/20 05/16/21 Jadon Devlin MD 21 [facility] 100 [place] [address] Gastroenterology 09/29/19 documented as of this encounter
--- OUTSIDE RECORDS SUMMARY | 2025-05-04 14:19 | XMS_ITS | Encounter Summary ---
Author Organization [facility] Address [address] [place] [address] Care Team Providers Care Yardage Caller Name Role Phone Naty Rendon MD Primary Care Provider Michelle Mccoy DO Primary Care Provider [phone] Shanika Hillman MD Primary Care Provider [phone] Shanika Hillman MD Unavailable [phone] Jadon Devlin MD Unavailable [phone] Marii Woods MD Primary Care Provider [phone] Pcp, No Primary Care Provider Unavailolivia e Marii Woods MD Unavailable Marii Woods MD Primary Care Provider Marii Woods MD Unavailable [phone] Encounter Details Date Type Department Care Team (Late st Contact Info) Description 08/21/2015 Scanned Document [facility] [address] [place] [address] Naty Rendon MD [facility] [address] [place] [address] Social History Tobacco Use Types Packs/Day [...] on filedocumented in this encounter Care Teams Yardage Caller Relationship Specialty Start Date End Date Naty Rendon MD PCP - General Internal Medicine 03/18/15 02/02/16 Michelle Mccoy DO PCP - General Family Medicine 02/03/16 12/28/17 Shanika Hillman MD PCP - General Internal Medicine 12/29/17 09/28/19 Shanika Hillman MD [address] [place] [address] 4[address] [place] [address] PCP - Cigna Commercial Attributed 02/14/19 05/16/19 Marii Woods MD [address] [facility] [place] [address] PCP - General Internal Medicine 09/29/19 01/22/20 Pcp, No PCP - General 01/23/20 03/06/20 Marii Woods MD [address] [place] [address] PCP - Cigna Commercial Attributed 10/16/19 04/15/20 Marii Woods MD [address] [facility] [place] [address] PCP - General Internal Medicine 03/07/20 08/07/21 Marii Woods MD 1060 [place] [address] PCP - Cigna Commercial Attributed 08/15/20 05/16/21 Jadon Devlin MD 21 [facility] 100 [place] [address] Gastroenterology 09/29/19 documented as of this encounter
--- OUTSIDE RECORDS SUMMARY | 2025-05-04 14:19 | XMS_ITS | Encounter Summary ---
Author Organization [facility] Address [address] [place] [address] Care Team Providers Care Salesperson Sheet Music Name Role Phone Dede Mccoyi Lorna MATHEWS Primary Care Provider [phone] Shanika Hillman MD Primary Care Provider [phone] Shanika Hillman MD Unavailable [phone] Jadon Devlin MD Unavailable [phone] Marii Woods MD Primary Care Provider + [phone] Pcp, No Primary Care Provider Unavailolivia e Marii Woods MD Unavailable [phone] Marii Woods MD Primary Care Provider [phone] Marii Woods MD Unavailable [phone] Encounter Details Date Type Department Care Team (Late st Contact Info) Description 02/21/2016 Scanned Document [address] [phone] Provider, Generic Social History Tobacco Use Types [...] on filedocumented in this encounter Care Teams Salesperson Sheet Music Relationship Specialty Start Date End Date Michelle Mccoy DO PCP - General Family Medicine 02/03/16 12/28/17 Shanika Hillman MD PCP - General Internal Medicine 12/29/17 09/28/19 Shanika Hillman MD [address] [place] [address] [address] [place] [address] PCP - Cigna Commercial Attributed 02/14/19 05/16/19 Marii Woods MD [address] [place] [address] PCP - General Internal Medicine 09/29/19 01/22/20 Pcp, No PCP - General 01/23/20 03/06/20 Marii Woods MD [address] [place] [address] PCP - Cigna Commercial Attributed 10/16/19 04/15/20 Marii Woods MD [address] [place] [address] PCP - General Internal Medicine 03/07/20 08/07/21 [place] [address] [place] [address] PCP - Cigna Commercial Attributed 08/15/20 05/16/21 Jadon Devlin MD [address] [place] [address] Gastroenterology 09/29/19 documented as of this encounter
--- OUTSIDE RECORDS SUMMARY | 2025-05-04 14:19 | XMS_ITS | Encounter Summary ---
Author Organization [facility] Address [address] [place] [address] Care Team Providers Care Header Machine Operator Name Role Phone Michelle Mccoy DO Primary Care Provider [phone] Shanika Hillman MD Primary Care Provider [phone] Shanika Hillman MD Unavailable [phone] Jadon Devlin MD Unavailable [phone] Marii Woods MD Primary Care Provider Pcp, No Primary Care Provider UnavailMarii Dominguez MD Unavailable [phone] Marii Woods MD Primary Care Provider + [phone] Marii Woods MD Unavailable [phone] Encounter Details Date Type Department Care Team (Late st Contact Info) Description 03/18/2017 Scanned Document [facility] 10[address] [place] [phone] Michelle Mccoy DO [address] [place] [address] Social History Tobacco Use Types Packs/Day Years [...] on filedocumented in this encounter Care Teams Header Machine Operator Relationship Specialty Start Date End Date Michelle Mccoy DO PCP - General Family Medicine 02/03/16 12/28/17 Shanika Hillman MD PCP - General Internal Medicine 12/29/17 09/28/19 Shanika Hillman MD [address] [place] [address] 4[address] [place] [address] PCP - Cigna Commercial Attributed 02/14/19 05/16/19 Marii Woods MD [address] [facility] [place] [address] PCP - General Internal Medicine 09/29/19 01/22/20 Pcp, No PCP - General 01/23/20 03/06/20 Marii Woods MD [address] [facility] [place] [address] PCP - Cigna Commercial Attributed 10/16/19 04/15/20 Marii Woods MD [address] [facility] [place] [address] PCP - General Internal Medicine 03/07/20 08/07/21 Marii Woods MD [address] [facility] [place] [address] PCP - Cigna Commercial Attributed 08/15/20 05/16/21 Jadon Devlin MD [address] [place] [address] Gastroenterology 09/29/19 documented as of this encounter
--- OUTSIDE RECORDS SUMMARY | 2025-05-04 14:19 | XMS_ITS | Encounter Summary ---
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
--- OUTSIDE RECORDS SUMMARY | 2025-05-04 14:19 | XMS_ITS | Encounter Summary ---
Author Organization [facility] Address [address] [place] [address] Care Team Providers Care Archaeology Professor Name Role Phone Naty Rendon MD Primary Care Provider Michelle Mccoy DO Primary Care Provider [phone] Shanika Hillman MD Primary Care Provider [phone] Shanika Hillman MD Unavailable [phone] Jadon Devlin MD Unavailable [phone] Marii Woods MD Primary Care Provider + [phone] Pcp, No Primary Care Provider Unavailabl e Marii Woods MD Unavailable [phone] Marii Woods MD Primary Care Provider + [phone] Marii Woods MD Unavailable [phone] Encounter Details Date Type Department Care Team (Late st Contact Info) Description 03/26/2015 Scanned Document [address] [phone] Provider, Generic Social History Tobacco Use Types [...] on filedocumented in this encounter Care Teams Archaeology Professor Relationship Specialty Start Date End Date Naty Rendon MD PCP - General Internal Medicine 03/18/15 02/02/16 Michelle Mccoy DO PCP - General Family Medicine 02/03/16 12/28/17 Shanika Hillman MD PCP - General Internal Medicine 12/29/17 09/28/19 Shanika Hillman MD [address] [place] [address] [address] [place] [address] PCP - Cigna Commercial Attributed 02/14/19 05/16/19 Marii Woods MD 1060 [facility] [place] [address] PCP - General Internal Medicine 09/29/19 01/22/20 Pcp, No PCP - General 01/23/20 03/06/20 Marii Woods MD 1060 [facility] [place] [address] PCP - Cigna Commercial Attributed 10/16/19 04/15/20 Marii Woods MD 1060 [facility] [place] [address] PCP - General Internal Medicine 03/07/20 08/07/21 Marii Woods MD 1060 [place] [address] PCP - Cigna Commercial Attributed 08/15/20 05/16/21 Jadon Devlin MD 21 [facility] 100 [place] [address] Gastroenterology 09/29/19 documented as of this encounter
--- OUTSIDE RECORDS SUMMARY | 2025-05-04 14:19 | XMS_ITS | Encounter Summary ---
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
--- OUTSIDE RECORDS SUMMARY | 2025-05-04 14:19 | XMS_ITS | Encounter Summary ---
Author Organization [facility] Address [address] [place], [place] [address] Care Team Providers Care Irrigation Installation Specialist Name Role Phone Naty Rendon MD Primary Care Provider [phone] Michelle Mccoy DO Primary Care Provider [phone] Shanika Hillman MD Primary Care Provider [phone] Shanika Hillman MD Unavailable [phone] Jadon Devlin MD Unavailable [phone] Marii Woods MD Primary Care Provider [phone] Pcp, No Primary Care Provider UnavailMarii Dominguez MD Unavailable [phone] Marii Woods MD Primary Care Provider + [phone] Marii Woods MD Unavailable [phone] Naty Rendon MD Primary Care Provider [phone] Encounter Details Date Type Department Care Team (Late st Contact Info) Description 02/01/2015 Scanned Document [address] [phone] Provider, Generic Social History Tobacco Use Types [...] on filedocumented in this encounter Care Teams Irrigation Installation Specialist Relationship Specialty Start Date End Date Naty Rendon MD PCP - General Internal Medicine 03/18/15 02/02/16 Michelle Mccoy DO PCP - General Family Medicine 02/03/16 12/28/17 Shanika Hillman MD PCP - General Internal Medicine 12/29/17 09/28/19 Shanika Hillman MD [address] [facility] [address] [place] [address] PCP - Cigna Commercial Attributed 02/14/19 05/16/19 Marii Woods MD [address] [facility] [place] [address] PCP - General Internal Medicine 09/29/19 01/22/20 Pcp, No PCP - General 01/23/20 03/06/20 Marii Woods MD 1060 [place] [address] PCP - Cigna Commercial Attributed 10/16/19 04/15/20 Marii Woods MD [address] [facility] [place] [address] PCP - General Internal Medicine 03/07/20 08/07/21 Marii Woods MD [address] [place] [address] PCP - Cigna Commercial Attributed 08/15/20 05/16/21 Naty Rendon MD [address] [place] [address] PCP - General 03/17/15 Jadon Devlin MD [address] [place] [address] 100 [place] [address] Gastroenterology 09/29/19 documented as of this encounter
--- OUTSIDE RECORDS SUMMARY | 2025-05-04 14:19 | XMS_ITS | Encounter Summary ---
Author Organization [facility] Address [address] [place] [address] Care Team Providers Care Aligner Typewriter Name Role Phone Shanika Hillman MD Primary Care Provider Shanika Hillman MD Unavailable [phone] Jadon Devlin MD Unavailable [phone] Marii Woods MD Primary Care Provider [phone] Pcp, No Primary Care Provider Unavailolivia e Marii Woods MD Unavailable +[phone] Marii Woods MD Primary Care Provider + [phone] Marii Woods MD Unavailable [phone] Encounter Details Date Type Department Care Team (Late st Contact Info) Description 03/27/2019 Scanned Document [facility] [address] [place] [address] Shanika Hillman MD [address] [place] [address] Social History Tobacco Use Types Packs/Day [...] 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 file documented as of this encounter Plan of Treatment Not on file documented as of this encounter Visit Diagnoses Not on filedocumented in this encounter Care Teams Aligner Typewriter Relationship Specialty Start Date End Date Shanika Hillman MD PCP - General Internal Medicine 12/29/17 09/28/19 Shanika Hillman MD [address] [place] [address] 4[address] [place] [address] PCP - Cign[employer] Commercial Attributed 02/14/19 05/16/19 Marii Woods MD 1060 [place] [address] PCP - General Internal Medicine 09/29/19 01/22/20 Pcp, No PCP - General 01/23/20 03/06/20 Marii Woods MD 1060 [place] [address] PCP - Cigna Commercial Attributed 10/16/19 04/15/20 Marii Woods MD 10[address] [place] [address] PCP - General Internal Medicine 03/07/20 08/07/21 Marii Woods MD [address] [place] [address] PCP - Cigna Commercial Attributed 08/15/20 05/16/21 Jadon Devlin MD [address] [place] [address] 100 [place] [address] Gastroenterology 09/29/19 documented as of this encounter
== END 2025-05-04 13:19 | disposition home or self-care (01) ==
LOC: HO.HPHYS 12:24
PROVIDERS: PCP Physician Assistant Medical; Visit Provider Physical Medicine & Rehabilitation
DX: M53.3 Sacrococcygeal disorders, not elsewhere classified (principal); M46.1 Sacroiliitis, not elsewhere classified
CPT/HCPCS: 27096